=== PATIENT | female | born 1935 | race Asian ===

== ENCOUNTER 2016-08-11 14:11 | Inpatient (IN) | payer MEDICARE, OTHER ==
[~2016-08-11] VITALS: Ht 144.8 cm; Wt 41.0 kg
[~2016-08-11 14:11] MED LIST: ACET-514 PO
[2016-08-11] MEDS ORDERED: SODIUM CHLORIDE 0.9% 1L BAG IV* STA ×2 (15:12→18:48)
[2016-08-11] MEDS ORDERED: CEFEPIME 2GM/50 ML (PMX) 50 ML IVPB STA (15:12)
[2016-08-11] MEDS ORDERED: VANCOMYCIN 1 GM (PMX) 250 ML IVPB ONE (15:30)
[2016-08-11 15:45] LABS: AADO2 Arterial 26.2 mmHg (7.0-24.0); Allen Test ACCEPTAB; Arterial Base Excess 9.5 mmol/L (-3.0-3); Arterial COHb 0.3 % (0.0-3.0); Arterial Fraction of Oxyhgb 92.3 % (93.0-99.0); Arterial MetHb 0.2 % (0.0-1.5); Arterial Total Hemglobin 11.3 g/dl (12.0-18.0); MODE ROOM AIR
[2016-08-11 15:52] LABS: ADD SCAN DIFF NO
[2016-08-11 15:54] LABS: ABNORMAL IP MESSAGE 1
[2016-08-11 16:08] LABS: HEMATOCRIT 39.4 % (37.0-47.0); HEMOGLOBIN 12.5 g/dl (12.0-16.0); MEAN CORPUSCULAR HEMOGLOBIN 32.2 pg (29.0-33.0); MEAN CORPUSCULAR HGB CONC 31.7 g/dl (32.0-37.0); MEAN CORPUSCULAR VOLUME 101.5 fl (82.0-101.0); MEAN PLATELET VOLUME 13.4 fl (7.4-10.4); PLATELET COUNT 240 10^3/UL (140-415); RED BLOOD COUNT 3.88 10^6/ul (4.20-5.40); RED CELL DISTRIBUTION WIDTH 15.3 % (11.5-14.5); WHITE BLOOD COUNT 22.8 10^3/ul (4.8-10.8)
[2016-08-11 16:15] LABS: INR 1.15; PARTIAL THROMBOPLASTIN TIME 28.9 Sec (25.0-35.0); PROTIME 14.7 Sec (12.2-14.2); PT RATIO 1.1
[2016-08-11 16:28] LABS: ALBUMIN 2.6 g/dl (3.3-4.9)
[2016-08-11 16:29] LABS: POTASSIUM 3.5 mmol/L (3.5-5.1)
[2016-08-11 16:31] LABS: ALBUMIN/GLOBULIN RATIO 0.68; BILIRUBIN,INDIRECT 0.1 mg/dl (0-1.1); BILIRUBIN,TOTAL 0.1 mg/dl (0.2-1.3); CREATININE 3.28 mg/dl (0.44-1.00); TOTAL PROTEIN 6.4 g/dl (6.1-8.1)
--- NOTE | 2016-08-11 16:33 | RADRPT ---
PROCEDURE: XR Chest. CLINICAL INDICATION: 80-year-old female with possible sepsis. TECHNIQUE: PA and Lateral views of the chest were obtained. COMPARISON: Chest x-ray 12/02/2008. FINDINGS: The soft tissues are normal. The bony elements are rarefied. There is a levoscoliosis of the thora columbar junction which has worsened when compared to the prior exam. The heart, cardiomediastinal silhouette and hilar structures are normal. The pulmonary vasculature is normal. There are vascular calcifications and ectasia of the left-sided thoracic aorta. There is atelectasis in the right middl e lobe and right lower lobe with elevation of the right diaphragm which is worse when compared to th e prior exam. There are interstitial changes in the left perihilar area and left lower lobe. A sub pulmonic right pleural effusion is not excluded. The left costophrenic angle is clear. IMPRESSION: 1. Right middle lobe and right lower lobe consolidative infiltrates and atelectasis. A subpulmonic r ight pleural effusion is not excluded. 2. Atherosclerosis with ectasia of the thoracic aorta. 3. There are interstitial infiltrates in the left hilar area and left lower lobe which may be chron ic or acute. They are not identified on the prior study of 12/02/2008. 4. Rarefaction of bony elements with a levoscoliosis at the thoracolumbar junction. 5. Spondylosis of the thoracic spine. RPTAT:AAJJ Physician Lucila Date Time Electronically viewed and signed by Isrrael Hennessy Physician on 08/11/2016 16:32 ROXI/
[2016-08-11 16:41] LABS: TROPONIN-I 0.094 ng/ml (0.00-0.12)
[2016-08-11 16:52] LABS: EOSINOPHILS # 0.7 10^3/ul (0.0-0.5); MONOCYTE # 0.7 10^3/ul (0.3-0.9); MYELOCYTES # 0.2
[2016-08-11 16:55] LABS: TOXIC GRANULATION OCCASIONAL
[2016-08-11 16:56] LABS: POLYCHROMASIA FEW; SPHEROCYTES FEW
[2016-08-11 16:57] LABS: PLATELET ESTIMATE PLT APPEAR ADEQUATE; STOMATOCYTES FEW
[2016-08-11] MEDS ORDERED: ONDANSETRON 4 MG INJ IV PRN (19:00)
[2016-08-11 19:24] LABS: ADD UMIC YES; URINE BILIRUBIN (Dip) NEGATIVE (NEGATIVE); URINE BLOOD (Dip) 2+ (NEGATIVE); URINE COLOR LT. YELLOW (YELLOW); URINE GLUCOSE (Dip) NEGATIVE (NEGATIVE); URINE KETONES (Dip) NEGATIVE (NEGATIVE); URINE LEUKOCYTE ESTERASE (Dip) TRACE (NEGATIVE); URINE NITRITE (Dip) NEGATIVE (NEGATIVE); URINE TOTAL PROTEIN (Dip) 1+ (NEGATIVE); URINE UROBILINOGEN (Dip) 0.2 E.U./dL (0.1-1.0)
[2016-08-11] MEDS ORDERED: ONDANSETRON 4 MG INJ IV STA (19:35)
[2016-08-11 19:47] LABS: SQUAMOUS EPITHELIAL CELL,UR FEW
[2016-08-11 19:48] LABS: BACTERIA,URINE OCCASIONAL
[2016-08-11] MEDS ORDERED: VANCOMYCIN IV PER PHARMACY XX SCH (20:00)
--- NOTE | 2016-08-11 21:01 | ERA ---
ER Documentation Chief Complaint Date/Time DATE: 08/11/16 TIME: 20:40 Chief Complaint LEAKING CATH WITH DECUB ULCER X WK HPI This is an 80-year-old female, with advanced onset Alzheimer's, bedbound, who lives with her children who help her to attend to her activities of daily living. The patient has known sacral decubitus ulcers and was recently placed on Augmentin 4 days ago by her primary care physician, and she was evaluated in his office, Dr. Manning. Her son brought her to the emergency department today as he indicates that he has noticed more drainage from her ulcer site. She has not had any fever shaking or chills. The patient is unable to take anything by mouth and therefore has a PEG tube which was placed roughly 18 months ago, and not changed, and receives feedings through the PEG tube. Her son indicates he is also noticed a small amount of leakage around the PEG tube site over the past several days. She has had decreased urinary output. The son also indicates that the patient is a DO NOT RESUSCITATE, with no intubation, no shock, no CPR, but will allow for vasopressors and a chemical code if required. ROS All systems reviewed and are negative except as per history of present illness. Medications Home Meds Reported Medications Acetaminophen (Acetaminophen) 325 Mg Tablet, 325 MG PO DAILY 08/05/12 Allergies Allergies: Coded Allergies: No Known Allergy (Unverified , 08/11/16) PMhx/Soc History of Surgery: Yes (L THR 2007, 3 C SECTION) Anesthesia Reaction: No Hx Neurological Disorder: No Hx Respiratory Disorders: No Hx Cardiac Disorders: No Hx Psychiatric Problems: No Hx Miscellaneous Medical Probl: No (END STAGE OF ALHEIMERZ, VEGETATIVE STATE) Hx Alcohol Use: No Hx Substance Use: No Hx Tobacco Use: No Smoking Status: Former smoker Physical Exam Vitals Vital Signs Date Time Temp Pulse Resp B/P Pulse Ox O2 Delivery O2 Flow Rate FiO2 08/11/16 18:30 99.0 83 29 93/64 100 Mask 10.0 08/11/16 14:20 98.7 105 16 77/52 94 Physical Exam Constitutional: Cachectic debilitated bedbound female HEENT:Normocephalic. Atraumatic.Pupils were equal round reactive to light. Very dry mucous membranes.No tonsillar exudates. Neck: No nuchal rigidity. No lymphadenopathy. No posterior cervical spine tenderness or step-offs. Respiratory: Not using accessory muscles of respiration. Decreased breath sounds heard in the right lower lobe with no rhonchi. No rales. No wheezing. Cardiovascular: Tachycardic with regular rhythm.No murmurs. No rubs were appreciated.S1, S2 normal. Distal pulses are palpable 2+ bilaterally. GI: Abdomen was soft. Nontender. Non Distended. No pulsatile abdominal masses or bruits. No rebound. No guarding. Bowel sounds were present and normal. G- tube present with no purulent drainage and significant deterioration of the tubing with inability to deflate the balloon and surrounding sclerotic tissue over the ostomy site and no subcutaneous emphysema or tenderness appreciated. Muscle skeletal: Muscle atrophy in the lower and upper extremities. Flexion contraction of the upper and lower extremities Skin: No petechia, no purpura. No lesions on the palms or the soles of the feet. No maculopapular rash. Well-circumscribed 3 cm diameter stage IV sacral decubitus ulcer. 2 well-circumscribed 1 cm in diameter stage II ulcers with purulent drainage over the left buttocks and no surrounding subcutaneous emphysema. NEURO: Bedbound. Aphasic. Does not follow verbal commands. Opens eyes in response to pain Result Diagram: 08/11/16 1500 08/11/16 1500 Results 24 hrs Laboratory Tests Test 08/11/16 15:00 08/11/16 15:12 08/11/16 18:10 08/11/16 19:04 White Blood Count 22.810^3/ul Red Blood Count 3.8810^6/ul Hemoglobin 12.5g/dl Hematocrit 39.4% Mean Corpuscular Volume 101.5fl Mean Corpuscular Hemoglobin 32.2pg Mean Corpuscular Hemoglobin Concent 31.7g/dl Red Cell Distribution Width 15.3% Platelet Count 70587^3/UL Mean Platelet Volume 13.4fl Neutrophils % 80.0% Band Neutrophils % 1.0% Lymphocytes % 13.0% Monocytes % 3.0% Eosinophils % 3.0% Myelocytes % 0.0% Nucleated Red Blood Cells % 2.0/100WBC Neutrophils # 18.010^3/ul Lymphocytes # 3.010^3/ul Monocytes # 0.710^3/ul Eosinophils # 0.710^3/ul Myelocytes # 0.2 Differential Comment Toxic Granulation OCCASIONAL Platelet Estimate PLT APPEAR ADEQUATE Large Platelets FEW Giant Platelets FEW Polychromasia FEW Spherocytes FEW Stomatocytes FEW Rouleau FEW Prothrombin Time 14.7Sec Prothrombin Time Ratio 1.1 INR International Normalized Ratio 1.15 Activated Partial Thromboplast Time 28.9Sec Sodium Level 164mmol/L Potassium Level 3.5mmol/L Chloride Level 116mmol/L Carbon Dioxide Level 32mmol/L Anion Gap 20 Blood Urea Nitrogen 211mg/dl Creatinine 3.28mg/dl Glucose Level 204mg/dl Lactic Acid Level 4.3mmol/L 1.7mmol/L Calcium Level 7.0mg/dl Total Bilirubin 0.1mg/dl Direct Bilirubin 0.00mg/dl Indirect Bilirubin 0.1mg/dl Aspartate Amino Transf (AST/SGOT) 25IU/L Alanine Aminotransferase (ALT/SGPT) 25IU/L Alkaline Phosphatase 60IU/L Troponin I 0.094ng/ml Total Protein 6.4g/dl Albumin 2.6g/dl Globulin 3.80g/dl Albumin/Globulin Ratio 0.68 Amylase Level 80U/L Lipase 144U/L Blood Gas Specimen Source Blood arterial Arterial Blood Date Drawn 08/11/2016 3:39:53 PM Arterial Blood pH (Temp corrected) 7.490 Arterial Blood pCO2 (Temp correct) 45.6mmhg Arterial Blood pO2 (Temp corrected) 68.9mmHG Arterial Blood HCO3 34.0mmol/L Arterial Blood Base Excess 9.5mmol/L Arterial Blood Oxygen Saturation 92.8mmHG [place] Test ACCEPTAB Arterial Blood Gas Puncture Site Right Radial Arterial Blood Carboxyhemoglobin 0.3% Arterial Blood Methemoglobin 0.2% Blood Gas A-a O2 Differential 26.2mmHg Oxyhemoglobin Percent 92.3% Total Hemoglobin 11.3g/dl Blood Gas Temperature 37.0C Blood Gas Modality ROOM AIR FiO2 21.0% Blood Gas Notified Whom M.D. Blood Gas Notified Time 08/11/2016 3:45:22 PM Urine Color LT. YELLOW Urine Clarity CLEAR Urine pH 7.0 Urine Specific [place] 1.010 Urine Ketones NEGATIVE Urine Nitrite NEGATIVE Urine Bilirubin NEGATIVE Urine Urobilinogen 0.2 E.U./dL Urine Leukocyte Esterase TRACE Urine Microscopic RBC 2-5/HPF Urine Microscopic WBC 0-2/HPF Urine Squamous Epithelial Cells FEW Urine Bacteria OCCASIONAL Urine Hemoglobin 2+ Urine Glucose NEGATIVE% Urine Total Protein 1+ Current Medications Medications (Trade) Dose Ordered Sig/Jocelin Route PRN Reason Start Time Stop Time Status Last Admin Dose Admin Sodium Chloride 1160 ml 1,160 ml BOLUS OVER 2 HOURS STAT IV* 08/11/16 15:12 08/11/16 15:16 DC 08/11/16 15:36 Cefepime HCl 50 ml @ 100 mls/hr ONCE STAT IVPB 08/11/16 15:12 08/11/16 15:41 DC 08/11/16 15:36 Vancomycin HCl (Vancocin) 250 ml @ 125 mls/hr ONCE ONCE IVPB 08/11/16 15:30 08/11/16 17:29 DC 08/11/16 15:37 Sodium Chloride (NS) 1,160 ml BOLUS OVER 2 HOURS STAT IV* 08/11/16 18:48 08/11/16 19:06 DC 08/11/16 19:13 Ondansetron HCl (Zofran Inj) 4 mg ER BRIDGE PRN IV NAUSEA AND/OR VOMITING 08/11/16 19:00 08/12/16 18:59 Vancomycin HCl VANCOMYCIN PER PHARMACY PER PROTOCOL XX 08/11/16 20:00 Cefepime HCl 50 ml @ 100 mls/hr Q24H IVPB 08/12/16 15:00 Sodium Chloride (NS) 1,000 ml @ 100 mls/hr Q10H IV 08/11/16 20:00 Acetaminophen (Tylenol Tab) 325 mg Q4H PRN GTB PAIN AND FEVER 08/11/16 20:00 Morphine Sulfate (morphine) 1 mg Q4H PRN IV PAIN LEVEL 6-10 08/11/16 20:00 Ondansetron HCl (Zofran Inj) 4 mg ONCE STAT IV 08/11/16 19:35 08/11/16 19:45 DC Procedures/MDM This patient presented to the emergency department with concern for infected sacral decubitus ulcers. The patient had SIRS criteria and septic shock given that the patient's lactate was greater than 4 and the source appeared to be from the patient's decubitus ulcers. Patient's infectious symptoms have not stabilized and the patient is at risk of rapid decompensation. The patient will be admitted for careful hydration, antibiotic therapy, and infectious source control. Severe Sepsis Assessment: Infectious Source: Sacral decubitus ulcers End organ damage indicated by: Lactate > 2.0 mmol/L Hypotension( SBP < 90 or >40 mmHG drop or MAP < 65) Acute Resp Failure (sat < 92% w/o oxygen) Senior Graduate Advisor > 2.0 Severe Sepsis Managment: Blood Cultures X 2 before broad spectrum antibiotics initiated within 3 hours of recognition. 30 ml/kg NS bolus Completed Initial Lactate: 4.3 Repeat Lactate 1.4 Septic Shock Assessment (1 hour post 30 ml/kg fluid bolus): Hypotension (SBP < 90 or 40 mmHg drop, MAP < 65): YES Lactic acid > 4.0 YES Perfusion Reassessment for Septic Shock: Temp 99.0, Pulse 83, RR 29, BP 93/64 Heart Exam: Normal Lung Exam: No Crackles Capillary Refill: Delayed Peripheral Pulses: Radially present Skin: normal Hypotensive Treatment (not required for isolated lactic acid elevation): Comfort Care: No Central LIne: Not placed as the patient is a DO NOT RESUSCITATE and therefore her son was indicating no invasive procedures Vasopressor started: Not started given that the patient's blood pressure had improved after given IV fluid bolus I considered further perfusion assessment with CVP measurement, SCVO2, bedside ultrasound volume assessment, passive leg raise, trial of further fluid bolus. And preceded with IV fluids. The patient had significant electrolyte abnormalities. The patient was in severe renal failure with a BUN of 211 and a creatinine of 3.18. The patient's serum sodium was 164. This could be prerenal from severe clinical dehydration and the patient will be receiving IV fluids to improve her electrolyte abnormalities. I informed the son of the patient's grave prognosis and her new onset renal failure and he did indicate given that the patient is a DO NOT RESUSCITATE that he would not want the patient to undergo hemodialysis at this time if required. The patient has a PEG tube that has been present for over 18 months. I attempted to remove the PEG tube but came across significant resistance and therefore was unable to replace the G-tube at this time. Also obtained a chest radiograph which indicated the following reviewed by myself the radiologist: 1. Right middle lobe and right lower lobe consolidative infiltrates and atelectasis. A subpulmonic right pleural effusion is not excluded. 2. Atherosclerosis with ectasia of the thoracic aorta. 3. There are interstitial infiltrates in the left hilar area and left lower lobe which may be chronic or acute. They are not identified on the prior study of 12/02/2008. 4. Rarefaction of bony elements with a levoscoliosis at the thoracolumbar junction. 5. Spondylosis of the thoracic spine. The patient was hypoxic and placed on a nonrebreather as the patient is a DO NOT RESUSCITATE with chemical code only. She did receive a nebulizer treatment of albuterol and Atrovent as she had began to have increased work of breathing and afterwards her respiratory distress had improved I spoke with Dr. Gillette who is taking call for Dr. Manning and the patient will be admitted to the telemetry service with an anticipated stay of greater than 2 midnights in serious condition for septic shock with pneumonia and infected ulcers. 12 Lead EKG tracing ordered and reviewed by myself showed: Normal sinus rhythm of 91 bpm and no arrhythmia. NV interval normal. QRS duration normal. No ST segment elevation No ST segment depression. T-wave inversion in the lateral leads V4 V5 V6 Critical Care: Time: 60 minutes Treatments/Evaluations: Close monitoring and treatment of unstable vital signs, cardiorespiratory, and neurologic status, while maintaining tight balance of fluid, respiratory, and cardiac interventions. Time does not include performing any of the above billable procedures. Departure Diagnosis: Primary Impression: Pneumonia Qualified Code: J18.1 - Pneumonia of right lower lobe due to infectious organism Additional Impressions: Septic shock Infected decubitus ulcer Qualified Code: L89.93 - Infected decubitus ulcer, stage III Renal failure Acute hypernatremia Condition: Serious NGHIADONTAE August 11, 2016 20:51
[2016-08-11] MEDS ORDERED: ALBUTEROL 0.5% (NEB) 2.5 MG/0.5 ML AMP INH STA (21:18)
[2016-08-11] MEDS ORDERED: IPRATROPIUM (NEB) 0.5 MG/2.5 ML AMP INH STA (21:18)
[2016-08-11] MEDS: SOD CHLORIDE 0.9% 1,000 ML IV SCH (23:30)
[2016-08-12 05:30] VITALS: TEMP 99
[2016-08-12 05:52] LABS: ADD SCAN DIFF NO
[2016-08-12] MEDS: SOD CHLORIDE 0.9% 1,000 ML IV SCH (05:54)
[2016-08-12 06:05] LABS: ABNORMAL IP MESSAGE 1; HEMATOCRIT 35.9 % (37.0-47.0); HEMOGLOBIN 10.3 g/dl (12.0-16.0); MEAN CORPUSCULAR HEMOGLOBIN 31.2 pg (29.0-33.0); MEAN CORPUSCULAR HGB CONC 28.7 g/dl (32.0-37.0); MEAN CORPUSCULAR VOLUME 108.8 fl (82.0-101.0); MEAN PLATELET VOLUME 12.5 fl (7.4-10.4); PLATELET COUNT 156 10^3/UL (140-415); RED CELL DISTRIBUTION WIDTH 14.8 % (11.5-14.5); WHITE BLOOD COUNT 19.1 10^3/ul (4.8-10.8)
[2016-08-12 06:13] LABS: POTASSIUM 3.5 mmol/L (3.5-5.1)
[2016-08-12 06:15] LABS: CREATININE 2.26 mg/dl (0.44-1.00)
[2016-08-12 06:16] LABS: CALCIUM 6.7 mg/dl (8.4-10.2)
--- NOTE | 2016-08-12 06:34 | HP ---
DATE OF ADMISSION: 08/11/2016 ADMISSION DIAGNOSIS: Decubiti ulcers cellulitis, dehydration, diarrhea. HISTORY OF PRESENT ILLNESS: This is an 80-year-old Alzheimer's patient who has severe Alzheimer's, does not talk, does not move, stays in one place. The family for the past 5 years have been excelle nt with their care for her. At this time, the family reports that she has gotten 2 ulcers that keep getting worse and started to produce fluid and pus. They report no fevers or chills. She has been having more loose bowel movements in the past 1 week. They also report that the G-tube is function ing, but it has to be with pressure for the fluids to flow, otherwise it backs up. The patient is u sing 4 to 6 cans of some type of protein drink per day. PAST MEDICAL HISTORY: Alzheimer's, decubiti ulcers, left hip fracture status post surgery, dysphag ia, G-tube was placed. MEDICATIONS: Has been aspirin intermittently. SOCIAL HISTORY: Denies alcohol and tobacco. FAMILY HISTORY: Denies. PHYSICAL EXAMINATION: GENERAL: The patient has been brought in by paramedics. The patient does not speak, curled up in a ball, arms and legs are contracted. HEENT: Eyes have goop bilaterally, yellowish. CARDIOVASCULAR: Regular rate and rhythm. LUNGS: Clear to auscultation bilaterally. ABDOMEN: Nontender, nondistended. EXTREMITIES: Lower extremities, no pitting edema. SKIN: On the buttocks region, there are 2 ulcerations, left side is a dime-sized lesion through the skin. Right side over the sacrum about the size of a half dollar deeper down to the muscle. At t he smaller site, brownish liquid is being discharged. No surrounding erythema is noted. ASSESSMENT AND PLAN: 1. Decubiti ulcers. The patient is unable to treat herself and unable to communicate. We will sta rt p.o. antibiotics while waiting for a bed. Called a little earlier and no beds are currently avai lable. We will start her on Augmentin suspension b.i.d. Goal is, once in the hospital to get a cu lture, have ID see her. Have the special effects specialist address the wound and treat. 2. Gastrointestinal. The patient has been having loose stool, unclear etiology. We will evaluate when the patient is in the hospital. The patient does have a G-tube in place. We will have the gas troenterologist to come by to evaluate for the difficulty in fluid flow. The patient used to be on Jevity in the past, 4 to 6 cans of it. We will continue something like this while in the hospital. We will also wait for the blood test reports to determine how dehydrate she possibly could be. Filippo l not run IV fluids at this time unless the creatinine comes back elevated. 3. Alzheimer's. The patient is severely Alzheimer's, on no medications. No treatment at this time . The patient does not ambulate. 4. Pulmonary. Family reported that they thought she was congested, but on exam unable to determine any type of congestion noted. We will get a chest x-ray at some stage if that is even possible. T he patient will be on antibiotics anyways for the decubiti ulcers, so that should help out. Dictated By: QIANA OLMEDO/FIDELIA Conf#: [id number] DID#: [id number]
[2016-08-12 06:55] LABS: LYMPHOCYTES # 0.8 10^3/ul (0.8-2.9); MONOCYTE # 0.4 10^3/ul (0.3-0.9); MYELOCYTES # 0.2; NEUTROPHIL # 16.2 10^3/ul (1.6-7.5)
[2016-08-12] MEDS ORDERED: DEXTROSE 5% WATER 500 ML BAG IV ONE (08:30)
[2016-08-12] MEDS ORDERED: DEXTROSE 5%-0.45% NACL 1,000 ML IV SCH (09:41)
[2016-08-12] MEDS ORDERED: ONDANSETRON 4 MG INJ IV PRN (10:00)
[2016-08-12] MEDS ORDERED: NACL 0.9% 3 ML SYG IV SCH (10:00)
[2016-08-12] MEDS ORDERED: ACETAMINOPHEN 650 MG SUPP PR PRN (10:00)
--- NOTE | 2016-08-12 11:01 | CONS ---
Date/Time of Note Date/Time of Note DATE: 08/12/16 TIME: 10:52 Assessment/Plan Assessment/Plan Chief Complaint/Hosp Course 1) ARF u/a does not suggest infection, likely due to dehydration 2) pneumonia check procalcitonin get nasal swab for MRSA continue with vanco, change cefepime to zosyn likely aspiration 3) sacral wound ulcer, likely osteo check ESR, CRP and if very high then would treat as if osteomyelitis if not very high will order bone scan for ultimate healing if this is indeed osteo she will likely need plastic surgery involvement her low albumin suggest she would have poor tissue healing will get wound cx of deeper wound 4) severe dementia Problems: Consultation Date/Type/Reason Admit Date/Time Date of Consultation: August 12, 2016 Type of Consultation: ID Hx of Present Illness 80 yo female brought in to ER due to SOB. She has known decubitus ulcer and was await hospitalization for that but no beds were available. The son denies F, C, NS. She has some recent chest congestion and her g-tube started to have stomach contents come out from the site She has some soft stools recently. She is severely demented and unable to give a history. Past Medical History dementia, L hip fx, Past Surgical History g-tube placement, L hip fx repair Social History Smoking Status: Former smoker Exam/Review of Systems Vital Signs Vitals Vital Signs Date Time Temp Pulse Resp B/P Pulse Ox O2 Delivery O2 Flow Rate FiO2 08/12/16 10:02 67 20 123/65 97 Mask 5.0 08/12/16 05:30 99.0 Exam opens eyes but no response to speech and does not track with eyes Constitutional: non-verbal Head: normocephalic Eyes: nl sclera ENMT: other (dry mucus membranes) Respiratory: clear to auscultation, diminished breath sounds Cardiovascular: regular rate and rhythm Gastrointestinal: non-tender, other (g-tube site is ok), soft Extremities: other (sacral area shows 2cm size ulcer with only thin tissue covering bone, left lateral are 2 other uclers but not as deep) Neurological: other (pt is in contractures) Results Result Diagram: 08/12/16 0535 08/12/16 0535 Results 24 hrs Laboratory Tests Test 08/11/16 15:00 08/11/16 15:12 08/11/16 18:10 08/11/16 19:04 White Blood Count 22.8 H Red Blood Count 3.88 L Hemoglobin 12.5 Hematocrit 39.4 Mean Corpuscular Volume 101.5 H Mean Corpuscular Hemoglobin 32.2 Mean Corpuscular Hemoglobin Concent 31.7 L Red Cell Distribution Width 15.3 H Platelet Count 240 Mean Platelet Volume 13.4 H Neutrophils % 80.0 H Band Neutrophils % 1.0 Lymphocytes % 13.0 L Monocytes % 3.0 Eosinophils % 3.0 Myelocytes % 0.0 Nucleated Red Blood Cells % 2.0 H Neutrophils # 18.0 H Lymphocytes # 3.0 H Monocytes # 0.7 Eosinophils # 0.7 H Myelocytes # 0.2 Differential Comment Toxic Granulation OCCASIONAL Platelet Estimate PLT APPEAR ADEQUATE Large Platelets FEW Giant Platelets FEW Polychromasia FEW Spherocytes FEW Stomatocytes FEW Rouleau FEW Prothrombin Time 14.7 H Prothrombin Time Ratio 1.1 INR International Normalized Ratio 1.15 Activated Partial Thromboplast Time 28.9 Sodium Level 164 *H Potassium Level 3.5 Chloride Level 116 H Carbon Dioxide Level 32 H Anion Gap 20 H Blood Urea Nitrogen 211 H Creatinine 3.28 H Glucose Level 204 Lactic Acid Level 4.3 *H 1.7 Calcium Level 7.0 L Total Bilirubin 0.1 L Direct Bilirubin 0.00 Indirect Bilirubin 0.1 Aspartate Amino Transf (AST/SGOT) 25 Alanine Aminotransferase (ALT/SGPT) 25 Alkaline Phosphatase 60 Troponin I 0.094 Total Protein 6.4 Albumin 2.6 L Globulin 3.80 H Albumin/Globulin Ratio 0.68 Amylase Level 80 Lipase 144 Blood Gas Specimen Source Blood arterial Arterial Blood Date Drawn 08/11/2016 3:39:53 PM Arterial Blood pH (Temp corrected) 7.490 H Arterial Blood pCO2 (Temp correct) 45.6 H Arterial Blood pO2 (Temp corrected) 68.9 L Arterial Blood HCO3 34.0 H Arterial Blood Base Excess 9.5 H Arterial Blood Oxygen Saturation 92.8 L [place] Test ACCEPTAB Arterial Blood Gas Puncture Site Right Radial Arterial Blood Carboxyhemoglobin 0.3 Arterial Blood Methemoglobin 0.2 Blood Gas A-a O2 Differential 26.2 H Oxyhemoglobin Percent 92.3 L Total Hemoglobin 11.3 L Blood Gas Temperature 37.0 Blood Gas Modality ROOM AIR FiO2 21.0 Blood Gas Notified Whom [place] Blood Gas Notified Time 08/11/2016 3:45:22 PM Urine Color LT. YELLOW Urine Clarity CLEAR Urine pH 7.0 Urine Specific [place] 1.010 Urine Ketones NEGATIVE Urine Nitrite NEGATIVE Urine Bilirubin NEGATIVE Urine Urobilinogen 0.2 E.U./dL Urine Leukocyte Esterase TRACE H Urine Microscopic RBC 2-5 Urine Microscopic WBC 0-2 Urine Squamous Epithelial Cells FEW Urine Bacteria OCCASIONAL Urine Hemoglobin 2+ H Urine Glucose NEGATIVE Urine Total Protein 1+ H Test 08/11/16 19:45 08/12/16 05:35 Lactic Acid Level 1.9 3.7 H White Blood Count 19.1 H Red Blood Count 3.30 L Hemoglobin 10.3 L Hematocrit 35.9 L Mean Corpuscular Volume 108.8 H Mean Corpuscular Hemoglobin 31.2 Mean Corpuscular Hemoglobin Concent 28.7 L Red Cell Distribution Width 14.8 H Platelet Count 156 # Mean Platelet Volume 12.5 H Neutrophils % 85.0 H Band Neutrophils % 7.0 H Lymphocytes % 4.0 L Monocytes % 2.0 Eosinophils % Metamyelocytes % 1.0 H Myelocytes % 1.0 H Neutrophils # 16.2 H Lymphocytes # 0.8 Monocytes # 0.4 Eosinophils # Metamyelocytes # 0.2 Myelocytes # 0.2 Sodium Level 172 *H Potassium Level 3.5 Chloride Level 128 H Carbon Dioxide Level 31 Anion Gap 17 H Blood Urea Nitrogen 163 H Creatinine 2.26 #H Glucose Level 214 Calcium Level 6.7 L B-Type Natriuretic Peptide 1030 H Medications Medications Current Medications Acetaminophen (Tylenol Tab) 325 mg Q4H PRN GTB PAIN AND FEVER; Start 08/11/16 at 20:00 Morphine Sulfate 1 mg 1 mg Q4H PRN IV PAIN LEVEL 6-10; Start 08/11/16 at 20:00 Dextrose 1,000 ml @ 100 mls/hr Q10H IV ; Start 08/12/16 at 08:30 Piperacillin Sod/ Tazobactam Sod (Zosyn 2.25gm/ 50ml (Pmx)) 50 ml @ 100 mls/hr Q8 ONCE IVPB ; Start 08/12/16 at 14:00; Stop 08/12/16 at 14:29; Status UNV ERNIE MILLER MD August 12, 2016 11:01
[2016-08-12] MEDS: DEXTROSE 5% 1,000 ML IV SCH ×2 (11:30→16:43)
[2016-08-12 12:38] VITALS: PULSE 72
[2016-08-12] MEDS ORDERED: LEVALBUTEROL (NEB) 0.63 MG/3 ML AMP HHN SCH (13:00)
[2016-08-12 13:07] VITALS: Ht 144.8 cm; Wt 41.0 kg
[2016-08-12] MEDS ORDERED: CEFEPIME 1GM/50 ML (PMX) 50 ML IVPB SCH (15:00)
[2016-08-12 15:27] LABS: CALCIUM 6.2 mg/dl (8.4-10.2); CREATININE 1.71 mg/dl (0.44-1.00)
[2016-08-12 15:37] LABS: POTASSIUM 2.8 mmol/L (3.5-5.1)
[2016-08-12 16:19] VITALS: BP 85/47; RESP 18
[2016-08-12 16:21] VITALS: PULSE 73
[2016-08-12] MEDS ORDERED: POTASSIUM CHLORIDE 20 MEQ POWDER FOR ORAL SOLN GTB ONE (16:30)
[2016-08-12] MEDS: PIPER-TAZO 2.25 GM (PMX) 50 ML IVPB SCH ×2 (16:34→21:39)
[2016-08-12 20:22] VITALS: PULSE 68
[2016-08-12 20:34] VITALS: BP 82/49; RESP 19
[2016-08-12] MEDS: morphine 2 MG INJ IV PRN (21:38)
[2016-08-12] MEDS: NACL IV SCH (21:38)
[2016-08-12] MEDS: DEXTROSE IV SCH (21:38)
[2016-08-12] MEDS: POTASSIUM CHLORIDE IV SCH (21:38)
--- NOTE | 2016-08-12 21:48 | CONS ---
Date/Time of Note Date/Time of Note DATE: 08/12/16 TIME: 21:39 Assessment/Plan Assessment/Plan Chief Complaint/Hosp Course 1)severe dehydration poor po's, renal loss due to high glucose, PLAN: cont slow rehydration may need to change G tube for newer one, prob may be better to give more free water (d5w 20 %ns) Problems: Consultation Date/Type/Reason Admit Date/Time Date of Consultation: August 12, 2016 Type of Consultation: ge Reason for Consultation sepsis Hx of Present Illness 80 yo arabic female with dementia,g tube feeding and decubiti pt has increased wbc with left shift and severe dehydration na 172 and glucose>400 Subjective hx not possible: pt non-verbal Constitutional: chills, disoriented, poor po ENT: no complaints Gastrointestinal: diarrhea Neurologic: confusion Social History Smoking Status: Never smoker Exam/Review of Systems Vital Signs Vitals Vital Signs Date Time Temp Pulse Resp B/P Pulse Ox O2 Delivery O2 Flow Rate FiO2 08/12/16 20:34 97.6 79 19 82/49 96 08/12/16 12:30 Simple Mask 6.0 Results Result Diagram: 08/12/16 0535 08/12/16 1449 Results 24 hrs Laboratory Tests Test 08/12/16 05:35 08/12/16 14:49 08/12/16 20:01 White Blood Count 19.1 H Red Blood Count 3.30 L Hemoglobin 10.3 L Hematocrit 35.9 L Mean Corpuscular Volume 108.8 H Mean Corpuscular Hemoglobin 31.2 Mean Corpuscular Hemoglobin Concent 28.7 L Red Cell Distribution Width 14.8 H Platelet Count 156 # Mean Platelet Volume 12.5 H Neutrophils % 85.0 H Band Neutrophils % 7.0 H Lymphocytes % 4.0 L Monocytes % 2.0 Eosinophils % Metamyelocytes % 1.0 H Myelocytes % 1.0 H Neutrophils # 16.2 H Lymphocytes # 0.8 Monocytes # 0.4 Eosinophils # Metamyelocytes # 0.2 Myelocytes # 0.2 Sodium Level 172 *H 155 #H Potassium Level 3.5 2.8 *L Chloride Level 128 H 121 H Carbon Dioxide Level 31 29 Anion Gap 17 H 8 # Blood Urea Nitrogen 163 H 122 #H Creatinine 2.26 #H 1.71 H Glucose Level 214 473 #*H Hemoglobin A1c 6.5 H Lactic Acid Level 3.7 H Calcium Level 6.7 L 6.2 L B-Type Natriuretic Peptide 1030 H Bedside Glucose 174 Medications Medications Current Medications Acetaminophen (Tylenol Tab) 325 mg Q4H PRN GTB PAIN AND FEVER; Start 08/11/16 at 20:00 Morphine Sulfate 1 mg 1 mg Q4H PRN IV PAIN LEVEL 6-10; Start 08/11/16 at 20:00 Piperacillin Sod/ Tazobactam Sod (Zosyn 2.25gm/ 50ml (Pmx)) 50 ml @ 100 mls/hr Q8 IVPB Last administered on 08/12/16t 16:34; Admin Dose 100 MLS/HR; Start at 14:00 Ondansetron HCl (Zofran Inj) 4 mg Q6H PRN IV NAUSEA AND/OR VOMITING; Start 08/12 at 10:00 Acetaminophen 650 mg 650 mg Q6H PRN [place] PAIN LEVEL 1-3 OR FEVER; Start 08/12/16 at 10:00 Vancomycin HCl 750 mg/Sodium Chloride 150 ml @ 75 mls/hr Q72H IVPB ; Start 08/14 at 16:00 Potassium Chloride/Dextrose/ Sodium Chloride (KCl/D5-1/2ns) 1,000 ml @ 125 mls/ hr Q8H IV ; Start 08/12/16 at 20:30 SELINA ADAMS MD August 12, 2016 21:48
--- NOTE | 2016-08-12 22:09 | CONS ---
DATE OF ADMISSION: 08/11/2016 DATE OF CONSULTATION: TYPE OF CONSULTATION: Renal. REASON FOR CONSULTATION: Renal failure. Thank you, Dr. Gillette, for asking me to participate in medical management of this patient. HISTORY OF PRESENT ILLNESS: This 80-year-old female is being seen today because of renal failure. The patient was admitted through the emergency room after she was brought in by her son because of m ore drainage from a sacral decubitus ulcer. The patient is demented and unable to give any history. I was able to take most of the history from the chart and from discussion with Dr. Gillette. The camila venegas has been at home, taken care of by her children. She has advanced Alzheimer disease and is bed bound. The patient has a known large sacral decubitus ulcer and was at home and was started on Novin 4 days ago by her primary care physician. She was to be admitted to the hospital; however, t hey were unable to obtain any bed. The patient is unable to take anything by mouth and has a PEG tu be, which was placed about 18 months ago. She receives feedings through the PEG tube. The son dorian cated that there was a small amount and leakage around the PEG tube over the past several days. She has had decreased urine output. Her laboratory tests on admission showed a BUN of 211 and a serum creatinine of 3.28 with a serum sodium of 164. Her latest labs done this afternoon showed a sodium of 155 and BUN of 122, creatinine 1.71. PAST MEDICAL HISTORY: Remarkable for Alzheimer disease, decubitus ulcers, left hip fracture status post surgery, dysphagia, PEG tube placed for feeding. MEDICATIONS: Previous medications included aspirin intermittently. SOCIAL HISTORY: The patient lives with her family and is cared for by her family. PHYSICAL EXAMINATION: GENERAL: At this time, reveals a cachectic, debilitated female who has contractures of the arms and legs. The patient is unresponsive. HEENT: Head normocephalic. Mucous membranes are dry. LUNGS: Anterior auscultation: decreased breath sounds, but no rales, rhonchi, or wheezes. HEART: Regular rhythm. No murmurs, gallops, or rubs. ABDOMEN: Soft. Bowel sounds were present. There is a G-tube in place with no purulent drainage, b ut significant deterioration of the tubing. There is some surrounding sclerotic tissue over the ost radha. EXTREMITIES: Her muscles are atrophied and there are flexion contractures of the upper and lower ex tremities. SKIN: She has a sacral decubitus ulcer stage IV, and 2 stage II ulcers with some purulent drainage over the left buttocks. NEUROLOGIC: The patient is unresponsive. LABORATORY DATA: White blood count 19,100; hemoglobin 10.3, hematocrit 35.9. Chemistry panel: Sod ium 155, potassium 2.8, chloride 121, BUN 122, creatinine 1.71, glucose of 473, calcium of 6.2. [place] level 4.3 down to 1.7. IMPRESSION: Acute renal failure due to severe dehydration and septic shock. The patient does not h ave a prior history of kidney disease according to the chart. She has a very high BUN and creatinin e ratio consistent with dehydration. Her sodium was also quite high on admission, also consistent w ith dehydration. The patient has been getting IV fluid appropriately. She has responded with a dec rease in her serum sodium, BUN, and creatinine. Her potassium has dropped and she has received some supplemental potassium. PLAN: 1. I will adjust IV fluids and add potassium chloride. 2. Renal ultrasound in the a.m. 3. Try to monitor urine output, at this may be difficult. 4. Continue current antibiotics. 5. I will continue to follow the patient along with you. Dictated By: JESSICA DUDLEY MD, ND/FIDELIA Conf#: [id number] DID#: [id number] CC: FLORA GILLETTE MD;*End*
[2016-08-13] VITALS (12 sets, daily range): BP systolic 85–119; BP diastolic 50–79; PULSE 40–97; RESP 16–20
[2016-08-13] MEDS: NACL IV SCH ×2 (04:30→12:40)
[2016-08-13] MEDS: DEXTROSE IV SCH ×2 (04:30→12:40)
[2016-08-13] MEDS: POTASSIUM CHLORIDE IV SCH ×2 (04:30→12:40)
[2016-08-13] MEDS: PIPER-TAZO 2.25 GM (PMX) 50 ML IVPB SCH ×3 (06:00→22:41)
[2016-08-13 08:11] LABS: ADD SCAN DIFF NO
[2016-08-13 08:21] LABS: HEMOGLOBIN 9.4 g/dl (12.0-16.0); MEAN CORPUSCULAR HEMOGLOBIN 31.6 pg (29.0-33.0); MEAN CORPUSCULAR HGB CONC 29.4 g/dl (32.0-37.0); MEAN CORPUSCULAR VOLUME 107.7 fl (82.0-101.0); MEAN PLATELET VOLUME 12.5 fl (7.4-10.4); PLATELET COUNT 145 10^3/UL (140-415); RED BLOOD COUNT 2.97 10^6/ul (4.20-5.40); RED CELL DISTRIBUTION WIDTH 14.6 % (11.5-14.5); WHITE BLOOD COUNT 16.4 10^3/ul (4.8-10.8)
[2016-08-13 08:23] LABS: ALBUMIN 2.4 g/dl (3.3-4.9)
[2016-08-13 08:24] LABS: POTASSIUM 4.4 mmol/L (3.5-5.1)
[2016-08-13 08:26] LABS: ALBUMIN/GLOBULIN RATIO 0.61; BILIRUBIN,INDIRECT 0.3 mg/dl (0-1.1); BILIRUBIN,TOTAL 0.3 mg/dl (0.2-1.3); CREATININE 1.58 mg/dl (0.44-1.00); TOTAL PROTEIN 6.3 g/dl (6.1-8.1)
[2016-08-13 08:27] LABS: CALCIUM 6.5 mg/dl (8.4-10.2)
[2016-08-13] MEDS: LEVALBUTEROL (NEB) 0.63 MG/3 ML AMP HHN SCH ×3 (09:04→17:00)
[2016-08-13] MEDS ORDERED: PENDING SANTYL ORDER FOR WOUND CARE XX PRN (09:30)
[2016-08-13 09:44] LABS: MAGNESIUM 3.1 mg/dl (1.7-2.5); PHOSPHORUS 3.8 mg/dl (2.5-4.9)
--- NOTE | 2016-08-13 09:46 | CONS ---
Date/Time of Note Date/Time of Note DATE: 08/13/16 TIME: 09:42 Assessment/Plan Assessment/Plan Chief Complaint/Hosp Course 1) ARF u/a does not suggest infection, likely due to dehydration 08/13 - improving with hydration 2) pneumonia check procalcitonin get nasal swab for MRSA continue with vanco, change cefepime to zosyn likely aspiration 08/13 - wbc is improving, continue with vanco/zosyn 3) sacral wound ulcer, likely osteo check ESR, CRP and if very high then would treat as if osteomyelitis if not very high will order bone scan for ultimate healing if this is indeed osteo she will likely need plastic surgery involvement her low albumin suggest she would have poor tissue healing will get wound cx of deeper wound 08/13 - ESR is very high, c/w osteomyelitis wound cx has gnr's and GPC continue with vanco/zosyn at present 4) severe dementia Problems: Consultation Date/Type/Reason Admit Date/Time August 11, 2016 at 19:00 Initial Consult Date 08/12/16 Type of Consultation: ID [id number] HR Interval Summary Subjective hx not possible: pt non-verbal Exam/Review of Systems Vital Signs Vitals Vital Signs Date Time Temp Pulse Resp B/P Pulse Ox O2 Delivery O2 Flow Rate FiO2 08/13/16 09:06 90 21 95 Simple Mask 6.0 08/13/16 07:41 98.2 119/58 Intake and Output 08/12/16 08/12/16 08/13/16 15:00 23:00 07:00 Intake Total 200 ml Output Total 1500 ml 500 ml Balance -1300 ml -500 ml Exam Constitutional: non-verbal Eyes: nl sclera Respiratory: other (bilateral rhonchi) Cardiovascular: regular rate and rhythm Gastrointestinal: non-tender, soft Results Result Diagram: 08/13/16 0656 08/13/16 0656 Results 24 hrs Laboratory Tests Test 08/12/16 14:49 08/12/16 20:01 08/13/16 06:56 Sodium Level 155 #H 168 *H Potassium Level 2.8 *L 4.4 Chloride Level 121 H 130 H Carbon Dioxide Level 29 30 Anion Gap 8 # 12 Blood Urea Nitrogen 122 #H 96 H Creatinine 1.71 H 1.58 H Glucose Level 473 #*H 193 # Calcium Level 6.2 L 6.5 L Bedside Glucose 174 White Blood Count 16.4 H Red Blood Count 2.97 L Hemoglobin 9.4 L Hematocrit 32.0 L Mean Corpuscular Volume 107.7 H Mean Corpuscular Hemoglobin 31.6 Mean Corpuscular Hemoglobin Concent 29.4 L Red Cell Distribution Width 14.6 H Platelet Count 145 Mean Platelet Volume 12.5 H Neutrophils % Eosinophils % Neutrophils # Eosinophils # Total Bilirubin 0.3 Direct Bilirubin 0.00 Indirect Bilirubin 0.3 Aspartate Amino Transf (AST/SGOT) 59 H Alanine Aminotransferase (ALT/SGPT) 30 Alkaline Phosphatase 77 C-Reactive Protein 7.5 H B-Type Natriuretic Peptide 3110 H Total Protein 6.3 Albumin 2.4 L Globulin 3.90 H Albumin/Globulin Ratio 0.61 Medications Medications Current Medications Acetaminophen (Tylenol Tab) 325 mg Q4H PRN GTB PAIN AND FEVER; Start 08/11/16 at 20:00 Morphine Sulfate 1 mg 1 mg Q4H PRN IV PAIN LEVEL 6-10 Last administered on 21:38; Admin Dose 1 MG; Start 08/11/16 at 20:00 Piperacillin Sod/ Tazobactam Sod (Zosyn 2.25gm/ 50ml (Pmx)) 50 ml @ 100 mls/hr Q8 IVPB Last administered on 08/13/16 06:00; Admin Dose 100 MLS/HR; Start at 14:00 Ondansetron HCl (Zofran Inj) 4 mg Q6H PRN IV NAUSEA AND/OR VOMITING; Start 08/12 at 10:00 Acetaminophen 650 mg 650 mg Q6H PRN [place] PAIN LEVEL 1-3 OR FEVER; Start 08/12/16 at 10:00 Vancomycin HCl 750 mg/Sodium Chloride 150 ml @ 75 mls/hr Q72H IVPB ; Start 08/14 at 16:00 Potassium Chloride/Dextrose/ Sodium Chloride (KCl/D5-1/2ns) 1,000 ml @ 125 mls/ hr Q8H IV Last administered on 08/13/16 04:30; Admin Dose 125 MLS/HR; Start 08/12/16 at 20:30 Miscellaneous Information (Pending Santyl Order For Wound Care) This patient jeffrey... PRN PRN XX WOUND CARE; Start 08/13/16 at 09:30 ERNIE MILLER MD August 13, 2016 09:46
[2016-08-13 12:47] LABS: ANISOCYTOSIS 1+; HYPOCHROMASIA 1+; LYMPHOCYTES # 1.5 10^3/ul (0.8-2.9); MONOCYTE # 0.3 10^3/ul (0.3-0.9); NEUTROPHIL # 14.3 10^3/ul (1.6-7.5)
[2016-08-13] MEDS ORDERED: DEXTROSE 5%-0.225% NACL 1,000 ML IV SCH ×2 (14:30)
--- NOTE | 2016-08-13 15:03 | PN ---
DATE: 08/13/2016 SUBJECTIVE: The patient is overall better. Blood pressure has stabilized. It is over 100. LABORATORY DATA: WBC has consistently gone down, currently at 16. Creatinine has also been going d own at 1.58, and the sodium level has been going up, is now from 155 to 168. OBJECTIVE: VITAL SIGNS: Temperature is 98.0, pulse is 90, respirations 19, blood pressure 118/79, pulse oximet ry 94%, 6 liters face mask mouth breather. GENERAL: In no acute distress, looks much improved compared to last week. HEENT: No discharge coming out from the eyes. CARDIOVASCULAR: Regular rate and rhythm. LUNGS: No rhonchi, no wheezes noted. No crackles noted. LOWER EXTREMITIES: No pitting edema. LABORATORY DATA: Hemoglobin 9.4, WBC of 16. Sodium is 168, potassium 4.4, BUN 96, creatinine 1.5. BNP is 3110. Sugar 193. ASSESSMENT AND PLAN: 1. Pneumonia of the right middle lobe, right lower lobe, currently on vancomycin and Zosyn. WBC jeffrey s come down nicely. ID is currently following. The patient is on hand-held nebulization treatments 3 times a day. 2. Decubiti ulcer over the sacrum, stage IV. ID is following. Ruling out for osteomyelitis. [facility] nurse is currently evaluating and treating. 3. Hypernatremia. The patient initially came in at 170. After being given fluids D5W as well as o thers, it did come down to 155, now it is going back up, currently now at 164. The patient's IV is D5 one-half normal saline. Renal is following. Currently I will change it to D5 one-fourth normal saline and await further instructions by the eyeglass assembler. Currently the PEG tube is obstructed, un able to give free water via PEG tube. 4. Gastrointestinal. PEG tube is obstructed. GI is involved. Currently the plan is for when the patient is more stabilized, possibly by , that they will replace the tube. The patient is n ot currently getting her normal 4 to 6 cans of Jevity. Data Collector is supposed to be finding out w hat to give once the G-tube is back in place and is running. 5. Alzheimer's. No acute changes. The patient normally is noncommunicative. Dictated By: QIANA TSAI MD HONORIO/NTS Conf#: [id number] [facility]#: [id number]
[2016-08-13] MEDS ORDERED: KETOROLAC 15 MG INJ IV PRN (16:30)
--- NOTE | 2016-08-13 19:13 | CONS ---
Date/Time of Note Date/Time of Note DATE: 08/13/16 TIME: 19:08 Assessment/Plan Assessment/Plan Chief Complaint/Hosp Course 1. Acute renal failure due to dehydration and septic shock. Improving with IV fluids and antibiotics 2. Alzheimer's dementia 3. Right pneumonia probably aspiration 4. Hypernatremia, will change IV fluid to D5W 5. Stage IV sacral decubitus ulcer Problems: Consultation Date/Type/Reason Admit Date/Time August 11, 2016 at 19:00 Initial Consult Date 08/12/16 Type of Consultation: ID 24 HR Interval Summary Free Text/Dictation The patient is unresponsive. She has a history of Alzheimer's dementia. Subjective hx not possible: pt non-verbal Exam/Review of Systems Vital Signs Vitals Vital Signs Date Time Temp Pulse Resp B/P Pulse Ox O2 Delivery O2 Flow Rate FiO2 08/13/16 17:05 4.0 08/13/16 16:14 96 08/13/16 15:50 97.9 18 90/50 91 08/13/16 14:24 Simple Mask Intake and Output 08/12/16 08/12/16 08/13/16 15:00 23:00 07:00 Intake Total 200 ml Output Total 1500 ml 500 ml Balance -1300 ml -500 ml Exam She has Torsten-Davis respirations. She has arm and leg contractures. Constitutional: non-verbal Respiratory: clear to auscultation, diminished breath sounds Gastrointestinal: soft Results Result Diagram: 08/13/16 0656 08/13/16 0656 Results 24 hrs Laboratory Tests Test 08/12/16 20:01 08/13/16 06:56 Bedside Glucose 174 White Blood Count 16.4 H Red Blood Count 2.97 L Hemoglobin 9.4 L Hematocrit 32.0 L Mean Corpuscular Volume 107.7 H Mean Corpuscular Hemoglobin 31.6 Mean Corpuscular Hemoglobin Concent 29.4 L Red Cell Distribution Width 14.6 H Platelet Count 145 Mean Platelet Volume 12.5 H Neutrophils % 87.0 H Band Neutrophils % 2.0 Lymphocytes % 9.0 L Monocytes % 2.0 Eosinophils % Neutrophils # 14.3 H Lymphocytes # 1.5 Monocytes # 0.3 Eosinophils # Differential Comment MANUAL DIFF Hypochromasia 1+ Anisocytosis 1+ Macrocytosis 1+ Erythrocyte Sedimentation Rate 70 H Sodium Level 168 *H Potassium Level 4.4 Chloride Level 130 H Carbon Dioxide Level 30 Anion Gap 12 Blood Urea Nitrogen 96 H Creatinine 1.58 H Glucose Level 193 # Calcium Level 6.5 L Phosphorus Level 3.8 Magnesium Level 3.1 H Total Bilirubin 0.3 Direct Bilirubin 0.00 Indirect Bilirubin 0.3 Aspartate Amino Transf (AST/SGOT) 59 H Alanine Aminotransferase (ALT/SGPT) 30 Alkaline Phosphatase 77 C-Reactive Protein 7.5 H B-Type Natriuretic Peptide 3110 H Total Protein 6.3 Albumin 2.4 L Globulin 3.90 H Albumin/Globulin Ratio 0.61 Medications Medications Current Medications Acetaminophen (Tylenol Tab) 325 mg Q4H PRN GTB PAIN AND FEVER; Start 08/11/16 at 20:00 Morphine Sulfate 1 mg 1 mg Q4H PRN IV PAIN LEVEL 6-10 Last administered on 21:38; Admin Dose 1 MG; Start 08/11/16 at 20:00 Piperacillin Sod/ Tazobactam Sod (Zosyn 2.25gm/ 50ml (Pmx)) 50 ml @ 100 mls/hr Q8 IVPB Last administered on 08/13/16 12:53; Admin Dose 100 MLS/HR; Start at 14:00 Ondansetron HCl (Zofran Inj) 4 mg Q6H PRN IV NAUSEA AND/OR VOMITING; Start 08/12 at 10:00 Acetaminophen 650 mg 650 mg Q6H PRN [place] PAIN LEVEL 1-3 OR FEVER; Start 08/12/16 at 10:00 Vancomycin HCl/ Sodium Chloride (Vancocin/NS) 150 ml @ 75 mls/hr Q72H IVPB ; Start 08/14/16 at 16:00 Miscellaneous Information This patient jeffrey... PRN PRN XX WOUND CARE; Start at 09:30 Dextrose/Sodium Chloride (D5-1/4ns) 1,000 ml @ 100 mls/hr Q10H IV Last administered on 08/13/16 15:37; Admin Dose 100 MLS/HR; Start 08/13/16 at 14:30 Ketorolac Tromethamine (Toradol) 15 mg DAILY PRN IV PAIN; Start 08/13/16 at 16: 30; Stop 08/16/16 at 16:29 Sodium Hypochlorite (Dakin'S (Dilute 1/40%)) 1 applic DAILY IRR ; Start 08/14/16 at 09:00 JESSICA DUDLEY MD August 13, 2016 19:13
[2016-08-13] MEDS: DEXTROSE 5% 1,000 ML IV SCH (19:51)
[2016-08-14] VITALS (13 sets, daily range): BP systolic 82–104; BP diastolic 45–62; PULSE 70–80; RESP 17–20
[2016-08-14] MEDS: PIPER-TAZO 2.25 GM (PMX) 50 ML IVPB SCH ×4 (05:18→23:52)
[2016-08-14] MEDS: DEXTROSE 5% 1,000 ML IV SCH (05:18)
[2016-08-14 08:22] LABS: ADD SCAN DIFF NO
[2016-08-14 08:35] LABS: BASOPHILS % 0.1 % (0.0-2.0); EOSINOPHILS # 0.1 10^3/ul (0.0-0.5); EOSINOPHILS % 0.7 % (0.0-7.0); HEMATOCRIT 31.6 % (37.0-47.0); HEMOGLOBIN 9.2 g/dl (12.0-16.0); LYMPHOCYTES # 1.4 10^3/ul (0.8-2.9); LYMPHOCYTES % 8.4 % (15.0-51.0); MEAN CORPUSCULAR HEMOGLOBIN 31.2 pg (29.0-33.0); MEAN CORPUSCULAR HGB CONC 29.1 g/dl (32.0-37.0); MEAN CORPUSCULAR VOLUME 107.1 fl (82.0-101.0); MEAN PLATELET VOLUME 12.6 fl (7.4-10.4); MONOCYTE # 0.4 10^3/ul (0.3-0.9); MONOCYTES % 2.7 % (0.0-11.0); NEUTROPHILS % 87.2 % (39.0-77.0); NUCLEATED RED BLOOD CELLS% 0.2 /100WBC (0.0-0.0); PLATELET COUNT 130 10^3/UL (140-415); RED BLOOD COUNT 2.95 10^6/ul (4.20-5.40); RED CELL DISTRIBUTION WIDTH 14.4 % (11.5-14.5); WHITE BLOOD COUNT 16.1 10^3/ul (4.8-10.8)
[2016-08-14 08:48] LABS: ALBUMIN 2.1 g/dl (3.3-4.9)
[2016-08-14 08:49] LABS: POTASSIUM 3.7 mmol/L (3.5-5.1)
[2016-08-14] MEDS: LEVALBUTEROL (NEB) 0.63 MG/3 ML AMP HHN SCH ×3 (08:49→17:08)
[2016-08-14 08:51] LABS: ALBUMIN/GLOBULIN RATIO 0.61; BILIRUBIN,INDIRECT 0.9 mg/dl (0-1.1); BILIRUBIN,TOTAL 0.9 mg/dl (0.2-1.3); CREATININE 1.14 mg/dl (0.44-1.00); TOTAL PROTEIN 5.5 g/dl (6.1-8.1)
[2016-08-14 08:52] LABS: CALCIUM 6.7 mg/dl (8.4-10.2)
[2016-08-14] MEDS: SODIUM HYPOCHLORITE 1/40% 1L IRRIG IRR SCH (09:00)
--- NOTE | 2016-08-14 10:44 | CONS ---
Date/Time of Note Date/Time of Note DATE: 08/14/16 TIME: 10:39 Assessment/Plan Assessment/Plan Chief Complaint/Hosp Course 1) ARF u/a does not suggest infection, likely due to dehydration 08/13 - improving with hydration 08/14 - continues to improve, will increase dose of zosyn urine cx was negative 2) pneumonia check procalcitonin get nasal swab for MRSA continue with vanco, change cefepime to zosyn likely aspiration 08/13 - wbc is improving, continue with vanco/zosyn 08/14 - wbc continues to improve, no MRSA found d/c vanco and continue with zosyn and increase its dose 3) sacral wound ulcer, likely osteo check ESR, CRP and if very high then would treat as if osteomyelitis if not very high will order bone scan for ultimate healing if this is indeed osteo she will likely need plastic surgery involvement her low albumin suggest she would have poor tissue healing will get wound cx of deeper wound 08/13 - ESR is very high, c/w osteomyelitis wound cx has gnr's and GPC continue with vanco/zosyn at present 08/14 - no MRSA found, d/c vanco and continue with zosyn pt likely has osteo due to high ESR will follow ESR weekly for response unlikely that antibiotics alone will heal the sacral wounds 4) severe dementia Problems: Consultation Date/Type/Reason Admit Date/Time August 11, 2016 at 19:00 Initial Consult Date 08/12/16 Type of Consultation: ID 24 HR Interval Summary Subjective hx not possible: pt non-verbal Exam/Review of Systems Vital Signs Vitals Vital Signs Date Time Temp Pulse Resp B/P Pulse Ox O2 Delivery O2 Flow Rate FiO2 08/14/16 08:50 85 20 96 Simple Mask 6.0 08/14/16 08:10 97.9 83/46 Intake and Output 08/13/16 08/13/16 08/14/16 15:00 23:00 07:00 Intake Total 50 ml 1050 ml Output Total 500 ml 900 ml Balance -450 ml 150 ml Exam no response as usual Constitutional: non-verbal Respiratory: other ([place] coarse rhonchi) Cardiovascular: regular rate and rhythm Gastrointestinal: soft Results Result Diagram: 08/14/16 0748 08/14/16 0748 Results 24 hrs Laboratory Tests Test 08/14/16 07:48 White Blood Count 16.1 H Red Blood Count 2.95 L Hemoglobin 9.2 L Hematocrit 31.6 L Mean Corpuscular Volume 107.1 H Mean Corpuscular Hemoglobin 31.2 Mean Corpuscular Hemoglobin Concent 29.1 L Red Cell Distribution Width 14.4 Platelet Count 130 L Mean Platelet Volume 12.6 H Neutrophils % 87.2 H Lymphocytes % 8.4 L Monocytes % 2.7 Eosinophils % 0.7 Basophils % 0.1 Nucleated Red Blood Cells % 0.2 H Neutrophils # 14.0 H Lymphocytes # 1.4 Monocytes # 0.4 Eosinophils # 0.1 Basophils # 0.0 Nucleated Red Blood Cells # 0.0 Sodium Level 164 *H Potassium Level 3.7 Chloride Level 128 H Carbon Dioxide Level 24 Anion Gap 16 Blood Urea Nitrogen 59 #H Creatinine 1.14 H Glucose Level 129 # Calcium Level 6.7 L Total Bilirubin 0.9 Direct Bilirubin 0.00 Indirect Bilirubin 0.9 Aspartate Amino Transf (AST/SGOT) 78 H Alanine Aminotransferase (ALT/SGPT) 49 Alkaline Phosphatase 88 B-Type Natriuretic Peptide 5790 H Total Protein 5.5 L Albumin 2.1 L Globulin 3.40 H Albumin/Globulin Ratio 0.61 Medications Medications Current Medications Acetaminophen (Tylenol Tab) 325 mg Q4H PRN GTB PAIN AND FEVER; Start 08/11/16 at 20:00 Morphine Sulfate 1 mg 1 mg Q4H PRN IV PAIN LEVEL 6-10 Last administered on 21:38; Admin Dose 1 MG; Start 08/11/16 at 20:00 Piperacillin Sod/ Tazobactam Sod (Zosyn 2.25gm/ 50ml (Pmx)) 50 ml @ 100 mls/hr Q8 IVPB Last administered on 08/14/16 05:18; Admin Dose 100 MLS/HR; Start at 14:00 Ondansetron HCl (Zofran Inj) 4 mg Q6H PRN IV NAUSEA AND/OR VOMITING; Start 08/12 at 10:00 Acetaminophen (Tylenol Supp) 650 mg Q6H PRN [place] PAIN LEVEL 1-3 OR FEVER; Start 08/12/16 at 10:00 Miscellaneous Information (Pending Santyl Order For Wound Care) This patient jeffrey... PRN PRN XX WOUND CARE; Start 08/13/16 at 09:30 Ketorolac Tromethamine (Toradol) 15 mg DAILY PRN IV PAIN; Start 08/13/16 at 16: 30; Stop 08/16/16 at 16:29 Sodium Hypochlorite 1 applic 1 applic DAILY IRR ; Start 08/14/16 at 09:00 Dextrose 1,000 ml @ 100 mls/hr Q10H IV Last administered on 08/14/16t 05:18; Admin Dose 100 MLS/HR; Start 08/13/16 at 19:30 Vancomycin HCl/ Sodium Chloride (Vancocin/NS) 150 ml @ 75 mls/hr Q36H IVPB ; Start 08/14/16 at 11:00 ERNIE MILLER MD August 14, 2016 10:44
[2016-08-14] MEDS ORDERED: VANCOMYCIN 750 MG in SOD CHLORIDE 0.9% 150 ML IVPB SCH ×2 (11:00→16:00)
[2016-08-14] MEDS: morphine 2 MG INJ IV PRN (11:36)
--- NOTE | 2016-08-14 12:47 | PN ---
DATE: 08/14/2016 SUBJECTIVE: No acute changes. Respiratory has improved off the face mask on 4 liters nasal cannula . White count the same. Creatinine much improved at 1.1. BNP elevated. Blood pressures still low . PHYSICAL EXAMINATION: VITAL SIGNS: Blood pressure 83/52, temperature is 98.0, respirations 20 to 25. CARDIOVASCULAR: Regular rate and rhythm. LUNGS: No wheezes, no rhonchi, no crackles noted. ABDOMEN: Soft, nontender. LABORATORY DATA: Demonstrate a WBC of 16. Creatinine 1.1. Sodium level 164. BNP is now 5790. ASSESSMENT AND PLAN: 1. Right pneumonia. The patient has seen ID, on vancomycin and Zosyn, improving. The patient is o ff the face mask on nasal cannula, doing well. 2. Sepsis, hypotension. Blood pressure is still on the low side at 83/52. The patient has been ge tting D5W and now patient appears to have increased fluid retention. BNPs went up to 5000 at this t manish. 3. Hypernatremia. Sodium is coming down very slowly. Initially, the patient was given D5 half nor mal saline and one-fourth normal saline and currently now D5W started yesterday or last night. Sodi um went from 168 to 164. Renal currently following. 4. Code status. The patient is CHEMICAL CODE only. Dictated By: QIANA OLMEDO/FIDELIA Conf#: [id number] DID#: [id number]
--- NOTE | 2016-08-14 13:35 | RADRPT ---
PROCEDURE: XR Chest. CLINICAL INDICATION: Shortness of breath. TECHNIQUE: Single frontal view. COMPARISON: 08/11/2016. FINDINGS: There is left mid and lower lung zone atelectasis, worse than seen previously. The lungs are otherw ise clear. The heart is mildly enlarged. There is calcification in the aorta consistent with atherosclerosis. There is no right pleural effusion. There is a small left pleural effusion. There is no pneumothorax. IMPRESSION: 1. Worse appearance of the left lung and left pleural effusion. 2. Cardiomegaly and atherosclerosis. RPTAT: QQ .Marvin Pool MD, MD Date Time Electronically viewed and signed by .Marvin Pool MD, on 08/14/2016 13:35 .R/
[2016-08-14] MEDS ORDERED: POTASSIUM CHLORIDE 20 MEQ in DEXTROSE 5% 1,000 ML IV SCH (14:00)
--- NOTE | 2016-08-14 14:07 | CONS ---
Date/Time of Note Date/Time of Note DATE: 08/14/16 TIME: 14:04 Assessment/Plan Assessment/Plan Chief Complaint/Hosp Course 1. Acute renal failure due to dehydration and septic shock. Improving with IV fluids and antibiotics 2. Alzheimer's dementia 3. Right pneumonia probably aspiration 4. Hypernatremia, correcting ,will adjust IV fluids 5. Stage IV sacral decubitus ulcer Problems: Consultation Date/Type/Reason Admit Date/Time August 11, 2016 at 19:00 Initial Consult Date 08/12/16 Type of Consultation: ID 24 HR Interval Summary Free Text/Dictation She is unresponsive . Her son is in her room . Subjective hx not possible: pt non-verbal Exam/Review of Systems Vital Signs Vitals Vital Signs Date Time Temp Pulse Resp B/P Pulse Ox O2 Delivery O2 Flow Rate FiO2 08/14/16 12:45 82 20 96 Nasal Cannula 4.0 08/14/16 11:59 98.0 83/52 Intake and Output 08/13/16 08/13/16 08/14/16 14:59 22:59 06:59 Intake Total 50 ml 1050 ml Output Total 500 ml 900 ml Balance -450 ml 150 ml Exam she has flexion contractures of arms and legs . Constitutional: non-verbal Respiratory: clear to auscultation, diminished breath sounds Cardiovascular: regular rate and rhythm Gastrointestinal: soft Results Result Diagram: 08/14/16 0748 08/14/16 0748 Results 24 hrs Laboratory Tests Test 08/14/16 07:48 White Blood Count 16.1 H Red Blood Count 2.95 L Hemoglobin 9.2 L Hematocrit 31.6 L Mean Corpuscular Volume 107.1 H Mean Corpuscular Hemoglobin 31.2 Mean Corpuscular Hemoglobin Concent 29.1 L Red Cell Distribution Width 14.4 Platelet Count 130 L Mean Platelet Volume 12.6 H Neutrophils % 87.2 H Lymphocytes % 8.4 L Monocytes % 2.7 Eosinophils % 0.7 Basophils % 0.1 Nucleated Red Blood Cells % 0.2 H Neutrophils # 14.0 H Lymphocytes # 1.4 Monocytes # 0.4 Eosinophils # 0.1 Basophils # 0.0 Nucleated Red Blood Cells # 0.0 Sodium Level 164 *H Potassium Level 3.7 Chloride Level 128 H Carbon Dioxide Level 24 Anion Gap 16 Blood Urea Nitrogen 59 #H Creatinine 1.14 H Glucose Level 129 # Calcium Level 6.7 L Total Bilirubin 0.9 Direct Bilirubin 0.00 Indirect Bilirubin 0.9 Aspartate Amino Transf (AST/SGOT) 78 H Alanine Aminotransferase (ALT/SGPT) 49 Alkaline Phosphatase 88 B-Type Natriuretic Peptide 5790 H Total Protein 5.5 L Albumin 2.1 L Globulin 3.40 H Albumin/Globulin Ratio 0.61 Medications Medications Current Medications Acetaminophen (Tylenol Tab) 325 mg Q4H PRN GTB PAIN AND FEVER; Start 08/11/16 at 20:00 Morphine Sulfate (morphine) 1 mg Q4H PRN IV PAIN LEVEL 6-10 Last administered on 08/14/16 11:36; Admin Dose 1 MG; Start 08/11/16 at 20:00 Ondansetron HCl (Zofran Inj) 4 mg Q6H PRN IV NAUSEA AND/OR VOMITING; Start 08/12 at 10:00 Acetaminophen (Tylenol Supp) 650 mg Q6H PRN [place] PAIN LEVEL 1-3 OR FEVER; Start 08/12/16 at 10:00 Miscellaneous Information (Pending [facility] Order For Wound Care) This patient jeffrey... PRN PRN XX WOUND CARE; Start 08/13/16 at 09:30 Ketorolac Tromethamine (Toradol) 15 mg DAILY PRN IV PAIN; Start 08/13/16 at 16: 30; Stop 08/16/16 at 16:29 Sodium Hypochlorite 1 applic 1 applic DAILY IRR ; Start 08/14/16 at 09:00 Dextrose 1,000 ml @ 100 mls/hr Q10H IV Last administered on 08/14/16 05:18; Admin Dose 100 MLS/HR; Start 08/13/16 at 19:30 Piperacillin Sod/ Tazobactam Sod (Zosyn 2.25gm/ 50ml (Pmx)) 50 ml @ 100 mls/hr Q6 IVPB Last administered on 08/14/16 11:37; Admin Dose 100 MLS/HR; Start at 12:00 JESSICA DUDLEY MD August 14, 2016 14:06
[2016-08-14] MEDS ORDERED: VANCOMYCIN 1 GM in NS 250 ML IVPB SCH (16:00)
[2016-08-14] MEDS: D5W + KCL 20 MEQ 1,000 ML IV SCH (17:42)
[2016-08-15] VITALS (11 sets, daily range): BP systolic 91–113; BP diastolic 55–62; PULSE 70–89; RESP 17–19
[2016-08-15] MEDS: PIPER-TAZO 2.25 GM (PMX) 50 ML IVPB SCH ×3 (05:44→17:27)
[2016-08-15] MEDS: D5W + KCL 20 MEQ 1,000 ML IV SCH ×3 (05:44→16:11)
[2016-08-15 07:23] LABS: ADD SCAN DIFF NO
[2016-08-15 07:33] LABS: BASOPHILS % 0.1 % (0.0-2.0); EOSINOPHILS # 0.2 10^3/ul (0.0-0.5); EOSINOPHILS % 1.3 % (0.0-7.0); HEMOGLOBIN 9.6 g/dl (12.0-16.0); LYMPHOCYTES # 1.2 10^3/ul (0.8-2.9); MEAN CORPUSCULAR HEMOGLOBIN 31.6 pg (29.0-33.0); MEAN PLATELET VOLUME 12.7 fl (7.4-10.4); MONOCYTE # 0.3 10^3/ul (0.3-0.9); NEUTROPHIL # 11.9 10^3/ul (1.6-7.5); NEUTROPHILS % 86.8 % (39.0-77.0); PLATELET COUNT 135 10^3/UL (140-415); RED BLOOD COUNT 3.04 10^6/ul (4.20-5.40); WHITE BLOOD COUNT 13.7 10^3/ul (4.8-10.8)
[2016-08-15 08:07] LABS: ALBUMIN 2.3 g/dl (3.3-4.9); ALBUMIN/GLOBULIN RATIO 0.63; BILIRUBIN,INDIRECT 0.9 mg/dl (0-1.1); BILIRUBIN,TOTAL 0.9 mg/dl (0.2-1.3); CALCIUM 6.8 mg/dl (8.4-10.2); CREATININE 1.01 mg/dl (0.44-1.00); MAGNESIUM 2.3 mg/dl (1.7-2.5); PHOSPHORUS 3.2 mg/dl (2.5-4.9); POTASSIUM 3.9 mmol/L (3.5-5.1); TOTAL PROTEIN 5.9 g/dl (6.1-8.1)
[2016-08-15] MEDS: LEVALBUTEROL (NEB) 0.63 MG/3 ML AMP HHN SCH ×3 (09:00→16:39)
--- NOTE | 2016-08-15 09:05 | CONS ---
Date/Time of Note Date/Time of Note DATE: 08/15/16 TIME: 09:02 Assessment/Plan Assessment/Plan Chief Complaint/Hosp Course 1) ARF u/a does not suggest infection, likely due to dehydration 08/13 - improving with hydration 08/14 - continues to improve, will increase dose of zosyn urine cx was negative 08/15 - pretty much resolved 2) pneumonia check procalcitonin get nasal swab for MRSA continue with vanco, change cefepime to zosyn likely aspiration 08/13 - wbc is improving, continue with vanco/zosyn 08/14 - wbc continues to improve, no MRSA found d/c vanco and continue with zosyn and increase its dose 08/15 - only on zosyn now and wbc is improving pt getting echo and asked tech to quantify the L sided pleural effusion too 3) sacral wound ulcer, likely osteo check ESR, CRP and if very high then would treat as if osteomyelitis if not very high will order bone scan for ultimate healing if this is indeed osteo she will likely need plastic surgery involvement her low albumin suggest she would have poor tissue healing will get wound cx of deeper wound 08/13 - ESR is very high, c/w osteomyelitis wound cx has gnr's and GPC continue with vanco/zosyn at present 08/14 - no MRSA found, d/c vanco and continue with zosyn pt likely has osteo due to high ESR will follow ESR weekly for response unlikely that antibiotics alone will heal the sacral wounds 08/15 - continue with zosyn unlikely that antibiotics alone will heal these sacral wounds 4) severe dementia Problems: Consultation Date/Type/Reason Admit Date/Time August 11, 2016 at 19:00 Initial Consult Date 08/12/16 Type of Consultation: ID 24 HR Interval Summary Subjective hx not possible: pt non-verbal Exam/Review of Systems Vital Signs Vitals Vital Signs Date Time Temp Pulse Resp B/P Pulse Ox O2 Delivery O2 Flow Rate FiO2 08/15/16 08:39 84 08/15/16 07:40 97.9 19 106/62 95 08/14/16 20:23 Nasal Cannula 4.0 Intake and Output 08/14/16 08/14/16 08/15/16 15:00 23:00 07:00 Intake Total 50 ml Output Total 400 ml 400 ml Balance -400 ml -350 ml Exam Constitutional: non-verbal Head: normocephalic Eyes: nl sclera Respiratory: other (decreased BS at bases) Cardiovascular: regular rate and rhythm Gastrointestinal: non-tender, soft Results Result Diagram: 08/15/16 0635 08/15/16 0635 Results 24 hrs Laboratory Tests Test 08/15/16 06:35 White Blood Count 13.7 H Red Blood Count 3.04 L Hemoglobin 9.6 L Hematocrit 31.0 L Mean Corpuscular Volume 102.0 H Mean Corpuscular Hemoglobin 31.6 Mean Corpuscular Hemoglobin Concent 31.0 L Red Cell Distribution Width 14.0 Platelet Count 135 L Mean Platelet Volume 12.7 H Neutrophils % 86.8 H Lymphocytes % 9.0 L Monocytes % 2.0 Eosinophils % 1.3 Basophils % 0.1 Nucleated Red Blood Cells % 0.0 Neutrophils # 11.9 H Lymphocytes # 1.2 Monocytes # 0.3 Eosinophils # 0.2 Basophils # 0.0 Nucleated Red Blood Cells # 0.0 Sodium Level 151 H Potassium Level 3.9 Chloride Level 124 H Carbon Dioxide Level 25 Anion Gap 6 #L Blood Urea Nitrogen 40 #H Creatinine 1.01 H Glucose Level 99 Calcium Level 6.8 L Phosphorus Level 3.2 Magnesium Level 2.3 Total Bilirubin 0.9 Direct Bilirubin 0.00 Indirect Bilirubin 0.9 Aspartate Amino Transf (AST/SGOT) 119 H Alanine Aminotransferase (ALT/SGPT) 66 Alkaline Phosphatase 135 #H B-Type Natriuretic Peptide 6110 H Total Protein 5.9 L Albumin 2.3 L Globulin 3.60 H Albumin/Globulin Ratio 0.63 Medications Medications Current Medications Acetaminophen (Tylenol Tab) 325 mg Q4H PRN GTB PAIN AND FEVER; Start 08/11/16 at 20:00 Morphine Sulfate (morphine) 1 mg Q4H PRN IV PAIN LEVEL 6-10 Last administered on 08/14/16t 11:36; Admin Dose 1 MG; Start 08/11/16 at 20:00 Ondansetron HCl (Zofran Inj) 4 mg Q6H PRN IV NAUSEA AND/OR VOMITING; Start 08/12 at 10:00 Acetaminophen (Tylenol Supp) 650 mg Q6H PRN [place] PAIN LEVEL 1-3 OR FEVER; Start 08/12/16 at 10:00 Miscellaneous Information (Pending [facility] Order For Wound Care) This patient jeffrey... PRN PRN XX WOUND CARE; Start 08/13/16 at 09:30 Sodium Hypochlorite 1 applic 1 applic DAILY IRR ; Start 08/14/16 at 09:00 Piperacillin Sod/ Tazobactam Sod 50 ml @ 100 mls/hr Q6 IVPB Last administered on 08/15/16 05:44; Admin Dose 100 MLS/HR; Start 08/14/16 at 12:00 Potassium Chloride/Dextrose (D5W + KCl 20 Meq) 1,000 ml @ 80 mls/hr [id number] IV Last administered on 08/15/16 05:44; Admin Dose 80 MLS/HR; Start 08/14/16 at 15 :30 ERNIE MILLER MD August 15, 2016 09:05
--- NOTE | 2016-08-15 13:10 | RADRPT ---
Echocardiogram Report Patient Name: RADHA SAM Gender: Female Date: 1935 Study Date: 15-Aug-2016 Senior Project Engineer: [facility] Location: [id number] Ref. Physician: QIANA TSAI Quality: Adequate Procedures: Transthoracic echocardiogram with complete 2D, M-Mode, and doppler examination. Indications: elevated bnp. 2D/M Mode Doppler Measurement Value Normal Ranges Measurement Value Normal Ranges AoR Diam MM 1.2 cm TEVIN Vmax 0.9 cm2 LA/Ao MM 3.0 TEVIN VTI 0.9 cm2 LA Dimen MM 3.5 cm AV Mean Haim 1.5 m/sec LVIDd 2D 3.6 3.5 - 5.6 cm AV Mean PG 10.9 mmHg LVIDs 2D 2.3 2.1 - 4.1 cm AV Peak Haim 2.1 m/sec LVPWd 2D 1.0 0.6 - 1.1 cm AV Peak PG 18.4 mmHg IVSd 2D 1.0 0.6 - 1.1 cm AV VTI 44.9 cm AoR Diam 2D 2.3 2.0 - 3.7 cm LVOT Mean Haim 0.5 m/sec EDV 2D 55.4 cm3 LVOT Mean PG 1.4 mmHg ESV 2D 12.6 cm3 LVOT Peak Haim 0.8 m/sec LA Dimen 2D 3.5 2.3 - 4.0 cm LVOT Peak PG 2.6 mmHg LVOT Diam 1.8 cm LVOT VTI 18.2 cm MV E Peak Haim 0.9 m/sec MV A Peak Haim 1.1 m/sec MV E/A 0.9 MV Decel Time 177 msec MV Decel Juab 5 MV E/A 0.9 TR Peak Haim 3.0 m/sec TR Peak PG 36.2 mmHg Findings Left Ventricle: Normal left ventricular systolic function. Normal left ventricular cavity size. Normal left ventricular wall thickness. Ejection fraction is visually estimated at 60 %. Tissue Doppler/Mitral Doppler indices are consistent with impaired relaxation (Stage I diastolic dysfunction). Right Ventricle: Normal right ventricular size. Normal right ventricular systolic function. Left Atrium: The left atrium is normal in size. LA Dimension3.50 cm. Right Atrium: The right atrium is normal in size. RA Pressure=3. Mitral Valve: Mild mitral leaflet calcification. Mild mitral annular calcification. Trace mitral regurgitation. Aortic Valve: Aortic sclerosis without stenosis. Aortic cusps appear mildly calcified. No aortic regurgitation. Tricuspid Valve: Normal appearance of the tricuspid valve. Estimated peak PA systolic pressure 39 mmHg. There is mild tricuspid regurgitation. Pulmonic Valve: There is trace pulmonic regurgitation. Pericardium: Left pleural effusion seen. Aorta: Normal aortic root. IVC: Normal size and normal respiratory collapse consistent with normal right atrial pressure. Conclusions 1.Normal left ventricular systolic function. Normal left ventricular cavity size. Normal left ventricular wall thickness. Ejection fraction is visually estimated at 60 %. Tissue Doppler/Mitral Doppler indices are consistent with impaired relaxation (Stage I diastolic dysfunction). 2.Normal right ventricular size. Normal right ventricular systolic function. 3.The left atrium is normal in size. 4.The right atrium is normal in size. 5.Aortic sclerosis without stenosis. No aortic regurgitation. 6.Trace mitral regurgitation. 7.Estimated peak PA systolic pressure 39 mmHg. There is mild tricuspid regurgitation. 8.Left pleural effusion seen. Electronically Signed By: Rachid Mcmahon 15-Aug-2016 13:09:19 -0700 Patient Name: RADHA SAM Study Date: 15-Aug-2016 [id number]
[2016-08-15] MEDS ORDERED: KETOROLAC 15 MG INJ IV PRN (14:00)
[2016-08-15] MEDS: SODIUM HYPOCHLORITE 1/40% 1L IRRIG IRR SCH (14:20)
--- NOTE | 2016-08-15 14:55 | PN ---
DATE: 08/15/2016 SUBJECTIVE: The patient looks more comfortable and overall looks healthier. White count is down. Sodium is down. Creatinine is normal. Blood pressures normalized. Echo was performed which was no rmal. Chest x-ray mildly worse. PHYSICAL EXAMINATION: VITAL SIGNS: Blood pressure 113/61, respirations 19, temperature is 98.0, pulse oximetry is 98% on 4 liters nasal cannula. GENERAL: The patient is mouth breather, no acute distress. CARDIOVASCULAR: Regular rate and rhythm. LUNGS: Noisy due to patient's snoring. ABDOMEN: Soft, nontender. LABORATORY DATA: Demonstrates WBC of 13.7, hemoglobin 9.6. Sodium is 151, potassium 3.9, creatinin e is 1.0. BNP is 6110. ASSESSMENT AND PLAN: 1. Hypernatremia. The patient has appeared to stabilize. The patient is on D5W was initially at 1 25, went down to 100, now at 80, and the blood pressure remains stable and the sodium has come from 170 to 151. We will plan continuing with current treatment. Renal is following. Doing well. 2. Acute renal failure with an increase of fluid. The creatinine has normalized back to 1.0. 3. Pneumonia. The patient was initially on Zosyn and vancomycin, and sensitive to Zosyn. Vancomyc in has been discontinued. White count has been coming down nicely, currently now at 13.7. ID is fo llowing. 4. Decubiti stage IV over the sacrum with an elevated ESR. Wound care is currently following. ID is following. ID is ruling out for possibility of osteomyelitis. 4. BNP has been slowly increasing from 1000 to 3000 to 5000, now at 6000. The IV fluids have been decreasing once again from 80 mL to 70 mL. Echocardiogram was performed demonstrating a normal ejec tion fraction. It did note the left pleural effusion, but did not quantify. 5. Gastrointestinal. The GI doctor has seen the patient, has not come back recently. Reported joyce t the PEG is currently plugged and probably will need to be replaced. We will call him today to fin d out if this is to occur soon. The patient usually would get 4 to 6 cans of Jevity during the day and it is easier to access for free water as necessary. Dictated By: QIANA OLMEDO/FIDELIA Conf#: [id number] [facility]#: [id number]
--- NOTE | 2016-08-15 15:57 | CONS ---
Date/Time of Note Date/Time of Note DATE: 08/15/16 TIME: 15:42 Assessment/Plan Assessment/Plan Chief Complaint/Hosp Course 1. Acute renal failure due to dehydration and septic shock. Her renal function continues to improve on current treatment . She is developing a L pleural effusion and higher BNP . I will decrease her IV fluids . Labs to be checked in am . 2. Alzheimer's dementia 3. Right pneumonia probably aspiration 4. Hypernatremia, correcting with IV fluids 5. Stage IV sacral decubitus ulcer Problems: Consultation Date/Type/Reason Admit Date/Time August 11, 2016 at 19:00 Initial Consult Date 08/12/16 Type of Consultation: renal 24 HR Interval Summary Subjective hx not possible: pt non-verbal Exam/Review of Systems Vital Signs Vitals Vital Signs Date Time Temp Pulse Resp B/P Pulse Ox O2 Delivery O2 Flow Rate FiO2 08/15/16 12:53 84 08/15/16 12:51 24 98 Nasal Cannula 4.0 08/15/16 12:15 98.0 113/61 Intake and Output 08/14/16 08/14/16 08/15/16 15:00 23:00 07:00 Intake Total 50 ml Output Total 400 ml 400 ml Balance -400 ml -350 ml Exam Constitutional: non-verbal Respiratory: clear to auscultation, diminished breath sounds Cardiovascular: regular rate and rhythm Gastrointestinal: soft Results Result Diagram: 08/15/16 0635 08/15/16 0635 Results 24 hrs Laboratory Tests Test 08/15/16 06:35 White Blood Count 13.7 H Red Blood Count 3.04 L Hemoglobin 9.6 L Hematocrit 31.0 L Mean Corpuscular Volume 102.0 H Mean Corpuscular Hemoglobin 31.6 Mean Corpuscular Hemoglobin Concent 31.0 L Red Cell Distribution Width 14.0 Platelet Count 135 L Mean Platelet Volume 12.7 H Neutrophils % 86.8 H Lymphocytes % 9.0 L Monocytes % 2.0 Eosinophils % 1.3 Basophils % 0.1 Nucleated Red Blood Cells % 0.0 Neutrophils # 11.9 H Lymphocytes # 1.2 Monocytes # 0.3 Eosinophils # 0.2 Basophils # 0.0 Nucleated Red Blood Cells # 0.0 Sodium Level 151 H Potassium Level 3.9 Chloride Level 124 H Carbon Dioxide Level 25 Anion Gap 6 #L Blood Urea Nitrogen 40 #H Creatinine 1.01 H Glucose Level 99 Calcium Level 6.8 L Phosphorus Level 3.2 Magnesium Level 2.3 Total Bilirubin 0.9 Direct Bilirubin 0.00 Indirect Bilirubin 0.9 Aspartate Amino Transf (AST/SGOT) 119 H Alanine Aminotransferase (ALT/SGPT) 66 Alkaline Phosphatase 135 #H B-Type Natriuretic Peptide 6110 H Total Protein 5.9 L Albumin 2.3 L Globulin 3.60 H Albumin/Globulin Ratio 0.63 Medications Medications Current Medications Acetaminophen (Tylenol Tab) 325 mg Q4H PRN GTB PAIN AND FEVER; Start 08/11/16 at 20:00 Morphine Sulfate (morphine) 1 mg Q4H PRN IV PAIN LEVEL 6-10 Last administered on 08/14/16 11:36; Admin Dose 1 MG; Start 08/11/16 at 20:00 Ondansetron HCl (Zofran Inj) 4 mg Q6H PRN IV NAUSEA AND/OR VOMITING; Start 08/12 at 10:00 Acetaminophen (Tylenol Supp) 650 mg Q6H PRN [place] PAIN LEVEL 1-3 OR FEVER; Start 08/12/16 at 10:00 Miscellaneous Information [facility] This patient jeffrey... PRN PRN XX WOUND CARE; Start 08/13/16 at 09:30 Sodium Hypochlorite 1 applic 1 applic DAILY IRR Last administered on 08/15/16 14:20; Admin Dose 1 APPLIC; Start 08/14/16 at 09:00 Piperacillin Sod/ Tazobactam Sod 50 ml @ 100 mls/hr Q6 IVPB Last administered on 08/15/16 12:10; Admin Dose 100 MLS/HR; Start 08/14/16 at 12:00 Potassium Chloride/Dextrose (D5W + KCl 20 Meq) 1,000 ml @ 70 mls/hr [id number] IV Last administered on 08/15/16 14:00; Admin Dose 70 MLS/HR; Start 08/14/16 at 15 :30 Ketorolac Tromethamine (Toradol) 15 mg Q6H PRN IV PAIN; Start 08/15/16 at 14:00 ; Stop 08/18/16 at 13:59 JESSICA DUDLEY MD August 15, 2016 15:56
--- NOTE | 2016-08-15 18:29 | CONS ---
Date/Time of Note Date/Time of Note DATE: 08/15/16 TIME: 18:25 Assessment/Plan Assessment/Plan Chief Complaint/Hosp Course 1)severe dehydration poor po's, renal loss due to high glucose, PLAN: cont slow rehydration may need to change G tube for newer one, prob may be better to give more free water (d5w 20 %ns) Problems: Consultation Date/Type/Reason Admit Date/Time August 11, 2016 at 19:00 Initial Consult Date 08/12/16 Type of Consultation: renal 24 HR Interval Summary Free Text/Dictation pt 's g tube very old willing to change it will try gi lab to see if a properly sized one is available . if not will order and put in as soon as available tightened g tube buttress may feed if leak is manageable continue at 25 ml/ hour Subjective hx not possible: pt non-verbal Constitutional: no complaints Exam/Review of Systems Vital Signs Vitals Vital Signs Date Time Temp Pulse Resp B/P Pulse Ox O2 Delivery O2 Flow Rate FiO2 08/15/16 16:46 89 08/15/16 16:45 4.0 08/15/16 16:40 24 98 Nasal Cannula 08/15/16 15:51 97.9 92/55 Intake and Output 08/14/16 08/14/16 08/15/16 15:00 23:00 07:00 Intake Total 50 ml Output Total 400 ml 400 ml Balance -400 ml -350 ml Exam Gastrointestinal: No ascites Results Result Diagram: 08/15/16 0635 08/15/16 0635 Results 24 hrs Laboratory Tests Test 08/15/16 06:35 White Blood Count 13.7 H Red Blood Count 3.04 L Hemoglobin 9.6 L Hematocrit 31.0 L Mean Corpuscular Volume 102.0 H Mean Corpuscular Hemoglobin 31.6 Mean Corpuscular Hemoglobin Concent 31.0 L Red Cell Distribution Width 14.0 Platelet Count 135 L Mean Platelet Volume 12.7 H Neutrophils % 86.8 H Lymphocytes % 9.0 L Monocytes % 2.0 Eosinophils % 1.3 Basophils % 0.1 Nucleated Red Blood Cells % 0.0 Neutrophils # 11.9 H Lymphocytes # 1.2 Monocytes # 0.3 Eosinophils # 0.2 Basophils # 0.0 Nucleated Red Blood Cells # 0.0 Sodium Level 151 H Potassium Level 3.9 Chloride Level 124 H Carbon Dioxide Level 25 Anion Gap 6 #L Blood Urea Nitrogen 40 #H Creatinine 1.01 H Glucose Level 99 Calcium Level 6.8 L Phosphorus Level 3.2 Magnesium Level 2.3 Total Bilirubin 0.9 Direct Bilirubin 0.00 Indirect Bilirubin 0.9 Aspartate Amino Transf (AST/SGOT) 119 H Alanine Aminotransferase (ALT/SGPT) 66 Alkaline Phosphatase 135 #H B-Type Natriuretic Peptide 6110 H Total Protein 5.9 L Albumin 2.3 L Globulin 3.60 H Albumin/Globulin Ratio 0.63 Medications Medications Current Medications Acetaminophen (Tylenol Tab) 325 mg Q4H PRN GTB PAIN AND FEVER; Start 08/11/16 at 20:00 Morphine Sulfate (morphine) 1 mg Q4H PRN IV PAIN LEVEL 6-10 Last administered on 08/14/16 11:36; Admin Dose 1 MG; Start 08/11/16 at 20:00 Ondansetron HCl (Zofran Inj) 4 mg Q6H PRN IV NAUSEA AND/OR VOMITING; Start 08/12 at 10:00 Acetaminophen (Tylenol Supp) 650 mg Q6H PRN [place] PAIN LEVEL 1-3 OR FEVER; Start 08/12/16 at 10:00 Miscellaneous Information (Pending [facility] Order For Wound Care) This patient jeffrey... PRN PRN XX WOUND CARE; Start 08/13/16 at 09:30 Sodium Hypochlorite 1 applic 1 applic DAILY IRR Last administered on 08/15/16 14:20; Admin Dose 1 APPLIC; Start 08/14/16 at 09:00 Piperacillin Sod/ Tazobactam Sod 50 ml @ 100 mls/hr Q6 IVPB Last administered on 08/15/16 17:27; Admin Dose 100 MLS/HR; Start 08/14/16 at 12:00 Potassium Chloride/Dextrose (D5W + KCl 20 Meq) 1,000 ml @ 40 mls/hr Q24H IV Last administered on 08/15/16 16:11; Admin Dose 40 MLS/HR; Start 08/14/16 at 15: 30 Ketorolac Tromethamine (Toradol) 15 mg Q6H PRN IV PAIN; Start 08/15/16 at 14:00 ; Stop 08/18/16 at 13:59 SELINA ADAMS MD August 15, 2016 18:29
[2016-08-16] VITALS (14 sets, daily range): BP systolic 102–131; BP diastolic 53–88; PULSE 78–182; RESP 18–21
[2016-08-16] MEDS: D5W + KCL 20 MEQ 1,000 ML IV SCH (00:03)
[2016-08-16] MEDS: PIPER-TAZO 2.25 GM (PMX) 50 ML IVPB SCH ×4 (05:28→17:29)
[2016-08-16 07:31] LABS: ADD SCAN DIFF NO
[2016-08-16 07:41] LABS: BASOPHILS % 0.1 % (0.0-2.0); EOSINOPHILS # 0.2 10^3/ul (0.0-0.5); EOSINOPHILS % 1.5 % (0.0-7.0); HEMATOCRIT 30.7 % (37.0-47.0); HEMOGLOBIN 9.5 g/dl (12.0-16.0); LYMPHOCYTES # 0.9 10^3/ul (0.8-2.9); LYMPHOCYTES % 7.4 % (15.0-51.0); MEAN CORPUSCULAR HEMOGLOBIN 31.1 pg (29.0-33.0); MEAN CORPUSCULAR HGB CONC 30.9 g/dl (32.0-37.0); MEAN CORPUSCULAR VOLUME 100.7 fl (82.0-101.0); MEAN PLATELET VOLUME 12.4 fl (7.4-10.4); MONOCYTE # 0.3 10^3/ul (0.3-0.9); MONOCYTES % 2.5 % (0.0-11.0); NEUTROPHIL # 10.4 10^3/ul (1.6-7.5); NEUTROPHILS % 87.9 % (39.0-77.0); PLATELET COUNT 159 10^3/UL (140-415); RED BLOOD COUNT 3.05 10^6/ul (4.20-5.40); WHITE BLOOD COUNT 11.9 10^3/ul (4.8-10.8)
[2016-08-16 07:58] LABS: ALBUMIN 2.4 g/dl (3.3-4.9); ALBUMIN/GLOBULIN RATIO 0.63; BILIRUBIN,INDIRECT 0.8 mg/dl (0-1.1); BILIRUBIN,TOTAL 0.8 mg/dl (0.2-1.3); CALCIUM 7.4 mg/dl (8.4-10.2); CREATININE 0.94 mg/dl (0.44-1.00); POTASSIUM 3.9 mmol/L (3.5-5.1); TOTAL PROTEIN 6.2 g/dl (6.1-8.1)
[2016-08-16] MEDS: LEVALBUTEROL (NEB) 0.63 MG/3 ML AMP HHN SCH ×2 (08:12→13:43)
--- NOTE | 2016-08-16 09:54 | CONS ---
Date/Time of Note Date/Time of Note DATE: 08/16/16 TIME: 09:53 Assessment/Plan Assessment/Plan Additional Assessment/Plan 1. Renal fx has improved 2. Hypernatremic, IV modified 3. Dementia Consultation Date/Type/Reason Admit Date/Time August 11, 2016 at 19:00 Initial Consult Date 08/12/16 Type of Consultation: renal 24 HR Interval Summary Subjective hx not possible: other Exam/Review of Systems Vital Signs Vitals Vital Signs Date Time Temp Pulse Resp B/P Pulse Ox O2 Delivery O2 Flow Rate FiO2 08/16/16 08:19 80 22 98 Nasal Cannula 4.0 08/16/16 07:36 97.6 111/55 Intake and Output 08/15/16 08/15/16 08/16/16 14:59 22:59 06:59 Intake Total 50 ml 830 ml 1050 ml Output Total 450 ml 900 ml Balance 50 ml 380 ml 150 ml Exam Neck: No jvd Respiratory: clear to auscultation Cardiovascular: regular rate and rhythm Extremities: No edema Results Result Diagram: 08/16/16 0703 08/16/16 0703 Results 24 hrs Laboratory Tests Test 08/16/16 07:03 White Blood Count 11.9 H Red Blood Count 3.05 L Hemoglobin 9.5 L Hematocrit 30.7 L Mean Corpuscular Volume 100.7 Mean Corpuscular Hemoglobin 31.1 Mean Corpuscular Hemoglobin Concent 30.9 L Red Cell Distribution Width 14.0 Platelet Count 159 Mean Platelet Volume 12.4 H Neutrophils % 87.9 H Lymphocytes % 7.4 L Monocytes % 2.5 Eosinophils % 1.5 Basophils % 0.1 Nucleated Red Blood Cells % 0.0 Neutrophils # 10.4 H Lymphocytes # 0.9 Monocytes # 0.3 Eosinophils # 0.2 Basophils # 0.0 Nucleated Red Blood Cells # 0.0 Sodium Level 150 H Potassium Level 3.9 Chloride Level 122 H Carbon Dioxide Level 24 Anion Gap 8 Blood Urea Nitrogen 26 #H Creatinine 0.94 Glucose Level 116 Calcium Level 7.4 L Total Bilirubin 0.8 Direct Bilirubin 0.00 Indirect Bilirubin 0.8 Aspartate Amino Transf (AST/SGOT) 155 H Alanine Aminotransferase (ALT/SGPT) 106 H Alkaline Phosphatase 234 #H Total Protein 6.2 Albumin 2.4 L Globulin 3.80 H Albumin/Globulin Ratio 0.63 Medications Medications Current Medications Acetaminophen (Tylenol Tab) 325 mg Q4H PRN GTB PAIN AND FEVER; Start 08/11/16 at 20:00 Morphine Sulfate (morphine) 1 mg Q4H PRN IV PAIN LEVEL 6-10 Last administered on 08/14/16 11:36; Admin Dose 1 MG; Start 08/11/16 at 20:00 Ondansetron HCl (Zofran Inj) 4 mg Q6H PRN IV NAUSEA AND/OR VOMITING; Start 08/12 at 10:00 Acetaminophen (Tylenol Supp) 650 mg Q6H PRN [place] PAIN LEVEL 1-3 OR FEVER; Start 08/12/16 at 10:00 Miscellaneous Information (Pending [facility] Order For Wound Care) This patient jeffrey... PRN PRN XX WOUND CARE; Start 08/13/16 at 09:30 Sodium Hypochlorite 1 applic 1 applic DAILY IRR Last administered on 08/15/16 14:20; Admin Dose 1 APPLIC; Start 08/14/16 at 09:00 Piperacillin Sod/ Tazobactam Sod 50 ml @ 100 mls/hr Q6 IVPB Last administered on 08/16/16 05:28; Admin Dose 100 MLS/HR; Start 08/14/16 at 12:00 Potassium Chloride/Dextrose (D5W + KCl 20 Meq) 1,000 ml @ 40 mls/hr Q24H IV Last administered on 08/16/16 00:03; Admin Dose 40 MLS/HR; Start 08/14/16 at 15: 30 Ketorolac Tromethamine (Toradol) 15 mg Q6H PRN IV PAIN; Start 08/15/16 at 14:00 ; Stop 08/18/16 at 13:59 LEV HIGGISN MD August 16, 2016 09:54
[2016-08-16] MEDS: DEXTROSE 5% 1,000 ML IV SCH ×2 (10:00→17:26)
--- NOTE | 2016-08-16 13:10 | PN ---
DATE: 08/16/2016 SUBJECTIVE: The patient is unable to speak, noncommunicative. OBJECTIVE: VITAL SIGNS: Temperature 98.8, pulse 97, respirations 20, blood pressure 119/88, pulse oximetry 99% on 4 liters nasal cannula. GENERAL: Cachectic female with contractures, lying in bed, in no acute distress. Bilateral upper a nd lower extremity contractions. CHEST: Decreased breath sounds, bilateral bases. HEART: Tachycardic, regular. ABDOMEN: Soft, nontender, nondistended. Wound bandaged. NEUROLOGIC: Patient seems comfortable, no grimacing. Periodic twitching of the upper extremities. LABORATORY EXAMINATION: White blood cell count 11.9, hemoglobin 9.5, hematocrit 30.7, platelets 159 . Sodium 150, potassium 3.9, chloride 122, bicarbonate 24, BUN 26, creatinine 0.94, blood sugar of 116, AST 155, ALT 106, alkaline phosphatase 234, albumin 2.4. ASSESSMENT AND PLAN: 1. Acute renal failure secondary to dehydration. Improved with hydration. 2. Hypernatremia. Improved with placing free water. 3. Pneumonia. Remains stable. Continue antibiotics. 4. Decubitus ulcer. Continue with antibiotics and wound care. 5. Clogged G-tube. Await replacement of tube and will hold nutrition until this is done, unless it takes longer then on Thursday for it to be ordered. If the patient does not get the G-tube replaced by Thursday, will probably have to place a NG tube for temporary nutrition. Dictated By: FLORA CARDONA MD, SR/FIDELIA Conf#: [id number] DID#: [id number]
[2016-08-16] MEDS: SODIUM HYPOCHLORITE 1/40% 1L IRRIG IRR SCH (14:00)
[2016-08-16] MEDS ORDERED: MAGNESIUM SULFATE 1 GM/D5W 100 ML IVPB ONE (18:30)
[2016-08-17] VITALS (11 sets, daily range): BP systolic 100–132; BP diastolic 46–90; PULSE 71–108; RESP 18–21
[2016-08-17] MEDS: PIPER-TAZO 2.25 GM (PMX) 50 ML IVPB SCH ×5 (01:09→23:46)
[2016-08-17] MEDS: DEXTROSE 5% 1,000 ML IV SCH (02:14)
[2016-08-17 07:12] LABS: ADD SCAN DIFF NO
[2016-08-17 07:29] LABS: HEMATOCRIT 27.6 % (37.0-47.0); HEMOGLOBIN 9.1 g/dl (12.0-16.0); MEAN CORPUSCULAR HEMOGLOBIN 32.4 pg (29.0-33.0); MEAN CORPUSCULAR VOLUME 98.2 fl (82.0-101.0); MEAN PLATELET VOLUME 12.1 fl (7.4-10.4); PLATELET COUNT 159 10^3/UL (140-415); RED BLOOD COUNT 2.81 10^6/ul (4.20-5.40); RED CELL DISTRIBUTION WIDTH 13.3 % (11.5-14.5); WHITE BLOOD COUNT 11.7 10^3/ul (4.8-10.8)
[2016-08-17 07:32] LABS: POTASSIUM 3.2 mmol/L (3.5-5.1)
[2016-08-17 07:35] LABS: CREATININE 0.82 mg/dl (0.44-1.00); PHOSPHORUS 3.2 mg/dl (2.5-4.9)
[2016-08-17 07:36] LABS: CALCIUM 7.2 mg/dl (8.4-10.2); MAGNESIUM 2.1 mg/dl (1.7-2.5)
[2016-08-17] MEDS: LEVALBUTEROL (NEB) 0.63 MG/3 ML AMP HHN SCH ×3 (08:28→16:22)
[2016-08-17] MEDS: morphine 2 MG INJ IV PRN (09:01)
--- NOTE | 2016-08-17 09:26 | CONS ---
Date/Time of Note Date/Time of Note DATE: 08/17/16 TIME: 09:20 Assessment/Plan Assessment/Plan Chief Complaint/Hosp Course 1) ARF u/a does not suggest infection, likely due to dehydration 08/13 - improving with hydration 08/14 - continues to improve, will increase dose of zosyn urine cx was negative 08/15 - pretty much resolved 2) pneumonia check procalcitonin get nasal swab for MRSA continue with vanco, change cefepime to zosyn likely aspiration 08/13 - wbc is improving, continue with vanco/zosyn 08/14 - wbc continues to improve, no MRSA found d/c vanco and continue with zosyn and increase its dose 08/15 - only on zosyn now and wbc is improving pt getting echo and asked tech to quantify the L sided pleural effusion too 08/17 - echo only reported presence of L pleural effusion no good evidence to suggest an empyema continue with zosyn 3) sacral wound ulcer, likely osteo check ESR, CRP and if very high then would treat as if osteomyelitis if not very high will order bone scan for ultimate healing if this is indeed osteo she will likely need plastic surgery involvement her low albumin suggest she would have poor tissue healing will get wound cx of deeper wound 08/13 - ESR is very high, c/w osteomyelitis wound cx has gnr's and GPC continue with vanco/zosyn at present 08/14 - no MRSA found, d/c vanco and continue with zosyn pt likely has osteo due to high ESR will follow ESR weekly for response unlikely that antibiotics alone will heal the sacral wounds 08/15 - continue with zosyn unlikely that antibiotics alone will heal these sacral wounds 08/17 - pt likely has osteo but unlikely antibiotics will cure this usual treatment course for osteo is 6 weeks of antibiotics unlikely antibiotics alone will be curative repeat ESR and CRP in a.m. 4) severe dementia Problems: Consultation Date/Type/Reason Admit Date/Time August 11, 2016 at 19:00 Initial Consult Date 08/12/16 Type of Consultation: ID 24 HR Interval Summary Free Text/Dictation no change Exam/Review of Systems Vital Signs Vitals Vital Signs Date Time Temp Pulse Resp B/P Pulse Ox O2 Delivery O2 Flow Rate FiO2 08/17/16 08:35 98 18 100 Nasal Cannula 3.0 08/17/16 08:03 98.0 132/90 Intake and Output 08/16/16 08/16/16 08/17/16 15:00 23:00 07:00 Intake Total 50 ml 950 ml 1500 ml Output Total 400 ml 650 ml Balance 50 ml 550 ml 850 ml Exam Constitutional: non-verbal Head: normocephalic ENMT: mucosa pink and moist Respiratory: other (bilateral upper airway rhonchii) Cardiovascular: regular rate and rhythm Gastrointestinal: non-tender, other (no redness around the g-tube), soft Results Result Diagram: 08/17/16 0650 08/17/16 0650 Results 24 hrs Laboratory Tests Test 08/17/16 06:50 White Blood Count 11.7 H Red Blood Count 2.81 L Hemoglobin 9.1 L Hematocrit 27.6 L Mean Corpuscular Volume 98.2 Mean Corpuscular Hemoglobin 32.4 Mean Corpuscular Hemoglobin Concent 33.0 Red Cell Distribution Width 13.3 Platelet Count 159 Mean Platelet Volume 12.1 H Neutrophils % Lymphocytes % Monocytes % Neutrophils # Lymphocytes # Monocytes # Sodium Level 142 Potassium Level 3.2 L Chloride Level 111 H Carbon Dioxide Level 22 Anion Gap 12 Blood Urea Nitrogen 17 # Creatinine 0.82 Glucose Level 142 Calcium Level 7.2 L Phosphorus Level 3.2 Magnesium Level 2.1 B-Type Natriuretic Peptide 4390 H Medications Medications Current Medications Acetaminophen (Tylenol Tab) 325 mg Q4H PRN GTB PAIN AND FEVER; Start 08/11/16 at 20:00 Morphine Sulfate (morphine) 1 mg Q4H PRN IV PAIN LEVEL 6-10 Last administered on 08/17/16 09:01; Admin Dose 1 MG; Start 08/11/16 at 20:00 Ondansetron HCl (Zofran Inj) 4 mg Q6H PRN IV NAUSEA AND/OR VOMITING; Start 08/12 at 10:00 Acetaminophen (Tylenol Supp) 650 mg Q6H PRN [place] PAIN LEVEL 1-3 OR FEVER; Start 08/12/16 at 10:00 Miscellaneous Information (Pending Santyl Order For Wound Care) This patient jeffrey... PRN PRN XX WOUND CARE; Start 08/13/16 at 09:30 Sodium Hypochlorite 1 applic 1 applic DAILY IRR Last administered on 08/16/16 14:00; Admin Dose 1 APPLIC; Start 08/14/16 at 09:00 Piperacillin Sod/ Tazobactam Sod (Zosyn 2.25gm/ 50ml (Pmx)) 50 ml @ 100 mls/hr Q6 IVPB Last administered on 08/17/16 05:39; Admin Dose 100 MLS/HR; Start at 12:00 Ketorolac Tromethamine 15 mg 15 mg Q6H PRN IV PAIN; Start 08/15/16 at 14:00; Stop 08/18/16 at 13:59 Dextrose (D5W) 1,000 ml @ 125 mls/hr Q8H IV Last administered on 08/17/16 02: 14; Admin Dose 125 MLS/HR; Start 08/16/16 at 10:00 ERNIE MILLER MD August 17, 2016 09:26
[2016-08-17] MEDS: SODIUM HYPOCHLORITE 1/40% 1L IRRIG IRR SCH (10:00)
[2016-08-17 10:03] LABS: EOSINOPHILS # 0.4 10^3/ul (0.0-0.5); LYMPHOCYTES # 0.8 10^3/ul (0.8-2.9); NEUTROPHIL # 10.5 10^3/ul (1.6-7.5)
--- NOTE | 2016-08-17 10:26 | CONS ---
Date/Time of Note Date/Time of Note DATE: 08/17/16 TIME: 10:25 Assessment/Plan Assessment/Plan Additional Assessment/Plan 1. Renal fx is stable 2. Hypernatremia is resolved, IV reduced 3. K is low, addressed 4. Will see on request Consultation Date/Type/Reason Admit Date/Time August 11, 2016 at 19:00 Initial Consult Date 08/12/16 Type of Consultation: ID 24 HR Interval Summary Subjective hx not possible: other Exam/Review of Systems Vital Signs Vitals Vital Signs Date Time Temp Pulse Resp B/P Pulse Ox O2 Delivery O2 Flow Rate FiO2 08/17/16 08:35 98 18 100 Nasal Cannula 3.0 08/17/16 08:03 98.0 132/90 Intake and Output 08/16/16 08/16/16 08/17/16 15:00 23:00 07:00 Intake Total 50 ml 950 ml 1500 ml Output Total 400 ml 650 ml Balance 50 ml 550 ml 850 ml Exam Neck: No jvd Respiratory: diminished breath sounds Cardiovascular: regular rate and rhythm Extremities: No edema Results Result Diagram: 08/17/16 0650 08/17/16 0650 Results 24 hrs Laboratory Tests Test 08/17/16 06:50 White Blood Count 11.7 H Red Blood Count 2.81 L Hemoglobin 9.1 L Hematocrit 27.6 L Mean Corpuscular Volume 98.2 Mean Corpuscular Hemoglobin 32.4 Mean Corpuscular Hemoglobin Concent 33.0 Red Cell Distribution Width 13.3 Platelet Count 159 Mean Platelet Volume 12.1 H Neutrophils % 90.0 H Lymphocytes % 7.0 L Monocytes % Eosinophils % 3.0 Neutrophils # 10.5 H Lymphocytes # 0.8 Monocytes # Eosinophils # 0.4 Differential Comment MANUAL DIFF Large Platelets OCCASIONAL Sodium Level 142 Potassium Level 3.2 L Chloride Level 111 H Carbon Dioxide Level 22 Anion Gap 12 Blood Urea Nitrogen 17 # Creatinine 0.82 Glucose Level 142 Calcium Level 7.2 L Phosphorus Level 3.2 Magnesium Level 2.1 B-Type Natriuretic Peptide 4390 H Medications Medications Current Medications Acetaminophen (Tylenol Tab) 325 mg Q4H PRN GTB PAIN AND FEVER; Start 08/11/16 at 20:00 Morphine Sulfate (morphine) 1 mg Q4H PRN IV PAIN LEVEL 6-10 Last administered on 08/17/16t 09:01; Admin Dose 1 MG; Start 08/11/16 at 20:00 Ondansetron HCl (Zofran Inj) 4 mg Q6H PRN IV NAUSEA AND/OR VOMITING; Start 08/12 at 10:00 Acetaminophen (Tylenol Supp) 650 mg Q6H PRN [place] PAIN LEVEL 1-3 OR FEVER; Start 08/12/16 at 10:00 Miscellaneous Information (Pending Santyl Order For Wound Care) This patient jeffrey... PRN PRN XX WOUND CARE; Start 08/13/16 at 09:30 Sodium Hypochlorite 1 applic 1 applic DAILY IRR Last administered on 08/16/16 14:00; Admin Dose 1 APPLIC; Start 08/14/16 at 09:00 Piperacillin Sod/ Tazobactam Sod (Zosyn 2.25gm/ 50ml (Pmx)) 50 ml @ 100 mls/hr Q6 IVPB Last administered on 08/17/16 05:39; Admin Dose 100 MLS/HR; Start at 12:00 Ketorolac Tromethamine 15 mg 15 mg Q6H PRN IV PAIN; Start 08/15/16 at 14:00; Stop 08/18/16 at 13:59 Dextrose (D5W) 1,000 ml @ 125 mls/hr Q8H IV Last administered on 08/17/16 02: 14; Admin Dose 125 MLS/HR; Start 08/16/16 at 10:00 LEV HIGGINS MD August 17, 2016 10:26
[2016-08-17] MEDS: POTASSIUM CHLORIDE 50 ML IVPB SCH ×4 (13:14→18:58)
--- NOTE | 2016-08-17 13:36 | CONS ---
Date/Time of Note Date/Time of Note DATE: 08/17/16 TIME: 13:31 Assessment/Plan Assessment/Plan Chief Complaint/Hosp Course 1)severe dehydration poor po's, renal loss due to high glucose, PLAN: cont slow rehydration may need to change G tube for newer one, prob may be better to give more free water (d5w 20 %ns) Problems: Consultation Date/Type/Reason Admit Date/Time August 11, 2016 at 19:00 Initial Consult Date 08/12/16 Type of Consultation: ID 24 HR Interval Summary Free Text/Dictation 24 italian g tube replacement placed without problem Subjective hx not possible: pt non-verbal Constitutional: no complaints Exam/Review of Systems Vital Signs Vitals Vital Signs Date Time Temp Pulse Resp B/P Pulse Ox O2 Delivery O2 Flow Rate FiO2 08/17/16 12:37 108 08/17/16 12:02 22 100 Nasal Cannula 3.0 08/17/16 11:56 98.0 128/79 Intake and Output 08/16/16 08/16/16 08/17/16 15:00 23:00 07:00 Intake Total 50 ml 950 ml 1500 ml Output Total 400 ml 650 ml Balance 50 ml 550 ml 850 ml Exam Constitutional: non-verbal (will get kub if g tube in position will begin feeding isocal 30 ml/hr) Results Result Diagram: 08/17/16 0650 08/17/16 0650 Results 24 hrs Laboratory Tests Test 08/17/16 06:50 White Blood Count 11.7 H Red Blood Count 2.81 L Hemoglobin 9.1 L Hematocrit 27.6 L Mean Corpuscular Volume 98.2 Mean Corpuscular Hemoglobin 32.4 Mean Corpuscular Hemoglobin Concent 33.0 Red Cell Distribution Width 13.3 Platelet Count 159 Mean Platelet Volume 12.1 H Neutrophils % 90.0 H Lymphocytes % 7.0 L Monocytes % Eosinophils % 3.0 Neutrophils # 10.5 H Lymphocytes # 0.8 Monocytes # Eosinophils # 0.4 Differential Comment MANUAL DIFF Large Platelets OCCASIONAL Sodium Level 142 Potassium Level 3.2 L Chloride Level 111 H Carbon Dioxide Level 22 Anion Gap 12 Blood Urea Nitrogen 17 # Creatinine 0.82 Glucose Level 142 Calcium Level 7.2 L Phosphorus Level 3.2 Magnesium Level 2.1 B-Type Natriuretic Peptide 4390 H Medications Medications Current Medications Acetaminophen (Tylenol Tab) 325 mg Q4H PRN GTB PAIN AND FEVER; Start 08/11/16 at 20:00 Morphine Sulfate (morphine) 1 mg Q4H PRN IV PAIN LEVEL 6-10 Last administered on 08/17/16 09:01; Admin Dose 1 MG; Start 08/11/16 at 20:00 Ondansetron HCl (Zofran Inj) 4 mg Q6H PRN IV NAUSEA AND/OR VOMITING; Start 08/12 at 10:00 Acetaminophen (Tylenol Supp) 650 mg Q6H PRN [place] PAIN LEVEL 1-3 OR FEVER; Start 08/12/16 at 10:00 Miscellaneous Information (Pending Santyl Order For Wound Care) This patient jeffrey... PRN PRN XX WOUND CARE; Start 08/13/16 at 09:30 Sodium Hypochlorite 1 applic 1 applic DAILY IRR Last administered on 08/17/16 10:00; Admin Dose 1 APPLIC; Start 08/14/16 at 09:00 Piperacillin Sod/ Tazobactam Sod (Zosyn 2.25gm/ 50ml (Pmx)) 50 ml @ 100 mls/hr Q6 IVPB Last administered on 08/17/16 11:15; Admin Dose 100 MLS/HR; Start at 12:00 Ketorolac Tromethamine 15 mg 15 mg Q6H PRN IV PAIN; Start 08/15/16 at 14:00; Stop 08/18/16 at 13:59 Dextrose 1,000 ml @ 50 mls/hr Q20H IV Last administered on 08/17/16 02:14; Admin Dose 125 MLS/HR; Start 08/16/16 at 10:00 Potassium Chloride (KCl 10 MEQ/50 ML SW) 50 ml @ 25 mls/hr Q2H IVPB Last administered on 08/17/16 13:14; Admin Dose 25 MLS/HR; Start 08/17/16 at 12:00; Stop 08/17/16 at 19:59 SELINA ADAMS MD August 17, 2016 13:36
--- NOTE | 2016-08-17 14:47 | RADRPT ---
PROCEDURE: XR Chest. CLINICAL INDICATION: Shortness of breath. TECHNIQUE: Single frontal view. COMPARISON: 08/14/2016. FINDINGS: There is atelectasis or pneumonia in the left mid and lower lung zone, slightly worse than seen prev iously. The lungs are otherwise clear. The heart is mildly enlarged. There is calcification in the aorta consistent with atherosclerosis. There is no right pleural effusion. There is a moderate left pleural effusion. There is no pneumothorax. IMPRESSION: 1. Worse appearance of the left lung and larger left pleural effusion. 2. No other change from 08/14/2016. RPTAT: QQ .Marvin Pool MD, MD Date Time Electronically viewed and signed by .Marvin Pool MD, on 08/17/2016 14:47 .R/
--- NOTE | 2016-08-17 14:53 | RADRPT ---
PROCEDURE: XR Abdomen. CLINICAL INDICATION: 80-year-old female for G-tube placement. TECHNIQUE: AP abdomen x-ray. COMPARISON: No. FINDINGS: Contrast was introduced into the stomach and is followed from there to the duodenum and small bowel. The G tube is well positioned in the fundus of the stomach. 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 The bones are rarefied. No mechanical bowel obstruction is noted. Left ventricle is enlarg ed. The right diaphragm is elevated. IMPRESSION: 1. The gastrostomy tube is well positioned in the stomach with free flow of barium noted in the stom ach and into the proximal small bowel. RPTAT:AAJJ Physician Lucila Date Time Electronically viewed and signed by Physician Lucila on 08/17/2016 14:52 /
[2016-08-18] VITALS (12 sets, daily range): BP systolic 93–117; BP diastolic 42–70; PULSE 92–120; RESP 18–22
--- NOTE | 2016-08-18 03:28 | PN ---
DATE: 08/17/2016 SUBJECTIVE: The patient is noncommunicative, unable to give history. OBJECTIVE VITAL SIGNS: Temperature 97.9, pulse 97, respirations 21, blood pressure 102/55 , oxygen saturation 99% on 2 liter nasal cannula. GENERAL: Well-developed, thin female in no acute distress, lying in bed with marked upper extremity and lower extremity contractures. The patient appears comfortable. SKIN: Sacral decubitus wound is bandaged currently. CHEST: Decreased breath sounds at bases, otherwise clear with upper airway secretions audible. HEART: Tachycardic. ABDOMEN: G-tube site without drainage. Positive bowel sounds. NEUROLOGIC: Nonfocal. The patient is noncommunicative but responds to noxious stimuli. LABORATORY DATA: Sodium 142, potassium 3.2, chloride 111, bicarbonate 22, BUN 17, creatinine 0.82, blood sugar of 142. BNP of 4390. White blood cell count 11.7, hemoglobin of 9.1, hematocrit 27.6, platelets 159. ASSESSMENT AND PLAN: 1. Hypernatremia due to dehydration. This is resolved. We will continue to monitor. 2. Acute renal failure due to dehydration. This has resolved. Continue to monitor and keep with hydration. 3. Sepsis with pneumonia. The patient is improved. Continue current antibiotics. Keep head of the bed elevated. 4. Anemia, slightly worse with hydration. We will continue to monitor, but no need for transfusion. 5. Sacral decubitus ulcer, stage IV. Continue with antibiotics, current wound care, but will need to discuss with family agrgessiveness of care to fix this swollen 6. Hypokalemia, replaced per nephrology. Dictated By: FLORA CARDONA MD, SR/FIDELIA Conf#: [id number] DID#: [id number]
[2016-08-18] MEDS: PIPER-TAZO 2.25 GM (PMX) 50 ML IVPB SCH ×3 (05:16→17:21)
[2016-08-18] MEDS: DEXTROSE 5% 1,000 ML IV SCH (06:39)
[2016-08-18 07:18] LABS: ADD SCAN DIFF NO
--- NOTE | 2016-08-18 07:21 | CONS ---
Date/Time of Note Date/Time of Note DATE: 08/18/16 TIME: 07:16 Assessment/Plan Assessment/Plan Chief Complaint/Hosp Course 1) ARF u/a does not suggest infection, likely due to dehydration 08/13 - improving with hydration 08/14 - continues to improve, will increase dose of zosyn urine cx was negative 08/15 - pretty much resolved 2) pneumonia check procalcitonin get nasal swab for MRSA continue with vanco, change cefepime to zosyn likely aspiration 08/13 - wbc is improving, continue with vanco/zosyn 08/14 - wbc continues to improve, no MRSA found d/c vanco and continue with zosyn and increase its dose 08/15 - only on zosyn now and wbc is improving pt getting echo and asked tech to quantify the L sided pleural effusion too 08/17 - echo only reported presence of L pleural effusion no good evidence to suggest an empyema continue with zosyn 08/18 - stable, pt completes were treatment course for pneumonia today 3) sacral wound ulcer, likely osteo check ESR, CRP and if very high then would treat as if osteomyelitis if not very high will order bone scan for ultimate healing if this is indeed osteo she will likely need plastic surgery involvement her low albumin suggest she would have poor tissue healing will get wound cx of deeper wound 08/13 - ESR is very high, c/w osteomyelitis wound cx has gnr's and GPC continue with vanco/zosyn at present 08/14 - no MRSA found, d/c vanco and continue with zosyn pt likely has osteo due to high ESR will follow ESR weekly for response unlikely that antibiotics alone will heal the sacral wounds 08/15 - continue with zosyn unlikely that antibiotics alone will heal these sacral wounds 08/17 - pt likely has osteo but unlikely antibiotics will cure this usual treatment course for osteo is 6 weeks of antibiotics unlikely antibiotics alone will be curative repeat ESR and CRP in a.m. 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 repeat ESR and CRP are pending it is unlikely that antibiotics alone will be curative 4) severe dementia Problems: Consultation Date/Type/Reason Admit Date/Time August 11, 2016 at 19:00 Initial Consult Date 08/12/16 Type of Consultation: ID 24 HR Interval Summary Free Text/Dictation spoke to nurse g-tube is working well again but had a loose stool x1 when feeds were re-started no change in sacral wounds Subjective hx not possible: pt non-verbal Exam/Review of Systems Vital Signs Vitals Vital Signs Date Time Temp Pulse Resp B/P Pulse Ox O2 Delivery O2 Flow Rate FiO2 08/18/16 05:07 2.0 08/18/16 04:13 92 08/18/16 03:46 96.8 21 110/70 94 08/17/16 19:53 Nasal Cannula Intake and Output 08/17/16 08/17/16 08/18/16 15:00 23:00 07:00 Intake Total 50 ml 1150 ml 1960 ml Output Total 1000 ml 850 ml Balance 50 ml 150 ml 1110 ml Exam Constitutional: non-verbal Eyes: nl conjunctiva Respiratory: clear to auscultation Cardiovascular: regular rate and rhythm Gastrointestinal: soft Results Result Diagram: 08/17/16 0650 08/17/16 0650 Medications Medications Current Medications Acetaminophen (Tylenol Tab) 325 mg Q4H PRN GTB PAIN AND FEVER; Start 08/11/16 at 20:00 Morphine Sulfate (morphine) 1 mg Q4H PRN IV PAIN LEVEL 6-10 Last administered on 08/17/16 09:01; Admin Dose 1 MG; Start 08/11/16 at 20:00 Ondansetron HCl (Zofran Inj) 4 mg Q6H PRN IV NAUSEA AND/OR VOMITING; Start 08/12 at 10:00 Acetaminophen (Tylenol Supp) 650 mg Q6H PRN [place] PAIN LEVEL 1-3 OR FEVER; Start 08/12/16 at 10:00 Miscellaneous Information (Pending Santyl Order For Wound Care) This patient jeffrey... PRN PRN XX WOUND CARE; Start 08/13/16 at 09:30 Sodium Hypochlorite 1 applic 1 applic DAILY IRR Last administered on 08/17/16 10:00; Admin Dose 1 APPLIC; Start 08/14/16 at 09:00 Piperacillin Sod/ Tazobactam Sod (Zosyn 2.25gm/ 50ml (Pmx)) 50 ml @ 100 mls/hr Q6 IVPB Last administered on 08/18/16 05:16; Admin Dose 100 MLS/HR; Start at 12:00 Ketorolac Tromethamine 15 mg 15 mg Q6H PRN IV PAIN; Start 08/15/16 at 14:00; Stop 08/18/16 at 13:59 Dextrose (D5W) 1,000 ml @ 50 mls/hr Q20H IV Last administered on 08/18/16 06: 39; Admin Dose 50 MLS/HR; Start 08/16/16 at 10:00 ERNIE MILLER MD August 18, 2016 07:21
[2016-08-18 07:22] LABS: BASOPHILS % 0.1 % (0.0-2.0); EOSINOPHILS # 0.2 10^3/ul (0.0-0.5); EOSINOPHILS % 1.7 % (0.0-7.0); HEMATOCRIT 26.4 % (37.0-47.0); HEMOGLOBIN 8.6 g/dl (12.0-16.0); LYMPHOCYTES # 0.9 10^3/ul (0.8-2.9); LYMPHOCYTES % 8.3 % (15.0-51.0); MEAN CORPUSCULAR HEMOGLOBIN 32.3 pg (29.0-33.0); MEAN CORPUSCULAR HGB CONC 32.6 g/dl (32.0-37.0); MEAN CORPUSCULAR VOLUME 99.2 fl (82.0-101.0); MEAN PLATELET VOLUME 12.3 fl (7.4-10.4); MONOCYTE # 0.3 10^3/ul (0.3-0.9); MONOCYTES % 3.1 % (0.0-11.0); NEUTROPHIL # 8.8 10^3/ul (1.6-7.5); RED BLOOD COUNT 2.66 10^6/ul (4.20-5.40); RED CELL DISTRIBUTION WIDTH 13.6 % (11.5-14.5); WHITE BLOOD COUNT 10.2 10^3/ul (4.8-10.8)
[2016-08-18 07:26] LABS: PLATELET COUNT 207 10^3/UL (140-415)
[2016-08-18 07:45] LABS: CALCIUM 7.6 mg/dl (8.4-10.2); CREATININE 0.82 mg/dl (0.44-1.00); POTASSIUM 3.6 mmol/L (3.5-5.1)
[2016-08-18] MEDS: LEVALBUTEROL (NEB) 0.63 MG/3 ML AMP HHN SCH ×3 (08:21→17:37)
[2016-08-18] MEDS ORDERED: COLLAGENASE 30 GM TUBE TOP PRN (11:00)
[2016-08-18] MEDS: SODIUM HYPOCHLORITE 1/40% 1L IRRIG IRR SCH (12:11)
[2016-08-18] MEDS: COLLAGENASE 30 GM TUBE TOP SCH (12:12)
[2016-08-18] MEDS ORDERED: DEXTROSE 5%-0.45% NACL 1,000 ML IV SCH (14:00)
[2016-08-18] MEDS: ENOXAPARIN 40 MG/0.4 ML SYG SC SCH (17:27)
--- NOTE | 2016-08-18 22:13 | PN ---
DATE: 08/18/2016 SUBJECTIVE: The patient is resting comfortably, looks improved. Lower amount of oxygen, which is 2 liters. Overall appears better: OBJECTIVE: VITAL SIGNS: Temperature is 98.7, blood pressure 93/42, pulse ox is 98% on 2 liters oxygen, pulse i s 113. CHEST: Clear. CARDIOVASCULAR: Regular rhythm. LABORATORY DATA: Demonstrate a WBC 10.2, hemoglobin 8.6, platelets 207. Sodium 140, potassium 3.6, BUN is 13, creatinine 0.82. Chest x-ray demonstrated increased pleural effusions, no improvement o f the pneumonia. ASSESSMENT AND PLAN: 1. Pneumonia with left pleural effusion. Does not appear any better. The patient's WBC is still i mproved. The patient is on a lower amount of oxygen, but x-ray does not appear to be any better. I V fluid has been changed. May be due to the osmotic pressure. Changed the D5W to D5 1-1/2 normal s taylor to see if the fluid status will change. The patient is on Zosyn at this time. 2. Acute renal failure has stabilized. 3. Hypernatremia, stabilized. 4. New problem is elevated pulse. The patient has typically been in the 50s and 60s although this is now greater than 100. Due to being septic in septic shock, the patient was not initially on DVT prophylaxis, will start Lovenox now. Continue to watch. May get ultrasound of lower extremities. Although the patient's oxygenation is doing fairly fine, we will watch the trend. 5. Gastrointestinal. The patient's G-tube was changed over the weekend. AST and ALT was over the 100 christiano over this weekend. Will recheck for tomorrow. G-tube feedings have started. The patient was reported having had a loose stool with the feedings. Dictated By: QIANA OLMEDO/FIDELIA Conf#: [id number] DID#: [id number] CC: FLORA CARDONA MD;*End*
[2016-08-19] VITALS (14 sets, daily range): BP systolic 86–131; BP diastolic 41–62; PULSE 99–122; RESP 14–20
[2016-08-19] MEDS: PIPER-TAZO 2.25 GM (PMX) 50 ML IVPB SCH ×4 (00:18→17:40)
[2016-08-19 08:34] LABS: ADD SCAN DIFF NO
[2016-08-19 08:48] LABS: BASOPHILS % 0.1 % (0.0-2.0); EOSINOPHILS # 0.2 10^3/ul (0.0-0.5); EOSINOPHILS % 1.2 % (0.0-7.0); HEMATOCRIT 25.7 % (37.0-47.0); HEMOGLOBIN 8.1 g/dl (12.0-16.0); LYMPHOCYTES # 0.9 10^3/ul (0.8-2.9); MEAN CORPUSCULAR HEMOGLOBIN 31.4 pg (29.0-33.0); MEAN CORPUSCULAR HGB CONC 31.5 g/dl (32.0-37.0); MEAN CORPUSCULAR VOLUME 99.6 fl (82.0-101.0); MEAN PLATELET VOLUME 10.8 fl (7.4-10.4); MONOCYTE # 0.4 10^3/ul (0.3-0.9); MONOCYTES % 3.3 % (0.0-11.0); NEUTROPHIL # 11.5 10^3/ul (1.6-7.5); NEUTROPHILS % 87.6 % (39.0-77.0); PLATELET COUNT 313 10^3/UL (140-415); RED BLOOD COUNT 2.58 10^6/ul (4.20-5.40); RED CELL DISTRIBUTION WIDTH 14.4 % (11.5-14.5); WHITE BLOOD COUNT 13.1 10^3/ul (4.8-10.8)
[2016-08-19 09:06] LABS: D-DIMER 3544.43 ng/ml (<460)
[2016-08-19 09:14] LABS: ALBUMIN 2.3 g/dl (3.3-4.9); ALBUMIN/GLOBULIN RATIO 0.63; BILIRUBIN,INDIRECT 0.3 mg/dl (0-1.1); BILIRUBIN,TOTAL 0.3 mg/dl (0.2-1.3); CALCIUM 7.2 mg/dl (8.4-10.2); CREATININE 0.77 mg/dl (0.44-1.00); POTASSIUM 3.3 mmol/L (3.5-5.1); TOTAL PROTEIN 5.9 g/dl (6.1-8.1)
[2016-08-19] MEDS: LEVALBUTEROL (NEB) 0.63 MG/3 ML AMP HHN SCH ×3 (09:15→17:19)
[2016-08-19] MEDS: ENOXAPARIN 40 MG/0.4 ML SYG SC SCH (09:58)
--- NOTE | 2016-08-19 10:05 | RADRPT ---
PROCEDURE: XR Chest 1 View. CLINICAL INDICATION: Shortness of breath. TECHNIQUE: AP view of the chest was obtained. COMPARISON: August 17, 2016 FINDINGS: The heart size is within normal limits. Calcified atherosclerosis is noted in the aorta. Patchy inf iltrates throughout the left lung, combined with moderate pleural effusion are unchanged. Perihilar infiltrates throughout the right lung and small right pleural effusion are stable. Osseous structur es are unchanged. IMPRESSION: Calcified atherosclerosis in the aorta. Stable infiltrates throughout both lungs combined with small to moderate pleural effusions. RPTAT: AA .López Dent MD, Date Time Electronically viewed and signed by .López Dent MD, on 08/19/2016 10:04 .P/
[2016-08-19] MEDS: SODIUM HYPOCHLORITE 1/40% 1L IRRIG IRR SCH (10:36)
[2016-08-19] MEDS: COLLAGENASE 30 GM TUBE TOP SCH (10:36)
[2016-08-19] MEDS ORDERED: POTASSIUM CHLORIDE 20 MEQ POWDER FOR ORAL SOLN GTB ONE (13:00)
--- NOTE | 2016-08-19 13:23 | PN ---
DATE: 08/19/2016 SUBJECTIVE CHANGES: Pulse has increased in the last day and a half up to greater than 100, normall y it has been 50 to 60. PHYSICAL EXAMINATION: VITAL SIGNS: Temperature 99.3, pulse is 111, respiratory rate 14 to 24, pulse oximetry 96% at 3 lit ers nasal cannula. EXTREMITIES: Trace pitting edema in the right lower extremity. CARDIOVASCULAR: Increased rate. LUNGS: Loud breath sounds. ABDOMEN: Soft, nontender. LABORATORY DATA: Demonstrates potassium 3.3, sodium 142, creatinine 0.77. AST 78, ALT 104. D-dime r is 3544. Hemoglobin is at 8.1, white count is 13.1. ASSESSMENT AND PLAN: 1. Increased tachycardia in the last day and a half, looking into ruling out pulmonary embolism. U ltrasound of lower extremities has been ordered. Pulmonary to be consulted. The patient unable to be put into a CAT scan due to her Alzheimer's and unable to follow directions. Lovenox was started yesterday. D-dimer is elevated, but the D-dimer may be elevated due to pneumonia or other causes as well as the problem of pulmonary embolism. 2. Anemia at 8.1, will be checked. If hits the 7s, we will transfuse. 3. Hyponatremia, resolved. 4. Pneumonia has improved. 5. Elevated liver function tests, status post G-tube replacement. Liver function tests have contin ued to go down. We will recheck again in the morning AST and ALT. 6. The presumption osteomyelitis. ID is currently treating. 7. Alzheimer's, severe, for the past 10 years. Currently appears to be at her baseline. Dictated By: QIANA OLMEDO/FIDELIA Conf#: [id number] DID#: [id number]
--- NOTE | 2016-08-19 14:27 | CONS ---
Date/Time of Note Date/Time of Note DATE: 08/19/16 TIME: 14:23 Assessment/Plan Assessment/Plan Additional Assessment/Plan Chest x-ray was reviewed from today which is showing changes consistent with congestive heart failure with bilateral pleural effusions slightly more pronounced in the left lung. Assessment recommendations; 1. Patient admitted for fever due to sacral decubitus ulcers, currently on appropriate antibiotic regimen. 2. Advanced dementia. 3. Anemia. 4. Chest x-ray showing pulmonary edema and bilateral pleural effusions more pronounced in the left lung. At this time I would recommend adding Lasix 20 mg IV every 12 hours. Obtain follow-up chest x-ray in 48 hours. Consultation Date/Type/Reason Admit Date/Time August 11, 2016 at 19:00 Date of Consultation: August 19, 2016 Type of Consultation: Pulmonary Reason for Consultation Pulmonary consultations obtained for evaluation of pleural effusions. History presenting any; patient is an 80-year-old oriented lady who was admitted on the first of this month transferred from [facility] [facility] with complaints of low-grade fever. Patient has been diagnosed with decubitus ulcer infection. Has been started on antibiotic coverage. Chest x-ray was done which is showing changes consistent with congestive heart failure as well as pleural effusions more pronounced in the left side. Because of advanced dementia patient is unable to give any history by herself whatsoever history was obtained from medical records. Past medical history; 1. History of dementia 2. Decubitus ulcers. 3. Status post G-tube placement. 4. Anemia. Medications; were reviewed. Allergies; none. Next Social history, family history, occupational history is unable to be obtained. Review of systems; unable to be obtained. General exam; elderly woman, currently in no distress, not responsive. Constitutional: no complaints ENT: no complaints Gastrointestinal: diarrhea Neurologic: confusion Social History Smoking Status: Never smoker Exam/Review of Systems Vital Signs Vitals Vital Signs Date Time Temp Pulse Resp B/P Pulse Ox O2 Delivery O2 Flow Rate FiO2 08/19/16 12:24 121 28 97 Nasal Cannula 3.0 08/19/16 12:03 98.9 97/41 Intake and Output 08/18/16 08/18/16 08/19/16 15:00 23:00 07:00 Intake Total 375 ml 1470 ml 1520 ml Output Total 650 ml 1100 ml Balance 375 ml 820 ml 420 ml Exam HEENT exam is; supple neck, positive JVD. Patient has a multiple carious teeth. Pupils are small bilaterally. No neck masses. No thyromegaly. No neck bruits. No lymphadenopathy. Chest examined; diminished breath sound bilaterally. S1-S2 audible, no murmurs. Abdomen exam is; soft, G-tube in place. Bowel sounds audible. No organomegaly felt. Back examination; dressing applied over sacrum. Extremity exam; no peripheral edema. 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 SOCIAL SCIENCE MANAGER examination; patient is unresponsive. Results Result Diagram: 08/19/1613 08/19/1613 Results 24 hrs Laboratory Tests Test 08/19/16 08:13 White Blood Count 13.1 #H Red Blood Count 2.58 L Hemoglobin 8.1 L Hematocrit 25.7 L Mean Corpuscular Volume 99.6 Mean Corpuscular Hemoglobin 31.4 Mean Corpuscular Hemoglobin Concent 31.5 L Red Cell Distribution Width 14.4 Platelet Count 313 # Mean Platelet Volume 10.8 H Neutrophils % 87.6 H Lymphocytes % 7.0 L Monocytes % 3.3 Eosinophils % 1.2 Basophils % 0.1 Nucleated Red Blood Cells % 0.0 Neutrophils # 11.5 H Lymphocytes # 0.9 Monocytes # 0.4 Eosinophils # 0.2 Basophils # 0.0 Nucleated Red Blood Cells # 0.0 D-Dimer 3544.43 H D-Dimer Comment Sodium Level 142 Potassium Level 3.3 L Chloride Level 117 H Carbon Dioxide Level 21 Anion Gap 7 L Blood Urea Nitrogen 14 Creatinine 0.77 Glucose Level 115 Calcium Level 7.2 L Total Bilirubin 0.3 Direct Bilirubin 0.00 Indirect Bilirubin 0.3 Aspartate Amino Transf (AST/SGOT) 78 H Alanine Aminotransferase (ALT/SGPT) 104 H Alkaline Phosphatase 220 H Total Protein 5.9 L Albumin 2.3 L Globulin 3.60 H Albumin/Globulin Ratio 0.63 Lipase 195 Medications Medications Current Medications Acetaminophen (Tylenol Tab) 325 mg Q4H PRN GTB PAIN AND FEVER; Start 08/11/16 at 20:00 Morphine Sulfate (morphine) 1 mg Q4H PRN IV PAIN LEVEL 6-10 Last administered on 08/17/16t 09:01; Admin Dose 1 MG; Start 08/11/16 at 20:00 Ondansetron HCl (Zofran Inj) 4 mg Q6H PRN IV NAUSEA AND/OR VOMITING; Start 08/12 at 10:00 Acetaminophen (Tylenol Supp) 650 mg Q6H PRN [place] PAIN LEVEL 1-3 OR FEVER; Start 08/12/16 at 10:00 Sodium Hypochlorite 1 applic 1 applic DAILY IRR Last administered on 08/19/16 10:36; Admin Dose 1 APPLIC; Start 08/14/16 at 09:00 Piperacillin Sod/ Tazobactam Sod (Zosyn 2.25gm/ 50ml (Pmx)) 50 ml @ 100 mls/hr Q6 IVPB Last administered on 08/19/16 11:54; Admin Dose 100 MLS/HR; Start at 12:00 Collagenase (Santyl) 1 applic DAILY TOP Last administered on 08/19/16 10:36; Admin Dose 1 APPLIC; Start 08/18/16 at 12:00 Collagenase (Santyl) 1 applic PRN PRN TOP WOUND CARE; Start 08/18/16 at 11:00 Enoxaparin Sodium (Lovenox) 40 mg DAILY SC Last administered on 08/19/16 09:58 ; Admin Dose 40 MG; Start 08/18/16 at 17:30 PARADISE RODRIGUES August 19, 2016 14:27
--- NOTE | 2016-08-19 14:35 | RADRPT ---
PROCEDURE: US DVT. CLINICAL INDICATION: Evaluate lower extremities for deep venous thrombosis.. TECHNIQUE: Multiple longitudinal and transverse images of the bilateral lower extremity veins were obtained with benoit scale and color Doppler imaging. 2D grayscale measurements with compression, co neelima Doppler flow, and augmentation was performed. The calf veins were interrogated as well. COMPARISON: No prior studies are available for comparison. FINDINGS: The left common femoral, superficial femoral and popliteal veins are normally compressible throughou t. Color flow demonstrates normal filling of the vessel. Normal waveforms are visualized and there is normal response to augmentation. The right common femoral and superficial femoral veins are normally compressible throughout. Color flow demonstrates normal filling of the vessel. Normal waveforms are visualized and there is normal response to augmentation. The popliteal and calf veins are not seen due to leg contractures. IMPRESSION: 1. No evidence of deep venous thrombosis in either lower extremity. However, there is some technic al limitations on the right secondary to contractures with nonvisualization of the right popliteal a nd right calf veins. RPTAT: [facility] Physician Jamshid Date Time Electronically viewed and signed by Physician Jamshid on 08/19/2016 14:34 /
[2016-08-19] MEDS: FUROSEMIDE 20 MG INJ IV SCH (17:45)
[2016-08-20] VITALS (11 sets, daily range): BP systolic 104–115; BP diastolic 46–58; PULSE 92–127; RESP 18–24
[2016-08-20] MEDS: PIPER-TAZO 2.25 GM (PMX) 50 ML IVPB SCH ×5 (00:30→23:13)
[2016-08-20] MEDS: FUROSEMIDE 20 MG INJ IV SCH ×2 (05:16→18:06)
[2016-08-20 07:36] LABS: ADD SCAN DIFF NO
[2016-08-20 07:54] LABS: BASOPHILS % 0.1 % (0.0-2.0); EOSINOPHILS # 0.1 10^3/ul (0.0-0.5); EOSINOPHILS % 1.4 % (0.0-7.0); HEMATOCRIT 24.2 % (37.0-47.0); HEMOGLOBIN 7.6 g/dl (12.0-16.0); LYMPHOCYTES # 0.9 10^3/ul (0.8-2.9); LYMPHOCYTES % 9.5 % (15.0-51.0); MEAN CORPUSCULAR HEMOGLOBIN 31.1 pg (29.0-33.0); MEAN CORPUSCULAR HGB CONC 31.4 g/dl (32.0-37.0); MEAN CORPUSCULAR VOLUME 99.2 fl (82.0-101.0); MEAN PLATELET VOLUME 10.7 fl (7.4-10.4); MONOCYTE # 0.4 10^3/ul (0.3-0.9); MONOCYTES % 3.9 % (0.0-11.0); NEUTROPHIL # 7.6 10^3/ul (1.6-7.5); NEUTROPHILS % 84.5 % (39.0-77.0); PLATELET COUNT 320 10^3/UL (140-415); RED BLOOD COUNT 2.44 10^6/ul (4.20-5.40); RED CELL DISTRIBUTION WIDTH 15.3 % (11.5-14.5)
[2016-08-20 08:13] LABS: POTASSIUM 3.9 mmol/L (3.5-5.1)
[2016-08-20 08:15] LABS: ALBUMIN/GLOBULIN RATIO 0.57; BILIRUBIN,INDIRECT 0.3 mg/dl (0-1.1); BILIRUBIN,TOTAL 0.3 mg/dl (0.2-1.3); CREATININE 0.66 mg/dl (0.44-1.00); TOTAL PROTEIN 5.5 g/dl (6.1-8.1)
[2016-08-20 08:16] LABS: CALCIUM 7.3 mg/dl (8.4-10.2)
[2016-08-20] MEDS: LEVALBUTEROL (NEB) 0.63 MG/3 ML AMP HHN SCH ×3 (08:37→16:44)
[2016-08-20] MEDS: COLLAGENASE 30 GM TUBE TOP SCH (09:35)
[2016-08-20] MEDS: SODIUM HYPOCHLORITE 1/40% 1L IRRIG IRR SCH (09:35)
[2016-08-20] MEDS: ENOXAPARIN 40 MG/0.4 ML SYG SC SCH (09:38)
--- NOTE | 2016-08-20 10:15 | CONS ---
Date/Time of Note Date/Time of Note DATE: 08/20/16 TIME: 10:13 Assessment/Plan Assessment/Plan Additional Assessment/Plan Assessment recommendations; 1. Patient admitted for sepsis due to sacral decubitus ulcers. Currently on appropriate antibiotic regimen. 2. CHF. Started on Lasix 20 mg IV every 12 hours. 3. Advanced dementia. Continue current treatment. Will obtain follow-up chest x-ray tomorrow. Consultation Date/Type/Reason Admit Date/Time August 11, 2016 at 19:00 Initial Consult Date 08/19/16 Type of Consultation: Pulmonary 24 HR Interval Summary Free Text/Dictation Patient's condition remains stable. Has remained hemodynamically stable. General exam; elderly lady, awake but not much responsive. Currently in no distress. Exam/Review of Systems Vital Signs Vitals Vital Signs Date Time Temp Pulse Resp B/P Pulse Ox O2 Delivery O2 Flow Rate FiO2 08/20/16 08:40 106 25 96 Nasal Cannula 3.0 08/20/16 08:21 97.6 104/46 Intake and Output 08/19/16 08/19/16 08/20/16 15:00 23:00 07:00 Intake Total 1600 ml 1260 ml Output Total 900 ml 550 ml Balance 700 ml 710 ml Exam HEENT exam is; supple neck, JVD difficult to see because of short neck. No neck masses, no thyromegaly. Pupils are small bilaterally. Chest exam is; diminished breath sounds throughout. S1-S2 audible, no murmurs. Abdomen examination; soft, nondistended. No organomegaly. Back examination; there is a dressing applied over the sacrum. Extremity examination; no peripheral edema. Patient does have contractures involving all 4 extremities. CARTON MAKING MACHINIST examination; patient is awake but not responsive to any commands. Results Result Diagram: 08/20/16 0657 08/20/16 0657 Results 24 hrs Laboratory Tests Test 08/20/16 06:57 White Blood Count 9.0 # Red Blood Count 2.44 L Hemoglobin 7.6 L Hematocrit 24.2 L Mean Corpuscular Volume 99.2 Mean Corpuscular Hemoglobin 31.1 Mean Corpuscular Hemoglobin Concent 31.4 L Red Cell Distribution Width 15.3 H Platelet Count 320 Mean Platelet Volume 10.7 H Neutrophils % 84.5 H Lymphocytes % 9.5 L Monocytes % 3.9 Eosinophils % 1.4 Basophils % 0.1 Nucleated Red Blood Cells % 0.0 Neutrophils # 7.6 H Lymphocytes # 0.9 Monocytes # 0.4 Eosinophils # 0.1 Basophils # 0.0 Nucleated Red Blood Cells # 0.0 Sodium Level 147 H Potassium Level 3.9 Chloride Level 116 H Carbon Dioxide Level 21 Anion Gap 14 # Blood Urea Nitrogen 14 Creatinine 0.66 Glucose Level 102 Calcium Level 7.3 L Total Bilirubin 0.3 Direct Bilirubin 0.00 Indirect Bilirubin 0.3 Aspartate Amino Transf (AST/SGOT) 73 H Alanine Aminotransferase (ALT/SGPT) 92 H Alkaline Phosphatase 192 H B-Type Natriuretic Peptide 2940 H Total Protein 5.5 L Albumin 2.0 L Globulin 3.50 H Albumin/Globulin Ratio 0.57 Medications Medications Current Medications Acetaminophen (Tylenol Tab) 325 mg Q4H PRN GTB PAIN AND FEVER; Start 08/11/16 at 20:00 Morphine Sulfate (morphine) 1 mg Q4H PRN IV PAIN LEVEL 6-10 Last administered on 08/17/16 09:01; Admin Dose 1 MG; Start 08/11/16 at 20:00 Ondansetron HCl (Zofran Inj) 4 mg Q6H PRN IV NAUSEA AND/OR VOMITING; Start 08/12 at 10:00 Acetaminophen (Tylenol Supp) 650 mg Q6H PRN [place] PAIN LEVEL 1-3 OR FEVER; Start 08/12/16 at 10:00 Sodium Hypochlorite 1 applic 1 applic DAILY IRR Last administered on 08/20/16 09:35; Admin Dose 1 APPLIC; Start 08/14/16 at 09:00 Piperacillin Sod/ Tazobactam Sod (Zosyn 2.25gm/ 50ml (Pmx)) 50 ml @ 100 mls/hr Q6 IVPB Last administered on 08/20/16 05:14; Admin Dose 100 MLS/HR; Start 08/14 at 12:00 Collagenase (Santyl) 1 applic DAILY TOP Last administered on 08/20/16 09:35; Admin Dose 1 APPLIC; Start 08/18/16 at 12:00 Collagenase (Santyl) 1 applic PRN PRN TOP WOUND CARE; Start 08/18/16 at 11:00 Enoxaparin Sodium (Lovenox) 40 mg DAILY SC Last administered on 08/20/16 09:38 ; Admin Dose 40 MG; Start 08/18/16 at 17:30 PARADISE RODRIGUES August 20, 2016 10:15
--- NOTE | 2016-08-20 12:08 | CONS ---
Date/Time of Note Date/Time of Note DATE: 08/20/16 TIME: 12:04 Assessment/Plan Assessment/Plan Chief Complaint/Hosp Course 1) ARF u/a does not suggest infection, likely due to dehydration 08/13 - improving with hydration 08/14 - continues to improve, will increase dose of zosyn urine cx was negative 08/15 - pretty much resolved 2) pneumonia check procalcitonin get nasal swab for MRSA continue with vanco, change cefepime to zosyn likely aspiration 08/13 - wbc is improving, continue with vanco/zosyn 08/14 - wbc continues to improve, no MRSA found d/c vanco and continue with zosyn and increase its dose 08/15 - only on zosyn now and wbc is improving pt getting echo and asked tech to quantify the L sided pleural effusion too 08/17 - echo only reported presence of L pleural effusion no good evidence to suggest an empyema continue with zosyn 08/18 - stable, pt completes were treatment course for pneumonia today 08/20 - minimally elevated procalcitonin on 08/13 no further treatment needed for pneumonia but on zosyn for probable sacral osteo 3) sacral wound ulcer, likely osteo check ESR, CRP and if very high then would treat as if osteomyelitis if not very high will order bone scan for ultimate healing if this is indeed osteo she will likely need plastic surgery involvement her low albumin suggest she would have poor tissue healing will get wound cx of deeper wound 08/13 - ESR is very high, c/w osteomyelitis wound cx has gnr's and GPC continue with vanco/zosyn at present 08/14 - no MRSA found, d/c vanco and continue with zosyn pt likely has osteo due to high ESR will follow ESR weekly for response unlikely that antibiotics alone will heal the sacral wounds 08/15 - continue with zosyn unlikely that antibiotics alone will heal these sacral wounds 08/17 - pt likely has osteo but unlikely antibiotics will cure this usual treatment course for osteo is 6 weeks of antibiotics unlikely antibiotics alone will be curative repeat ESR and CRP in a.m. 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 repeat ESR and CRP are pending it is unlikely that antibiotics alone will be curative 08/20 - day of zosyn ESR elevated c/w osteomyelitis CRP did improve a bit but antibiotics unlikely to be curative recommend weekly esr, crp and if not improving then would d/c antibiotics 4) severe dementia Problems: Consultation Date/Type/Reason Admit Date/Time August 11, 2016 at 19:00 Initial Consult Date 08/12/16 Type of Consultation: ID [id number] HR Interval Summary Subjective hx not possible: pt non-verbal Exam/Review of Systems Vital Signs Vitals Vital Signs Date Time Temp Pulse Resp B/P Pulse Ox O2 Delivery O2 Flow Rate FiO2 08/20/16 11:38 97.8 122 18 115/55 100 08/20/16 08:40 Nasal Cannula 3.0 Intake and Output 08/19/16 08/19/16 08/20/16 15:00 23:00 07:00 Intake Total 1600 ml 1260 ml Output Total 900 ml 550 ml Balance 700 ml 710 ml Exam eyes open but do not track Constitutional: non-verbal Head: normocephalic Respiratory: other (coarse rhonchi) Cardiovascular: regular rate and rhythm Results Result Diagram: 08/20/16 0657 08/20/16 0657 Results 24 hrs Laboratory Tests Test 08/20/16 06:57 White Blood Count 9.0 # Red Blood Count 2.44 L Hemoglobin 7.6 L Hematocrit 24.2 L Mean Corpuscular Volume 99.2 Mean Corpuscular Hemoglobin 31.1 Mean Corpuscular Hemoglobin Concent 31.4 L Red Cell Distribution Width 15.3 H Platelet Count 320 Mean Platelet Volume 10.7 H Neutrophils % 84.5 H Lymphocytes % 9.5 L Monocytes % 3.9 Eosinophils % 1.4 Basophils % 0.1 Nucleated Red Blood Cells % 0.0 Neutrophils # 7.6 H Lymphocytes # 0.9 Monocytes # 0.4 Eosinophils # 0.1 Basophils # 0.0 Nucleated Red Blood Cells # 0.0 Sodium Level 147 H Potassium Level 3.9 Chloride Level 116 H Carbon Dioxide Level 21 Anion Gap 14 # Blood Urea Nitrogen 14 Creatinine 0.66 Glucose Level 102 Calcium Level 7.3 L Total Bilirubin 0.3 Direct Bilirubin 0.00 Indirect Bilirubin 0.3 Aspartate Amino Transf (AST/SGOT) 73 H Alanine Aminotransferase (ALT/SGPT) 92 H Alkaline Phosphatase 192 H B-Type Natriuretic Peptide 2940 H Total Protein 5.5 L Albumin 2.0 L Globulin 3.50 H Albumin/Globulin Ratio 0.57 Medications Medications Current Medications Acetaminophen (Tylenol Tab) 325 mg Q4H PRN GTB PAIN AND FEVER; Start 08/11/16 at 20:00 Morphine Sulfate (morphine) 1 mg Q4H PRN IV PAIN LEVEL 6-10 Last administered on 08/17/16 09:01; Admin Dose 1 MG; Start 08/11/16 at 20:00 Ondansetron HCl (Zofran Inj) 4 mg Q6H PRN IV NAUSEA AND/OR VOMITING; Start 08/12 at 10:00 Acetaminophen (Tylenol Supp) 650 mg Q6H PRN [place] PAIN LEVEL 1-3 OR FEVER; Start 08/12/16 at 10:00 Sodium Hypochlorite 1 applic 1 applic DAILY IRR Last administered on 08/20/16 09:35; Admin Dose 1 APPLIC; Start 08/14/16 at 09:00 Piperacillin Sod/ Tazobactam Sod (Zosyn 2.25gm/ 50ml (Pmx)) 50 ml @ 100 mls/hr Q6 IVPB Last administered on 08/20/16 05:14; Admin Dose 100 MLS/HR; Start 08/14 at 12:00 Collagenase (Santyl) 1 applic DAILY TOP Last administered on 08/20/16 09:35; Admin Dose 1 APPLIC; Start 08/18/16 at 12:00 Collagenase (Santyl) 1 applic PRN PRN TOP WOUND CARE; Start 08/18/16 at 11:00 Enoxaparin Sodium (Lovenox) 40 mg DAILY SC Last administered on 08/20/16 09:38 ; Admin Dose 40 MG; Start 08/18/16 at 17:30 ERNIE MILLER MD August 20, 2016 12:08
[2016-08-20] MEDS ORDERED: LIDOCAINE 1% (MPF) 5 ML VIAL SC ONE (16:30)
[2016-08-21] VITALS (12 sets, daily range): BP systolic 92–110; BP diastolic 40–65; PULSE 107–118; RESP 17–20
[2016-08-21] MEDS: FUROSEMIDE 20 MG INJ IV SCH ×2 (05:19→17:21)
[2016-08-21] MEDS: PIPER-TAZO 2.25 GM (PMX) 50 ML IVPB SCH ×4 (05:21→23:42)
[2016-08-21 08:38] LABS: ADD SCAN DIFF NO
[2016-08-21 08:48] LABS: BASOPHILS % 0.1 % (0.0-2.0); EOSINOPHILS # 0.2 10^3/ul (0.0-0.5); EOSINOPHILS % 1.7 % (0.0-7.0); HEMOGLOBIN 8.2 g/dl (12.0-16.0); LYMPHOCYTES # 0.9 10^3/ul (0.8-2.9); LYMPHOCYTES % 9.7 % (15.0-51.0); MEAN CORPUSCULAR HEMOGLOBIN 31.2 pg (29.0-33.0); MEAN CORPUSCULAR HGB CONC 31.5 g/dl (32.0-37.0); MEAN CORPUSCULAR VOLUME 98.9 fl (82.0-101.0); MEAN PLATELET VOLUME 10.2 fl (7.4-10.4); MONOCYTE # 0.4 10^3/ul (0.3-0.9); MONOCYTES % 4.2 % (0.0-11.0); NEUTROPHIL # 8.1 10^3/ul (1.6-7.5); NEUTROPHILS % 83.7 % (39.0-77.0); PLATELET COUNT 369 10^3/UL (140-415); RED BLOOD COUNT 2.63 10^6/ul (4.20-5.40); WHITE BLOOD COUNT 9.7 10^3/ul (4.8-10.8)
[2016-08-21] MEDS: SODIUM HYPOCHLORITE 1/40% 1L IRRIG IRR SCH (09:00)
[2016-08-21] MEDS: COLLAGENASE 30 GM TUBE TOP SCH (09:00)
[2016-08-21 09:13] LABS: ALBUMIN 2.4 g/dl (3.3-4.9)
[2016-08-21 09:14] LABS: POTASSIUM 3.5 mmol/L (3.5-5.1)
[2016-08-21 09:16] LABS: ALBUMIN/GLOBULIN RATIO 0.61; BILIRUBIN,INDIRECT 0.2 mg/dl (0-1.1); BILIRUBIN,TOTAL 0.2 mg/dl (0.2-1.3); CREATININE 0.67 mg/dl (0.44-1.00); TOTAL PROTEIN 6.3 g/dl (6.1-8.1)
[2016-08-21 09:17] LABS: CALCIUM 7.6 mg/dl (8.4-10.2)
[2016-08-21] MEDS: LEVALBUTEROL (NEB) 0.63 MG/3 ML AMP HHN SCH ×3 (09:21→16:50)
[2016-08-21] MEDS: ENOXAPARIN 40 MG/0.4 ML SYG SC SCH (09:43)
--- NOTE | 2016-08-21 09:50 | RADRPT ---
PROCEDURE: XR Chest 1 View. CLINICAL INDICATION: Shortness of breath TECHNIQUE: AP view of the chest was obtained. COMPARISON: August 19, 2016 FINDINGS: The heart size is within normal limits. Calcified atherosclerosis is noted in the aorta. Central pu lmonary vascular congestion and interstitial prominence continues to be seen in both lungs. Patchy infiltrates throughout the left lung combined with small to moderate pleural effusion are similar to prior exam, given differences in technique. Perihilar infiltrates in the right lung are similar to prior exam, given differences in technique. Small right pleural effusion is present. The osseous st ructures are unchanged. IMPRESSION: Calcified atherosclerosis in the aorta. Stable central pulmonary vascular congestion and interstitial prominence in both lungs. Stable infiltrates throughout the left lung, combined with small to moderate pleural effusion. Stable perihilar infiltrates in the right lung and small right pleural effusion. RPTAT: AA .López Dent MD, Date Time Electronically viewed and signed by .López Dent MD, on 08/21/2016 09:50 .P/
--- NOTE | 2016-08-21 23:24 | PN ---
DATE: 08/21/2016 SUBJECTIVE: No acute changes, no longer getting fluid bolused on a constant drip. PHYSICAL EXAMINATION: VITAL SIGNS: Pulse mildly decreased, averaging over 120s, now ranging between 105 to 120. Otherwis e, vitals: Temperature 98.0, pulse 107, blood pressure 96/40, pulse ox 95 on 3 liters. CARDIOVASCULAR: Increased rate. LUNGS: No acute changes, no wheezes, no rhonchi. ABDOMEN: Soft, nontender. LABORATORY DATA: WBC is at 9.7, hemoglobin 8.2. Sodium is 147, creatinine 0.67, ALT is 86. ASSESSMENT AND PLAN: 1. Increased tachycardia, mildly improved. Patient did not have deep venous thromboses. Being kristy ated as if it is from fluid overload, and Lasix is being given 2 times a day, which is increasing he r sodium. 2. Hypernatremia. Increasing due to the Lasix. Free water is trying to be given. Will discuss wi th a machine quilt stuffer if we need to increase the free water now due to the change of feedings. 3. Pneumonia. WBC has improved, looks fairly good. 4. Elevated liver function tests. Unclear why the liver test has increased. The ALT continues to decrease. 5. Presented with osteomyelitis. Continue on IV antibiotics. 6. Alzheimer's. Dictated By: QIANA OLMEDO/FIDELIA Conf#: [id number] DID#: [id number]
[2016-08-22] VITALS (14 sets, daily range): BP systolic 91–102; BP diastolic 46–55; PULSE 98–157; RESP 15–21
[2016-08-22] MEDS: FUROSEMIDE 20 MG INJ IV SCH ×2 (06:00→17:13)
[2016-08-22] MEDS: PIPER-TAZO 2.25 GM (PMX) 50 ML IVPB SCH ×4 (06:22→23:29)
[2016-08-22] MEDS: LEVALBUTEROL (NEB) 0.63 MG/3 ML AMP HHN SCH ×3 (07:59→17:04)
[2016-08-22] MEDS: COLLAGENASE 30 GM TUBE TOP SCH (08:16)
[2016-08-22] MEDS: SODIUM HYPOCHLORITE 1/40% 1L IRRIG IRR SCH (08:16)
[2016-08-22] MEDS: ENOXAPARIN 40 MG/0.4 ML SYG SC SCH (08:39)
[2016-08-22] MEDS ORDERED: EPOETIN 10000 UNITS/ML (NON ESRD/NON ONCOLOGY) SC ONE (13:30)
[2016-08-22] MEDS ORDERED: EPOETIN 10000 UNITS/ML (NON ESRD/NON ONCOLOGY) SC SCH (13:30)
--- NOTE | 2016-08-22 14:06 | PN ---
DATE: 08/22/2016 SUBJECTIVE: The patient is resting comfortably, snoring, in no acute distress. Has G-tube pump fee dings currently. Pulse has improved, less than 110 regularly. OBJECTIVE: VITAL SIGNS: Temperature is 98.9, pulse is 100 to 111, blood pressure 100/49, pulse oximetry is 89% on room air. GENERAL: In no acute distress. LUNGS: No wheezes, no crackles. ABDOMEN: Soft, nontender. ASSESSMENT AND PLAN: 1. Pneumonia. The patient has completed the antibiotic Zosyn. 2. Sacral decubiti likely osteomyelitis, on day #12 out of 42 of Zosyn. ID currently following. 3. Tachycardia with negative Doppler ultrasound of the lower extremities for deep venous thrombosis . Pulmonary evaluated and thought it is due to congestion, fluid overloaded. Recent chest x-ray de monstrated congestion, infiltrates, effusions, currently has been stable. The heart rate has slowly decreased from greater than 120 to normally less than 110. The patient was started on Lovenox at t he time of completion or improvement of the sepsis. Blood pressure has remained stable. 4. Hypernatremia did resolve, but due to the Lasix being given for the lung congestion, sodium has slowly increased from 145 to 147. As necessary, we will increase free water. We will get lab tests tomorrow. 5. Elevated liver function tests. Unclear why the liver tests were high, greater than 100 on the ALT. Has slowly been decreasing on a day to day basis. 6. Gastrointestinal. G-tube was replaced and feedings have commenced. Hourly Associate did come by an d said to increase her nutritional status by doubling up on the intake. The patient is now at 200 m L every 4 hours. Dictated By: QIANA OLMEDO/FIDELIA Conf#: [id number] DID#: [id number]
--- NOTE | 2016-08-22 15:49 | CONS ---
Date/Time of Note Date/Time of Note DATE: 08/22/16 TIME: 15:46 Consult Date/Type/Reason Admit Date/Time August 11, 2016 at 19:00 Initial Consult Date 08/19/16 Type of Consultation: Pulm Subjective Minimally responsive. Moderate secretions. Objective Vital Signs Date Time Temp Pulse Resp B/P Pulse Ox O2 Delivery O2 Flow Rate FiO2 08/22/16 15:00 Nasal Cannula 3.0 08/22/16 12:17 100 20 89 21 08/22/16 11:23 98.9 100/49 Intake and Output 08/21/16 08/21/16 08/22/16 15:00 23:00 07:00 Intake Total 690 ml 390 ml 650 ml Output Total 450 ml 120 ml Balance 690 ml -60 ml 530 ml Exam PHYSICAL EXAMINATION GENERAL: Unresponsive chronically ill-appearing lady mouth open VITAL SIGNS: see below. HEENT: Pupils equal, round, and reactive to light. CARDIAC: S1, S2, 1/6 systolic ejection murmur CHEST: Diminished air entry bilaterally. ABDOMEN: Mildly distended. Bowel sounds present no guarding or rebound EXTREMITIES: No cyanosis, clubbing edema +1 NEUROLOGIC: Generalized weakness significant contractures Results/Medications Result Diagram: 08/21/16 0750 08/21/16 0750 Medications Current Medications Acetaminophen (Tylenol Tab) 325 mg Q4H PRN GTB PAIN AND FEVER; Start 08/11/16 at 20:00 Morphine Sulfate (morphine) 1 mg Q4H PRN IV PAIN LEVEL 6-10 Last administered on 08/17/16 09:01; Admin Dose 1 MG; Start 08/11/16 at 20:00 Ondansetron HCl (Zofran Inj) 4 mg Q6H PRN IV NAUSEA AND/OR VOMITING; Start 08/12 at 10:00 Acetaminophen (Tylenol Supp) 650 mg Q6H PRN [place] PAIN LEVEL 1-3 OR FEVER; Start 08/12/16 at 10:00 Sodium Hypochlorite 1 applic 1 applic DAILY IRR Last administered on 08/20/16 09:35; Admin Dose 1 APPLIC; Start 08/14/16 at 09:00 Piperacillin Sod/ Tazobactam Sod (Zosyn 2.25gm/ 50ml (Pmx)) 50 ml @ 100 mls/hr Q6 IVPB Last administered on 08/22/16 12:25; Admin Dose 100 MLS/HR; Start 08/14 at 12:00 Collagenase (Santyl) 1 applic DAILY TOP Last administered on 08/20/16 09:35; Admin Dose 1 APPLIC; Start 08/18/16 at 12:00 Collagenase (Santyl) 1 applic PRN PRN TOP WOUND CARE; Start 08/18/16 at 11:00 Enoxaparin Sodium (Lovenox) 40 mg DAILY SC Last administered on 08/22/16 08:39 ; Admin Dose 40 MG; Start 08/18/16 at 17:30 Epoetin Melvin (Epogen (Non Esrd/Non Oncology)) 10,000 units ONCE SC Last administered on 08/22/16 13:30; Admin Dose 10,000 UNITS; Start 08/22/16 at 13: 30; Stop 08/22/16 at 23:56 Assessment/Plan Chief Complaint/Hosp Course Assessment 1. Healthcare associated pneumonia 2. Probable aspiration pneumonia 3. Dementia 4 dysphagia 5. Significant contractures Plan 1. Continue antibiotics 2. Pulmonary toilet 3. Consider hospice as overall prognosis very poor Problems: BLAYNE BROOKS MD, [facility] August 22, 2016 15:49
[2016-08-23] VITALS (11 sets, daily range): BP systolic 91–129; BP diastolic 50–74; PULSE 107–121; RESP 15–24
[2016-08-23] MEDS: FUROSEMIDE 20 MG INJ IV SCH ×2 (06:32→18:01)
[2016-08-23] MEDS: PIPER-TAZO 2.25 GM (PMX) 50 ML IVPB SCH ×4 (06:33→23:26)
[2016-08-23] MEDS: LEVALBUTEROL (NEB) 0.63 MG/3 ML AMP HHN SCH ×3 (09:09→16:40)
[2016-08-23] MEDS: SODIUM HYPOCHLORITE 1/40% 1L IRRIG IRR SCH (09:29)
[2016-08-23] MEDS: COLLAGENASE 30 GM TUBE TOP SCH (09:29)
[2016-08-23 09:31] LABS: ADD SCAN DIFF NO
[2016-08-23] MEDS: ENOXAPARIN 40 MG/0.4 ML SYG SC SCH (09:31)
[2016-08-23 09:32] LABS: BASOPHILS % 0.1 % (0.0-2.0); EOSINOPHILS # 0.1 10^3/ul (0.0-0.5); EOSINOPHILS % 1.2 % (0.0-7.0); HEMATOCRIT 26.3 % (37.0-47.0); HEMOGLOBIN 8.3 g/dl (12.0-16.0); LYMPHOCYTES # 0.9 10^3/ul (0.8-2.9); LYMPHOCYTES % 8.6 % (15.0-51.0); MEAN CORPUSCULAR HEMOGLOBIN 31.3 pg (29.0-33.0); MEAN CORPUSCULAR HGB CONC 31.6 g/dl (32.0-37.0); MEAN CORPUSCULAR VOLUME 99.2 fl (82.0-101.0); MEAN PLATELET VOLUME 9.6 fl (7.4-10.4); MONOCYTE # 0.4 10^3/ul (0.3-0.9); MONOCYTES % 3.7 % (0.0-11.0); NEUTROPHIL # 8.9 10^3/ul (1.6-7.5); NEUTROPHILS % 85.9 % (39.0-77.0); PLATELET COUNT 358 10^3/UL (140-415); RED BLOOD COUNT 2.65 10^6/ul (4.20-5.40); RED CELL DISTRIBUTION WIDTH 15.9 % (11.5-14.5); WHITE BLOOD COUNT 10.4 10^3/ul (4.8-10.8)
[2016-08-23 09:56] LABS: ALBUMIN 2.8 g/dl (3.3-4.9); ALBUMIN/GLOBULIN RATIO 0.68; BILIRUBIN,INDIRECT 0.3 mg/dl (0-1.1); BILIRUBIN,TOTAL 0.3 mg/dl (0.2-1.3); CALCIUM 7.9 mg/dl (8.4-10.2); CREATININE 0.68 mg/dl (0.44-1.00); POTASSIUM 3.4 mmol/L (3.5-5.1); TOTAL PROTEIN 6.9 g/dl (6.1-8.1)
[2016-08-23 11:50] LABS: IRON 32 ug/dl (35-150)
[2016-08-23 11:59] LABS: TOTAL IRON BINDING CAPACITY 211 ug/dl (241-421)
--- NOTE | 2016-08-23 15:22 | CONS ---
Date/Time of Note Date/Time of Note DATE: 08/23/16 TIME: 15:21 Consult Date/Type/Reason Admit Date/Time August 11, 2016 at 19:00 Initial Consult Date 08/19/16 Type of Consultation: Pulm Subjective No events. Objective Vital Signs Date Time Temp Pulse Resp B/P Pulse Ox O2 Delivery O2 Flow Rate FiO2 08/23/16 13:15 114 08/23/16 12:15 28 Nasal Cannula 3.0 08/23/16 11:47 98.1 101/50 99 08/22/16 12:17 21 Intake and Output 08/22/16 08/22/16 08/23/16 15:00 23:00 07:00 Intake Total 50 ml 350 ml 1010 ml Output Total 700 ml 700 ml Balance 50 ml -350 ml 310 ml Exam HEENT: Pupils equal, round, and reactive to light. CARDIAC: S1, S2, 1/6 systolic ejection murmur CHEST: Diminished air entry bilaterally ABDOMEN: Mildly distended. Bowel sounds present no guarding or rebound EXTREMITIES: No cyanosis, clubbing edema +1 Results/Medications Result Diagram: 08/23/16 0840 08/23/16 0840 Results 24 hrs Laboratory Tests Test 08/23/16 08:40 08/23/16 10:00 White Blood Count 10.4 Red Blood Count 2.65 L Hemoglobin 8.3 L Hematocrit 26.3 L Mean Corpuscular Volume 99.2 Mean Corpuscular Hemoglobin 31.3 Mean Corpuscular Hemoglobin Concent 31.6 L Red Cell Distribution Width 15.9 H Platelet Count 358 Mean Platelet Volume 9.6 Neutrophils % 85.9 H Lymphocytes % 8.6 L Monocytes % 3.7 Eosinophils % 1.2 Basophils % 0.1 Nucleated Red Blood Cells % 0.0 Neutrophils # 8.9 H Lymphocytes # 0.9 Monocytes # 0.4 Eosinophils # 0.1 Basophils # 0.0 Nucleated Red Blood Cells # 0.0 Sodium Level 139 Potassium Level 3.4 L Chloride Level 101 Carbon Dioxide Level 31 Anion Gap 10 Blood Urea Nitrogen 18 Creatinine 0.68 Glucose Level 145 Calcium Level 7.9 L Total Bilirubin 0.3 Direct Bilirubin 0.00 Indirect Bilirubin 0.3 Aspartate Amino Transf (AST/SGOT) 55 H Alanine Aminotransferase (ALT/SGPT) 79 H Alkaline Phosphatase 180 H Total Protein 6.9 Albumin 2.8 L Globulin 4.10 H Albumin/Globulin Ratio 0.68 Iron Level 32 L Total Iron Binding Capacity 211 L Percent Iron Saturation 15 L Medications Current Medications Acetaminophen (Tylenol Tab) 325 mg Q4H PRN GTB PAIN AND FEVER; Start 08/11/16 at 20:00 Morphine Sulfate (morphine) 1 mg Q4H PRN IV PAIN LEVEL 6-10 Last administered on 08/17/16 09:01; Admin Dose 1 MG; Start 08/11/16 at 20:00 Ondansetron HCl (Zofran Inj) 4 mg Q6H PRN IV NAUSEA AND/OR VOMITING; Start 08/12 at 10:00 Acetaminophen (Tylenol Supp) 650 mg Q6H PRN [place] PAIN LEVEL 1-3 OR FEVER; Start 08/12/16 at 10:00 Sodium Hypochlorite 1 applic 1 applic DAILY IRR Last administered on 08/23/16 09:29; Admin Dose 1 APPLIC; Start 08/14/16 at 09:00 Piperacillin Sod/ Tazobactam Sod (Zosyn 2.25gm/ 50ml (Pmx)) 50 ml @ 100 mls/hr Q6 IVPB Last administered on 08/23/16 11:36; Admin Dose 100 MLS/HR; Start 08/14 at 12:00 Collagenase (Santyl) 1 applic DAILY TOP Last administered on 08/23/16 09:29; Admin Dose 1 APPLIC; Start 08/18/16 at 12:00 Collagenase (Santyl) 1 applic PRN PRN TOP WOUND CARE; Start 08/18/16 at 11:00 Enoxaparin Sodium (Lovenox) 40 mg DAILY SC Last administered on 08/23/16 09:31 ; Admin Dose 40 MG; Start 08/18/16 at 17:30 Assessment/Plan Additional Assessment/Plan IMP: 1. Healthcare associated pneumonia 2. Probable aspiration pneumonia 3. Dementia RECS: 1. Continue antibiotics 2. Pulmonary toilet/aspiration precautions VINITA LUNA MD August 23, 2016 15:22
[2016-08-23] MEDS ORDERED: POTASSIUM CHLORIDE (SR) 20 MEQ TAB PO STA (21:32)
[2016-08-23] MEDS ORDERED: POTASSIUM CHLORIDE 20 MEQ POWDER FOR ORAL SOLN GTB SCH (23:45)
[2016-08-23] MEDS ORDERED: POTASSIUM CHLORIDE (SR) 20 MEQ TAB PO SCH (23:45)
[2016-08-24] VITALS (12 sets, daily range): BP systolic 91–134; BP diastolic 44–79; PULSE 112–127; RESP 18–20
[2016-08-24] MEDS: PIPER-TAZO 2.25 GM (PMX) 50 ML IVPB SCH ×3 (05:39→17:44)
[2016-08-24] MEDS: FUROSEMIDE 20 MG INJ IV SCH ×2 (05:40→17:44)
[2016-08-24 07:28] LABS: ADD SCAN DIFF NO
[2016-08-24 07:40] LABS: BASOPHILS % 0.2 % (0.0-2.0); EOSINOPHILS # 0.1 10^3/ul (0.0-0.5); LYMPHOCYTES # 0.9 10^3/ul (0.8-2.9); MEAN CORPUSCULAR HEMOGLOBIN 31.4 pg (29.0-33.0); MEAN CORPUSCULAR HGB CONC 32.1 g/dl (32.0-37.0); MEAN CORPUSCULAR VOLUME 97.6 fl (82.0-101.0); MEAN PLATELET VOLUME 9.6 fl (7.4-10.4); MONOCYTE # 0.4 10^3/ul (0.3-0.9); MONOCYTES % 4.4 % (0.0-11.0); NEUTROPHIL # 8.6 10^3/ul (1.6-7.5); NEUTROPHILS % 84.9 % (39.0-77.0); PLATELET COUNT 372 10^3/UL (140-415); RED BLOOD COUNT 2.87 10^6/ul (4.20-5.40); RED CELL DISTRIBUTION WIDTH 15.9 % (11.5-14.5); WHITE BLOOD COUNT 10.1 10^3/ul (4.8-10.8)
[2016-08-24 08:03] LABS: CALCIUM 8.2 mg/dl (8.4-10.2); CREATININE 0.89 mg/dl (0.44-1.00); POTASSIUM 4.3 mmol/L (3.5-5.1)
[2016-08-24] MEDS: FERROUS FUMARATE (SR) TAB PO SCH ×2 (08:31→21:00)
[2016-08-24] MEDS: SODIUM HYPOCHLORITE 1/40% 1L IRRIG IRR SCH (08:33)
[2016-08-24] MEDS: COLLAGENASE 30 GM TUBE TOP SCH (08:33)
[2016-08-24] MEDS: ENOXAPARIN 40 MG/0.4 ML SYG SC SCH (08:39)
[2016-08-24] MEDS: LEVALBUTEROL (NEB) 0.63 MG/3 ML AMP HHN SCH ×3 (08:55→16:40)
--- NOTE | 2016-08-24 14:05 | CONS ---
Date/Time of Note Date/Time of Note DATE: 08/24/16 TIME: 14:04 Consult Date/Type/Reason Admit Date/Time August 11, 2016 at 19:00 Initial Consult Date 08/19/16 Type of Consultation: Pulm Subjective No events. Objective Vital Signs Date Time Temp Pulse Resp B/P Pulse Ox O2 Delivery O2 Flow Rate FiO2 08/24/16 13:09 106 20 97 Nasal Cannula 3.0 08/24/16 12:16 99.3 112/58 08/22/16 12:17 21 Intake and Output 08/23/16 08/23/16 08/24/16 14:59 22:59 06:59 Intake Total 100 ml 1010 ml 1010 ml Output Total 800 ml 800 ml Balance 100 ml 210 ml 210 ml Exam HEENT: Pupils equal, round, and reactive to light. CARDIAC: S1, S2, 1/6 systolic ejection murmur CHEST: Diminished air entry bilaterally ABDOMEN: Mildly distended. Bowel sounds present no guarding or rebound EXTREMITIES: No cyanosis, clubbing edema +1 Results/Medications Result Diagram: 08/24/16 0700 08/24/16 0700 Results 24 hrs Laboratory Tests Test 08/24/16 07:00 White Blood Count 10.1 Red Blood Count 2.87 L Hemoglobin 9.0 L Hematocrit 28.0 L Mean Corpuscular Volume 97.6 Mean Corpuscular Hemoglobin 31.4 Mean Corpuscular Hemoglobin Concent 32.1 Red Cell Distribution Width 15.9 H Platelet Count 372 Mean Platelet Volume 9.6 Neutrophils % 84.9 H Lymphocytes % 9.0 L Monocytes % 4.4 Eosinophils % 1.0 Basophils % 0.2 Nucleated Red Blood Cells % 0.0 Neutrophils # 8.6 H Lymphocytes # 0.9 Monocytes # 0.4 Eosinophils # 0.1 Basophils # 0.0 Nucleated Red Blood Cells # 0.0 Sodium Level 138 Potassium Level 4.3 Chloride Level 99 Carbon Dioxide Level 32 H Anion Gap 11 Blood Urea Nitrogen 24 H Creatinine 0.89 Glucose Level 172 Calcium Level 8.2 L Medications Current Medications Acetaminophen (Tylenol Tab) 325 mg Q4H PRN GTB PAIN AND FEVER; Start 08/11/16 at 20:00 Morphine Sulfate (morphine) 1 mg Q4H PRN IV PAIN LEVEL 6-10 Last administered on 08/17/16t 09:01; Admin Dose 1 MG; Start 08/11/16 at 20:00 Ondansetron HCl (Zofran Inj) 4 mg Q6H PRN IV NAUSEA AND/OR VOMITING; Start 08/12 at 10:00 Acetaminophen (Tylenol Supp) 650 mg Q6H PRN [place] PAIN LEVEL 1-3 OR FEVER; Start 08/12/16 at 10:00 Sodium Hypochlorite 1 applic 1 applic DAILY IRR Last administered on 08/24/16 08:33; Admin Dose 1 APPLIC; Start 08/14/16 at 09:00 Piperacillin Sod/ Tazobactam Sod (Zosyn 2.25gm/ 50ml (Pmx)) 50 ml @ 100 mls/hr Q6 IVPB Last administered on 08/24/16 12:17; Admin Dose 100 MLS/HR; Start 08/14 at 12:00 Collagenase (Santyl) 1 applic DAILY TOP Last administered on 08/24/16 08:33; Admin Dose 1 APPLIC; Start 08/18/16 at 12:00 Collagenase (Santyl) 1 applic PRN PRN TOP WOUND CARE; Start 08/18/16 at 11:00 Enoxaparin Sodium (Lovenox) 40 mg DAILY SC Last administered on 08/24/16 08:39 ; Admin Dose 40 MG; Start 08/18/16 at 17:30 Docusate Sodium/ Ferrous Fumarate (Isabella-Sequels) 1 tab BID PO Last administered on 08/24/16 08:31; Admin Dose 1 TAB; Start 08/24/16 at 09:00 Potassium Chloride (Potassium Chloride Pwd/Soln) 40 meq ONCE GTB Last administered on 08/23/16 23:42; Admin Dose 40 MEQ; Start 08/23/16 at 23:45; Stop 08/24/16 at 23:44 Assessment/Plan Additional Assessment/Plan IMP: 1. Healthcare associated pneumonia 2. Probable aspiration pneumonia 3. Dementia RECS: 1. Continue antibiotics 2. Pulmonary toilet/aspiration precautions 3. BD/suctioning + CPT prn VINITA LUNA MD August 24, 2016 14:05
--- NOTE | 2016-08-24 16:27 | PN ---
Date/Time of Note Date/Time of Note DATE: 08/23/16 TIME: 19:22 Assessment/Plan VTE Prophylaxis VTE Prophylaxis Intervention: other (ASA) Lines/Catheters IV Catheter Type (from Nrs): Saline Lock Central line still needed: No Urinary Cath still in place: Yes Reason Cath still needed: pres ulcer contaminated by urine Assessment/Plan Assessment/Plan 1. PNEUMONIA--GETTING BETTER 2. SACRAL OSTEOMYELITIS 3. H/O HTN 4. PEG TUBE FEED ---PER ID ---CONT ALL IV ATBX ---OPTIMIZE PEG FEED ---REPLACE ALL SUPPS ---WOUND SKIN CARE NURSE CONSULT Subjective 24 Hr Interval Summary Free Text/Dictation NO COMPLAINTS RALPH PATTON MD August 24, 2016 16:27
--- NOTE | 2016-08-24 16:34 | PN ---
Date/Time of Note Date/Time of Note DATE: 08/24/16 TIME: 16:31 Assessment/Plan VTE Prophylaxis VTE Prophylaxis Intervention: other (ASA) Lines/Catheters IV Catheter Type (from Nrs): Saline Lock Central line still needed: No Urinary Cath still in place: Yes Reason Cath still needed: pres ulcer contaminated by urine Assessment/Plan Assessment/Plan 1. ASPIR PNEUMONIA 2. SACRAL OSTEOMYELITIS 3. MALNUTRITION/ ANEMIA/ LOW K/ LOW CALC ---PER PULM ---PER ID ---CONT IV ATBX ---REPLACE ALL SUPPS ---CONT ALL SUPPORTIVE CARES Subjective 24 Hr Interval Summary Free Text/Dictation NO COMPLAINTS Exam/Review of Systems Vital Signs Vitals Vital Signs Date Time Temp Pulse Resp B/P Pulse Ox O2 Delivery O2 Flow Rate FiO2 08/24/16 16:19 127 08/24/16 15:43 98.1 18 102/44 98 08/24/16 13:09 Nasal Cannula 3.0 08/22/16 12:17 21 Intake and Output 08/23/16 08/23/16 08/24/16 15:00 23:00 07:00 Intake Total 100 ml 1010 ml 1010 ml Output Total 800 ml 800 ml Balance 100 ml 210 ml 210 ml Exam THIN DEC BS RR SYST M+ NO EDEMA BUTTOCK WOUND OPEN, DEEP, SS FLUID OOZING+ Results Result Diagram: 08/24/16 0700 08/24/16 0700 Results 24 hrs Laboratory Tests Test 08/24/16 07:00 White Blood Count 10.1 Red Blood Count 2.87 L Hemoglobin 9.0 L Hematocrit 28.0 L Mean Corpuscular Volume 97.6 Mean Corpuscular Hemoglobin 31.4 Mean Corpuscular Hemoglobin Concent 32.1 Red Cell Distribution Width 15.9 H Platelet Count 372 Mean Platelet Volume 9.6 Neutrophils % 84.9 H Lymphocytes % 9.0 L Monocytes % 4.4 Eosinophils % 1.0 Basophils % 0.2 Nucleated Red Blood Cells % 0.0 Neutrophils # 8.6 H Lymphocytes # 0.9 Monocytes # 0.4 Eosinophils # 0.1 Basophils # 0.0 Nucleated Red Blood Cells # 0.0 Sodium Level 138 Potassium Level 4.3 Chloride Level 99 Carbon Dioxide Level 32 H Anion Gap 11 Blood Urea Nitrogen 24 H Creatinine 0.89 Glucose Level 172 Calcium Level 8.2 L Medications Medications Current Medications Acetaminophen (Tylenol Tab) 325 mg Q4H PRN GTB PAIN AND FEVER; Start 08/11/16 at 20:00 Morphine Sulfate (morphine) 1 mg Q4H PRN IV PAIN LEVEL 6-10 Last administered on 08/17/16 09:01; Admin Dose 1 MG; Start 08/11/16 at 20:00 Ondansetron HCl (Zofran Inj) 4 mg Q6H PRN IV NAUSEA AND/OR VOMITING; Start 08/12 at 10:00 Acetaminophen (Tylenol Supp) 650 mg Q6H PRN [place] PAIN LEVEL 1-3 OR FEVER; Start 08/12/16 at 10:00 Sodium Hypochlorite 1 applic 1 applic DAILY IRR Last administered on 08/24/16 08:33; Admin Dose 1 APPLIC; Start 08/14/16 at 09:00 Piperacillin Sod/ Tazobactam Sod (Zosyn 2.25gm/ 50ml (Pmx)) 50 ml @ 100 mls/hr Q6 IVPB Last administered on 08/24/16 12:17; Admin Dose 100 MLS/HR; Start 08/14 at 12:00 Collagenase (Santyl) 1 applic DAILY TOP Last administered on 08/24/16 08:33; Admin Dose 1 APPLIC; Start 08/18/16 at 12:00 Collagenase (Santyl) 1 applic PRN PRN TOP WOUND CARE; Start 08/18/16 at 11:00 Enoxaparin Sodium (Lovenox) 40 mg DAILY SC Last administered on 08/24/16 08:39 ; Admin Dose 40 MG; Start 08/18/16 at 17:30 Docusate Sodium/ Ferrous Fumarate (Isabella-Sequels) 1 tab BID PO Last administered on 08/24/16 08:31; Admin Dose 1 TAB; Start 08/24/16 at 09:00 Potassium Chloride (Potassium Chloride Pwd/Soln) 40 meq ONCE GTB Last administered on 08/23/16 23:42; Admin Dose 40 MEQ; Start 08/23/16 at 23:45; Stop 08/24/16 at 23:44 RALPH PATTON MD August 24, 2016 16:34
[2016-08-25] VITALS (13 sets, daily range): BP systolic 94–133; BP diastolic 42–64; PULSE 111–118; RESP 18–21
[2016-08-25] MEDS: PIPER-TAZO 2.25 GM (PMX) 50 ML IVPB SCH ×4 (00:04→18:36)
--- NOTE | 2016-08-25 02:37 | RADRPT ---
PROCEDURE: XR Chest. CLINICAL INDICATION: Pleural effusion. TECHNIQUE: Single frontal view of the chest. COMPARISON: 12/02/2008. FINDINGS: Cardiomegaly and atherosclerotic calcifications in the thoracic aorta. Left pleural effusion is mil d to moderate with air space disease versus atelectasis in the left lung. Right lung is clear. No s igns of pleural fluid or pneumothorax are seen. The osseous structures and soft tissues are unremark able. IMPRESSION: Mild to moderate left pleural effusion with atelectasis versus airspace disease in the left lung, ne w over interval. RPTAT: [facility] Physician Jennifer Date Time Electronically viewed and signed by Physician Jennifer on 08/25/2016 02:37 RS/
[2016-08-25] MEDS: FUROSEMIDE 20 MG INJ IV SCH ×2 (05:31→18:36)
[2016-08-25 06:42] LABS: ADD SCAN DIFF NO
[2016-08-25 06:46] LABS: BASOPHILS % 0.1 % (0.0-2.0); EOSINOPHILS # 0.2 10^3/ul (0.0-0.5); HEMATOCRIT 28.4 % (37.0-47.0); HEMOGLOBIN 8.7 g/dl (12.0-16.0); LYMPHOCYTES # 1.1 10^3/ul (0.8-2.9); LYMPHOCYTES % 10.5 % (15.0-51.0); MEAN CORPUSCULAR HEMOGLOBIN 30.6 pg (29.0-33.0); MEAN CORPUSCULAR HGB CONC 30.6 g/dl (32.0-37.0); MEAN PLATELET VOLUME 9.4 fl (7.4-10.4); MONOCYTE # 0.5 10^3/ul (0.3-0.9); MONOCYTES % 4.9 % (0.0-11.0); NEUTROPHIL # 8.5 10^3/ul (1.6-7.5); NEUTROPHILS % 81.9 % (39.0-77.0); PLATELET COUNT 395 10^3/UL (140-415); RED BLOOD COUNT 2.84 10^6/ul (4.20-5.40); RED CELL DISTRIBUTION WIDTH 15.9 % (11.5-14.5); WHITE BLOOD COUNT 10.4 10^3/ul (4.8-10.8)
[2016-08-25 07:00] LABS: ALBUMIN 2.8 g/dl (3.3-4.9)
[2016-08-25 07:01] LABS: POTASSIUM 3.6 mmol/L (3.5-5.1)
[2016-08-25 07:03] LABS: BILIRUBIN,INDIRECT 0.5 mg/dl (0-1.1); BILIRUBIN,TOTAL 0.5 mg/dl (0.2-1.3); CREATININE 0.83 mg/dl (0.44-1.00)
[2016-08-25 07:04] LABS: ALBUMIN/GLOBULIN RATIO 0.6; CALCIUM 8.4 mg/dl (8.4-10.2); TOTAL PROTEIN 7.4 g/dl (6.1-8.1)
[2016-08-25] MEDS: LEVALBUTEROL (NEB) 0.63 MG/3 ML AMP HHN SCH ×3 (08:16→16:57)
[2016-08-25] MEDS: SODIUM HYPOCHLORITE 1/40% 1L IRRIG IRR SCH (08:48)
[2016-08-25] MEDS: COLLAGENASE 30 GM TUBE TOP SCH (08:48)
[2016-08-25] MEDS: FERROUS FUMARATE (SR) TAB PO SCH ×2 (08:48→20:37)
[2016-08-25] MEDS: ENOXAPARIN 40 MG/0.4 ML SYG SC SCH (09:01)
--- NOTE | 2016-08-25 10:57 | CONS ---
Date/Time of Note Date/Time of Note DATE: 08/25/16 TIME: 10:56 Assessment/Plan Assessment/Plan Additional Assessment/Plan Assessment recommendations; 1. Patient admitted for sacral decubitus ulcers that is post wound debridement. 2. Possibly some element of basilar pneumonia. 3. Advanced dementia. Continue current treatment. Consultation Date/Type/Reason Admit Date/Time August 11, 2016 at 19:00 Initial Consult Date 08/19/16 Type of Consultation: Pulm 24 HR Interval Summary Free Text/Dictation Patient condition remains stable. Has remained hemodynamically stable. Remains unresponsive due to advanced dementia. General exam; elderly woman, currently in no distress. Exam/Review of Systems Vital Signs Vitals Vital Signs Date Time Temp Pulse Resp B/P Pulse Ox O2 Delivery O2 Flow Rate FiO2 08/25/16 09:10 Nasal Cannula 3.0 08/25/16 08:43 111 08/25/16 08:17 98 08/25/16 07:25 97.5 20 100/64 08/22/16 12:17 21 Intake and Output 08/24/16 08/24/16 08/25/16 15:00 23:00 07:00 Intake Total 50 ml 990 ml 170 ml Output Total 1300 ml 1000 ml Balance 50 ml -310 ml -830 ml Exam HEENT examination; supple neck, no JVD. No lymphadenopathy. Chest examination; diminished breath sounds throughout. S1-S2 audible, no murmurs. Abdomen examination; soft, no organomegaly. Bowel sounds audible. Extremity examination of Rachid no peripheral edema. Patient does have contractures involving all 4 extremities. 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 Results Result Diagram: 08/25/16 0525 08/25/16 0525 Results 24 hrs Laboratory Tests Test 08/25/16 05:25 08/25/16 06:16 White Blood Count 10.4 Red Blood Count 2.84 L Hemoglobin 8.7 L Hematocrit 28.4 L Mean Corpuscular Volume 100.0 Mean Corpuscular Hemoglobin 30.6 Mean Corpuscular Hemoglobin Concent 30.6 L Red Cell Distribution Width 15.9 H Platelet Count 395 Mean Platelet Volume 9.4 Neutrophils % 81.9 H Lymphocytes % 10.5 L Monocytes % 4.9 Eosinophils % 2.0 Basophils % 0.1 Nucleated Red Blood Cells % 0.0 Neutrophils # 8.5 H Lymphocytes # 1.1 Monocytes # 0.5 Eosinophils # 0.2 Basophils # 0.0 Nucleated Red Blood Cells # 0.0 Sodium Level 143 Potassium Level 3.6 Chloride Level 97 Carbon Dioxide Level 34 H Anion Gap 16 Blood Urea Nitrogen 28 H Creatinine 0.83 Glucose Level 124 # Calcium Level 8.4 Total Bilirubin 0.5 Direct Bilirubin 0.00 Indirect Bilirubin 0.5 Aspartate Amino Transf (AST/SGOT) 44 Alanine Aminotransferase (ALT/SGPT) 48 Alkaline Phosphatase 182 H Total Protein 7.4 Albumin 2.8 L Globulin 4.60 H Albumin/Globulin Ratio 0.60 Lab Scanned Report BLOOD TRANSFUSION Medications Medications Current Medications Acetaminophen (Tylenol Tab) 325 mg Q4H PRN GTB PAIN AND FEVER; Start 08/11/16 at 20:00 Morphine Sulfate (morphine) 1 mg Q4H PRN IV PAIN LEVEL 6-10 Last administered on 08/17/16 09:01; Admin Dose 1 MG; Start 08/11/16 at 20:00 Ondansetron HCl (Zofran Inj) 4 mg Q6H PRN IV NAUSEA AND/OR VOMITING; Start 08/12 at 10:00 Acetaminophen (Tylenol Supp) 650 mg Q6H PRN [place] PAIN LEVEL 1-3 OR FEVER; Start 08/12/16 at 10:00 Sodium Hypochlorite 1 applic 1 applic DAILY IRR Last administered on 08/25/16 08:48; Admin Dose 1 APPLIC; Start 08/14/16 at 09:00 Piperacillin Sod/ Tazobactam Sod (Zosyn 2.25gm/ 50ml (Pmx)) 50 ml @ 100 mls/hr Q6 IVPB Last administered on 08/25/16 05:28; Admin Dose 100 MLS/HR; Start 08/14 at 12:00 Collagenase (Santyl) 1 applic DAILY TOP Last administered on 08/25/16 08:48; Admin Dose 1 APPLIC; Start 08/18/16 at 12:00 Collagenase (Santyl) 1 applic PRN PRN TOP WOUND CARE; Start 08/18/16 at 11:00 Enoxaparin Sodium (Lovenox) 40 mg DAILY SC Last administered on 08/25/16 09:01 ; Admin Dose 40 MG; Start 08/18/16 at 17:30 Docusate Sodium/ Ferrous Fumarate (Isabella-Sequels) 1 tab BID PO Last administered on 08/25/16t 08:48; Admin Dose 1 TAB; Start 08/24/16 at 09:00 PARADISE RODRIGUES August 25, 2016 10:57
[2016-08-25] MEDS ORDERED: LIDOCAINE 1% (MPF) 5 ML VIAL SC ONE (11:30)
--- NOTE | 2016-08-25 17:31 | PN ---
DATE: 08/25/2016 SUBJECTIVE: The patient resting comfortably, snoring as usual. No acute changes. PHYSICAL EXAMINATION: VITAL SIGNS: Temperature 97.7, pulse is 110 to 120, respirations is at 20, blood pressure 133/62, p ulse ox is 100% on 3 liters nasal cannula. CARDIOVASCULAR: Regular rhythm. LUNGS: No wheezes, no rhonchi, no crackles. LOWER EXTREMITIES: No pitting edema. ASSESSMENT AND PLAN: 1. Pleural effusions, status post aspiration pneumonia. Completed the antibiotics. WBC is normaliz ed. The patient is still getting chest x-ray due to a pleural effusion, right-sided has resolved, l eft side still present. Patient still on Lasix 20 b.i.d. Pulmonary is following. 2. Tachycardia, it is thought this is due to pulmonary congestion, that is why the patient is on he r Lasix 20 b.i.d. It has been consistent over the weekend, no longer greater than 120, but has not s ignificantly gone below 110. The patient is on Lovenox for prophylaxis with PEs. Lower extremity di d not show any DVT or thrombosis. 3. Anemia. The patient has been given 1 unit of packed red blood cells, was given a dose of Epogen and was iron deficient, currently on iron. Appears to be stable. 4. G-tube was replaced, feedings is doing well, stable. 5. Hepatitis. Unknown etiology, resolved. 6. Hypernatremia, resolved. 7. Acute renal failure, resolved. 8. Sacral wound decubiti. ID has been following. Wound care nursing is treating. The patient had an elevated ESR, CRP. The patient is on Zosyn, started on August 11, is currently on day . ID is giles cornelius. ID reports that a weekly ESR, CRP should be performed. If this does not improve, then more likely the probable osteomyelitis will not be improved and may stop antibiotics. ESR and CRP are p ending for tomorrow. Dictated By: QIANA OLMEDO/FIDELIA Conf#: [id number] DID#: [id number]
[2016-08-25] MEDS ORDERED: SOD CHLORIDE 0.9% 100 ML ONE (19:11)
--- NOTE | 2016-08-25 19:28 | RADRPT ---
PROCEDURE: Ultrasound guidance for placement of needle in right upper extremity vein. CLINICAL INDICATION: Venous access. TECHNIQUE: Limited sonography of the right upper extremity was performed. Ultrasound images were recorded and stored in the patient's medical record. COMPARISON: None. FINDINGS: The ultrasound images demonstrate a patent right upper extremity vein. The PICC line was inserted b y the PICC line nurse. IMPRESSION: 1. Ultrasound guidance for a needle placement in a right upper extremity vein. 2. The visualized right upper extremity vein is patent. RPTAT: QQ .Marvin Pool MD, MD Date Time Electronically viewed and signed by .Marvin Pool MD, MD on 08/25/2016 19:27 .R/
--- NOTE | 2016-08-25 19:29 | RADRPT ---
PROCEDURE: XR Chest. CLINICAL INDICATION: Check PICC line position. TECHNIQUE: Single frontal view. COMPARISON: 08/24/2016. FINDINGS: This is a limited study as the left forearm and hand overlie the lower left chest. There is a right arm PICC line with the tip in the cavoatrial junction region. The right lung is clear. There is l eft basilar atelectasis. The heart size is normal. There is calcification in the aorta consistent with atherosclerosis. There is no right pleural effusion. There is a small left pleural effusion. There is no pneumothorax. IMPRESSION: 1. Satisfactory position of right arm PICC line. 2. Limited study. 3. No other change from 08/24/2016. RPTAT: QQ .Marvin Pool MD, Date Time Electronically viewed and signed by .Marvin Pool MD, MD on 08/25/2016 19:29 .R/
[2016-08-26] VITALS (12 sets, daily range): BP systolic 89–114; BP diastolic 52–59; PULSE 105–125; RESP 17–24
[2016-08-26] MEDS: PIPER-TAZO 2.25 GM (PMX) 50 ML IVPB SCH ×4 (00:55→17:33)
[2016-08-26] MEDS: FUROSEMIDE 20 MG INJ IV SCH ×2 (06:20→17:33)
[2016-08-26 07:14] LABS: CALCIUM 8.4 mg/dl (8.4-10.2); CREATININE 0.76 mg/dl (0.44-1.00); POTASSIUM 3.6 mmol/L (3.5-5.1)
[2016-08-26] MEDS: SODIUM HYPOCHLORITE 1/40% 1L IRRIG IRR SCH (08:56)
[2016-08-26] MEDS: FERROUS FUMARATE (SR) TAB PO SCH ×2 (08:56→21:19)
[2016-08-26] MEDS: COLLAGENASE 30 GM TUBE TOP SCH (08:57)
[2016-08-26] MEDS: ENOXAPARIN 40 MG/0.4 ML SYG SC SCH (09:03)
[2016-08-26] MEDS: LEVALBUTEROL (NEB) 0.63 MG/3 ML AMP HHN SCH ×3 (09:10→17:02)
--- NOTE | 2016-08-26 11:26 | CONS ---
Date/Time of Note Date/Time of Note DATE: 08/26/16 TIME: 11:23 Assessment/Plan Assessment/Plan Additional Assessment/Plan Assessment recommendations; 1. Patient admitted for sepsis from sacral decubitus ulcers, currently on appropriate antibiotic regimen. 2. Advanced dementia. Continue current treatment. Consultation Date/Type/Reason Admit Date/Time August 11, 2016 at 19:00 Initial Consult Date 08/19/16 Type of Consultation: Pulmonary 24 HR Interval Summary Free Text/Dictation Patient condition is stable. Remains essentially unresponsive. Has remained hemodynamically stable. General exam; elderly lady, currently unresponsive. No distress noted. Exam/Review of Systems Vital Signs Vitals Vital Signs Date Time Temp Pulse Resp B/P Pulse Ox O2 Delivery O2 Flow Rate FiO2 08/26/16 09:10 108 16 97 Nasal Cannula 3.0 08/26/16 07:51 97.6 114/53 08/22/16 12:17 21 Intake and Output 08/25/16 08/25/16 08/26/16 15:00 23:00 07:00 Intake Total 50 ml 900 ml 920 ml Output Total 600 ml 1100 ml Balance 50 ml 300 ml -180 ml Exam HEENT exam; supple neck, no JVD. No lymphadenopathy. Pupils are small bilaterally. Chest examination; diminished breath sound bilaterally. S1-S2 audible, no murmurs. Abdomen examination; soft, nondistended. G-tube in place. Back examination; dressing applied over sacrum. Extremity examination; no peripheral edema. Patient has severe muscle loss involving all 4 extremities. With mild flexion contractions. 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 Results Result Diagram: 08/25/16 0525 08/26/16 0540 Results 24 hrs Laboratory Tests Test 08/26/16 05:40 Erythrocyte Sedimentation Rate 135 H Sodium Level 143 Potassium Level 3.6 Chloride Level 101 Carbon Dioxide Level 36 H Anion Gap 10 # Blood Urea Nitrogen 28 H Creatinine 0.76 Glucose Level 124 Calcium Level 8.4 C-Reactive Protein 5.8 H Medications Medications Current Medications Acetaminophen (Tylenol Tab) 325 mg Q4H PRN GTB PAIN AND FEVER; Start 08/11/16 at 20:00 Morphine Sulfate (morphine) 1 mg Q4H PRN IV PAIN LEVEL 6-10 Last administered on 08/17/16t 09:01; Admin Dose 1 MG; Start 08/11/16 at 20:00 Ondansetron HCl (Zofran Inj) 4 mg Q6H PRN IV NAUSEA AND/OR VOMITING; Start 08/12 at 10:00 Acetaminophen (Tylenol Supp) 650 mg Q6H PRN [place] PAIN LEVEL 1-3 OR FEVER; Start 08/12/16 at 10:00 Sodium Hypochlorite 1 applic 1 applic DAILY IRR Last administered on 08/26/16 08:56; Admin Dose 1 APPLIC; Start 08/14/16 at 09:00 Piperacillin Sod/ Tazobactam Sod (Zosyn 2.25gm/ 50ml (Pmx)) 50 ml @ 100 mls/hr Q6 IVPB Last administered on 08/26/16 06:20; Admin Dose 100 MLS/HR; Start 08/14 at 12:00 Collagenase (Santyl) 1 applic DAILY TOP Last administered on 08/26/16 08:57; Admin Dose 1 APPLIC; Start 08/18/16 at 12:00 Collagenase (Santyl) 1 applic PRN PRN TOP WOUND CARE; Start 08/18/16 at 11:00 Enoxaparin Sodium (Lovenox) 40 mg DAILY SC Last administered on 08/26/16 09:03 ; Admin Dose 40 MG; Start 08/18/16 at 17:30 Docusate Sodium/ Ferrous Fumarate (Isabella-Sequels) 1 tab BID PO Last administered on 08/26/16 08:56; Admin Dose 1 TAB; Start 08/24/16 at 09:00 PARADISE RODRIGUES August 26, 2016 11:26
--- NOTE | 2016-08-26 14:45 | HP ---
DATE OF ADMISSION: 08/11/2016 PROGRESS NOTE SUBJECTIVE: No acute changes, looks good had a PICC line placed. OBJECTIVE: VITAL SIGNS: Temperature 98.8. Pulse is between 97 and 108, blood pressure 108/57, pulse oximetry is 96% on 3 liters nasal cannula. CARDIOVASCULAR: Regular rhythm. LUNGS: Heavy breathing. No crackles. ABDOMEN: Soft, nontender. EXTREMITIES: Lower extremities: No pitting edema. LABORATORY DATA: Sodium is 143, creatinine 0.76. CRP went from a 6.6 to a 5.8, ESR went from 114 t o 135. ASSESSMENT AND PLAN: 1. Sacral decubiti. ID is currently following her, treating her for probable osteomyelitis. He has reported that if the CRP and ESR if they do not improve, then he would discontinue the 42 days of a ntibiotics, but the ESR got worse, while the CRP did improve. Since the ESR is slower too improve he says to continue with antibiotic. Zosyn was started on August 11, so currently at day 16 and to jacques gay to get a weekly ESR, CRP. ID also is saying that the wound is most likely not going to be closin g up without help and will consult surgery for possibility of flap. 2. Pleural effusions, currently following her chest x-ray she is on Lasix 20 mg b.i.d. It is thoug ht that the tachycardia is due to the fluid overload of the lungs, respiratory is stable. 3. Tachycardia. The patient is on Lasix 20 b.i.d. Had an echo which showed a normal ejection fract ion. Had a lower extremity ultrasound Doppler study and did not show any type of DVT. The patient i s on Lovenox currently. 4. Anemia, status post 1 unit of packed red blood cells and 1 dose of Epogen. Currently on iron rep lacement due to low iron. Appears to be stable. 5. G-tube feedings, is currently doing well, hypernatremia has resolved. 6. Hypernatremia, seems to have resolved with the G tube feedings and the free water replacement. 7. Hepatitis, unclear why the elevated liver function tests went over 100 with both AST and ALT. Th at one has resolved. Dictated By: QIANA OLMEDO/FIDELIA Conf#: [id number] [facility]#: [id number]
--- NOTE | 2016-08-26 17:50 | CONS ---
DATE OF ADMISSION: 08/11/2016 DATE OF CONSULTATION: 08/26/2016 TYPE OF CONSULTATION: Surgical. REFERRING PHYSICIAN: Dr. Pipe Swann CHIEF COMPLAINT: 1. Multiple decubitus ulcerations. 2. Contracted state. HISTORY OF PRESENT ILLNESS: Yvrose Godinez is an 80-year-old female with multiple significant comor bidities who is in a contracted state with functional quadriplegia who has developed multiple ulcers with worsening discharge and was brought to the hospital for further evaluation and treatment. The patient is noncommunicative. There is no reported cough, seizure, blood per mouth or rectum. No v omiting. No pyuria. Surgical consult is obtained for further evaluation of the multiple decubiti. PAST MEDICAL HISTORY: 1. Multiple decubitus ulcers. 2. Pneumonia history. 3. Acute renal failure. 4. 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 5. End-stage Alzheimer's. 6. Dysphagia. 7. Incontinence. 8. Contractures with functional quadriplegia. 9. Nonverbal. 10. Anemia. 11. Hypoalbuminemia. PAST SURGICAL HISTORY: 1. PEG. 2. Left hip replacement. 3. . MEDICATIONS: As per MAR. ALLERGIES: NONE. SOCIAL HISTORY: No current alcohol, drugs or tobacco. FAMILY HISTORY: Noncontributory. REVIEW OF SYSTEMS: A 12-point review of systems negative unless addressed in HPI. PHYSICAL EXAMINATION: VITAL SIGNS: Temperature is 98.7, pulse 90s to 120s, blood pressure 91/51. GENERAL: Noncommunicative, contracted state. HEENT: Pupils are sluggish. No scleral icterus. Mucous membranes are moist. NECK: No crepitus with baseline rigidity. PULMONARY: Normal respiratory effort. No wheezing. HEART: S1, S2 and irregular. ABDOMEN: Soft. PEG in place. EXTREMITIES: Contracted without edema. VASCULAR: Capillary refill is over 3 seconds. NEUROLOGIC: Does not follow commands, however opens eyes. SKIN: No rashes. No jaundice. Multiple areas of bruising. Multiple decubitus wounds, especially sacrococcyx and left buttock with debris. Left shoulder deep tissue injury. LYMPHATICS: No inguinal or cervical lymphadenopathy. LABORATORY AND RADIOGRAPHIC: As per chart and HPI. ASSESSMENT AND PLAN: Yvrose Godinez is an 80-year-old female with multiple significant comorbiditie s. 1. 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 Continue offloading, local wound care, nutritional optimization, vitamin C 1000 mg a day and zinc sulfate 220 mg p.o. b.i.d. x2 week s. The patient will benefit from debridement. Will discuss with family possible flap reconstructio n through plastic surgical team. However, patient's nutrition has to be fully optimized prior to th at. 2. Deep tissue injury, left shoulder and other decubitus areas. Continue as above. 3. Anemia without evidence of acute blood loss. Continue monitoring. 4. Functional quadriplegia. Continue offloading with q.2 hour position change and air mattress and nutrition optimization. 5. End-stage dementia and Alzheimer's. Continue medical optimization. 6. Tachycardia of unknown etiology. Will defer to medical team for further workup and treatment. 7. Dysphagia, on tube feeds. 8. Hypoalbuminemia. Continue nutritional optimization. Thank you very much for consulting me in this patient's care. Dictated By: JAS REIS/FIDELIA Conf#: [id number] DID#: [id number]
[2016-08-27] VITALS (15 sets, daily range): BP systolic 83–120; BP diastolic 49–70; PULSE 101–178; RESP 17–24
[2016-08-27] MEDS: PIPER-TAZO 2.25 GM (PMX) 50 ML IVPB SCH ×4 (00:27→17:49)
[2016-08-27] MEDS: FUROSEMIDE 20 MG INJ IV SCH ×2 (06:00→17:45)
--- NOTE | 2016-08-27 07:25 | CONS ---
Date/Time of Note Date/Time of Note DATE: 08/27/16 TIME: 07:20 Assessment/Plan Assessment/Plan Chief Complaint/Hosp Course 1) ARF u/a does not suggest infection, likely due to dehydration 08/13 - improving with hydration 08/14 - continues to improve, will increase dose of zosyn urine cx was negative 08/15 - pretty much resolved 2) pneumonia check procalcitonin get nasal swab for MRSA continue with vanco, change cefepime to zosyn likely aspiration 08/13 - wbc is improving, continue with vanco/zosyn 08/14 - wbc continues to improve, no MRSA found d/c vanco and continue with zosyn and increase its dose 08/15 - only on zosyn now and wbc is improving pt getting echo and asked tech to quantify the L sided pleural effusion too 08/17 - echo only reported presence of L pleural effusion no good evidence to suggest an empyema continue with zosyn 08/18 - stable, pt completes were treatment course for pneumonia today 08/20 - minimally elevated procalcitonin on 08/13 no further treatment needed for pneumonia but on zosyn for probable sacral osteo 3) sacral wound ulcer, likely osteo check ESR, CRP and if very high then would treat as if osteomyelitis if not very high will order bone scan for ultimate healing if this is indeed osteo she will likely need plastic surgery involvement her low albumin suggest she would have poor tissue healing will get wound cx of deeper wound 08/13 - ESR is very high, c/w osteomyelitis wound cx has gnr's and GPC continue with vanco/zosyn at present 08/14 - no MRSA found, d/c vanco and continue with zosyn pt likely has osteo due to high ESR will follow ESR weekly for response unlikely that antibiotics alone will heal the sacral wounds 08/15 - continue with zosyn unlikely that antibiotics alone will heal these sacral wounds 08/17 - pt likely has osteo but unlikely antibiotics will cure this usual treatment course for osteo is 6 weeks of antibiotics unlikely antibiotics alone will be curative repeat ESR and CRP in a.m. 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 repeat ESR and CRP are pending it is unlikely that antibiotics alone will be curative 08/20 - day of zosyn ESR elevated c/w osteomyelitis CRP did improve a bit but antibiotics unlikely to be curative recommend weekly esr, crp and if not improving then would d/c antibiotics 08/27 - Day of zosyn CRP has come down slowly, ESR has actually increased but sometimes the ESR is delayed in improvement Nonetheless it has almost doubled If surgical debridement it to be done then pt will need deep surgical cultures sent to verify that no resistant organisms are being missed continue with zosyn at present pt will likely need a muscle flap if cure of osteomyelitis is the goal and it would be helpful to get bone biopsy and culture with deep tissue culture prior to that to help guide if any change in antibiotics is needed 4) severe dementia Problems: Consultation Date/Type/Reason Admit Date/Time August 11, 2016 at 19:00 Initial Consult Date 08/12/16 Type of Consultation: ID 24 HR Interval Summary Free Text/Dictation no new changes Subjective hx not possible: pt non-verbal Exam/Review of Systems Vital Signs Vitals Vital Signs Date Time Temp Pulse Resp B/P Pulse Ox O2 Delivery O2 Flow Rate FiO2 08/27/16 05:00 101 92/49 08/27/16 03:54 97.6 18 93 08/27/16 01:56 3.0 08/26/16 19:57 Nasal Cannula Intake and Output 08/26/16 08/26/16 08/27/16 15:00 23:00 07:00 Intake Total 50 ml 1070 ml 1220 ml Output Total 900 ml 1000 ml Balance 50 ml 170 ml 220 ml Exam Constitutional: non-verbal Head: normocephalic Eyes: nl sclera Respiratory: clear to auscultation Cardiovascular: regular rate and rhythm Gastrointestinal: soft Results Result Diagram: 08/25/16 0525 08/26/16 0540 Medications Medications Current Medications Acetaminophen (Tylenol Tab) 325 mg Q4H PRN GTB PAIN AND FEVER; Start 08/11/16 at 20:00 Morphine Sulfate (morphine) 1 mg Q4H PRN IV PAIN LEVEL 6-10 Last administered on 08/17/16t 09:01; Admin Dose 1 MG; Start 08/11/16 at 20:00 Ondansetron HCl (Zofran Inj) 4 mg Q6H PRN IV NAUSEA AND/OR VOMITING; Start 08/12 at 10:00 Acetaminophen (Tylenol Supp) 650 mg Q6H PRN [place] PAIN LEVEL 1-3 OR FEVER; Start 08/12/16 at 10:00 Sodium Hypochlorite 1 applic 1 applic DAILY IRR Last administered on 08/26/16 08:56; Admin Dose 1 APPLIC; Start 08/14/16 at 09:00 Piperacillin Sod/ Tazobactam Sod (Zosyn 2.25gm/ 50ml (Pmx)) 50 ml @ 100 mls/hr Q6 IVPB Last administered on 08/27/16 06:06; Admin Dose 100 MLS/HR; Start 08/14 at 12:00 Collagenase (Santyl) 1 applic DAILY TOP Last administered on 08/26/16 08:57; Admin Dose 1 APPLIC; Start 08/18/16 at 12:00 Collagenase (Santyl) 1 applic PRN PRN TOP WOUND CARE; Start 08/18/16 at 11:00 Enoxaparin Sodium (Lovenox) 40 mg DAILY SC Last administered on 08/26/16 09:03 ; Admin Dose 40 MG; Start 08/18/16 at 17:30 Docusate Sodium/ Ferrous Fumarate (Isabella-Sequels) 1 tab BID PO Last administered on 08/26/16 21:19; Admin Dose 1 TAB; Start 08/24/16 at 09:00 ERNIE MILLER MD August 27, 2016 07:25
[2016-08-27] MEDS: LEVALBUTEROL (NEB) 0.63 MG/3 ML AMP HHN SCH ×3 (08:23→16:48)
[2016-08-27] MEDS: FERROUS FUMARATE (SR) TAB PO SCH ×2 (09:07→21:23)
[2016-08-27] MEDS: ENOXAPARIN 40 MG/0.4 ML SYG SC SCH (09:08)
[2016-08-27] MEDS: SODIUM HYPOCHLORITE 1/40% 1L IRRIG IRR SCH (09:08)
[2016-08-27] MEDS: COLLAGENASE 30 GM TUBE TOP SCH (09:09)
--- NOTE | 2016-08-27 12:15 | CONS ---
Date/Time of Note Date/Time of Note DATE: 08/27/16 TIME: 12:13 Assessment/Plan Assessment/Plan Additional Assessment/Plan Assessment recommendations; 1. Patient admitted for multiple decubitus ulcers currently on appropriate antibiotic regimen. Clinically improving. 2. Advanced dementia. Continue current treatment. Prognosis remains poor. Consultation Date/Type/Reason Admit Date/Time August 11, 2016 at 19:00 Initial Consult Date 08/19/16 Type of Consultation: Pulmonary 24 HR Interval Summary Free Text/Dictation Patient condition remains unchanged. Remains essentially unresponsive. Has remained hemodynamically stable. General exam; elderly woman, currently in no distress, unresponsive. Exam/Review of Systems Vital Signs Vitals Vital Signs Date Time Temp Pulse Resp B/P Pulse Ox O2 Delivery O2 Flow Rate FiO2 08/27/16 12:00 120 24 99 Nasal Cannula 3.0 08/27/16 11:32 98.1 110/70 Intake and Output 08/26/16 08/26/16 08/27/16 15:00 23:00 07:00 Intake Total 50 ml 1070 ml 1220 ml Output Total 900 ml 1000 ml Balance 50 ml 170 ml 220 ml Exam HEENT exam is; supple neck, no JVD. No lymphadenopathy. Midline trachea. No thyromegaly. Chest examination; diminished breath sound throughout. S1-S2 audible, no murmurs. Abdomen examination; soft, not distended. Bowel sounds are audible. Extremity examination; no peripheral edema. FLAKE OR SHRED ROLL OPERATOR examination; patient remains unresponsive. Results Result Diagram: 08/25/16 0525 08/26/16 0540 Medications Medications Current Medications Acetaminophen (Tylenol Tab) 325 mg Q4H PRN GTB PAIN AND FEVER; Start 08/11/16 at 20:00 Morphine Sulfate (morphine) 1 mg Q4H PRN IV PAIN LEVEL 6-10 Last administered on 08/17/16 09:01; Admin Dose 1 MG; Start 08/11/16 at 20:00 Ondansetron HCl (Zofran Inj) 4 mg Q6H PRN IV NAUSEA AND/OR VOMITING; Start 08/12 at 10:00 Acetaminophen (Tylenol Supp) 650 mg Q6H PRN [place] PAIN LEVEL 1-3 OR FEVER; Start 08/12/16 at 10:00 Sodium Hypochlorite 1 applic 1 applic DAILY IRR Last administered on 5/17/17at 09:08; Admin Dose 1 APPLIC; Start 08/14/16 at 09:00 Piperacillin Sod/ Tazobactam Sod (Zosyn 2.25gm/ 50ml (Pmx)) 50 ml @ 100 mls/hr Q6 IVPB Last administered on 08/27/16 06:06; Admin Dose 100 MLS/HR; Start 08/14 at 12:00 Collagenase (Santyl) 1 applic DAILY TOP Last administered on 08/27/16 09:09; Admin Dose 1 APPLIC; Start 08/18/16 at 12:00 Collagenase (Santyl) 1 applic PRN PRN TOP WOUND CARE; Start 08/18/16 at 11:00 Enoxaparin Sodium (Lovenox) 40 mg DAILY SC Last administered on 08/27/16 09:08 ; Admin Dose 40 MG; Start 08/18/16 at 17:30 Docusate Sodium/ Ferrous Fumarate (Isabella-Sequels) 1 tab BID PO Last administered on 08/27/16 09:07; Admin Dose 1 TAB; Start 08/24/16 at 09:00 PARADISE RODRIGUES August 27, 2016 12:15
--- NOTE | 2016-08-27 16:53 | PN ---
Date/Time of Note Date/Time of Note DATE: 08/27/16 TIME: 16:49 Assessment/Plan Lines/Catheters IV Catheter Type (from [facility]): PICC Line [place] in Place (from [facility]): Yes Assessment/Plan Chief Complaint/Hosp Course 1. 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 -offloading, -local wound care, -nutritional optimization, -vitamin C 1000 mg a day -zinc sulfate 220 mg p.o. b.i.d. x2 weeks. -debridement if family agrees -?flap reconstruction through plastic after medically optimized, nutrition optimized, and family ok to proceed 2. Deep tissue injury, left shoulder and other decubitus areas. Continue as above. 3. Anemia without evidence of acute blood loss. Continue monitoring. 4. Functional quadriplegia. Continue offloading with q.2 hour position change and air mattress and nutrition optimization. 5. End-stage dementia and Alzheimer's. Continue medical optimization. 6. Tachyarrhythmia of unknown etiology. Will defer to medical team for further workup and treatment. 7. Dysphagia, on tube feeds. 8. Hypoalbuminemia. Continue nutritional optimization. Thank you Problems: Subjective 24 Hr Interval Summary Discussed options with son and daughter yesterday. Awaiting their decision. No f/c. No vomiting. No cough. No sz. No bloating. No bleeding. Significant tachyarrhythmias Exam/Review of Systems Vital Signs Vitals Vital Signs Date Time Temp Pulse Resp B/P Pulse Ox O2 Delivery O2 Flow Rate FiO2 08/27/16 15:38 97.3 111 24 104/51 100 08/27/16 12:00 Nasal Cannula 3.0 Intake and Output 08/26/16 08/26/16 08/27/16 15:00 23:00 07:00 Intake Total 50 ml 1070 ml 1220 ml Output Total 900 ml 1000 ml Balance 50 ml 170 ml 220 ml Exam Free Text/Dictation GENERAL: Noncommunicative, contracted state. HEENT: Pupils are sluggish. No scleral icterus. Mucous membranes are moist. NECK: No crepitus with baseline rigidity. PULMONARY: Normal respiratory effort. No wheezing. HEART: S1, S2 and irregular. ABDOMEN: Soft. PEG in place. EXTREMITIES: Contracted without edema. VASCULAR: Capillary refill is over 3 seconds. NEUROLOGIC: Does not follow commands, however opens eyes. SKIN: No rashes. No jaundice. Multiple areas of bruising. Multiple decubitus wounds, especially sacrococcyx and left buttock with debris. Left shoulder deep tissue injury. LYMPHATICS: No inguinal or cervical lymphadenopathy. Results Result Diagram: 08/25/16 0525 08/26/16 0540 JAS VILLAGRAN MD August 27, 2016 16:53
--- NOTE | 2016-08-27 17:45 | PN ---
DATE: 08/27/2016 SUBJECTIVE: No acute changes. PHYSICAL EXAMINATION: VITAL SIGNS: Temperature 97.3, pulse is 118, respirations 22, pulse ox 97 on 3 liters nasal cannula . CARDIOVASCULAR: Regular rhythm. LUNGS: Heavy breathing, snoring. ABDOMEN: Soft, nontender. EXTREMITIES: No pitting edema. ASSESSMENT AND PLAN: 1. Sacral decubiti being treated for probable osteomyelitis by infectious disease. Surgeon has tierra wernerated and reports the necessity for debridement and possibility of flap. Has reported that he has discussed this with the family and they were agreeable to any of these measures. 2. Pleural effusion. Patient on Lasix 20 mg b.i.d. It appears to be improving. 3. Tachycardia. The patient still with tachycardia, although less than 120 on a regular basis. 4. Anemia. seems to be stable. We will repeat CBC tomorrow. G-tube feedings, currently at 200 mL an hour. 5. Hypernatremia, resolved. 6. Hepatitis, resolved. Dictated By: QIANA OLMEDO/FIDELIA Conf#: [id number] DID#: [id number]
[2016-08-28] VITALS (11 sets, daily range): BP systolic 104–134; BP diastolic 57–73; PULSE 68–121; RESP 18–22
[2016-08-28] MEDS: PIPER-TAZO 2.25 GM (PMX) 50 ML IVPB SCH ×4 (01:36→17:34)
[2016-08-28] MEDS: FUROSEMIDE 20 MG INJ IV SCH ×2 (05:25→17:34)
[2016-08-28 07:35] LABS: ADD SCAN DIFF NO
[2016-08-28 07:39] LABS: BASOPHILS % 0.1 % (0.0-2.0); EOSINOPHILS # 0.4 10^3/ul (0.0-0.5); EOSINOPHILS % 5.8 % (0.0-7.0); HEMATOCRIT 26.1 % (37.0-47.0); HEMOGLOBIN 7.9 g/dl (12.0-16.0); LYMPHOCYTES % 13.2 % (15.0-51.0); MEAN CORPUSCULAR HEMOGLOBIN 31.5 pg (29.0-33.0); MEAN CORPUSCULAR HGB CONC 30.3 g/dl (32.0-37.0); MEAN PLATELET VOLUME 9.8 fl (7.4-10.4); MONOCYTE # 0.5 10^3/ul (0.3-0.9); MONOCYTES % 7.4 % (0.0-11.0); NEUTROPHIL # 5.3 10^3/ul (1.6-7.5); NEUTROPHILS % 72.7 % (39.0-77.0); PLATELET COUNT 430 10^3/UL (140-415); RED BLOOD COUNT 2.51 10^6/ul (4.20-5.40); RED CELL DISTRIBUTION WIDTH 16.3 % (11.5-14.5); WHITE BLOOD COUNT 7.3 10^3/ul (4.8-10.8)
[2016-08-28 08:50] LABS: ALBUMIN/GLOBULIN RATIO 0.62; BILIRUBIN,INDIRECT 0.1 mg/dl (0-1.1); BILIRUBIN,TOTAL 0.1 mg/dl (0.2-1.3); CALCIUM 8.6 mg/dl (8.4-10.2); CREATININE 0.82 mg/dl (0.44-1.00); POTASSIUM 3.6 mmol/L (3.5-5.1); TOTAL PROTEIN 7.8 g/dl (6.1-8.1)
[2016-08-28] MEDS: LEVALBUTEROL (NEB) 0.63 MG/3 ML AMP HHN SCH ×3 (08:55→17:00)
[2016-08-28] MEDS: FERROUS FUMARATE (SR) TAB PO SCH ×2 (08:57→21:14)
[2016-08-28] MEDS: SODIUM HYPOCHLORITE 1/40% 1L IRRIG IRR SCH (08:58)
[2016-08-28] MEDS: COLLAGENASE 30 GM TUBE TOP SCH (08:59)
[2016-08-28] MEDS: ENOXAPARIN 40 MG/0.4 ML SYG SC SCH (09:04)
--- NOTE | 2016-08-28 11:17 | CONS ---
Date/Time of Note Date/Time of Note DATE: 08/28/16 TIME: 11:15 Assessment/Plan Assessment/Plan Additional Assessment/Plan Assessment and recommendations; 1. Patient admitted for sepsis from sacral decubitus ulcers currently on broad- spectrum antibiotic coverage. Has remained hemodynamically stable. 2. Advanced dementia. Continue current treatment. Consider discharge. Consultation Date/Type/Reason Admit Date/Time August 11, 2016 at 19:00 Initial Consult Date 08/19/16 Type of Consultation: Pulmonary 24 HR Interval Summary Free Text/Dictation Patient condition remains unchanged. Remains essentially unresponsive due to advanced dementia. Has remained hemodynamically stable. Exam/Review of Systems Vital Signs Vitals Vital Signs Date Time Temp Pulse Resp B/P Pulse Ox O2 Delivery O2 Flow Rate FiO2 08/28/16 08:58 120 20 98 Nasal Cannula 3.0 08/28/16 07:38 98.2 127/65 Intake and Output 08/27/16 08/27/16 08/28/16 15:00 23:00 07:00 Intake Total 1120 ml 920 ml Output Total 780 ml 100 ml Balance 340 ml 820 ml Exam HEENT exam is; supple neck, no JVD. No lymphadenopathy. Midline trachea. Chest examination; diminished breath sound bilaterally. S1-S2 audible, no murmurs. Abdomen examination; soft, G-tube in place. Bowel sounds audible. No organomegaly. Extremity examination; no peripheral edema. Patient has contractures involving all 4 extremities. Back examination; dressing applied over sacrum. HISTORY PROFESSOR examination; patient remains unresponsive. Results Result Diagram: 08/28/16 0605 08/28/16 0630 Results 24 hrs Laboratory Tests Test 08/28/16 06:05 08/28/16 06:30 White Blood Count 7.3 # Red Blood Count 2.51 L Hemoglobin 7.9 L Hematocrit 26.1 L Mean Corpuscular Volume 104.0 H Mean Corpuscular Hemoglobin 31.5 Mean Corpuscular Hemoglobin Concent 30.3 L Red Cell Distribution Width 16.3 H Platelet Count 430 H Mean Platelet Volume 9.8 Neutrophils % 72.7 Lymphocytes % 13.2 L Monocytes % 7.4 Eosinophils % 5.8 Basophils % 0.1 Nucleated Red Blood Cells % 0.0 Neutrophils # 5.3 Lymphocytes # 1.0 Monocytes # 0.5 Eosinophils # 0.4 Basophils # 0.0 Nucleated Red Blood Cells # 0.0 Sodium Level 144 Potassium Level 3.6 Chloride Level 99 Carbon Dioxide Level 38 H Anion Gap 11 Blood Urea Nitrogen 33 H Creatinine 0.82 Glucose Level 170 Calcium Level 8.6 Total Bilirubin 0.1 L Direct Bilirubin 0.00 Indirect Bilirubin 0.1 Aspartate Amino Transf (AST/SGOT) 52 H Alanine Aminotransferase (ALT/SGPT) 52 Alkaline Phosphatase 175 H Total Protein 7.8 Albumin 3.0 L Globulin 4.80 H Albumin/Globulin Ratio 0.62 Medications Medications Current Medications Acetaminophen (Tylenol Tab) 325 mg Q4H PRN GTB PAIN AND FEVER; Start 08/11/16 at 20:00 Morphine Sulfate (morphine) 1 mg Q4H PRN IV PAIN LEVEL 6-10 Last administered on 08/17/16 09:01; Admin Dose 1 MG; Start 08/11/16 at 20:00 Ondansetron HCl (Zofran Inj) 4 mg Q6H PRN IV NAUSEA AND/OR VOMITING; Start 08/12 at 10:00 Acetaminophen (Tylenol Supp) 650 mg Q6H PRN [place] PAIN LEVEL 1-3 OR FEVER; Start 08/12/16 at 10:00 Sodium Hypochlorite 1 applic 1 applic DAILY IRR Last administered on 08/28/16 08:58; Admin Dose 1 APPLIC; Start 08/14/16 at 09:00 Piperacillin Sod/ Tazobactam Sod (Zosyn 2.25gm/ 50ml (Pmx)) 50 ml @ 100 mls/hr Q6 IVPB Last administered on 08/28/16 05:25; Admin Dose 100 MLS/HR; Start 08/14 at 12:00 Collagenase (Santyl) 1 applic DAILY TOP Last administered on 08/28/16 08:59; Admin Dose 1 APPLIC; Start 08/18/16 at 12:00 Collagenase (Santyl) 1 applic PRN PRN TOP WOUND CARE; Start 08/18/16 at 11:00 Enoxaparin Sodium (Lovenox) 40 mg DAILY SC Last administered on 08/28/16 09:04 ; Admin Dose 40 MG; Start 08/18/16 at 17:30 Docusate Sodium/ Ferrous Fumarate (Isabella-Sequels) 1 tab BID PO Last administered on 08/28/16 08:57; Admin Dose 1 TAB; Start 08/24/16 at 09:00 QARNI,PARADISE August 28, 2016 11:17
[2016-08-28] MEDS ORDERED: EPOETIN ALFA (NESRD) 3,000 UNITS/ML VIAL SC ONE (11:30)
[2016-08-28] MEDS: ASCORBIC ACID 500 MG TAB GTB SCH (11:49)
[2016-08-28] MEDS ORDERED: EPOETIN 10000 UNITS/1 ML INJ (ESRD) SC SCH (12:30)
--- NOTE | 2016-08-28 14:54 | RADRPT ---
PROCEDURE: XR Chest. CLINICAL INDICATION: Shortness of breath. TECHNIQUE: Single frontal view. COMPARISON: 08/25/2016. FINDINGS: There is a right arm PICC line in satisfactory and unchanged position with the tip in the cavoatrial junction region. The right lung is clear. There is left basilar atelectasis, unchanged. The heart size is normal. There is calcification in the aorta consistent with atherosclerosis. There is no right pleural effusion. There is a small left pleural effusion. There is no pneumothorax. IMPRESSION: 1. No change from 08/25/2016. RPTAT: QQ .Marvin Pool MD, MD Date Time Electronically viewed and signed by .Marvin Pool MD, on 08/28/2016 14:54 .R/
[2016-08-28] MEDS: ZINC SULFATE 220 MG CAP GTB SCH (21:15)
[2016-08-29] VITALS (13 sets, daily range): BP systolic 104–125; BP diastolic 53–82; PULSE 13–133; RESP 18–21
[2016-08-29] MEDS: PIPER-TAZO 2.25 GM (PMX) 50 ML IVPB SCH ×4 (00:18→17:07)
[2016-08-29] MEDS: FUROSEMIDE 20 MG INJ IV SCH (06:02)
[2016-08-29 07:20] LABS: ADD SCAN DIFF NO
[2016-08-29 07:36] LABS: BASOPHILS % 0.1 % (0.0-2.0); EOSINOPHILS # 0.5 10^3/ul (0.0-0.5); EOSINOPHILS % 6.3 % (0.0-7.0); HEMOGLOBIN 8.1 g/dl (12.0-16.0); LYMPHOCYTES # 1.1 10^3/ul (0.8-2.9); LYMPHOCYTES % 14.3 % (15.0-51.0); MEAN CORPUSCULAR VOLUME 103.4 fl (82.0-101.0); MEAN PLATELET VOLUME 9.6 fl (7.4-10.4); MONOCYTE # 0.6 10^3/ul (0.3-0.9); MONOCYTES % 8.2 % (0.0-11.0); NEUTROPHIL # 5.1 10^3/ul (1.6-7.5); NEUTROPHILS % 69.3 % (39.0-77.0); PLATELET COUNT 449 10^3/UL (140-415); RED BLOOD COUNT 2.61 10^6/ul (4.20-5.40); RED CELL DISTRIBUTION WIDTH 16.2 % (11.5-14.5); WHITE BLOOD COUNT 7.4 10^3/ul (4.8-10.8)
[2016-08-29] MEDS: LEVALBUTEROL (NEB) 0.63 MG/3 ML AMP HHN SCH ×2 (08:54→12:27)
[2016-08-29] MEDS: ENOXAPARIN 40 MG/0.4 ML SYG SC SCH (09:02)
[2016-08-29] MEDS: ZINC SULFATE 220 MG CAP GTB SCH ×2 (09:03→21:35)
[2016-08-29] MEDS: FERROUS FUMARATE (SR) TAB PO SCH (09:03)
[2016-08-29] MEDS: ASCORBIC ACID 500 MG TAB GTB SCH (09:04)
[2016-08-29] MEDS: SODIUM HYPOCHLORITE 1/40% 1L IRRIG IRR SCH (09:05)
[2016-08-29] MEDS: COLLAGENASE 30 GM TUBE TOP SCH (09:06)
[2016-08-29 09:11] LABS: FOLATE > 20.0 ng/ml (2.8-20.0)
--- NOTE | 2016-08-29 10:54 | CONS ---
Date/Time of Note Date/Time of Note DATE: 08/29/16 TIME: 10:52 Assessment/Plan Assessment/Plan Chief Complaint/Hosp Course 1) ARF u/a does not suggest infection, likely due to dehydration 08/13 - improving with hydration 08/14 - continues to improve, will increase dose of zosyn urine cx was negative 08/15 - pretty much resolved 2) pneumonia check procalcitonin get nasal swab for MRSA continue with vanco, change cefepime to zosyn likely aspiration 08/13 - wbc is improving, continue with vanco/zosyn 08/14 - wbc continues to improve, no MRSA found d/c vanco and continue with zosyn and increase its dose 08/15 - only on zosyn now and wbc is improving pt getting echo and asked tech to quantify the L sided pleural effusion too 08/17 - echo only reported presence of L pleural effusion no good evidence to suggest an empyema continue with zosyn 08/18 - stable, pt completes were treatment course for pneumonia today 08/20 - minimally elevated procalcitonin on 08/13 no further treatment needed for pneumonia but on zosyn for probable sacral osteo 3) sacral wound ulcer, likely osteo check ESR, CRP and if very high then would treat as if osteomyelitis if not very high will order bone scan for ultimate healing if this is indeed osteo she will likely need plastic surgery involvement her low albumin suggest she would have poor tissue healing will get wound cx of deeper wound 08/13 - ESR is very high, c/w osteomyelitis wound cx has gnr's and GPC continue with vanco/zosyn at present 08/14 - no MRSA found, d/c vanco and continue with zosyn pt likely has osteo due to high ESR will follow ESR weekly for response unlikely that antibiotics alone will heal the sacral wounds 08/15 - continue with zosyn unlikely that antibiotics alone will heal these sacral wounds 08/17 - pt likely has osteo but unlikely antibiotics will cure this usual treatment course for osteo is 6 weeks of antibiotics unlikely antibiotics alone will be curative repeat ESR and CRP in a.m. 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 repeat ESR and CRP are pending it is unlikely that antibiotics alone will be curative 08/20 - day of zosyn ESR elevated c/w osteomyelitis CRP did improve a bit but antibiotics unlikely to be curative recommend weekly esr, crp and if not improving then would d/c antibiotics 08/27 - Day of zosyn CRP has come down slowly, ESR has actually increased but sometimes the ESR is delayed in improvement Nonetheless it has almost doubled If surgical debridement it to be done then pt will need deep surgical cultures sent to verify that no resistant organisms are being missed continue with zosyn at present pt will likely need a muscle flap if cure of osteomyelitis is the goal and it would be helpful to get bone biopsy and culture with deep tissue culture prior to that to help guide if any change in antibiotics is needed 08/29 - no new recommendations if surgery is done, please get deep surgical wound cx and if possible bone cx/ biopsy continue with zosyn (day ) 4) severe dementia Problems: Consultation Date/Type/Reason Admit Date/Time August 11, 2016 at 19:00 Initial Consult Date 08/12/16 Type of Consultation: ID 24 HR Interval Summary Free Text/Dictation non verbal, no change according to the nurse Exam/Review of Systems Vital Signs Vitals Vital Signs Date Time Temp Pulse Resp B/P Pulse Ox O2 Delivery O2 Flow Rate FiO2 08/29/16 10:00 13 122/57 133 08/29/16 08:55 20 99 Nasal Cannula 3.0 08/29/16 07:31 98.4 Intake and Output 08/28/16 08/28/16 08/29/16 15:00 23:00 07:00 Intake Total 1060 ml 920 ml Output Total 700 ml 800 ml Balance 360 ml 120 ml Exam Constitutional: non-verbal Head: normocephalic ENMT: other (dried secretions in the mouth) Respiratory: clear to auscultation Cardiovascular: regular rate and rhythm Gastrointestinal: soft Results Result Diagram: 08/29/16 0705 08/28/16 0630 Results 24 hrs Laboratory Tests Test 08/29/16 07:05 White Blood Count 7.4 Red Blood Count 2.61 L Hemoglobin 8.1 L Hematocrit 27.0 L Mean Corpuscular Volume 103.4 H Mean Corpuscular Hemoglobin 31.0 Mean Corpuscular Hemoglobin Concent 30.0 L Red Cell Distribution Width 16.2 H Platelet Count 449 H Mean Platelet Volume 9.6 Neutrophils % 69.3 Lymphocytes % 14.3 L Monocytes % 8.2 Eosinophils % 6.3 Basophils % 0.1 Nucleated Red Blood Cells % 0.0 Neutrophils # 5.1 Lymphocytes # 1.1 Monocytes # 0.6 Eosinophils # 0.5 Basophils # 0.0 Nucleated Red Blood Cells # 0.0 Vitamin B12 Level 341 Folate > 20.0 H Medications Medications Current Medications Acetaminophen (Tylenol Tab) 325 mg Q4H PRN GTB PAIN AND FEVER; Start 08/11/16 at 20:00 Morphine Sulfate (morphine) 1 mg Q4H PRN IV PAIN LEVEL 6-10 Last administered on 08/17/16 09:01; Admin Dose 1 MG; Start 08/11/16 at 20:00 Ondansetron HCl (Zofran Inj) 4 mg Q6H PRN IV NAUSEA AND/OR VOMITING; Start 08/12 at 10:00 Acetaminophen (Tylenol Supp) 650 mg Q6H PRN NV PAIN LEVEL 1-3 OR FEVER; Start 08/12/16 at 10:00 Sodium Hypochlorite 1 applic 1 applic DAILY IRR Last administered on 08/29/16 09:05; Admin Dose 1 APPLIC; Start 08/14/16 at 09:00 Piperacillin Sod/ Tazobactam Sod (Zosyn 2.25gm/ 50ml (Pmx)) 50 ml @ 100 mls/hr Q6 IVPB Last administered on 08/29/16 06:02; Admin Dose 100 MLS/HR; Start 08/14 at 12:00 Collagenase (Santyl) 1 applic DAILY TOP Last administered on 08/29/16 09:06; Admin Dose 1 APPLIC; Start 08/18/16 at 12:00 Collagenase (Santyl) 1 applic PRN PRN TOP WOUND CARE; Start 08/18/16 at 11:00 Enoxaparin Sodium (Lovenox) 40 mg DAILY SC Last administered on 08/29/16 09:02 ; Admin Dose 40 MG; Start 08/18/16 at 17:30 Docusate Sodium/ Ferrous Fumarate (Isabella-Sequels) 1 tab BID PO Last administered on 08/29/16 09:03; Admin Dose 1 TAB; Start 08/24/16 at 09:00 Ascorbic Acid (Vitamin C) 1,000 mg DAILY GTB Last administered on 08/29/16 09: 04; Admin Dose 1,000 MG; Start 5/18/17 at 11:30 Zinc Sulfate (Zinc Sulfate) 220 mg BID GTB Last administered on 08/29/16t 09:03 ; Admin Dose 220 MG; Start 08/28/16 at 21:00 ERNIE MILLER MD August 29, 2016 10:54
[2016-08-29] MEDS ORDERED: EPOETIN 10000 UNITS/1 ML INJ (ESRD) SC ONE (15:30)
--- NOTE | 2016-08-29 20:03 | PN ---
Date/Time of Note Date/Time of Note DATE: 08/28/16 TIME: 20:00 Assessment/Plan Lines/Catheters IV Catheter Type (from [facility]): PICC Line Hillman in Place (from [facility]): Yes Assessment/Plan Chief Complaint/Hosp Course 1. 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 -offloading, -local wound care, -nutritional optimization, -vitamin C 1000 mg a day -zinc sulfate 220 mg p.o. b.i.d. x2 weeks. -debridement if family agrees -?flap reconstruction through plastic after medically optimized, nutrition optimized, and family ok to proceed 2. Deep tissue injury, left shoulder and other decubitus areas. Continue as above. 3. Anemia without evidence of acute blood loss. Continue monitoring. 4. Functional quadriplegia. Continue offloading with q.2 hour position change and air mattress and nutrition optimization. 5. End-stage dementia and Alzheimer's. Continue medical optimization. 6. Tachyarrhythmia of unknown etiology. Will defer to medical team for further workup and treatment. 7. Dysphagia, on tube feeds. 8. Hypoalbuminemia. Continue nutritional optimization. Thank you Late entry 08/28 Problems: Subjective 24 Hr Interval Summary Awaiting family decision. No f/c. No vomiting. No cough. No sz. No bloating. No bleeding. Tachyarrhythmias Exam/Review of Systems Vital Signs Vitals Vital Signs Date Time Temp Pulse Resp B/P Pulse Ox O2 Delivery O2 Flow Rate FiO2 08/29/16 18:03 3.0 08/29/16 16:48 109 08/29/16 15:35 98.3 21 125/82 94 08/29/16 12:28 Nasal Cannula Intake and Output 08/28/16 08/28/16 08/29/16 15:00 23:00 07:00 Intake Total 1060 ml 920 ml Output Total 700 ml 800 ml Balance 360 ml 120 ml Exam Free Text/Dictation GENERAL: Noncommunicative, contracted state. HEENT: Pupils are sluggish. No scleral icterus. Mucous membranes are moist. NECK: No crepitus with baseline rigidity. PULMONARY: Normal respiratory effort. No wheezing. HEART: S1, S2 and irregular. ABDOMEN: Soft. PEG in place. EXTREMITIES: Contracted without edema. VASCULAR: Capillary refill is over 3 seconds. NEUROLOGIC: Does not follow commands, however opens eyes. SKIN: No rashes. No jaundice. Multiple areas of bruising. Multiple decubitus wounds, especially sacrococcyx and left buttock with debris. Left shoulder deep tissue injury. LYMPHATICS: No inguinal or cervical lymphadenopathy. Results Result Diagram: 08/29/16 0705 08/28/16 0630 JAS VILLAGRAN MD August 29, 2016 20:03
--- NOTE | 2016-08-29 20:04 | PN ---
Date/Time of Note Date/Time of Note DATE: 08/29/16 TIME: 20:03 Assessment/Plan Lines/Catheters IV Catheter Type (from [facility]): PICC Line Hillman in Place (from [facility]): Yes Assessment/Plan Chief Complaint/Hosp Course 1. 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 Awaiting family decision -offloading, -local wound care, -nutritional optimization, -vitamin C 1000 mg a day -zinc sulfate 220 mg p.o. b.i.d. x2 weeks. -debridement if family agrees -?flap reconstruction through plastic after medically optimized, nutrition optimized, and family ok to proceed 2. Deep tissue injury, left shoulder and other decubitus areas. Continue as above. 3. Anemia without evidence of acute blood loss. Continue monitoring. 4. Functional quadriplegia. Continue offloading with q.2 hour position change and air mattress and nutrition optimization. 5. End-stage dementia and Alzheimer's. Continue medical optimization. 6. Tachyarrhythmia of unknown etiology. Will defer to medical team for further workup and treatment. 7. Dysphagia, on tube feeds. 8. Hypoalbuminemia. Continue nutritional optimization. Thank you Problems: Subjective 24 Hr Interval Summary Awaiting family decision. No f/c. No vomiting. No cough. No sz. No bloating. No bleeding. Tachyarrhythmias Exam/Review of Systems Vital Signs Vitals Vital Signs Date Time Temp Pulse Resp B/P Pulse Ox O2 Delivery O2 Flow Rate FiO2 08/29/16 18:03 3.0 08/29/16 16:48 109 08/29/16 15:35 98.3 21 125/82 94 08/29/16 12:28 Nasal Cannula Intake and Output 08/28/16 08/28/16 08/29/16 15:00 23:00 07:00 Intake Total 1060 ml 920 ml Output Total 700 ml 800 ml Balance 360 ml 120 ml Exam Free Text/Dictation GENERAL: Noncommunicative, contracted state. HEENT: Pupils are sluggish. No scleral icterus. Mucous membranes are moist. NECK: No crepitus with baseline rigidity. PULMONARY: Normal respiratory effort. No wheezing. HEART: S1, S2 and irregular. ABDOMEN: Soft. PEG in place. EXTREMITIES: Contracted without edema. VASCULAR: Capillary refill is over 3 seconds. NEUROLOGIC: Does not follow commands, however opens eyes. SKIN: No rashes. No jaundice. Multiple areas of bruising. Multiple decubitus wounds, especially sacrococcyx and left buttock with debris. Left shoulder deep tissue injury. LYMPHATICS: No inguinal or cervical lymphadenopathy. Results Result Diagram: 08/29/16 0705 08/28/16 0630 JAS VILLAGRAN MD August 29, 2016 20:04
[2016-08-29] MEDS: FERROUS SULFATE 60 MG/ML 5ML CUP GTB SCH (21:35)
[2016-08-30] VITALS (13 sets, daily range): BP systolic 90–125; BP diastolic 54–69; PULSE 117–128; RESP 20–22
[2016-08-30] MEDS: PIPER-TAZO 2.25 GM (PMX) 50 ML IVPB SCH ×5 (01:25→23:59)
[2016-08-30] MEDS ORDERED: LEVALBUTEROL (NEB) 0.63 MG/3 ML AMP ONE (07:43)
[2016-08-30] MEDS: LEVALBUTEROL (NEB) 0.63 MG/3 ML AMP HHN SCH (08:26)
[2016-08-30 08:50] LABS: ADD SCAN DIFF NO
[2016-08-30 09:09] LABS: BASOPHILS % 0.2 % (0.0-2.0); EOSINOPHILS # 0.3 10^3/ul (0.0-0.5); EOSINOPHILS % 3.4 % (0.0-7.0); HEMOGLOBIN 7.8 g/dl (12.0-16.0); LYMPHOCYTES % 12.2 % (15.0-51.0); MEAN CORPUSCULAR HEMOGLOBIN 31.3 pg (29.0-33.0); MEAN CORPUSCULAR VOLUME 104.4 fl (82.0-101.0); MEAN PLATELET VOLUME 9.9 fl (7.4-10.4); MONOCYTE # 0.8 10^3/ul (0.3-0.9); MONOCYTES % 9.3 % (0.0-11.0); NEUTROPHIL # 6.1 10^3/ul (1.6-7.5); NEUTROPHILS % 71.3 % (39.0-77.0); NUCLEATED RED BLOOD CELLS% 0.2 /100WBC (0.0-0.0); PLATELET COUNT 461 10^3/UL (140-415); RED BLOOD COUNT 2.49 10^6/ul (4.20-5.40); RED CELL DISTRIBUTION WIDTH 16.5 % (11.5-14.5); WHITE BLOOD COUNT 8.5 10^3/ul (4.8-10.8)
[2016-08-30] MEDS: FUROSEMIDE 20 MG INJ IV SCH (09:53)
[2016-08-30] MEDS: FERROUS SULFATE 60 MG/ML 5ML CUP GTB SCH ×2 (09:53→20:42)
[2016-08-30] MEDS: ASCORBIC ACID 500 MG TAB GTB SCH (09:54)
[2016-08-30] MEDS: SODIUM HYPOCHLORITE 1/40% 1L IRRIG IRR SCH (09:54)
[2016-08-30] MEDS: ZINC SULFATE 220 MG CAP GTB SCH ×2 (09:54→20:42)
[2016-08-30] MEDS: COLLAGENASE 30 GM TUBE TOP SCH (09:54)
[2016-08-30] MEDS: ENOXAPARIN 40 MG/0.4 ML SYG SC SCH (09:57)
[2016-08-30] MEDS: ACETAMINOPHEN 325 MG TAB GTB PRN ×2 (11:55→17:43)
--- NOTE | 2016-08-30 13:46 | PN ---
DATE: 08/29/2016 SUBJECTIVE: No acute changes. Was called by the nurse for a pulse ranging up to 130. The patient had no acute distress, snoring, sleep restfully. OBJECTIVE VITAL SIGNS: Blood pressure 125/82, temperature 98, pulse between 109 and 130, pulse ox 94 on 3 L. GENERAL: In no acute distress. HEENT: Head normocephalic. CARDIOVASCULAR: Regular rhythm, increased rate. LUNGS: No crackles, no rhonchi. EXTREMITIES: Lower extremities had no pitting edema. LABORATORY TESTS: Hemoglobin increased from 7.9 to 8.1, WBC 7.4. ASSESSMENT AND PLAN 1. Sacral decubitus, being treated for probable osteomyelitis by infectious disease, on Zosyn since August 11, needing of 42 days of antibiotics. The surgeon was called and reports that the possibilit y of debridement and flap, although nothing has currently been done. The patient now started on her vitamin C regimen in preparation for debridement. 2. Tachycardia. The patient has been better; typically, had been ranging less than 120 in the past 24 hours. The patient has been running at 120 and above, up to T-max 130; currently, now down to 1 09. No treatment has been done. Ultrasound of the lower extremity was negative for deep venous thr ombosis. Pulmonary was consulted; he thinks that is due to congestion of the lungs and patient has been on Lasix b.i.d. for the past week. The patient is also on Xopenex t.i.d. Due to these changes , maybe the patient is dehydrated now. We will decrease the Lasix to 1 time a day; we will decrease the Xopenex to 1 time a day with p.r.n. the rest of the day. Repeat chest x-ray on Thursday. 3. Anemia. The patient in the past has been transfused 1 unit of packed red blood cells. Hemoglob in august have been delusional effect, because of the new PICC line in place. Hemoglobin was at 7.9, t viktor 8.1. Patient was given a dose of Epogen a few days ago and repeat today. 4. Pleural effusion has improved while on the Lasix. The right disappeared; the left is minimal am ount by x-ray. 5. Hypernatremia, resolved. 6. Elevated liver function tests, resolved. 7. Pneumonia, resolved. Dictated By: QIANA OLMEDO/FIDELIA Conf#: [id number] DID#: [id number]
--- NOTE | 2016-08-30 18:27 | PN ---
DATE: 08/30/2016 SUBJECTIVE: The patient is sleeping, arousable but nonresponsive. OBJECTIVE: VITAL SIGNS: Temperature 99.3, blood pressure 111/57, pulse of 119, respiration rate 20, O2 saturat ion 94% to 100% on 3 liters nasal cannula. HEENT: Anicteric sclerae. Oropharynx clear. LUNGS: Clear to auscultation anteriorly. CARDIAC: Mild tachycardia. ABDOMEN: Active bowel sounds. EXTREMITIES: Marked contractures of the lower extremities, no edema. ASSESSMENT AND PLAN: 1. Osteomyelitis. Continue antibiotics IV. Awaiting family's decision on decubitus debridement an d flap. 2. Tachycardia, status post workup for causes, and may be due to lung congestion plus the Xopenex. May also be due to anemia or underlying anxiety. Since patient has already been transfused and is being treated with Lasix and Xopenex for all of the other possibilities, I will try patient on a low dose of Ativan to see if it calms down her stress reaction. Dictated By: TAMICA DENTON MD DP/FIDELIA Conf#: [id number] DID#: [id number]
[2016-08-30] MEDS: LORAZEPAM 0.5 MG TAB PO SCH (20:42)
[2016-08-31] VITALS (12 sets, daily range): BP systolic 97–127; BP diastolic 50–63; PULSE 114–128; RESP 17–22
[2016-08-31] MEDS: PIPER-TAZO 2.25 GM (PMX) 50 ML IVPB SCH ×3 (06:15→17:29)
[2016-08-31] MEDS: LORAZEPAM 0.5 MG TAB PO SCH ×2 (09:00→12:35)
[2016-08-31] MEDS: FUROSEMIDE 20 MG INJ IV SCH (09:00)
[2016-08-31] MEDS: LEVALBUTEROL (NEB) 0.63 MG/3 ML AMP HHN SCH (09:40)
[2016-08-31] MEDS: FERROUS SULFATE 60 MG/ML 5ML CUP GTB SCH ×2 (09:48→20:18)
[2016-08-31] MEDS: ZINC SULFATE 220 MG CAP GTB SCH ×2 (09:48→20:18)
[2016-08-31] MEDS: SODIUM HYPOCHLORITE 1/40% 1L IRRIG IRR SCH (09:48)
[2016-08-31] MEDS: ASCORBIC ACID 500 MG TAB GTB SCH (09:48)
[2016-08-31] MEDS: COLLAGENASE 30 GM TUBE TOP SCH (09:48)
[2016-08-31] MEDS: ENOXAPARIN 40 MG/0.4 ML SYG SC SCH (09:49)
[2016-08-31] MEDS: ACETAMINOPHEN 325 MG TAB GTB PRN (12:35)
--- NOTE | 2016-08-31 16:56 | RADRPT ---
PROCEDURE: XR Chest. CLINICAL INDICATION: Cough. TECHNIQUE: Two views. Frontal and lateral. COMPARISON: 08/28/2016. FINDINGS: There is a right arm PICC line with the tip in the lower superior vena cava. Mild atelectasis at th e left lung base is unchanged. There is elevation of the right hemidiaphragm. The lungs are otherw ise clear. The heart size is normal. There is calcification in the aorta consistent with atherosclerosis. There is no right pleural effusion. There is a small left pleural effusion. There is no pneumothorax. IMPRESSION: 1. No change from 08/28/2016. RPTAT: QQ .Marvin Pool MD, MD Date Time Electronically viewed and signed by .Marvin Pool MD, MD on 08/31/2016 16:56 .R/
--- NOTE | 2016-08-31 18:08 | PN ---
DATE: 08/31/2016 SUBJECTIVE: Patient is asleep, arousable but not responsive to inquiries. OBJECTIVE: VITAL SIGNS: Temperature 98.6, blood pressure 111/55, pulse of 120, respiration rate 17, O2 saturat ion 96%. HEENT: Anicteric sclerae. Oropharynx clear. CHEST: Lungs are clear to auscultation. CARDIAC: Tachycardia. ABDOMEN: Active bowel sounds. EXTREMITIES: Marked contractures of the lower extremities. Chest x-ray today shows no change from 08/28 with mild atelectasis at the left lung base, elevation of right hemidiaphragm, small left pleural effusion. ASSESSMENT AND PLAN: 1. Osteomyelitis. Continue current IV antibiotics per infectious disease management. 2. Tachycardia, unknown causes, possibly due to respiratory treatment, cardiac arrhythmia or ongoin g anemia and stress. 3. Dementia, stable. Dictated By: TAMICA DENTON MD DP/NTS Conf#: [id number] DID#: [id number]
[2016-09-01] VITALS (20 sets, daily range): BP systolic 65–125; BP diastolic 36–65; PULSE 108–126; RESP 18–38
[2016-09-01] MEDS: PIPER-TAZO 2.25 GM (PMX) 50 ML IVPB SCH ×5 (00:02→23:33)
--- NOTE | 2016-09-01 01:22 | PN ---
Date/Time of Note Date/Time of Note DATE: 08/30/16 TIME: 11:20 Assessment/Plan Lines/Catheters IV Catheter Type (from [facility]): PICC Line Hillman in Place (from [facility]): Yes Assessment/Plan Chief Complaint/Hosp Course 1. 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 Awaiting family decision -offloading, -local wound care, -nutritional optimization, -vitamin C 1000 mg a day -zinc sulfate 220 mg p.o. b.i.d. x2 weeks. -debridement if family agrees > awaiting final decision -?flap reconstruction through plastic after medically optimized, nutrition optimized, and family ok to proceed 2. Deep tissue injury, left shoulder and other decubitus areas. Continue as above. 3. Anemia without evidence of acute blood loss. Continue monitoring. 4. Functional quadriplegia. Continue offloading with q.2 hour position change and air mattress and nutrition optimization. 5. End-stage dementia and Alzheimer's. Continue medical optimization. 6. Tachyarrhythmia of unknown etiology. Will defer to medical team for further workup and treatment. 7. Dysphagia, on tube feeds. 8. Hypoalbuminemia. Continue nutritional optimization. Thank you Late entry 08/30 Problems: Subjective 24 Hr Interval Summary Awaiting family decision. No f/c. No vomiting. No cough. No sz. No bloating. No bleeding. Tachyarrhythmias Exam/Review of Systems Vital Signs Vitals Vital Signs Date Time Temp Pulse Resp B/P Pulse Ox O2 Delivery O2 Flow Rate FiO2 09/01/16 00:21 108 08/31/16 22:24 Simple Mask 08/31/16 20:23 98.6 22 103/50 97 08/31/16 09:41 1.0 Intake and Output 08/31/16 08/31/16 09/01/16 15:00 23:00 07:00 Intake Total 50 ml 65 ml Output Total 700 ml Balance 50 ml -635 ml Exam Free Text/Dictation GENERAL: Noncommunicative, contracted state. HEENT: Pupils are sluggish. No scleral icterus. Mucous membranes are moist. NECK: No crepitus with baseline rigidity. PULMONARY: Normal respiratory effort. No wheezing. HEART: S1, S2 and irregular. ABDOMEN: Soft. PEG in place. EXTREMITIES: Contracted without edema. VASCULAR: Capillary refill is over 3 seconds. NEUROLOGIC: Does not follow commands, however opens eyes. SKIN: No rashes. No jaundice. Multiple areas of bruising. Multiple decubitus wounds, especially sacrococcyx and left buttock with debris. Left shoulder deep tissue injury. LYMPHATICS: No inguinal or cervical lymphadenopathy. Results Result Diagram: 08/30/16 0715 08/28/16 0630 JAS VILLAGRAN MD September 01, 2016 01:22
--- NOTE | 2016-09-01 01:23 | PN ---
Date/Time of Note Date/Time of Note DATE: 08/31/16 TIME: 11:22 Assessment/Plan Lines/Catheters IV Catheter Type (from [facility]): PICC Line [facility] in Place (from [facility]): Yes Assessment/Plan Chief Complaint/Hosp Course 1. 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 Awaiting family decision -offloading, -local wound care, -nutritional optimization, -vitamin C 1000 mg a day -zinc sulfate 220 mg p.o. b.i.d. x2 weeks. -debridement if family agrees > awaiting final decision -?flap reconstruction through plastic after medically optimized, nutrition optimized, and family ok to proceed 2. Deep tissue injury, left shoulder and other decubitus areas. Continue as above. 3. Anemia without evidence of acute blood loss. Continue monitoring. 4. Functional quadriplegia. Continue offloading with q.2 hour position change and air mattress and nutrition optimization. 5. End-stage dementia and Alzheimer's. Continue medical optimization. 6. Tachyarrhythmia of unknown etiology. Will defer to medical team for further workup and treatment. 7. Dysphagia, on tube feeds. 8. Hypoalbuminemia. Continue nutritional optimization. Thank you Late entry 08/31 Problems: Subjective 24 Hr Interval Summary Still awaiting family decision. I left a message for them today. No f/c. No vomiting. No cough. No sz. No bloating. No bleeding. Tachyarrhythmias Exam/Review of Systems Vital Signs Vitals Vital Signs Date Time Temp Pulse Resp B/P Pulse Ox O2 Delivery O2 Flow Rate FiO2 09/01/16 00:21 108 08/31/16 22:24 Simple Mask 08/31/16 20:23 98.6 22 103/50 97 08/31/16 09:41 1.0 Intake and Output 08/31/16 08/31/16 09/01/16 15:00 23:00 07:00 Intake Total 50 ml 65 ml Output Total 700 ml Balance 50 ml -635 ml Exam Free Text/Dictation GENERAL: Noncommunicative, contracted state. HEENT: Pupils are sluggish. No scleral icterus. Mucous membranes are moist. NECK: No crepitus with baseline rigidity. PULMONARY: Normal respiratory effort. No wheezing. HEART: S1, S2 and irregular. ABDOMEN: Soft. PEG in place. EXTREMITIES: Contracted without edema. VASCULAR: Capillary refill is over 3 seconds. NEUROLOGIC: Does not follow commands, however opens eyes. SKIN: No rashes. No jaundice. Multiple areas of bruising. Multiple decubitus wounds, especially sacrococcyx and left buttock with debris. Left shoulder deep tissue injury. LYMPHATICS: No inguinal or cervical lymphadenopathy. Results Result Diagram: 08/30/16 0715 08/28/16 0630 JAS VILLAGRAN MD September 01, 2016 01:23
[2016-09-01 08:29] LABS: ADD SCAN DIFF NO
[2016-09-01 08:36] LABS: ABNORMAL IP MESSAGE 1; BASOPHILS % 0.3 % (0.0-2.0); EOSINOPHILS # 0.3 10^3/ul (0.0-0.5); EOSINOPHILS % 3.2 % (0.0-7.0); HEMATOCRIT 27.8 % (37.0-47.0); HEMOGLOBIN 8.3 g/dl (12.0-16.0); LYMPHOCYTES # 1.2 10^3/ul (0.8-2.9); LYMPHOCYTES % 12.5 % (15.0-51.0); MEAN CORPUSCULAR HEMOGLOBIN 31.7 pg (29.0-33.0); MEAN CORPUSCULAR HGB CONC 29.9 g/dl (32.0-37.0); MEAN CORPUSCULAR VOLUME 106.1 fl (82.0-101.0); MEAN PLATELET VOLUME 10.5 fl (7.4-10.4); MONOCYTE # 0.8 10^3/ul (0.3-0.9); MONOCYTES % 8.4 % (0.0-11.0); NEUTROPHIL # 6.5 10^3/ul (1.6-7.5); NEUTROPHILS % 69.7 % (39.0-77.0); NUCLEATED RED BLOOD CELLS # 0.1 10^3/ul (0.0-0.0); NUCLEATED RED BLOOD CELLS% 0.5 /100WBC (0.0-0.0); PLATELET COUNT 445 10^3/UL (140-415); RED BLOOD COUNT 2.62 10^6/ul (4.20-5.40); RED CELL DISTRIBUTION WIDTH 17.2 % (11.5-14.5); WHITE BLOOD COUNT 9.4 10^3/ul (4.8-10.8)
[2016-09-01] MEDS: LEVALBUTEROL (NEB) 0.63 MG/3 ML AMP HHN SCH ×4 (08:36→20:36)
[2016-09-01 08:55] LABS: ALBUMIN 2.9 g/dl (3.3-4.9); POTASSIUM 4.8 mmol/L (3.5-5.1)
[2016-09-01 08:57] LABS: CREATININE 0.6 mg/dl (0.44-1.00)
[2016-09-01 08:58] LABS: ALBUMIN/GLOBULIN RATIO 0.59; BILIRUBIN,INDIRECT 0.3 mg/dl (0-1.1); BILIRUBIN,TOTAL 0.3 mg/dl (0.2-1.3); CALCIUM 8.5 mg/dl (8.4-10.2); TOTAL PROTEIN 7.8 g/dl (6.1-8.1)
[2016-09-01] MEDS: ASCORBIC ACID 500 MG TAB GTB SCH (09:44)
[2016-09-01] MEDS: ZINC SULFATE 220 MG CAP GTB SCH ×2 (09:44→21:27)
[2016-09-01] MEDS: LORAZEPAM 0.5 MG TAB PO SCH ×2 (09:45→21:00)
[2016-09-01] MEDS: FUROSEMIDE 20 MG INJ IV SCH ×2 (09:45→19:00)
[2016-09-01] MEDS: ENOXAPARIN 40 MG/0.4 ML SYG SC SCH (09:48)
[2016-09-01] MEDS: SODIUM HYPOCHLORITE 1/40% 1L IRRIG IRR SCH (09:49)
[2016-09-01] MEDS: COLLAGENASE 30 GM TUBE TOP SCH (09:49)
[2016-09-01] MEDS: FERROUS SULFATE 60 MG/ML 5ML CUP GTB SCH ×2 (10:02→21:27)
--- NOTE | 2016-09-01 10:41 | CONS ---
Date/Time of Note Date/Time of Note DATE: 09/01/16 TIME: 10:38 Assessment/Plan Assessment/Plan Additional Assessment/Plan Assessment and recommendations; 1. Patient admitted for sepsis from sacral decubitus ulcers. 2. Advanced dementia. Continue current treatment. Consultation Date/Type/Reason Admit Date/Time August 11, 2016 at 19:00 Initial Consult Date 08/19/16 Type of Consultation: Pulmonary 24 HR Interval Summary Free Text/Dictation Patient condition remains unchanged. Remains unresponsive. Has remained hemodynamically stable. General exam; elderly woman, currently in no distress. Essentially unresponsive. Exam/Review of Systems Vital Signs Vitals Vital Signs Date Time Temp Pulse Resp B/P Pulse Ox O2 Delivery O2 Flow Rate FiO2 09/01/16 08:30 109 09/01/16 07:23 98.0 19 106/59 100 08/31/16 23:30 10.0 08/31/16 22:24 Simple Mask Intake and Output 08/31/16 08/31/16 09/01/16 15:00 23:00 07:00 Intake Total 50 ml 65 ml 1220 ml Output Total 700 ml 600 ml Balance 50 ml -635 ml 620 ml Exam HEENT examination; supple neck, no JVD. No lymphadenopathy. Midline trachea. Chest examination; diminished but clear vessel. S1-S2 audible, no murmurs. Regular rhythm. Abdomen examination; soft, G-tube in place. No organomegaly. Bowel sounds audible. Back examination; dressing applied over sacrum. Extremity exam; no peripheral edema. Patient has severe contractures involving all 4 extremities. AREA MECHANIC examination; patient remains unresponsive. Results Result Diagram: 09/01/16 0800 09/01/16 0800 Results 24 hrs Laboratory Tests Test 09/01/16 08:00 White Blood Count 9.4 Red Blood Count 2.62 L Hemoglobin 8.3 L Hematocrit 27.8 L Mean Corpuscular Volume 106.1 H Mean Corpuscular Hemoglobin 31.7 Mean Corpuscular Hemoglobin Concent 29.9 L Red Cell Distribution Width 17.2 H Platelet Count 445 H Mean Platelet Volume 10.5 H Neutrophils % 69.7 Lymphocytes % 12.5 L Monocytes % 8.4 Eosinophils % 3.2 Basophils % 0.3 Nucleated Red Blood Cells % 0.5 H Neutrophils # 6.5 Lymphocytes # 1.2 Monocytes # 0.8 Eosinophils # 0.3 Basophils # 0.0 Nucleated Red Blood Cells # 0.1 H Sodium Level 147 H Potassium Level 4.8 Chloride Level 105 Carbon Dioxide Level 33 H Anion Gap 14 Blood Urea Nitrogen 35 H Creatinine 0.60 Glucose Level 155 Calcium Level 8.5 Total Bilirubin 0.3 Direct Bilirubin 0.00 Indirect Bilirubin 0.3 Aspartate Amino Transf (AST/SGOT) 61 H Alanine Aminotransferase (ALT/SGPT) 50 Alkaline Phosphatase 159 H C-Reactive Protein 3.2 H Total Protein 7.8 Albumin 2.9 L Globulin 4.90 H Albumin/Globulin Ratio 0.59 Medications Medications Current Medications Acetaminophen (Tylenol Tab) 325 mg Q4H PRN GTB PAIN AND FEVER Last administered on 08/31/16 12:35; Admin Dose 325 MG; Start 08/11/16 at 20:00 Morphine Sulfate (morphine) 1 mg Q4H PRN IV PAIN LEVEL 6-10 Last administered on 08/17/16 09:01; Admin Dose 1 MG; Start 08/11/16 at 20:00 Ondansetron HCl (Zofran Inj) 4 mg Q6H PRN IV NAUSEA AND/OR VOMITING; Start 08/12 at 10:00 Acetaminophen (Tylenol Supp) 650 mg Q6H PRN [place] PAIN LEVEL 1-3 OR FEVER; Start 08/12/16 at 10:00 Sodium Hypochlorite 1 applic 1 applic DAILY IRR Last administered on 09/01/16 09:49; Admin Dose 1 APPLIC; Start 08/14/16 at 09:00 Piperacillin Sod/ Tazobactam Sod (Zosyn 2.25gm/ 50ml (Pmx)) 50 ml @ 100 mls/hr Q6 IVPB Last administered on 09/01/16 05:44; Admin Dose 100 MLS/HR; Start 08/14 at 12:00 Collagenase (Santyl) 1 applic DAILY TOP Last administered on 09/01/16 09:49; Admin Dose 1 APPLIC; Start 08/18/16 at 12:00 Collagenase (Santyl) 1 applic PRN PRN TOP WOUND CARE; Start 08/18/16 at 11:00 Enoxaparin Sodium (Lovenox) 40 mg DAILY SC Last administered on 09/01/16 09:48 ; Admin Dose 40 MG; Start 08/18/16 at 17:30 Ascorbic Acid (Vitamin C) 1,000 mg DAILY GTB Last administered on 09/01/16 09: 44; Admin Dose 1,000 MG; Start 08/28/16 at 11:30 Zinc Sulfate (Zinc Sulfate) 220 mg BID GTB Last administered on 09/01/16 09:44 ; Admin Dose 220 MG; Start 08/28/16 at 21:00 Furosemide (Lasix) 20 mg DAILY IV Last administered on 09/01/16 09:45; Admin Dose 20 MG; Start 08/30/16 at 09:00 Levalbuterol (Xopenex Neb) 0.63 mg AM HHN Last administered on 08/31/16 09:40 ; Admin Dose 0.63 MG; Start 08/30/16 at 09:00 Ferrous Sulfate (Feosol Liquid Cup) 300 mg BID GTB Last administered on 10:02; Admin Dose 300 MG; Start 08/29/16 at 21:00 Lorazepam (Ativan) 0.5 mg BID PO Last administered on 09/01/16 09:45; Admin Dose 0.5 MG; Start 08/30/16 at 21:00 PARADISE RODRIGUES September 01, 2016 10:41
--- NOTE | 2016-09-01 11:55 | CONS ---
Date/Time of Note Date/Time of Note DATE: 09/01/16 TIME: 11:52 Assessment/Plan Assessment/Plan Chief Complaint/Hosp Course 1) ARF u/a does not suggest infection, likely due to dehydration 08/13 - improving with hydration 08/14 - continues to improve, will increase dose of zosyn urine cx was negative 08/15 - pretty much resolved 2) pneumonia check procalcitonin get nasal swab for MRSA continue with vanco, change cefepime to zosyn likely aspiration 08/13 - wbc is improving, continue with vanco/zosyn 08/14 - wbc continues to improve, no MRSA found d/c vanco and continue with zosyn and increase its dose 08/15 - only on zosyn now and wbc is improving pt getting echo and asked tech to quantify the L sided pleural effusion too 08/17 - echo only reported presence of L pleural effusion no good evidence to suggest an empyema continue with zosyn 08/18 - stable, pt completes were treatment course for pneumonia today 08/20 - minimally elevated procalcitonin on 08/13 no further treatment needed for pneumonia but on zosyn for probable sacral osteo 3) sacral wound ulcer, likely osteo check ESR, CRP and if very high then would treat as if osteomyelitis if not very high will order bone scan for ultimate healing if this is indeed osteo she will likely need plastic surgery involvement her low albumin suggest she would have poor tissue healing will get wound cx of deeper wound 08/13 - ESR is very high, c/w osteomyelitis wound cx has gnr's and GPC continue with vanco/zosyn at present 08/14 - no MRSA found, d/c vanco and continue with zosyn pt likely has osteo due to high ESR will follow ESR weekly for response unlikely that antibiotics alone will heal the sacral wounds 08/15 - continue with zosyn unlikely that antibiotics alone will heal these sacral wounds 08/17 - pt likely has osteo but unlikely antibiotics will cure this usual treatment course for osteo is 6 weeks of antibiotics unlikely antibiotics alone will be curative repeat ESR and CRP in a.m. 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 repeat ESR and CRP are pending it is unlikely that antibiotics alone will be curative 08/20 - day of zosyn ESR elevated c/w osteomyelitis CRP did improve a bit but antibiotics unlikely to be curative recommend weekly esr, crp and if not improving then would d/c antibiotics 08/27 - Day of zosyn CRP has come down slowly, ESR has actually increased but sometimes the ESR is delayed in improvement Nonetheless it has almost doubled If surgical debridement it to be done then pt will need deep surgical cultures sent to verify that no resistant organisms are being missed continue with zosyn at present pt will likely need a muscle flap if cure of osteomyelitis is the goal and it would be helpful to get bone biopsy and culture with deep tissue culture prior to that to help guide if any change in antibiotics is needed 08/29 - no new recommendations if surgery is done, please get deep surgical wound cx and if possible bone cx/ biopsy continue with zosyn (day ) 09/01 - day of zosyn still awaiting family decision regarding debridement and flap if debridement is done please get deep surgical wound cx and ideally bone bx/cx crp continues to improve, ESR is pending 4) severe dementia Problems: Consultation Date/Type/Reason Admit Date/Time August 11, 2016 at 19:00 Initial Consult Date 08/12/16 Type of Consultation: ID 24 HR Interval Summary Free Text/Dictation no change Exam/Review of Systems Vital Signs Vitals Vital Signs Date Time Temp Pulse Resp B/P Pulse Ox O2 Delivery O2 Flow Rate FiO2 09/01/16 11:38 97.9 114 24 94/65 100 09/01/16 09:00 Simple Mask 6.0 Intake and Output 08/31/16 08/31/16 09/01/16 15:00 23:00 07:00 Intake Total 50 ml 65 ml 1220 ml Output Total 700 ml 600 ml Balance 50 ml -635 ml 620 ml Exam Constitutional: non-verbal Head: normocephalic Respiratory: clear to auscultation Cardiovascular: regular rate and rhythm Gastrointestinal: other (g-tube site is ok), soft Results Result Diagram: 09/01/16 0800 09/01/16 0800 Results 24 hrs Laboratory Tests Test 09/01/16 08:00 White Blood Count 9.4 Red Blood Count 2.62 L Hemoglobin 8.3 L Hematocrit 27.8 L Mean Corpuscular Volume 106.1 H Mean Corpuscular Hemoglobin 31.7 Mean Corpuscular Hemoglobin Concent 29.9 L Red Cell Distribution Width 17.2 H Platelet Count 445 H Mean Platelet Volume 10.5 H Neutrophils % 69.7 Lymphocytes % 12.5 L Monocytes % 8.4 Eosinophils % 3.2 Basophils % 0.3 Nucleated Red Blood Cells % 0.5 H Neutrophils # 6.5 Lymphocytes # 1.2 Monocytes # 0.8 Eosinophils # 0.3 Basophils # 0.0 Nucleated Red Blood Cells # 0.1 H Erythrocyte Sedimentation Rate 130 H Sodium Level 147 H Potassium Level 4.8 Chloride Level 105 Carbon Dioxide Level 33 H Anion Gap 14 Blood Urea Nitrogen 35 H Creatinine 0.60 Glucose Level 155 Calcium Level 8.5 Total Bilirubin 0.3 Direct Bilirubin 0.00 Indirect Bilirubin 0.3 Aspartate Amino Transf (AST/SGOT) 61 H Alanine Aminotransferase (ALT/SGPT) 50 Alkaline Phosphatase 159 H C-Reactive Protein 3.2 H Total Protein 7.8 Albumin 2.9 L Globulin 4.90 H Albumin/Globulin Ratio 0.59 Medications Medications Current Medications Acetaminophen (Tylenol Tab) 325 mg Q4H PRN GTB PAIN AND FEVER Last administered on 08/31/16 12:35; Admin Dose 325 MG; Start 08/11/16 at 20:00 Morphine Sulfate (morphine) 1 mg Q4H PRN IV PAIN LEVEL 6-10 Last administered on 08/17/16 09:01; Admin Dose 1 MG; Start 08/11/16 at 20:00 Ondansetron HCl (Zofran Inj) 4 mg Q6H PRN IV NAUSEA AND/OR VOMITING; Start 08/12 at 10:00 Acetaminophen (Tylenol Supp) 650 mg Q6H PRN [place] PAIN LEVEL 1-3 OR FEVER; Start 08/12/16 at 10:00 Sodium Hypochlorite 1 applic 1 applic DAILY IRR Last administered on 09/01/16 09:49; Admin Dose 1 APPLIC; Start 08/14/16 at 09:00 Piperacillin Sod/ Tazobactam Sod (Zosyn 2.25gm/ 50ml (Pmx)) 50 ml @ 100 mls/hr Q6 IVPB Last administered on 09/01/16 05:44; Admin Dose 100 MLS/HR; Start 08/14 at 12:00 Collagenase (Santyl) 1 applic DAILY TOP Last administered on 09/01/16 09:49; Admin Dose 1 APPLIC; Start 08/18/16 at 12:00 Collagenase (Santyl) 1 applic PRN PRN TOP WOUND CARE; Start 08/18/16 at 11:00 Enoxaparin Sodium (Lovenox) 40 mg DAILY SC Last administered on 09/01/16 09:48 ; Admin Dose 40 MG; Start 08/18/16 at 17:30 Ascorbic Acid (Vitamin C) 1,000 mg DAILY GTB Last administered on 09/01/16 09: 44; Admin Dose 1,000 MG; Start 08/28/16 at 11:30 Zinc Sulfate (Zinc Sulfate) 220 mg BID GTB Last administered on 09/01/16 09:44 ; Admin Dose 220 MG; Start 08/28/16 at 21:00 Furosemide (Lasix) 20 mg DAILY IV Last administered on 09/01/16 09:45; Admin Dose 20 MG; Start 08/30/16 at 09:00 Levalbuterol (Xopenex Neb) 0.63 mg AM HHN Last administered on 08/31/16 09:40 ; Admin Dose 0.63 MG; Start 08/30/16 at 09:00 Ferrous Sulfate (Feosol Liquid Cup) 300 mg BID GTB Last administered on 10:02; Admin Dose 300 MG; Start 08/29/16 at 21:00 Lorazepam (Ativan) 0.5 mg BID PO Last administered on 09/01/16 09:45; Admin Dose 0.5 MG; Start 08/30/16 at 21:00 ERNIE MILLER MD September 01, 2016 11:55
--- NOTE | 2016-09-01 12:06 | PN ---
Date/Time of Note Date/Time of Note DATE: 09/01/16 TIME: 12:05 Assessment/Plan Lines/Catheters IV Catheter Type (from [facility]): PICC Line [place] in Place (from [facility]): Yes Assessment/Plan Chief Complaint/Hosp Course 1. 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 Awaiting family decision -offloading, -local wound care, -nutritional optimization, -vitamin C 1000 mg a day -zinc sulfate 220 mg p.o. b.i.d. x2 weeks. -debridement if family agrees > awaiting final decision -?flap reconstruction through plastic after medically optimized, nutrition optimized, and family ok to proceed 2. Deep tissue injury, left shoulder and other decubitus areas. Continue as above. 3. Anemia without evidence of acute blood loss. Continue monitoring. 4. Functional quadriplegia. Continue offloading with q.2 hour position change and air mattress and nutrition optimization. 5. End-stage dementia and Alzheimer's. Continue medical optimization. 6. Tachyarrhythmia of unknown etiology. Will defer to medical team for further workup and treatment. 7. Dysphagia, on tube feeds. 8. Hypoalbuminemia. Continue nutritional optimization. Thank you Problems: Subjective 24 Hr Interval Summary Still awaiting family decision. I left a message for them yesterday. No f/c. No vomiting. No cough. No sz. No bloating. No bleeding. Tachyarrhythmias Exam/Review of Systems Vital Signs Vitals Vital Signs Date Time Temp Pulse Resp B/P Pulse Ox O2 Delivery O2 Flow Rate FiO2 09/01/16 12:01 119 109/59 09/01/16 11:38 97.9 24 100 09/01/16 09:00 Simple Mask 6.0 Intake and Output 08/31/16 08/31/16 09/01/16 15:00 23:00 07:00 Intake Total 50 ml 65 ml 1220 ml Output Total 700 ml 600 ml Balance 50 ml -635 ml 620 ml Exam Free Text/Dictation GENERAL: Noncommunicative, contracted state. HEENT: Pupils are sluggish. No scleral icterus. Mucous membranes are moist. NECK: No crepitus with baseline rigidity. PULMONARY: Normal respiratory effort. No wheezing. HEART: S1, S2 and irregular. ABDOMEN: Soft. PEG in place. EXTREMITIES: Contracted without edema. VASCULAR: Capillary refill is over 3 seconds. NEUROLOGIC: Does not follow commands, however opens eyes. SKIN: No rashes. No jaundice. Multiple areas of bruising. Multiple decubitus wounds, especially sacrococcyx and left buttock with debris. Left shoulder deep tissue injury. LYMPHATICS: No inguinal or cervical lymphadenopathy. Results Result Diagram: 09/01/16 0800 09/01/16 0800 JAS VILLAGRAN MD September 01, 2016 12:06
[2016-09-01 13:36] LABS: AADO2 Arterial 252.8 mmHg (7.0-24.0); Allen Test ACCEPTAB; Arterial COHb 0.2 % (0.0-3.0); Arterial Fraction of Oxyhgb 98.7 % (93.0-99.0); Arterial HCO3 33.3 mmol/L (22.0-26.0); Arterial MetHb 0.5 % (0.0-1.5); Arterial Total Hemglobin 7.8 g/dl (12.0-18.0); MODE MASK - SIMPLE
[2016-09-01] MEDS ORDERED: LEVALBUTEROL (NEB) 0.31 MG/3 ML AMP HHN SCH (14:00)
[2016-09-01] MEDS ORDERED: SOD CHLORIDE 0.9% 500 ML IV STA (14:54)
[2016-09-01] MEDS ORDERED: SOD CHLORIDE 0.9% 500 ML IV ONE (15:00)
[2016-09-01 15:41] LABS: ADD SCAN DIFF NO
[2016-09-01 15:43] LABS: ABNORMAL IP MESSAGE 1; EOSINOPHILS % 2.5 % (0.0-7.0); LYMPHOCYTES % 11.5 % (15.0-51.0); MEAN PLATELET VOLUME 9.2 fl (7.4-10.4); NUCLEATED RED BLOOD CELLS% 0.5 /100WBC (0.0-0.0)
--- NOTE | 2016-09-01 16:24 | RADRPT ---
PROCEDURE: XR Chest. CLINICAL INDICATION: Chest pain. LENS DOTTER TECHNIQUE: Portable AP view of the chest was obtained. COMPARISON: 12/02/2008 FINDINGS: The cardiomediastinal silhouette is within normal limits. Patchy density within the left lower lobe cannot exclude an infiltrate with a left parapneumonic effusion. The right lung is grossly clear a nd there is no obvious pulmonary vascular congestion. A right-sided PICC is present the distal tip projecting in the proximal right atrium. There is elevation of the right hemidiaphragm. Diffuse de mineralization is again noted. Calcification within the thoracic aorta is again visualized. RPTAT:HJJR IMPRESSION: 1. Distal tip of the right PICC projects in the proximal right atrium. 2. Left lower lobe infiltrate unable to exclude pneumonia with a small parapneumonic effusion. 3. Right hemidiaphragm elevation stable compared to the prior study. 4. Aortic atherosclerosis is present. Physician Aviva Date Time Electronically viewed and signed by Physician Aviva on 09/01/2016 16:23 /
[2016-09-01 16:43] LABS: BASOPHILS % 0.1 % (0.0-2.0); EOSINOPHILS # 0.3 10^3/ul (0.0-0.5); HEMATOCRIT 25.7 % (37.0-47.0); HEMOGLOBIN 7.6 g/dl (12.0-16.0); LYMPHOCYTES # 1.2 10^3/ul (0.8-2.9); MEAN CORPUSCULAR HEMOGLOBIN 31.7 pg (29.0-33.0); MEAN CORPUSCULAR HGB CONC 29.6 g/dl (32.0-37.0); MEAN CORPUSCULAR VOLUME 107.1 fl (82.0-101.0); MONOCYTE # 0.8 10^3/ul (0.3-0.9); MONOCYTES % 7.9 % (0.0-11.0); NEUTROPHIL # 7.6 10^3/ul (1.6-7.5); NEUTROPHILS % 71.5 % (39.0-77.0); NUCLEATED RED BLOOD CELLS # 0.1 10^3/ul (0.0-0.0); PLATELET COUNT 474 10^3/UL (140-415); RED CELL DISTRIBUTION WIDTH 17.5 % (11.5-14.5); WHITE BLOOD COUNT 10.6 10^3/ul (4.8-10.8)
[2016-09-01 17:03] LABS: POTASSIUM 4.4 mmol/L (3.5-5.1)
[2016-09-01 17:05] LABS: CREATININE 0.78 mg/dl (0.44-1.00)
[2016-09-01 17:06] LABS: CALCIUM 7.9 mg/dl (8.4-10.2)
[2016-09-01] MEDS ORDERED: SOD CHLORIDE 0.9% 250 ML IV* ONE ×2 (17:48→17:55)
[2016-09-01] MEDS ORDERED: LEVALBUTEROL (NEB) 0.63 MG/3 ML AMP HHN SCH (18:00)
[2016-09-01] MEDS: SOD CHLORIDE 0.9% 1,000 ML IV SCH (19:00)
--- NOTE | 2016-09-01 19:18 | PN ---
DATE: 09/01/2016 SUBJECTIVE: The patient with harsh breathing, using accessory muscles. No other acute changes. G- tube feeding is the same. Increased oxygenation on 6 liters facemask. OBJECTIVE: VITAL SIGNS: Temperature is 97.4, pulse 114 to 126, respirations 24 to 36, blood pressure 108/58. GENERAL: The patient is using accessory muscles to breathe. Rate is approximately the same. PULMONARY: Expiratory wheezes are noted. No crackles. CARDIOVASCULAR: Regular rhythm. LOWER EXTREMITIES: Trace to 1+ pitting edema of the feet bilaterally. LABORATORY TESTS: Hemoglobin 8.3, WBC is 9.4. Sodium 147, creatinine 0.6. ASSESSMENT AND PLAN: 1. Hypotension. The patient initially was her normal blood pressure, was given a dose of Lasix. B lood pressure did go down to approximately high 60s/40. No other acute changes had occurred. The p atient was given a bolus of IV fluids and is currently being watched. It was discussed with the maikel oliva regarding possibility of intensive care unit, although the patient is a chemical cold versus [facility] where she currently is at. At least we have a reason for why the blood pressure would go down, so it was decided the patient remain on the floor. The patient's pulse has remained the same throu ghout this weekend. It is still ranging in the 120s to the 110s. Over the weekend, the inhaler was decreased, the Lasix was decreased and thought possibility the patient's heart rate may be now dehy dration or due to the stimulant causing the increased pulse. That does not appear to be the case, w josh not getting the inhaler or the nebulizer treatment as well as being on less dose of Lasix, puls e remained the same. Chest x-ray today demonstrated improvement, a small amount of left pleural eff usions noted, right there is none. So at this time it was re-instigated due to the lower extremity swelling, the Lasix is to go back to 2 times a day, the inhaler treatment will be increased due to t he current tachypnea and wheezes. 2. Anemia. The patient has been given Epogen. Will continue with the Epogen. 3. Osteomyelitis. Continue on Zosyn. 4. Decubiti. The family is agreeable to the debridement, still question regarding the flap. At th is stage, the instability with the pulmonary will not plan on doing anything at this time, wait unti l the blood pressure stabilizes once again. Dictated By: QIANA OLMEDO/FIDELIA Conf#: [id number] DID#: [id number]
[2016-09-01] MEDS ORDERED: SOD CHLORIDE 0.9% 1,000 ML IV ONE (22:30)
[2016-09-01] MEDS ORDERED: DIPHENHYDRAMINE 2.5 MG/ML 5ML CUP GTB ONE (22:30)
[2016-09-01] MEDS ORDERED: ACETAMINOPHEN 650MG/20.3ML CUP GTB ONE (22:30)
[2016-09-01] MEDS ORDERED: MIDODRINE 5 MG TAB PO ONE (22:30)
[2016-09-02] VITALS (88 sets, daily range): BP systolic 56–130; BP diastolic 32–70; PULSE 84–110; RESP 17–39
[2016-09-02] MEDS ORDERED: SOD CHLORIDE 0.9% 500 ML IV ONE (01:00)
[2016-09-02] MEDS ORDERED: NORepinephrine 8MG/250 ML (PMX 250 ML ONE (01:46)
[2016-09-02] MEDS: LEVALBUTEROL (NEB) 0.63 MG/3 ML AMP HHN SCH ×4 (01:55→19:58)
[2016-09-02] MEDS ORDERED: NORepinephrine 8MG/250 ML (PMX 250 ML IV SCH (02:00)
[2016-09-02 02:21] LABS: HEMOGLOBIN 8.2 g/dl (12.0-16.0)
[2016-09-02 02:39] LABS: INR 1.01; PROTIME 13.3 Sec (12.2-14.2)
[2016-09-02] MEDS: SOD CHLORIDE 0.9% 1,000 ML IV SCH ×2 (02:50→14:08)
[2016-09-02 03:42] LABS: IRON 107 ug/dl (35-150)
[2016-09-02 04:01] LABS: TOTAL IRON BINDING CAPACITY 222 ug/dl (241-421)
[2016-09-02 05:57] LABS: ADD SCAN DIFF NO
[2016-09-02] MEDS: FUROSEMIDE 20 MG INJ IV SCH ×2 (06:00→18:00)
[2016-09-02 06:03] LABS: ABNORMAL IP MESSAGE 1; BASOPHILS % 0.4 % (0.0-2.0); EOSINOPHILS # 0.3 10^3/ul (0.0-0.5); HEMATOCRIT 27.7 % (37.0-47.0); HEMOGLOBIN 8.6 g/dl (12.0-16.0); LYMPHOCYTES % 10.5 % (15.0-51.0); MEAN PLATELET VOLUME 9.8 fl (7.4-10.4); MONOCYTES % 9.8 % (0.0-11.0); NEUTROPHIL # 6.8 10^3/ul (1.6-7.5); NEUTROPHILS % 69.5 % (39.0-77.0); NUCLEATED RED BLOOD CELLS% 0.2 /100WBC (0.0-0.0); PLATELET COUNT 476 10^3/UL (140-415); RED BLOOD COUNT 2.69 10^6/ul (4.20-5.40); RED CELL DISTRIBUTION WIDTH 20.3 % (11.5-14.5); WHITE BLOOD COUNT 9.7 10^3/ul (4.8-10.8)
[2016-09-02] MEDS: PANTOPRAZOLE 40 MG INJ IV SCH (06:09)
[2016-09-02] MEDS: PIPER-TAZO 2.25 GM (PMX) 50 ML IVPB SCH ×3 (06:10→18:59)
[2016-09-02 06:23] LABS: POTASSIUM 3.9 mmol/L (3.5-5.1)
[2016-09-02 06:26] LABS: CREATININE 0.64 mg/dl (0.44-1.00)
[2016-09-02 06:37] LABS: IRON 150 ug/dl (35-150)
[2016-09-02 06:48] LABS: TOTAL IRON BINDING CAPACITY 201 ug/dl (241-421)
[2016-09-02 07:10] LABS: CALCIUM 7.5 mg/dl (8.4-10.2)
[2016-09-02] MEDS: ASCORBIC ACID 500 MG TAB GTB SCH (08:36)
[2016-09-02] MEDS: ZINC SULFATE 220 MG CAP GTB SCH ×2 (08:36→20:18)
[2016-09-02] MEDS: FERROUS SULFATE 60 MG/ML 5ML CUP GTB SCH ×2 (08:36→20:18)
[2016-09-02] MEDS: MIDODRINE 5 MG TAB NGT SCH ×3 (08:36→18:30)
[2016-09-02] MEDS: LORAZEPAM 0.5 MG TAB PO SCH ×2 (08:41→20:18)
[2016-09-02] MEDS: ENOXAPARIN 40 MG/0.4 ML SYG SC SCH (08:41)
[2016-09-02] MEDS: COLLAGENASE 30 GM TUBE TOP SCH (08:42)
[2016-09-02] MEDS: SODIUM HYPOCHLORITE 1/40% 1L IRRIG IRR SCH (09:00)
--- NOTE | 2016-09-02 11:03 | CONS ---
Date/Time of Note Date/Time of Note DATE: 09/02/16 TIME: 11:02 Consult Date/Type/Reason Admit Date/Time August 11, 2016 at 19:00 Initial Consult Date 08/19/16 Type of Consultation: Pulmonary ICU Subjective Patient transferred to intensive care unit for low blood pressure Currently on facemask O2 remains minimally responsive Continues vasopressor support Objective Vital Signs Date Time Temp Pulse Resp B/P Pulse Ox O2 Delivery O2 Flow Rate FiO2 09/02/16 10:30 95 30 106/58 100 Mask 09/02/16 08:00 6.0 09/02/16 08:00 98.8 Intake and Output 09/01/16 09/01/16 09/02/16 15:00 23:00 07:00 Intake Total 1660 ml 934.36 ml Output Total 800 ml 590 ml Balance 860 ml 344.36 ml Exam PHYSICAL EXAMINATION GENERAL: Chronically ill-appearing lady unresponsive on facemask O2 VITAL SIGNS: see below. HEENT: Pupils equal, round, and reactive to light. CARDIAC: S1, S2, 1/6 systolic ejection murmur CHEST: Diminished air entry bilaterally. ABDOMEN: Mildly distended. Bowel sounds present no guarding or rebound EXTREMITIES: No cyanosis, clubbing edema +2 NEUROLOGIC: Generalized weakness Results/Medications Result Diagram: 09/02/16 0430 09/02/16 0430 Results 24 hrs Laboratory Tests Test 09/01/16 12:47 09/01/16 14:50 09/01/16 16:27 09/01/16 21:55 Blood Gas Specimen Source Blood arterial Arterial Blood Date Drawn 09/01/2016 1:02:27 PM Arterial Blood pH (Temp corrected) 7.484 H Arterial Blood pCO2 (Temp correct) 45.3 H Arterial Blood pO2 (Temp corrected) 190.4 H Arterial Blood HCO3 33.3 H Arterial Blood Base Excess 9.0 H Arterial Blood Oxygen Saturation 99.4 [place] Test ACCEPTAB Arterial Blood Gas Puncture Site Left Radial Arterial Blood Carboxyhemoglobin 0.2 Arterial Blood Methemoglobin 0.5 Blood Gas A-a O2 Differential 252.8 H Oxyhemoglobin Percent 98.7 Total Hemoglobin 7.8 L Blood Gas Temperature 37.0 Blood Gas Modality MASK - SIMPLE FiO2 69.0 Blood Gas Notified Whom YONATAND Blood Gas Notified Time 09/01/2016 1:13:16 PM Bedside Glucose 166 159 White Blood Count 10.6 Red Blood Count 2.40 L Hemoglobin 7.6 L Hematocrit 25.7 L Mean Corpuscular Volume 107.1 H Mean Corpuscular Hemoglobin 31.7 Mean Corpuscular Hemoglobin Concent 29.6 L Red Cell Distribution Width 17.5 H Platelet Count 474 H Mean Platelet Volume 9.2 Neutrophils % 71.5 Lymphocytes % 11.5 L Monocytes % 7.9 Eosinophils % 2.5 Basophils % 0.1 Nucleated Red Blood Cells % 0.5 H Neutrophils # 7.6 H Lymphocytes # 1.2 Monocytes # 0.8 Eosinophils # 0.3 Basophils # 0.0 Nucleated Red Blood Cells # 0.1 H Sodium Level 145 H Potassium Level 4.4 Chloride Level 105 Carbon Dioxide Level 32 H Anion Gap 12 Blood Urea Nitrogen 37 H Creatinine 0.78 Glucose Level 102 # Lactic Acid Level 1.2 Calcium Level 7.9 L Test 09/02/16 02:15 09/02/16 04:30 09/02/16 06:08 Hemoglobin 8.2 L 8.6 L Hematocrit 27.0 L 27.7 L Prothrombin Time 13.3 Prothrombin Time Ratio 1.0 INR International Normalized Ratio 1.01 Iron Level 107 150 Total Iron Binding Capacity 222 L 201 L Percent Iron Saturation 48 75 H Folate > 20.0 H White Blood Count 9.7 Red Blood Count 2.69 L Mean Corpuscular Volume 103.0 H Mean Corpuscular Hemoglobin 32.0 Mean Corpuscular Hemoglobin Concent 31.0 L Red Cell Distribution Width 20.3 H Platelet Count 476 H Mean Platelet Volume 9.8 Neutrophils % 69.5 Lymphocytes % 10.5 L Monocytes % 9.8 Eosinophils % 3.0 Basophils % 0.4 Nucleated Red Blood Cells % 0.2 H Neutrophils # 6.8 Lymphocytes # 1.0 Monocytes # 1.0 H Eosinophils # 0.3 Basophils # 0.0 Nucleated Red Blood Cells # 0.0 Sodium Level 148 H Potassium Level 3.9 Chloride Level 112 H Carbon Dioxide Level 28 Anion Gap 12 Blood Urea Nitrogen 31 H Creatinine 0.64 Glucose Level 112 Calcium Level 7.5 L B-Type Natriuretic Peptide 709 H Lab Scanned Report BLOOD TRANSFUSION Medications Current Medications Acetaminophen (Tylenol Tab) 325 mg Q4H PRN GTB PAIN AND FEVER Last administered on 08/31/16t 12:35; Admin Dose 325 MG; Start 08/11/16 at 20:00 Morphine Sulfate (morphine) 1 mg Q4H PRN IV PAIN LEVEL 6-10 Last administered on 08/17/16 09:01; Admin Dose 1 MG; Start 08/11/16 at 20:00 Ondansetron HCl (Zofran Inj) 4 mg Q6H PRN IV NAUSEA AND/OR VOMITING; Start 08/12 at 10:00 Acetaminophen (Tylenol Supp) 650 mg Q6H PRN [place] PAIN LEVEL 1-3 OR FEVER; Start 08/12/16 at 10:00 Sodium Hypochlorite 1 applic 1 applic DAILY IRR Last administered on 09/02/16 09:00; Admin Dose 1 APPLIC; Start 08/14/16 at 09:00 Piperacillin Sod/ Tazobactam Sod (Zosyn 2.25gm/ 50ml (Pmx)) 50 ml @ 100 mls/hr Q6 IVPB Last administered on 09/02/16 06:10; Admin Dose 100 MLS/HR; Start 08/14 at 12:00 Collagenase (Santyl) 1 applic DAILY TOP Last administered on 09/02/16 08:42; Admin Dose 1 APPLIC; Start 08/18/16 at 12:00 Collagenase (Santyl) 1 applic PRN PRN TOP WOUND CARE; Start 08/18/16 at 11:00 Enoxaparin Sodium (Lovenox) 40 mg DAILY SC Last administered on 09/02/16 08:41 ; Admin Dose 40 MG; Start 08/18/16 at 17:30 Ascorbic Acid (Vitamin C) 1,000 mg DAILY GTB Last administered on 09/02/16 08: 36; Admin Dose 1,000 MG; Start 08/28/16 at 11:30 Zinc Sulfate (Zinc Sulfate) 220 mg BID GTB Last administered on 09/02/16 08:36 ; Admin Dose 220 MG; Start 08/28/16 at 21:00 Ferrous Sulfate (Feosol Liquid Cup) 300 mg BID GTB Last administered on 08:36; Admin Dose 300 MG; Start 08/29/16 at 21:00 Lorazepam 0.5 mg 0.5 mg BID PO Last administered on 09/01/16 09:45; Admin Dose 0.5 MG; Start 08/30/16 at 21:00 Sodium Chloride (NS) 1,000 ml @ 100 mls/hr Q10H IV Last administered on 02:50; Admin Dose 100 MLS/HR; Start 09/01/16 at 17:00 Midodrine 10 mg 10 mg TID@,,17 NGT Last administered on 09/02/16 08:36; Admin Dose 10 MG; Start 09/02/16 at 09:00 Norepinephrine (Levophed) 250 ml @ 1.875 mls/ hr TITRATE IV ; Start 09/02/16 at 02:00 Pantoprazole 40 mg 40 mg DAILY@06 IV Last administered on 09/02/16 06:09; Admin Dose 40 MG; Start 09/02/16 at 06:00 Norepinephrine/ Dextrose (Levophed/D5W) 500 ml @ 1.87 mls/hr TITRATE IV Last administered on 09/02/16 01:50; Admin Dose 3.75 MLS/HR; Start 09/02/16 at 02:30 Assessment/Plan Chief Complaint/Hosp Course Assessment 1. Healthcare associated pneumonia with hypoxemic respiratory failure 2. Probable aspiration pneumonia 3. Dementia 4. Multiple decubitus ulcers with polymicrobial septic shock Plan 1. Continue antibiotics continue vasopressors 2. Pulmonary toilet We will discuss with primary Consider palliative care as overall prognosis very poor Problems: BLAYNE BROOKS MD, [facility] September 02, 2016 11:03
--- NOTE | 2016-09-02 14:38 | RADRPT ---
PROCEDURE: XR Chest. CLINICAL INDICATION: Hypoxia. TECHNIQUE: Chest x-ray, single view. COMPARISON: 09/01/2016. FINDINGS: The heart is enlarged and unchanged in size. Aortic arch atherosclerotic calcification is present. Elevation of the right hemidiaphragm is unchanged. Obscuration of the left hemidiaphragm is obscur ed suggesting the presence of pleural effusion, airspace disease and / or atelectasis. A right uppe r extremity PICC terminates at the SVC/right atrial junction. Osseous structures appear low in dens ity. The visualized upper abdomen is unremarkable. IMPRESSION: Cardiomegaly and atherosclerosis. Elevation of the right hemidiaphragm, unchanged. Left pleural effusion, airspace disease and / or atelectasis. RPTAT: HLST .Sepideh Navas MD, MD Date Time Electronically viewed and signed by .Sepideh Navas MD, on 09/02/2016 14:38 .T/
--- NOTE | 2016-09-02 23:29 | PN ---
Date/Time of Note Date/Time of Note DATE: 09/02/16 TIME: 23:24 Assessment/Plan Lines/Catheters IV Catheter Type (from Nrs): PICC Line [place] in Place (from Nrs): Yes Assessment/Plan Chief Complaint/Hosp Course 1. 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 -offloading, -local wound care, -nutritional optimization, -vitamin C 1000 mg a day -zinc sulfate 220 mg p.o. b.i.d. x2 weeks. -debridement if family agrees > awaiting final decision > left another vm today > PMD note indicates that family ok with debridement > will proceed when stabilized. -?flap reconstruction through plastic after medically optimized, nutrition optimized, and family ok to proceed 2. Deep tissue injury, left shoulder and other decubitus areas. Continue as above. 3. Anemia without evidence of acute blood loss. Continue monitoring. 4. Functional quadriplegia. Continue offloading with q.2 hour position change and air mattress and nutrition optimization. 5. End-stage dementia and Alzheimer's. Continue medical optimization. 6. Tachyarrhythmia of unknown etiology. Will defer to medical team for further workup and treatment. 7. Dysphagia, on tube feeds. 8. Hypoalbuminemia. Continue nutritional optimization. Thank you Problems: Subjective 24 Hr Interval Summary Transferred to ICU 2nd hypotension, and respiratory compromise. No f/c. No vomiting. No cough. No sz. No bloating. No bleeding. Tachyarrhythmias. Still awaiting family decision but PMD's note indicates that family is ok with debridement. Exam/Review of Systems Vital Signs Vitals Vital Signs Date Time Temp Pulse Resp B/P Pulse Ox O2 Delivery O2 Flow Rate FiO2 09/02/16 20:15 Simple Mask 6.0 09/02/16 20:00 100 09/02/16 19:58 30 100 09/02/16 18:45 98/57 09/02/16 16:00 97.6 Intake and Output 09/01/16 09/01/16 09/02/16 15:00 23:00 07:00 Intake Total 1660 ml 1045.36 ml Output Total 800 ml 590 ml Balance 860 ml 455.36 ml Exam Free Text/Dictation GENERAL: Noncommunicative, contracted state. HEENT: Pupils are sluggish. No scleral icterus. Mucous membranes are moist. NECK: No crepitus with baseline rigidity. PULMONARY: Normal respiratory effort. No wheezing. HEART: S1, S2 and irregular. ABDOMEN: Soft. PEG in place. EXTREMITIES: Contracted without edema. VASCULAR: Capillary refill is over 3 seconds. NEUROLOGIC: Does not follow commands, however opens eyes. SKIN: No rashes. No jaundice. Multiple areas of bruising. Multiple decubitus wounds, especially sacrococcyx and left buttock with debris. Left shoulder deep tissue injury. LYMPHATICS: No inguinal or cervical lymphadenopathy. Results Result Diagram: 09/02/16 0430 09/02/16 0430 JAS VILLAGRAN MD September 02, 2016 23:29
[2016-09-02] MEDS: morphine 2 MG INJ IV PRN (23:42)
[2016-09-03] VITALS (92 sets, daily range): BP systolic 83–132; BP diastolic 44–85; PULSE 99–124; RESP 20–47
[2016-09-03] MEDS ORDERED: EPOETIN ALFA (NESRD) 3,000 UNITS/ML VIAL SC ONE
[2016-09-03] MEDS ORDERED: NORepinephrine 8MG/250 ML (PMX 250 ML ONE (01:30)
[2016-09-03] MEDS: PIPER-TAZO 2.25 GM (PMX) 50 ML IVPB SCH ×5 (01:57→23:56)
[2016-09-03] MEDS: SOD CHLORIDE 0.9% 1,000 ML IV SCH ×2 (01:57→14:35)
[2016-09-03] MEDS ORDERED: NORepinephrine 8MG/250 ML (PMX 250 ML IV SCH (02:00)
[2016-09-03] MEDS: LEVALBUTEROL (NEB) 0.63 MG/3 ML AMP HHN SCH ×4 (02:19→19:33)
--- NOTE | 2016-09-03 04:10 | PN ---
DATE: 09/02/2016 SUBJECTIVE: The patient has been transferred to the ICU due to low blood pressure, started on Levop hed, was transfused 1 unit of packed red blood cell. Pulses lower. The patient is not using as man y accessory muscles for respiration. OBJECTIVE: VITAL SIGNS: Pulse 102, blood pressure 95/57, pulse ox 100% on 6 liters face mask. RESPIRATORY: Improved. No wheezes noted currently. No crackles respiration. CARDIOVASCULAR: Regular rhythm. ABDOMEN: Soft. EXTREMITIES: Positive pitting edema bilaterally, trace to 1+. LABORATORY DATA: Demonstrate the hemoglobin went up from 7.6 after 1 unit of packed red blood cells to 8.6. Sodium of 148, creatinine 0.64. BNP of 709. Iron level is 150. ASSESSMENT AND PLAN: 1. Hypotension, most likely due to probable aspiration pneumonia and nothing else has changed sudde n hypotension occurred, also sudden decrease in pulse which is confusing. Prior to even getting tra nsfused, the pulse did improve from typically 120s to 100 and below occasionally. For the blood pre ssure, the patient was transferred to the ICU, started on Levophed keeping the blood pressure somewh ere in the 90s. The patient has been receiving Epogen and will continue with Epogen. Iron level jeffrey s gone up from 107 to 150, so that is being replaced correctly. No source of loss. We will continu e to follow. 2. Hypernatremia due to continuation of being given normal saline fluid to increase her blood press ure, sodium is slowly increasing at this time 148, will also watch. The patient is receiving some f ree water in her tube feedings. 3. Probable aspiration pneumonia. The patient already has been on her Zosyn for once the pneumonia in the past and then for her current 42 day course of antibiotics for probable osteomyelitis. 4. Decubiti. Wound care is currently taking care of this. [facility] but the patient is more in the unstable condition at this time. We will wait till he stabilizes before further invasive treatment. Dictated By: QIANA OLMEDO/FIDELIA Conf#: [id number] DID#: [id number]
[2016-09-03 04:59] LABS: ADD SCAN DIFF NO
[2016-09-03 05:10] LABS: BASOPHILS % 0.2 % (0.0-2.0); EOSINOPHILS # 0.2 10^3/ul (0.0-0.5); HEMATOCRIT 27.8 % (37.0-47.0); HEMOGLOBIN 8.4 g/dl (12.0-16.0); LYMPHOCYTES % 10.3 % (15.0-51.0); MEAN CORPUSCULAR HEMOGLOBIN 30.8 pg (29.0-33.0); MEAN CORPUSCULAR HGB CONC 30.2 g/dl (32.0-37.0); MEAN CORPUSCULAR VOLUME 101.8 fl (82.0-101.0); MEAN PLATELET VOLUME 9.8 fl (7.4-10.4); MONOCYTE # 0.9 10^3/ul (0.3-0.9); MONOCYTES % 9.6 % (0.0-11.0); NEUTROPHIL # 6.9 10^3/ul (1.6-7.5); NEUTROPHILS % 74.4 % (39.0-77.0); PLATELET COUNT 472 10^3/UL (140-415); RED BLOOD COUNT 2.73 10^6/ul (4.20-5.40); RED CELL DISTRIBUTION WIDTH 20.3 % (11.5-14.5); WHITE BLOOD COUNT 9.2 10^3/ul (4.8-10.8)
[2016-09-03 05:21] LABS: POTASSIUM 3.4 mmol/L (3.5-5.1)
[2016-09-03 05:23] LABS: CREATININE 0.59 mg/dl (0.44-1.00)
[2016-09-03 05:24] LABS: CALCIUM 7.3 mg/dl (8.4-10.2); MAGNESIUM 2.1 mg/dl (1.7-2.5); PHOSPHORUS 2.2 mg/dl (2.5-4.9)
[2016-09-03] MEDS: PANTOPRAZOLE 40 MG INJ IV SCH (05:58)
[2016-09-03] MEDS: FUROSEMIDE 20 MG INJ IV SCH ×2 (05:58→17:00)
--- NOTE | 2016-09-03 06:54 | CONS ---
Date/Time of Note Date/Time of Note DATE: 09/03/16 TIME: 06:47 Assessment/Plan Assessment/Plan Chief Complaint/Hosp Course 1) ARF u/a does not suggest infection, likely due to dehydration 08/13 - improving with hydration 08/14 - continues to improve, will increase dose of zosyn urine cx was negative 08/15 - pretty much resolved 2) pneumonia check procalcitonin get nasal swab for MRSA continue with vanco, change cefepime to zosyn likely aspiration 08/13 - wbc is improving, continue with vanco/zosyn 08/14 - wbc continues to improve, no MRSA found d/c vanco and continue with zosyn and increase its dose 08/15 - only on zosyn now and wbc is improving pt getting echo and asked tech to quantify the L sided pleural effusion too 08/17 - echo only reported presence of L pleural effusion no good evidence to suggest an empyema continue with zosyn 08/18 - stable, pt completes were treatment course for pneumonia today 08/20 - minimally elevated procalcitonin on 08/13 no further treatment needed for pneumonia but on zosyn for probable sacral osteo 09/03 - more haziness over L base, but no increase in WBC continue with zosyn, check procalcitonin in a.m. repeat nasal swab for MRSA consider hospice for patient 3) sacral wound ulcer, likely osteo check ESR, CRP and if very high then would treat as if osteomyelitis if not very high will order bone scan for ultimate healing if this is indeed osteo she will likely need plastic surgery involvement her low albumin suggest she would have poor tissue healing will get wound cx of deeper wound 08/13 - ESR is very high, c/w osteomyelitis wound cx has gnr's and GPC continue with vanco/zosyn at present 08/14 - no MRSA found, d/c vanco and continue with zosyn pt likely has osteo due to high ESR will follow ESR weekly for response unlikely that antibiotics alone will heal the sacral wounds 08/15 - continue with zosyn unlikely that antibiotics alone will heal these sacral wounds 08/17 - pt likely has osteo but unlikely antibiotics will cure this usual treatment course for osteo is 6 weeks of antibiotics unlikely antibiotics alone will be curative repeat ESR and CRP in a.m. 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 repeat ESR and CRP are pending it is unlikely that antibiotics alone will be curative 08/20 - day of zosyn ESR elevated c/w osteomyelitis CRP did improve a bit but antibiotics unlikely to be curative recommend weekly esr, crp and if not improving then would d/c antibiotics 08/27 - Day of zosyn CRP has come down slowly, ESR has actually increased but sometimes the ESR is delayed in improvement Nonetheless it has almost doubled If surgical debridement it to be done then pt will need deep surgical cultures sent to verify that no resistant organisms are being missed continue with zosyn at present pt will likely need a muscle flap if cure of osteomyelitis is the goal and it would be helpful to get bone biopsy and culture with deep tissue culture prior to that to help guide if any change in antibiotics is needed 08/29 - no new recommendations if surgery is done, please get deep surgical wound cx and if possible bone cx/ biopsy continue with zosyn (day 19) 09/01 - day of zosyn still awaiting family decision regarding debridement and flap if debridement is done please get deep surgical wound cx and ideally bone bx/cx crp continues to improve, ESR is pending 09/03 - ESR was minimally improved family agrees to debridement but now in ICU due to hypotension 4) severe dementia Problems: Consultation Date/Type/Reason Admit Date/Time August 11, 2016 at 19:00 Initial Consult Date 08/12/16 Type of Consultation: ID [id number] HR Interval Summary Free Text/Dictation pt tx to ICU due to hypotension, no reports of vomiting no D reported Exam/Review of Systems Vital Signs Vitals Vital Signs Date Time Temp Pulse Resp B/P Pulse Ox O2 Delivery O2 Flow Rate FiO2 09/03/16 06:00 110 33 98/61 100 Mask 6.0 09/03/16 00:00 98.0 Intake and Output 09/02/16 09/02/16 09/03/16 15:00 23:00 07:00 Intake Total 1409 ml 1580.25 ml 1476.25 ml Output Total 370 ml 840 ml 1235 ml Balance 1039 ml 740.25 ml 241.25 ml Exam Constitutional: non-verbal Head: normocephalic ENMT: other (dry) Respiratory: clear to auscultation Cardiovascular: regular rate and rhythm Gastrointestinal: non-tender, soft Results Result Diagram: 09/03/16 0410 09/03/16 0410 Results 24 hrs Laboratory Tests Test 09/03/16 04:10 White Blood Count 9.2 Red Blood Count 2.73 L Hemoglobin 8.4 L Hematocrit 27.8 L Mean Corpuscular Volume 101.8 H Mean Corpuscular Hemoglobin 30.8 Mean Corpuscular Hemoglobin Concent 30.2 L Red Cell Distribution Width 20.3 H Platelet Count 472 H Mean Platelet Volume 9.8 Neutrophils % 74.4 Lymphocytes % 10.3 L Monocytes % 9.6 Eosinophils % 2.0 Basophils % 0.2 Nucleated Red Blood Cells % 0.0 Neutrophils # 6.9 Lymphocytes # 1.0 Monocytes # 0.9 Eosinophils # 0.2 Basophils # 0.0 Nucleated Red Blood Cells # 0.0 Sodium Level 149 H Potassium Level 3.4 L Chloride Level 112 H Carbon Dioxide Level 28 Anion Gap 12 Blood Urea Nitrogen 23 H Creatinine 0.59 Glucose Level 160 Calcium Level 7.3 L Phosphorus Level 2.2 L Magnesium Level 2.1 Medications Medications Current Medications Acetaminophen (Tylenol Tab) 325 mg Q4H PRN GTB PAIN AND FEVER Last administered on 08/31/16 12:35; Admin Dose 325 MG; Start 08/11/16 at 20:00 Morphine Sulfate (morphine) 1 mg Q4H PRN IV PAIN LEVEL 6-10 Last administered on 09/02/16 23:42; Admin Dose 1 MG; Start 08/11/16 at 20:00 Ondansetron HCl (Zofran Inj) 4 mg Q6H PRN IV NAUSEA AND/OR VOMITING; Start 08/12 at 10:00 Acetaminophen 650 mg 650 mg Q6H PRN OK PAIN LEVEL 1-3 OR FEVER; Start 08/12/16 at 10:00 Piperacillin Sod/ Tazobactam Sod (Zosyn 2.25gm/ 50ml (Pmx)) 50 ml @ 100 mls/hr Q6 IVPB Last administered on 09/03/16 05:58; Admin Dose 100 MLS/HR; Start 08/14 at 12:00 Collagenase (Santyl) 1 applic DAILY TOP Last administered on 09/02/16 08:42; Admin Dose 1 APPLIC; Start 08/18/16 at 12:00 Enoxaparin Sodium (Lovenox) 40 mg DAILY SC Last administered on 09/02/16 08:41 ; Admin Dose 40 MG; Start 08/18/16 at 17:30 Ascorbic Acid (Vitamin C) 1,000 mg DAILY GTB Last administered on 09/02/16 08: 36; Admin Dose 1,000 MG; Start 08/28/16 at 11:30 Zinc Sulfate (Zinc Sulfate) 220 mg BID GTB Last administered on 09/02/16 20:18 ; Admin Dose 220 MG; Start 08/28/16 at 21:00 Ferrous Sulfate (Feosol Liquid Cup) 300 mg BID GTB Last administered on 20:18; Admin Dose 300 MG; Start 08/29/16 at 21:00 Lorazepam 0.5 mg 0.5 mg BID PO Last administered on 09/02/16 20:18; Admin Dose 0.5 MG; Start 08/30/16 at 21:00 Sodium Chloride (NS) 1,000 ml @ 100 mls/hr Q10H IV Last administered on 01:57; Admin Dose 100 MLS/HR; Start 09/01/16 at 17:00 Midodrine (Proamatine) 10 mg TID@,,17 NGT Last administered on 09/02/16 18 :30; Admin Dose 10 MG; Start 09/02/16 at 09:00 Pantoprazole 40 mg 40 mg DAILY@06 IV Last administered on 09/03/16 05:58; Admin Dose 40 MG; Start 09/02/16 at 06:00 Norepinephrine 16 mg/Dextrose 500 ml @ 1.87 mls/hr TITRATE IV Last administered on 09/02/16 01:50; Admin Dose 3.75 MLS/HR; Start 09/02/16 at 02:30 Norepinephrine (Levophed) 250 ml @ 1.875 mls/ hr TITRATE IV Last administered on 09/03/16 02:09; Admin Dose 11.25 MLS/HR; Start 09/03/16 at 02:00; Stop 09/03 at 06:59 ERNIE MILLER MD September 03, 2016 06:54
--- NOTE | 2016-09-03 07:19 | RADRPT ---
PROCEDURE: XR Chest. CLINICAL INDICATION: Dyspnea. TECHNIQUE: Single frontal chest x-ray. COMPARISON: 09/02/2016 FINDINGS: The lungs volumes are diminished. Elevation right hemidiaphragm is unchanged. There are compressive changes with vascular crowding and basilar atelectasis. No acute infiltrate is seen. Small left pleural effusion is unchanged. There is atherosclerotic calcification of the aorta. The cardiomediastinal silhouette is otherwise normal. The base of the heart is elevated due to low lung volumes. The surrounding soft tissues and osseous structures are unremarkable. IMPRESSION: 1. Low lung volumes with compressive changes and basilar atelectasis. 2. No acute infiltrate is seen. 3. Atherosclerotic calcification of the aorta. 4. Small left pleural effusion, unchanged. RPTAT: QQ .Clemente Agustin MD, Date Time Electronically viewed and signed by .Clemente Agustin MD, on 09/03/2016 07:19 .M/
[2016-09-03 08:05] LABS: AADO2 Arterial 178.8 mmHg (7.0-24.0); Allen Test ACCEPTAB; Arterial Base Excess 0.9 mmol/L (-3.0-3); Arterial COHb 0.1 % (0.0-3.0); Arterial Fraction of Oxyhgb 96.9 % (93.0-99.0); Arterial HCO3 24.4 mmol/L (22.0-26.0); Arterial MetHb 0.6 % (0.0-1.5); Arterial Total Hemglobin 8.3 g/dl (12.0-18.0); MODE MASK - SIMPLE
[2016-09-03] MEDS: FERROUS SULFATE 60 MG/ML 5ML CUP GTB SCH ×2 (08:43→20:38)
[2016-09-03] MEDS: LORAZEPAM 0.5 MG TAB PO SCH ×2 (08:43→20:39)
[2016-09-03] MEDS: ASCORBIC ACID 500 MG TAB GTB SCH (08:43)
[2016-09-03] MEDS: ZINC SULFATE 220 MG CAP GTB SCH ×2 (08:43→20:39)
[2016-09-03] MEDS: COLLAGENASE 30 GM TUBE TOP SCH (08:44)
[2016-09-03] MEDS: MIDODRINE 5 MG TAB NGT SCH ×3 (08:44→16:54)
[2016-09-03] MEDS: ENOXAPARIN 40 MG/0.4 ML SYG SC SCH (08:45)
--- NOTE | 2016-09-03 11:10 | CONS ---
Date/Time of Note Date/Time of Note DATE: 09/03/16 TIME: 11:08 Consult Date/Type/Reason Admit Date/Time August 11, 2016 at 19:00 Initial Consult Date 08/19/16 Type of Consultation: Pulmonary Subjective Patient continues facemask oxygen remains unresponsive, apparently this is her baseline according to primary care team and family Objective Vital Signs Date Time Temp Pulse Resp B/P Pulse Ox O2 Delivery O2 Flow Rate FiO2 09/03/16 09:00 121 36 121/64 100 Mask 09/03/16 08:16 8.0 09/03/16 08:00 99.2 Intake and Output 09/02/16 09/02/16 09/03/16 14:59 22:59 06:59 Intake Total 1349 ml 1580.00 ml 1647.50 ml Output Total 340 ml 780 ml 1325 ml Balance 1009 ml 800.00 ml 322.50 ml Exam PHYSICAL EXAMINATION GENERAL: Chronically ill-appearing lady unresponsive on facemask O2 VITAL SIGNS: see below. HEENT: Pupils equal, round, and reactive to light. CARDIAC: S1, S2, 1/6 systolic ejection murmur CHEST: Diminished air entry bilaterally. ABDOMEN: Mildly distended. Bowel sounds present no guarding or rebound EXTREMITIES: No cyanosis, clubbing edema +2 NEUROLOGIC: Generalized weakness multiple decubitus ulcers Results/Medications Result Diagram: 09/03/16 0410 09/03/16 0410 Results 24 hrs Laboratory Tests Test 09/03/16 04:10 09/03/16 07:00 White Blood Count 9.2 Red Blood Count 2.73 L Hemoglobin 8.4 L Hematocrit 27.8 L Mean Corpuscular Volume 101.8 H Mean Corpuscular Hemoglobin 30.8 Mean Corpuscular Hemoglobin Concent 30.2 L Red Cell Distribution Width 20.3 H Platelet Count 472 H Mean Platelet Volume 9.8 Neutrophils % 74.4 Lymphocytes % 10.3 L Monocytes % 9.6 Eosinophils % 2.0 Basophils % 0.2 Nucleated Red Blood Cells % 0.0 Neutrophils # 6.9 Lymphocytes # 1.0 Monocytes # 0.9 Eosinophils # 0.2 Basophils # 0.0 Nucleated Red Blood Cells # 0.0 Sodium Level 149 H Potassium Level 3.4 L Chloride Level 112 H Carbon Dioxide Level 28 Anion Gap 12 Blood Urea Nitrogen 23 H Creatinine 0.59 Glucose Level 160 Calcium Level 7.3 L Phosphorus Level 2.2 L Magnesium Level 2.1 Blood Gas Specimen Source Blood arterial Arterial Blood Date Drawn 09/03/2016 7:10:23 AM Arterial Blood pH (Temp corrected) 7.474 H Arterial Blood pCO2 (Temp correct) 34.0 L Arterial Blood pO2 (Temp corrected) 103.4 H Arterial Blood HCO3 24.4 Arterial Blood Base Excess 0.9 Arterial Blood Oxygen Saturation 97.6 [place] Test ACCEPTAB Arterial Blood Gas Puncture Site Right Radial Arterial Blood Carboxyhemoglobin 0.1 Arterial Blood Methemoglobin 0.6 Blood Gas A-a O2 Differential 178.8 H Oxyhemoglobin Percent 96.9 Total Hemoglobin 8.3 L Blood Gas Temperature 37.0 Blood Gas Modality MASK - SIMPLE FiO2 45.0 Blood Gas Notified Whom JLD Blood Gas Notified Time 09/03/2016 8:05:52 AM Medications Current Medications Acetaminophen (Tylenol Tab) 325 mg Q4H PRN GTB PAIN AND FEVER Last administered on 08/31/16 12:35; Admin Dose 325 MG; Start 08/11/16 at 20:00 Morphine Sulfate (morphine) 1 mg Q4H PRN IV PAIN LEVEL 6-10 Last administered on 09/02/16 23:42; Admin Dose 1 MG; Start 08/11/16 at 20:00 Ondansetron HCl (Zofran Inj) 4 mg Q6H PRN IV NAUSEA AND/OR VOMITING; Start 08/12 at 10:00 Acetaminophen 650 mg 650 mg Q6H PRN RI PAIN LEVEL 1-3 OR FEVER; Start 08/12/16 at 10:00 Piperacillin Sod/ Tazobactam Sod (Zosyn 2.25gm/ 50ml (Pmx)) 50 ml @ 100 mls/hr Q6 IVPB Last administered on 09/03/16 05:58; Admin Dose 100 MLS/HR; Start 08/14 at 12:00 Collagenase (Santyl) 1 applic DAILY TOP Last administered on 09/03/16 08:44; Admin Dose 1 APPLIC; Start 08/18/16 at 12:00 Enoxaparin Sodium (Lovenox) 40 mg DAILY SC Last administered on 09/03/16 08:45 ; Admin Dose 40 MG; Start 08/18/16 at 17:30 Ascorbic Acid (Vitamin C) 1,000 mg DAILY GTB Last administered on 09/03/16 08: 43; Admin Dose 1,000 MG; Start 08/28/16 at 11:30 Zinc Sulfate (Zinc Sulfate) 220 mg BID GTB Last administered on 09/03/16 08:43 ; Admin Dose 220 MG; Start 08/28/16 at 21:00 Ferrous Sulfate (Feosol Liquid Cup) 300 mg BID GTB Last administered on 08:43; Admin Dose 300 MG; Start 08/29/16 at 21:00 Lorazepam 0.5 mg 0.5 mg BID PO Last administered on 09/03/16 08:43; Admin Dose 0.5 MG; Start 08/30/16 at 21:00 Sodium Chloride (NS) 1,000 ml @ 100 mls/hr Q10H IV Last administered on 01:57; Admin Dose 100 MLS/HR; Start 09/01/16 at 17:00 Midodrine (Proamatine) 10 mg TID@,13,17 NGT Last administered on 09/03/16 08 :44; Admin Dose 10 MG; Start 09/02/16 at 09:00 Pantoprazole 40 mg 40 mg DAILY@06 IV Last administered on 09/03/16 05:58; Admin Dose 40 MG; Start 09/02/16 at 06:00 Norepinephrine/ Dextrose (Levophed/D5W) 500 ml @ 1.87 mls/hr TITRATE IV Last administered on 09/02/16 01:50; Admin Dose 3.75 MLS/HR; Start 09/02/16 at 02:30 Assessment/Plan Chief Complaint/Hosp Course Assessment 1. Healthcare associated pneumonia with hypoxemic respiratory failure 2. Probable aspiration pneumonia 3. Dementia 4. Multiple decubitus ulcers with polymicrobial septic shock 5. Hypernatremia Plan 1. Continue antibiotics continue vasopressors 2. Pulmonary toilet 3. Tube feeding free water flushes Case was discussed with primary care team yesterday. If patient has escalating vasopressor requirements goal of care will be shifted to comfort measures. Otherwise to continue on current plan of care. Problems: BLAYNE BROOKS MD, [facility] September 03, 2016 11:10
[2016-09-03 11:52] LABS: ADD UMIC YES; URINE BILIRUBIN (Dip) NEGATIVE (NEGATIVE); URINE BLOOD (Dip) 2+ (NEGATIVE); URINE COLOR LT. YELLOW (YELLOW); URINE GLUCOSE (Dip) NEGATIVE (NEGATIVE); URINE KETONES (Dip) NEGATIVE (NEGATIVE); URINE LEUKOCYTE ESTERASE (Dip) 1+ (NEGATIVE); URINE NITRITE (Dip) NEGATIVE (NEGATIVE); URINE TOTAL PROTEIN (Dip) TRACE (NEGATIVE); URINE UROBILINOGEN (Dip) 0.2 E.U./dL (0.1-1.0)
[2016-09-03 12:20] LABS: BACTERIA,URINE FEW
[2016-09-03 14:55] LABS: ADD UMIC YES; URINE BILIRUBIN (Dip) NEGATIVE (NEGATIVE); URINE BLOOD (Dip) 3+ (NEGATIVE); URINE GLUCOSE (Dip) NEGATIVE (NEGATIVE); URINE KETONES (Dip) NEGATIVE (NEGATIVE); URINE LEUKOCYTE ESTERASE (Dip) 1+ (NEGATIVE); URINE NITRITE (Dip) NEGATIVE (NEGATIVE); URINE TOTAL PROTEIN (Dip) 2+ (NEGATIVE); URINE UROBILINOGEN (Dip) 0.2 E.U./dL (0.1-1.0)
[2016-09-03 14:57] LABS: URINE COLOR RED (YELLOW)
[2016-09-03 15:00] LABS: URINE RBCS >200 /HPF (0)
[2016-09-03] MEDS: SOD CHLORIDE 0.45% 1,000 ML IV SCH (17:11)
--- NOTE | 2016-09-03 18:07 | PN ---
DATE: 09/03/2016 SUBJECTIVE: The patient still in the ICU on Levophed, lower dose. VITAL SIGNS: Pulse is still better than typical between 100 to 115, respirations on the higher side , averaging closer to the 30 christiano. Blood pressure is 110/80 on the Levophed being decreased, pulse 100 to 115, respirations 20 to 35, pulse ox is at 98 on 6 liter face mask. Temperature is 100.0. LOWER EXTREMITIES: 1+ pitting edema bilateral. LUNGS: Clear to auscultation. No wheeze, no rhonchi, no crackles. CARDIOVASCULAR: Regular rhythm. LABORATORY DATA: WBC 9.2, hemoglobin 8.4, creatinine 0.59. Sodium 149. ASSESSMENT AND PLAN: 1. Hematuria, new. We will repeat a UA. Get culture and sensitivity. 2. Hypotension in the ICU for Levophed. Currently has been decreasing and blood pressure has been improving. 3. Hypoxia with possible explanation of aspiration pneumonia. Chest x-ray does not show any infilt rates. Patient is using 6 liter face mask and is tachypneic. The patient is CHEMICAL CODE ONLY. T he patient is not to be intubated. 4. Hypernatremia. This due to patient being on higher amounts of fluids now of normal saline. Sod ium is going up. The patient is getting free water. We will change her fluids levels to decrease t he amount and change it to 1/2 normal saline and see if the blood pressure continues to hold. 5. Decubiti on Zosyn. Dictated By: QIANA OLMEDO/FIDELIA Conf#: [id number] DID#: [id number]
--- NOTE | 2016-09-03 19:28 | PN ---
Date/Time of Note Date/Time of Note DATE: 09/03/16 TIME: 19:24 Assessment/Plan Lines/Catheters IV C[facility]ter Type (from [facility]): PICC Line [place] in Place (from Nrs): Yes Assessment/Plan Chief Complaint/Hosp Course 1. 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 -offloading, -local wound care, -nutritional optimization, -vitamin C 1000 mg a day -zinc sulfate 220 mg p.o. b.i.d. x2 weeks. -debridement cleared by family -?flap reconstruction through plastic after medically optimized, nutrition optimized, and family ok to proceed 2. Deep tissue injury, left shoulder and other decubitus areas. Continue as above. 3. Anemia without evidence of acute blood loss. Continue monitoring. 4. Functional quadriplegia. Continue offloading with q.2 hour position change and air mattress and nutrition optimization. 5. End-stage dementia and Alzheimer's. Continue medical optimization. 6. Tachyarrhythmia of unknown etiology. Will defer to medical team for further workup and treatment. 7. Dysphagia, on tube feeds. 8. Hypoalbuminemia. Continue nutritional optimization. 9. Hematuria, ? etiology -w/u in process Thank you Problems: Subjective 24 Hr Interval Summary Off pressor. Hematuria. No f/c. No vomiting. No cough. No sz. No bloating. Tachyarrhythmias. Family agrees to debridement. Exam/Review of Systems Vital Signs Vitals Vital Signs Date Time Temp Pulse Resp B/P Pulse Ox O2 Delivery O2 Flow Rate FiO2 09/03/16 18:00 112 31 103/57 98 Mask 09/03/16 16:00 100.0 09/03/16 14:19 7.0 Intake and Output 09/02/16 09/02/16 09/03/16 15:00 23:00 07:00 Intake Total 1409 ml 1580.25 ml 1476.25 ml Output Total 370 ml 840 ml 1235 ml Balance 1039 ml 740.25 ml 241.25 ml Exam Free Text/Dictation GENERAL: Noncommunicative, contracted state. HEENT: Pupils are sluggish. No scleral icterus. Mucous membranes are moist. NECK: No crepitus with baseline rigidity. PULMONARY: Normal respiratory effort. No wheezing. HEART: S1, S2 and irregular. ABDOMEN: Soft. PEG in place. EXTREMITIES: Contracted without edema. VASCULAR: Capillary refill is over 3 seconds. NEUROLOGIC: Does not follow commands, however opens eyes. SKIN: No rashes. No jaundice. Multiple areas of bruising. Multiple decubitus wounds, especially sacrococcyx and left buttock with debris. Left shoulder deep tissue injury. LYMPHATICS: No inguinal or cervical lymphadenopathy. Results Result Diagram: 09/03/16 0410 09/03/16 0410 JAS VILLAGRAN MD September 03, 2016 19:28
[2016-09-03] MEDS: ACETAMINOPHEN 325 MG TAB GTB PRN (20:39)
[2016-09-04] VITALS (73 sets, daily range): BP systolic 70–126; BP diastolic 40–73; PULSE 94–131; RESP 18–36
[2016-09-04] MEDS: LEVALBUTEROL (NEB) 0.63 MG/3 ML AMP HHN SCH ×4 (03:03→20:25)
[2016-09-04 05:14] LABS: ADD SCAN DIFF NO
[2016-09-04 05:24] LABS: BASOPHILS % 0.2 % (0.0-2.0); EOSINOPHILS # 0.2 10^3/ul (0.0-0.5); EOSINOPHILS % 1.7 % (0.0-7.0); HEMATOCRIT 28.5 % (37.0-47.0); HEMOGLOBIN 8.7 g/dl (12.0-16.0); LYMPHOCYTES # 0.9 10^3/ul (0.8-2.9); LYMPHOCYTES % 8.6 % (15.0-51.0); MEAN CORPUSCULAR HGB CONC 30.5 g/dl (32.0-37.0); MEAN CORPUSCULAR VOLUME 101.4 fl (82.0-101.0); MEAN PLATELET VOLUME 9.6 fl (7.4-10.4); MONOCYTE # 0.8 10^3/ul (0.3-0.9); MONOCYTES % 7.8 % (0.0-11.0); NEUTROPHIL # 7.9 10^3/ul (1.6-7.5); NEUTROPHILS % 79.1 % (39.0-77.0); PLATELET COUNT 457 10^3/UL (140-415); RED BLOOD COUNT 2.81 10^6/ul (4.20-5.40); RED CELL DISTRIBUTION WIDTH 19.2 % (11.5-14.5)
[2016-09-04] MEDS: PIPER-TAZO 2.25 GM (PMX) 50 ML IVPB SCH ×3 (05:34→17:27)
[2016-09-04] MEDS: PANTOPRAZOLE 40 MG INJ IV SCH (05:34)
[2016-09-04] MEDS: FUROSEMIDE 20 MG INJ IV SCH ×2 (05:52→17:27)
[2016-09-04 05:53] LABS: ALBUMIN 2.5 g/dl (3.3-4.9); ALBUMIN/GLOBULIN RATIO 0.59; CALCIUM 7.4 mg/dl (8.4-10.2); CREATININE 0.58 mg/dl (0.44-1.00); POTASSIUM 3.4 mmol/L (3.5-5.1); TOTAL PROTEIN 6.7 g/dl (6.1-8.1)
[2016-09-04] MEDS ORDERED: EPOETIN ALFA (NESRD) 3,000 UNITS/ML VIAL SC ONE (08:00)
[2016-09-04] MEDS ORDERED: POTASSIUM CHLORIDE 20 MEQ POWDER FOR ORAL SOLN GTB ONE (08:00)
[2016-09-04] MEDS: FERROUS SULFATE 60 MG/ML 5ML CUP GTB SCH ×2 (08:16→20:18)
[2016-09-04] MEDS: ZINC SULFATE 220 MG CAP GTB SCH ×2 (08:16→20:18)
[2016-09-04] MEDS: MIDODRINE 5 MG TAB NGT SCH ×3 (08:17→17:27)
[2016-09-04] MEDS: LORAZEPAM 0.5 MG TAB PO SCH ×2 (08:17→20:18)
[2016-09-04] MEDS: ASCORBIC ACID 500 MG TAB GTB SCH (08:17)
[2016-09-04] MEDS: COLLAGENASE 30 GM TUBE TOP SCH (08:17)
[2016-09-04] MEDS: ENOXAPARIN 40 MG/0.4 ML SYG SC SCH (08:18)
--- NOTE | 2016-09-04 09:52 | CONS ---
Date/Time of Note Date/Time of Note DATE: 09/04/16 TIME: 09:50 Consult Date/Type/Reason Admit Date/Time August 11, 2016 at 19:00 Initial Consult Date 08/19/16 Type of Consultation: Pulmonary Subjective Off vasopressors Opens eyes but not following commands Continues facemask oxygen Objective Vital Signs Date Time Temp Pulse Resp B/P Pulse Ox O2 Delivery O2 Flow Rate FiO2 09/04/16 08:45 120 26 85/51 92 09/04/16 08:00 Nasal Cannula 3.0 09/04/16 08:00 99.8 Intake and Output 09/03/16 09/03/16 09/04/16 15:00 23:00 07:00 Intake Total 1529.426 ml 983.75 ml 1215.61 ml Output Total 815 ml 1485 ml 385 ml Balance 714.426 ml -501.25 ml 830.61 ml Exam PHYSICAL EXAMINATION GENERAL: Chronically ill-appearing lady unresponsive on facemask O2 VITAL SIGNS: see below. HEENT: Pupils equal, round, and reactive to light. CARDIAC: S1, S2, 1/6 systolic ejection murmur CHEST: Diminished air entry bilaterally. ABDOMEN: Mildly distended. Bowel sounds present no guarding or rebound EXTREMITIES: No cyanosis, clubbing edema +2 NEUROLOGIC: Generalized weakness multiple decubitus ulcers Results/Medications Result Diagram: 09/04/16 0500 09/04/16 0430 Results 24 hrs Laboratory Tests Test 09/03/16 12:00 09/03/16 14:15 09/04/16 04:30 09/04/16 05:00 Urine Color LT. YELLOW RED Urine Clarity CLOUDY TURBID Urine pH 5.5 6.0 Urine Specific [place] 1.015 1.020 Urine Ketones NEGATIVE NEGATIVE Urine Nitrite NEGATIVE NEGATIVE Urine Bilirubin NEGATIVE NEGATIVE Urine Urobilinogen 0.2 E.U./dL 0.2 E.U./dL Urine Leukocyte Esterase 1+ H 1+ H Urine Microscopic RBC 2-5 >200 Urine Microscopic WBC 5-10 0-2 Urine Epithelial Cells RARE Urine Bacteria FEW Urine Yeast MANY Urine Hemoglobin 2+ H 3+ H Urine Glucose NEGATIVE NEGATIVE Urine Total Protein TRACE 2+ H Sodium Level 142 Potassium Level 3.4 L Chloride Level 109 Carbon Dioxide Level 30 Anion Gap 6 L Blood Urea Nitrogen 21 H Creatinine 0.58 Glucose Level 168 Calcium Level 7.4 L Total Bilirubin 0.0 L Direct Bilirubin 0.00 Indirect Bilirubin 0.0 Aspartate Amino Transf (AST/SGOT) 38 Alanine Aminotransferase (ALT/SGPT) 48 Alkaline Phosphatase 151 H Total Protein 6.7 Albumin 2.5 L Globulin 4.20 H Albumin/Globulin Ratio 0.59 White Blood Count 10.0 Red Blood Count 2.81 L Hemoglobin 8.7 L Hematocrit 28.5 L Mean Corpuscular Volume 101.4 H Mean Corpuscular Hemoglobin 31.0 Mean Corpuscular Hemoglobin Concent 30.5 L Red Cell Distribution Width 19.2 H Platelet Count 457 H Mean Platelet Volume 9.6 Neutrophils % 79.1 H Lymphocytes % 8.6 L Monocytes % 7.8 Eosinophils % 1.7 Basophils % 0.2 Nucleated Red Blood Cells % 0.0 Neutrophils # 7.9 H Lymphocytes # 0.9 Monocytes # 0.8 Eosinophils # 0.2 Basophils # 0.0 Nucleated Red Blood Cells # 0.0 Medications Current Medications Acetaminophen (Tylenol Tab) 325 mg Q4H PRN GTB PAIN AND FEVER Last administered on 09/03/16 20:39; Admin Dose 325 MG; Start 08/11/16 at 20:00 Morphine Sulfate (morphine) 1 mg Q4H PRN IV PAIN LEVEL 6-10 Last administered on 09/02/16 23:42; Admin Dose 1 MG; Start 08/11/16 at 20:00 Ondansetron HCl (Zofran Inj) 4 mg Q6H PRN IV NAUSEA AND/OR VOMITING; Start 08/12 at 10:00 Acetaminophen 650 mg 650 mg Q6H PRN [place] PAIN LEVEL 1-3 OR FEVER; Start 08/12/16 at 10:00 Piperacillin Sod/ Tazobactam Sod (Zosyn 2.25gm/ 50ml (Pmx)) 50 ml @ 100 mls/hr Q6 IVPB Last administered on 09/04/16 05:34; Admin Dose 100 MLS/HR; Start 08/14 at 12:00 Collagenase (Santyl) 1 applic DAILY TOP Last administered on 09/04/16 08:17; Admin Dose 1 APPLIC; Start 08/18/16 at 12:00 Enoxaparin Sodium (Lovenox) 40 mg DAILY SC Last administered on 09/04/16 08:18 ; Admin Dose 40 MG; Start 08/18/16 at 17:30 Ascorbic Acid (Vitamin C) 1,000 mg DAILY GTB Last administered on 09/04/16 08: 17; Admin Dose 1,000 MG; Start 08/28/16 at 11:30 Zinc Sulfate (Zinc Sulfate) 220 mg BID GTB Last administered on 09/04/16 08:16 ; Admin Dose 220 MG; Start 08/28/16 at 21:00 Ferrous Sulfate (Feosol Liquid Cup) 300 mg BID GTB Last administered on 08:16; Admin Dose 300 MG; Start 08/29/16 at 21:00 Lorazepam (Ativan) 0.5 mg BID PO Last administered on 09/03/16 20:39; Admin Dose 0.5 MG; Start 08/30/16 at 21:00 Midodrine (Proamatine) 10 mg TID@09,,17 NGT Last administered on 09/04/16 08 :17; Admin Dose 10 MG; Start 09/02/16 at 09:00 Pantoprazole 40 mg 40 mg DAILY@06 IV Last administered on 09/04/16 05:34; Admin Dose 40 MG; Start 09/02/16 at 06:00 Norepinephrine 16 mg/Dextrose 500 ml @ 1.87 mls/hr TITRATE IV Last administered on 09/03/16 21:50; Admin Dose 3.75 MLS/HR; Start 09/02/16 at 02:30 Sodium Chloride (1/2 NS) 1,000 ml @ 50 mls/hr Q20H IV Last administered on 17:11; Admin Dose 50 MLS/HR; Start 09/03/16 at 16:57 Assessment/Plan Chief Complaint/Hosp Course Assessment 1. Healthcare associated pneumonia with hypoxemic respiratory failure 2. Probable aspiration pneumonia 3. Dementia 4. Multiple decubitus ulcers with polymicrobial sepsis and resolving septic shock Plan 1. Continue antibiotics decrease vasopressors as tolerated 2. Pulmonary toilet 3. Tube feeding free water flushes 4. Family wish to continue current level of care. Disposition Transfer to telemetry once heart rate and blood pressure stabilized Problems: BLAYNE BROOKS MD, [facility] September 04, 2016 09:52
--- NOTE | 2016-09-04 10:21 | CONS ---
Date/Time of Note Date/Time of Note DATE: 09/04/16 TIME: : Assessment/Plan Assessment/Plan Chief Complaint/Hosp Course 1) ARF u/a does not suggest infection, likely due to dehydration 08/13 - improving with hydration 08/14 - continues to improve, will increase dose of zosyn urine cx was negative 08/15 - pretty much resolved 2) pneumonia check procalcitonin get nasal swab for MRSA continue with vanco, change cefepime to zosyn likely aspiration 08/13 - wbc is improving, continue with vanco/zosyn 08/14 - wbc continues to improve, no MRSA found d/c vanco and continue with zosyn and increase its dose 08/15 - only on zosyn now and wbc is improving pt getting echo and asked tech to quantify the L sided pleural effusion too 08/17 - echo only reported presence of L pleural effusion no good evidence to suggest an empyema continue with zosyn 08/18 - stable, pt completes were treatment course for pneumonia today 08/20 - minimally elevated procalcitonin on 08/13 no further treatment needed for pneumonia but on zosyn for probable sacral osteo 09/03 - more haziness over L base, but no increase in WBC continue with zosyn, check procalcitonin in a.m. repeat nasal swab for MRSA consider hospice for patient 09/04 - neg for MRSA 3) sacral wound ulcer, likely osteo check ESR, CRP and if very high then would treat as if osteomyelitis if not very high will order bone scan for ultimate healing if this is indeed osteo she will likely need plastic surgery involvement her low albumin suggest she would have poor tissue healing will get wound cx of deeper wound 08/13 - ESR is very high, c/w osteomyelitis wound cx has gnr's and GPC continue with vanco/zosyn at present 08/14 - no MRSA found, d/c vanco and continue with zosyn pt likely has osteo due to high ESR will follow ESR weekly for response unlikely that antibiotics alone will heal the sacral wounds 08/15 - continue with zosyn unlikely that antibiotics alone will heal these sacral wounds 08/17 - pt likely has osteo but unlikely antibiotics will cure this usual treatment course for osteo is 6 weeks of antibiotics unlikely antibiotics alone will be curative repeat ESR and CRP in a.m. 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 repeat ESR and CRP are pending it is unlikely that antibiotics alone will be curative 08/20 - day of zosyn ESR elevated c/w osteomyelitis CRP did improve a bit but antibiotics unlikely to be curative recommend weekly esr, crp and if not improving then would d/c antibiotics 08/27 - Day of zosyn CRP has come down slowly, ESR has actually increased but sometimes the ESR is delayed in improvement Nonetheless it has almost doubled If surgical debridement it to be done then pt will need deep surgical cultures sent to verify that no resistant organisms are being missed continue with zosyn at present pt will likely need a muscle flap if cure of osteomyelitis is the goal and it would be helpful to get bone biopsy and culture with deep tissue culture prior to that to help guide if any change in antibiotics is needed 08/29 - no new recommendations if surgery is done, please get deep surgical wound cx and if possible bone cx/ biopsy continue with zosyn (day ) 09/01 - day of zosyn still awaiting family decision regarding debridement and flap if debridement is done please get deep surgical wound cx and ideally bone bx/cx crp continues to improve, ESR is pending 09/03 - ESR was minimally improved family agrees to debridement but now in ICU due to hypotension 09/04 - stable, off levophed continue with zosyn 4) severe dementia Problems: Consultation Date/Type/Reason Admit Date/Time August 11, 2016 at 19:00 Initial Consult Date 08/12/16 Type of Consultation: ID 24 HR Interval Summary Free Text/Dictation spoke to nurse no V, D currently off levophed Subjective hx not possible: pt non-verbal Exam/Review of Systems Vital Signs Vitals Vital Signs Date Time Temp Pulse Resp B/P Pulse Ox O2 Delivery O2 Flow Rate FiO2 09/04/16 08:45 120 26 85/51 92 09/04/16 08:00 Nasal Cannula 3.0 09/04/16 08:00 99.8 Intake and Output 09/03/16 09/03/16 09/04/16 15:00 23:00 07:00 Intake Total 1529.426 ml 983.75 ml 1215.61 ml Output Total 815 ml 1485 ml 385 ml Balance 714.426 ml -501.25 ml 830.61 ml Exam Constitutional: non-verbal Respiratory: clear to auscultation Cardiovascular: regular rate and rhythm Gastrointestinal: soft Neurological: other (pt in contractures and L facial twitching) Results Result Diagram: 09/04/16 0500 09/04/16 0430 Results 24 hrs Laboratory Tests Test 09/03/16 12:00 09/03/16 14:15 09/04/16 04:30 09/04/16 05:00 Urine Color LT. YELLOW RED Urine Clarity CLOUDY TURBID Urine pH 5.5 6.0 Urine Specific [place] 1.015 1.020 Urine Ketones NEGATIVE NEGATIVE Urine Nitrite NEGATIVE NEGATIVE Urine Bilirubin NEGATIVE NEGATIVE Urine Urobilinogen 0.2 E.U./dL 0.2 E.U./dL Urine Leukocyte Esterase 1+ H 1+ H Urine Microscopic RBC 2-5 >200 Urine Microscopic WBC 5-10 0-2 Urine Epithelial Cells RARE Urine Bacteria FEW Urine Yeast MANY Urine Hemoglobin 2+ H 3+ H Urine Glucose NEGATIVE NEGATIVE Urine Total Protein TRACE 2+ H Sodium Level 142 Potassium Level 3.4 L Chloride Level 109 Carbon Dioxide Level 30 Anion Gap 6 L Blood Urea Nitrogen 21 H Creatinine 0.58 Glucose Level 168 Calcium Level 7.4 L Total Bilirubin 0.0 L Direct Bilirubin 0.00 Indirect Bilirubin 0.0 Aspartate Amino Transf (AST/SGOT) 38 Alanine Aminotransferase (ALT/SGPT) 48 Alkaline Phosphatase 151 H Total Protein 6.7 Albumin 2.5 L Globulin 4.20 H Albumin/Globulin Ratio 0.59 White Blood Count 10.0 Red Blood Count 2.81 L Hemoglobin 8.7 L Hematocrit 28.5 L Mean Corpuscular Volume 101.4 H Mean Corpuscular Hemoglobin 31.0 Mean Corpuscular Hemoglobin Concent 30.5 L Red Cell Distribution Width 19.2 H Platelet Count 457 H Mean Platelet Volume 9.6 Neutrophils % 79.1 H Lymphocytes % 8.6 L Monocytes % 7.8 Eosinophils % 1.7 Basophils % 0.2 Nucleated Red Blood Cells % 0.0 Neutrophils # 7.9 H Lymphocytes # 0.9 Monocytes # 0.8 Eosinophils # 0.2 Basophils # 0.0 Nucleated Red Blood Cells # 0.0 Medications Medications Current Medications Acetaminophen (Tylenol Tab) 325 mg Q4H PRN GTB PAIN AND FEVER Last administered on 09/03/16t 20:39; Admin Dose 325 MG; Start 08/11/16 at 20:00 Morphine Sulfate (morphine) 1 mg Q4H PRN IV PAIN LEVEL 6-10 Last administered on 09/02/16 23:42; Admin Dose 1 MG; Start 08/11/16 at 20:00 Ondansetron HCl (Zofran Inj) 4 mg Q6H PRN IV NAUSEA AND/OR VOMITING; Start 08/12 at 10:00 Acetaminophen 650 mg 650 mg Q6H PRN [place] PAIN LEVEL 1-3 OR FEVER; Start 08/12/16 at 10:00 Piperacillin Sod/ Tazobactam Sod (Zosyn 2.25gm/ 50ml (Pmx)) 50 ml @ 100 mls/hr Q6 IVPB Last administered on 09/04/16 05:34; Admin Dose 100 MLS/HR; Start 08/14 at 12:00 Collagenase (Santyl) 1 applic DAILY TOP Last administered on 09/04/16 08:17; Admin Dose 1 APPLIC; Start 08/18/16 at 12:00 Enoxaparin Sodium (Lovenox) 40 mg DAILY SC Last administered on 09/04/16 08:18 ; Admin Dose 40 MG; Start 08/18/16 at 17:30 Ascorbic Acid (Vitamin C) 1,000 mg DAILY GTB Last administered on 09/04/16 08: 17; Admin Dose 1,000 MG; Start 08/28/16 at 11:30 Zinc Sulfate (Zinc Sulfate) 220 mg BID GTB Last administered on 09/04/16 08:16 ; Admin Dose 220 MG; Start 08/28/16 at 21:00 Ferrous Sulfate (Feosol Liquid Cup) 300 mg BID GTB Last administered on 08:16; Admin Dose 300 MG; Start 08/29/16 at 21:00 Lorazepam (Ativan) 0.5 mg BID PO Last administered on 09/03/16 20:39; Admin Dose 0.5 MG; Start 08/30/16 at 21:00 Midodrine (Proamatine) 10 mg TID@,13,17 NGT Last administered on 09/04/16 08 :17; Admin Dose 10 MG; Start 09/02/16 at 09:00 Pantoprazole 40 mg 40 mg DAILY@06 IV Last administered on 09/04/16 05:34; Admin Dose 40 MG; Start 09/02/16 at 06:00 Norepinephrine 16 mg/Dextrose 500 ml @ 1.87 mls/hr TITRATE IV Last administered on 09/03/16 21:50; Admin Dose 3.75 MLS/HR; Start 09/02/16 at 02:30 Sodium Chloride (1/2 NS) 1,000 ml @ 50 mls/hr Q20H IV Last administered on 17:11; Admin Dose 50 MLS/HR; Start 09/03/16 at 16:57 Epoetin Melvin (Epogen (Esrd)) 10,000 units ONCE SC ; Start 09/04/16 at 11:30; Stop 09/04/16 at 23:00 ERNIE MILLER MD September 04, 2016 10:21
--- NOTE | 2016-09-04 10:44 | PN ---
DATE: 09/04/2016 SUBJECTIVE: The patient's respirations improved, brought to rate of 23 to 28. Blood pressure, is o ff of the Levophed and is running currently at her norm which is between 85 and 110. Pulse ox is ba ck to her baseline, which is 98% on 3 liters nasal cannula. Chest x-ray from yesterday showed no ac [place] infiltrate is okay. OBJECTIVE: VITAL SIGNS: Temperature 100.2, pulse 110 to 120, respiration 23 to 28, blood pressure 96/61, pulse ox is 98 on 3 liters nasal cannula. CARDIOVASCULAR: Regular rhythm. LUNGS: No wheeze, no rhonchi, no crackles. ABDOMEN: Soft. LOWER EXTREMITIES: 1+ pitting edema bilaterally. LABORATORY DATA: Demonstrate a potassium 3.4, sodium is 142, creatinine 0.58, hemoglobin 8.7, WBC i s 10. IMAGING: Chest x-ray on 09/03/2016 shows no acute infiltrates, small left pleural effusion, no jefferson ge. ASSESSMENT AND PLAN: 1. Hematuria, a UA did show red blood cells, no sign of infection. Culture pending. Most likely i rritation of the bladder. We will watch today to see if the patient continues to have hematuria. 2. Hypotension. The patient was initially transferred into the ICU because the blood pressure was running in the 70s systolically. It has been thought this was due to an acute aspiration, although chest x-ray does not show any new infiltrates. The patient is now currently on aspiration precautio ns, everything seems to be going back to her norm. The patient this morning is off of the Levophed. Blood pressures ranging in the 90s, which is her normal. 3. Hypoxia, possible explanation is aspiration pneumonia. The patient is back down to her 3 liters nasal cannula with a pulse ox of 98. The patient is still using accessory muscles for respiration, but is much improved. 4. Hypernatremia. The patient's IV fluids were changed to 1-1/2 normal saline due to blood pressur e is better controlled. If the blood pressure remains stable, the IV fluids should be discontinued. Patient is getting G-tube feedings around the clock. Hypokalemia, will replace today with 40 mEq of potassium. 5. Decubiti with probable osteomyelitis, currently on day #25 of Zosyn a total of 42. The patient is awaiting debridement and possibility of a flap, but due to this setback with hypotension, this is currently on hold. Once stabilized, we will call the surgeon once again to say to go ahead with th e debridement. 5. Chemical code only, no intubation. Dictated By: QIANA OLMEDO/FIDELIA Conf#: [id number] DID#: [id number]
[2016-09-04] MEDS ORDERED: EPOETIN 10000 UNITS/1 ML INJ (ESRD) SC SCH (11:30)
[2016-09-04] MEDS: SOD CHLORIDE 0.45% 1,000 ML IV SCH (11:56)
--- NOTE | 2016-09-04 23:32 | PN ---
Date/Time of Note Date/Time of Note DATE: 09/04/16 TIME: 23:27 Assessment/Plan Lines/Catheters IV Catheter Type (from Nrs): PICC Line [place] in Place (from Nrs): Yes Assessment/Plan Chief Complaint/Hosp Course 1. 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 -offloading, -local wound care, -nutritional optimization, -vitamin C 1000 mg a day -zinc sulfate 220 mg p.o. b.i.d. x2 weeks. -debridement cleared by family -?flap reconstruction through plastic after medically optimized, nutrition optimized, and family ok to proceed 2. Deep tissue injury, left shoulder and other decubitus areas. Continue as above. 3. Anemia without evidence of acute blood loss. Continue monitoring. 4. Functional quadriplegia. Continue offloading with q.2 hour position change and air mattress and nutrition optimization. 5. End-stage dementia and Alzheimer's. Continue medical optimization. 6. Tachyarrhythmia of unknown etiology. Will defer to medical team for further workup and treatment. 7. Dysphagia, on tube feeds. 8. Hypoalbuminemia. Continue nutritional optimization. 9. Hematuria Thank you Problems: Subjective 24 Hr Interval Summary No f/c. No vomiting. No cough. No sz. No bloating. Tachyarrhythmias. Hg stable. No rashes. Exam/Review of Systems Vital Signs Vitals Vital Signs Date Time Temp Pulse Resp B/P Pulse Ox O2 Delivery O2 Flow Rate FiO2 09/04/16 21:00 108 22 106/53 96 Nasal Cannula 2.0 09/04/16 20:35 27 09/04/16 20:00 99.5 Intake and Output 09/03/16 09/03/16 09/04/16 15:00 23:00 07:00 Intake Total 1529.426 ml 983.75 ml 1215.61 ml Output Total 815 ml 1485 ml 385 ml Balance 714.426 ml -501.25 ml 830.61 ml Exam Free Text/Dictation GENERAL: Noncommunicative, contracted state. HEENT: Pupils are sluggish. No scleral icterus. Mucous membranes are moist. NECK: No crepitus with baseline rigidity. PULMONARY: Normal respiratory effort. No wheezing. HEART: S1, S2 and irregular. ABDOMEN: Soft. PEG in place. EXTREMITIES: Contracted without edema. VASCULAR: Capillary refill is over 3 seconds. NEUROLOGIC: Does not follow commands, however opens eyes. SKIN: No rashes. No jaundice. Multiple areas of bruising. Multiple decubitus wounds, especially sacrococcyx and left buttock with debris. Left shoulder deep tissue injury. LYMPHATICS: No inguinal or cervical lymphadenopathy. Results Result Diagram: 09/04/16 0500 09/04/16 0430 JAS VILLAGRAN MD September 04, 2016 23:32
[2016-09-05] VITALS (25 sets, daily range): BP systolic 76–120; BP diastolic 41–95; PULSE 99–121; RESP 19–32
[2016-09-05] MEDS: LEVALBUTEROL (NEB) 0.63 MG/3 ML AMP HHN SCH ×4 (01:38→19:20)
[2016-09-05 04:29] LABS: ADD SCAN DIFF NO
[2016-09-05 04:32] LABS: BASOPHILS % 0.1 % (0.0-2.0); EOSINOPHILS # 0.2 10^3/ul (0.0-0.5); EOSINOPHILS % 1.3 % (0.0-7.0); HEMATOCRIT 27.9 % (37.0-47.0); HEMOGLOBIN 8.4 g/dl (12.0-16.0); LYMPHOCYTES # 0.8 10^3/ul (0.8-2.9); LYMPHOCYTES % 6.3 % (15.0-51.0); MEAN CORPUSCULAR HEMOGLOBIN 30.1 pg (29.0-33.0); MEAN CORPUSCULAR HGB CONC 30.1 g/dl (32.0-37.0); MEAN PLATELET VOLUME 9.5 fl (7.4-10.4); MONOCYTE # 0.7 10^3/ul (0.3-0.9); MONOCYTES % 5.1 % (0.0-11.0); NEUTROPHIL # 11.4 10^3/ul (1.6-7.5); NEUTROPHILS % 84.8 % (39.0-77.0); PLATELET COUNT 432 10^3/UL (140-415); RED BLOOD COUNT 2.79 10^6/ul (4.20-5.40); RED CELL DISTRIBUTION WIDTH 18.6 % (11.5-14.5); WHITE BLOOD COUNT 13.4 10^3/ul (4.8-10.8)
[2016-09-05 04:56] LABS: CREATININE 0.61 mg/dl (0.44-1.00)
[2016-09-05 04:57] LABS: CALCIUM 7.8 mg/dl (8.4-10.2)
[2016-09-05] MEDS: FUROSEMIDE 20 MG INJ IV SCH ×2 (06:17→17:16)
[2016-09-05] MEDS: PIPER-TAZO 2.25 GM (PMX) 50 ML IVPB SCH ×4 (06:18→17:06)
[2016-09-05] MEDS: PANTOPRAZOLE 40 MG INJ IV SCH (06:18)
[2016-09-05] MEDS: SOD CHLORIDE 0.45% 1,000 ML IV SCH (07:19)
[2016-09-05] MEDS: LORAZEPAM 0.5 MG TAB PO SCH (09:13)
[2016-09-05] MEDS: MIDODRINE 5 MG TAB NGT SCH ×3 (09:13→17:06)
[2016-09-05] MEDS: ZINC SULFATE 220 MG CAP GTB SCH ×2 (09:13→20:47)
[2016-09-05] MEDS: COLLAGENASE 30 GM TUBE TOP SCH (09:14)
[2016-09-05] MEDS: ASCORBIC ACID 500 MG TAB GTB SCH (09:14)
[2016-09-05] MEDS: FERROUS SULFATE 60 MG/ML 5ML CUP GTB SCH ×2 (09:14→20:47)
[2016-09-05] MEDS: ENOXAPARIN 40 MG/0.4 ML SYG SC SCH (09:15)
--- NOTE | 2016-09-05 10:39 | CONS ---
Date/Time of Note Date/Time of Note DATE: 09/05/16 TIME: 10:38 Consult Date/Type/Reason Admit Date/Time August 11, 2016 at 19:00 Initial Consult Date 08/19/16 Type of Consultation: Pulm Subjective Remains comfortable Off pressors. Objective Vital Signs Date Time Temp Pulse Resp B/P Pulse Ox O2 Delivery O2 Flow Rate FiO2 09/05/16 10:00 115 26 96/57 96 Nasal Cannula 2.0 09/05/16 08:00 98.5 09/05/16 01:58 27 Intake and Output 09/04/16 09/04/16 09/05/16 15:00 23:00 07:00 Intake Total 1131.87 ml 1390 ml 1180 ml Output Total 320 ml 370 ml 510 ml Balance 811.87 ml 1020 ml 670 ml Exam PHYSICAL EXAMINATION GENERAL: Chronically ill-appearing lady unresponsive on facemask O2 VITAL SIGNS: see below. HEENT: Pupils equal, round, and reactive to light. CARDIAC: S1, S2, 1/6 systolic ejection murmur CHEST: Diminished air entry bilaterally. ABDOMEN: Mildly distended. Bowel sounds present no guarding or rebound EXTREMITIES: No cyanosis, clubbing edema +2 NEUROLOGIC: Generalized weakness multiple decubitus ulcers Results/Medications Result Diagram: 09/05/16 0415 09/05/16 0415 Results 24 hrs Laboratory Tests Test 09/05/16 04:15 White Blood Count 13.4 #H Red Blood Count 2.79 L Hemoglobin 8.4 L Hematocrit 27.9 L Mean Corpuscular Volume 100.0 Mean Corpuscular Hemoglobin 30.1 Mean Corpuscular Hemoglobin Concent 30.1 L Red Cell Distribution Width 18.6 H Platelet Count 432 H Mean Platelet Volume 9.5 Neutrophils % 84.8 H Lymphocytes % 6.3 L Monocytes % 5.1 Eosinophils % 1.3 Basophils % 0.1 Nucleated Red Blood Cells % 0.0 Neutrophils # 11.4 H Lymphocytes # 0.8 Monocytes # 0.7 Eosinophils # 0.2 Basophils # 0.0 Nucleated Red Blood Cells # 0.0 Sodium Level 141 Potassium Level 4.0 Chloride Level 102 Carbon Dioxide Level 27 Anion Gap 16 # Blood Urea Nitrogen 19 Creatinine 0.61 Glucose Level 163 Calcium Level 7.8 L Medications Current Medications Acetaminophen (Tylenol Tab) 325 mg Q4H PRN GTB PAIN AND FEVER Last administered on 09/03/16 20:39; Admin Dose 325 MG; Start 08/11/16 at 20:00 Morphine Sulfate (morphine) 1 mg Q4H PRN IV PAIN LEVEL 6-10 Last administered on 09/02/16 23:42; Admin Dose 1 MG; Start 08/11/16 at 20:00 Ondansetron HCl (Zofran Inj) 4 mg Q6H PRN IV NAUSEA AND/OR VOMITING; Start 08/12 at 10:00 Acetaminophen 650 mg 650 mg Q6H PRN [place] PAIN LEVEL 1-3 OR FEVER; Start 08/12/16 at 10:00 Piperacillin Sod/ Tazobactam Sod (Zosyn 2.25gm/ 50ml (Pmx)) 50 ml @ 100 mls/hr Q6 IVPB Last administered on 09/05/16 06:18; Admin Dose 100 MLS/HR; Start 08/14 at 12:00 Collagenase (Santyl) 1 applic DAILY TOP Last administered on 09/05/16 09:14; Admin Dose 1 APPLIC; Start 08/18/16 at 12:00 Enoxaparin Sodium (Lovenox) 40 mg DAILY SC Last administered on 09/05/16 09:15 ; Admin Dose 40 MG; Start 08/18/16 at 17:30 Ascorbic Acid (Vitamin C) 1,000 mg DAILY GTB Last administered on 09/05/16 09: 14; Admin Dose 1,000 MG; Start 08/28/16 at 11:30 Zinc Sulfate (Zinc Sulfate) 220 mg BID GTB Last administered on 09/05/16 09:13 ; Admin Dose 220 MG; Start 08/28/16 at 21:00 Ferrous Sulfate (Feosol Liquid Cup) 300 mg BID GTB Last administered on 09:14; Admin Dose 300 MG; Start 08/29/16 at 21:00 Lorazepam (Ativan) 0.5 mg BID PO Last administered on 09/05/16 09:13; Admin Dose 0.5 MG; Start 08/30/16 at 21:00 Midodrine (Proamatine) 10 mg TID@,13,17 NGT Last administered on 09/05/16 09 :13; Admin Dose 10 MG; Start 09/02/16 at 09:00 Pantoprazole 40 mg 40 mg DAILY@06 IV Last administered on 09/05/16 06:18; Admin Dose 40 MG; Start 09/02/16 at 06:00 Norepinephrine 16 mg/Dextrose 500 ml @ 1.87 mls/hr TITRATE IV Last administered on 09/03/16 21:50; Admin Dose 3.75 MLS/HR; Start 09/02/16 at 02:30 Sodium Chloride (1/2 NS) 1,000 ml @ 50 mls/hr Q20H IV Last administered on 07:19; Admin Dose 50 MLS/HR; Start 09/03/16 at 16:57 Assessment/Plan Chief Complaint/Hosp Course Assessment 1. Healthcare associated pneumonia with hypoxemic respiratory failure 2. Probable aspiration pneumonia 3. Dementia 4. Multiple decubitus ulcers with polymicrobial sepsis and resolving septic shock Plan 1. Continue antibiotics per ID 2. Pulmonary toilet 3. Tube feeding free water flushes 4. Wound care Disposition Transfer to telemetry once heart rate and blood pressure stabilized Problems: BLAYNE BROOKS MD, [facility] September 05, 2016 10:39
--- NOTE | 2016-09-05 11:55 | CONS ---
Date/Time of Note Date/Time of Note DATE: 09/05/16 TIME: 11:52 Assessment/Plan Assessment/Plan Chief Complaint/Hosp Course 1) ARF u/a does not suggest infection, likely due to dehydration 08/13 - improving with hydration 08/14 - continues to improve, will increase dose of zosyn urine cx was negative 08/15 - pretty much resolved 2) pneumonia check procalcitonin get nasal swab for MRSA continue with vanco, change cefepime to zosyn likely aspiration 08/13 - wbc is improving, continue with vanco/zosyn 08/14 - wbc continues to improve, no MRSA found d/c vanco and continue with zosyn and increase its dose 08/15 - only on zosyn now and wbc is improving pt getting echo and asked tech to quantify the L sided pleural effusion too 08/17 - echo only reported presence of L pleural effusion no good evidence to suggest an empyema continue with zosyn 08/18 - stable, pt completes were treatment course for pneumonia today 08/20 - minimally elevated procalcitonin on 08/13 no further treatment needed for pneumonia but on zosyn for probable sacral osteo 09/03 - more haziness over L base, but no increase in WBC continue with zosyn, check procalcitonin in a.m. repeat nasal swab for MRSA consider hospice for patient 09/04 - neg for MRSA 09/05 - no change continue with zosyn, await repeat procalcitonin fevers are improving 3) sacral wound ulcer, likely osteo check ESR, CRP and if very high then would treat as if osteomyelitis if not very high will order bone scan for ultimate healing if this is indeed osteo she will likely need plastic surgery involvement her low albumin suggest she would have poor tissue healing will get wound cx of deeper wound 08/13 - ESR is very high, c/w osteomyelitis wound cx has gnr's and GPC continue with vanco/zosyn at present 08/14 - no MRSA found, d/c vanco and continue with zosyn pt likely has osteo due to high ESR will follow ESR weekly for response unlikely that antibiotics alone will heal the sacral wounds 08/15 - continue with zosyn unlikely that antibiotics alone will heal these sacral wounds 08/17 - pt likely has osteo but unlikely antibiotics will cure this usual treatment course for osteo is 6 weeks of antibiotics unlikely antibiotics alone will be curative repeat ESR and CRP in a.m. 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 repeat ESR and CRP are pending it is unlikely that antibiotics alone will be curative 08/20 - day of zosyn ESR elevated c/w osteomyelitis CRP did improve a bit but antibiotics unlikely to be curative recommend weekly esr, crp and if not improving then would d/c antibiotics 08/27 - Day of zosyn CRP has come down slowly, ESR has actually increased but sometimes the ESR is delayed in improvement Nonetheless it has almost doubled If surgical debridement it to be done then pt will need deep surgical cultures sent to verify that no resistant organisms are being missed continue with zosyn at present pt will likely need a muscle flap if cure of osteomyelitis is the goal and it would be helpful to get bone biopsy and culture with deep tissue culture prior to that to help guide if any change in antibiotics is needed 08/29 - no new recommendations if surgery is done, please get deep surgical wound cx and if possible bone cx/ biopsy continue with zosyn (day ) 09/01 - day of zosyn still awaiting family decision regarding debridement and flap if debridement is done please get deep surgical wound cx and ideally bone bx/cx crp continues to improve, ESR is pending 09/03 - ESR was minimally improved family agrees to debridement but now in ICU due to hypotension 09/04 - stable, off levophed continue with zosyn 4) severe dementia 5) candiduria 09/05 no pyuria but has hematuria, doubt this is significant, no need to treat Problems: Consultation Date/Type/Reason Admit Date/Time August 11, 2016 at 19:00 Initial Consult Date 08/12/16 Type of Consultation: ID [id number] HR Interval Summary Subjective hx not possible: pt non-verbal Exam/Review of Systems Vital Signs Vitals Vital Signs Date Time Temp Pulse Resp B/P Pulse Ox O2 Delivery O2 Flow Rate FiO2 09/05/16 10:00 115 26 96/57 96 Nasal Cannula 2.0 09/05/16 08:00 98.5 09/05/16 01:58 27 Intake and Output 09/04/16 09/04/16 09/05/16 15:00 23:00 07:00 Intake Total 1131.87 ml 1390 ml 1180 ml Output Total 320 ml 370 ml 510 ml Balance 811.87 ml 1020 ml 670 ml Exam no change Results Result Diagram: 09/05/16 0415 09/05/16 0415 Results 24 hrs Laboratory Tests Test 09/05/16 04:15 White Blood Count 13.4 #H Red Blood Count 2.79 L Hemoglobin 8.4 L Hematocrit 27.9 L Mean Corpuscular Volume 100.0 Mean Corpuscular Hemoglobin 30.1 Mean Corpuscular Hemoglobin Concent 30.1 L Red Cell Distribution Width 18.6 H Platelet Count 432 H Mean Platelet Volume 9.5 Neutrophils % 84.8 H Lymphocytes % 6.3 L Monocytes % 5.1 Eosinophils % 1.3 Basophils % 0.1 Nucleated Red Blood Cells % 0.0 Neutrophils # 11.4 H Lymphocytes # 0.8 Monocytes # 0.7 Eosinophils # 0.2 Basophils # 0.0 Nucleated Red Blood Cells # 0.0 Sodium Level 141 Potassium Level 4.0 Chloride Level 102 Carbon Dioxide Level 27 Anion Gap 16 # Blood Urea Nitrogen 19 Creatinine 0.61 Glucose Level 163 Calcium Level 7.8 L Medications Medications Current Medications Acetaminophen (Tylenol Tab) 325 mg Q4H PRN GTB PAIN AND FEVER Last administered on 09/03/16 20:39; Admin Dose 325 MG; Start 08/11/16 at 20:00 Morphine Sulfate (morphine) 1 mg Q4H PRN IV PAIN LEVEL 6-10 Last administered on 09/02/16 23:42; Admin Dose 1 MG; Start 08/11/16 at 20:00 Ondansetron HCl (Zofran Inj) 4 mg Q6H PRN IV NAUSEA AND/OR VOMITING; Start 08/12 at 10:00 Acetaminophen 650 mg 650 mg Q6H PRN [place] PAIN LEVEL 1-3 OR FEVER; Start 08/12/16 at 10:00 Piperacillin Sod/ Tazobactam Sod (Zosyn 2.25gm/ 50ml (Pmx)) 50 ml @ 100 mls/hr Q6 IVPB Last administered on 09/05/16 06:18; Admin Dose 100 MLS/HR; Start 08/14 at 12:00 Collagenase (Santyl) 1 applic DAILY TOP Last administered on 09/05/16 09:14; Admin Dose 1 APPLIC; Start 08/18/16 at 12:00 Enoxaparin Sodium (Lovenox) 40 mg DAILY SC Last administered on 09/05/16 09:15 ; Admin Dose 40 MG; Start 08/18/16 at 17:30 Ascorbic Acid (Vitamin C) 1,000 mg DAILY GTB Last administered on 09/05/16 09: 14; Admin Dose 1,000 MG; Start 08/28/16 at 11:30 Zinc Sulfate (Zinc Sulfate) 220 mg BID GTB Last administered on 09/05/16 09:13 ; Admin Dose 220 MG; Start 08/28/16 at 21:00 Ferrous Sulfate (Feosol Liquid Cup) 300 mg BID GTB Last administered on 09:14; Admin Dose 300 MG; Start 08/29/16 at 21:00 Lorazepam (Ativan) 0.5 mg BID PO Last administered on 09/05/16 09:13; Admin Dose 0.5 MG; Start 08/30/16 at 21:00 Midodrine (Proamatine) 10 mg TID@,,17 NGT Last administered on 09/05/16 09 :13; Admin Dose 10 MG; Start 09/02/16 at 09:00 Pantoprazole 40 mg 40 mg DAILY@06 IV Last administered on 09/05/16 06:18; Admin Dose 40 MG; Start 09/02/16 at 06:00 Norepinephrine 16 mg/Dextrose 500 ml @ 1.87 mls/hr TITRATE IV Last administered on 09/03/16 21:50; Admin Dose 3.75 MLS/HR; Start 09/02/16 at 02:30 Sodium Chloride (1/2 NS) 1,000 ml @ 50 mls/hr Q20H IV Last administered on 07:19; Admin Dose 50 MLS/HR; Start 09/03/16 at 16:57 ERNIE MILLER MD September 05, 2016 11:55
--- NOTE | 2016-09-05 14:19 | PN ---
Date/Time of Note Date/Time of Note DATE: 09/05/16 TIME: 14:17 Assessment/Plan Lines/Catheters IV Catheter Type (from [facility]): PICC Line Hillman in Place (from [facility]): Yes Assessment/Plan Chief Complaint/Hosp Course 1. 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 -offloading, -local wound care, -nutritional optimization, -vitamin C 1000 mg a day -zinc sulfate 220 mg p.o. b.i.d. x2 weeks. -debridement cleared by family > will hold off till medically stable 2. Deep tissue injury, left shoulder and other decubitus areas. Continue as above. 3. Anemia without evidence of acute blood loss. Continue monitoring. 4. Functional quadriplegia. Continue offloading with q.2 hour position change and air mattress and nutrition optimization. 5. End-stage dementia and Alzheimer's. Continue medical optimization. 6. Tachyarrhythmia of unknown etiology. Will defer to medical team for further workup and treatment. 7. Dysphagia, on tube feeds. 8. Hypoalbuminemia. Continue nutritional optimization. 9. Hematuria Thank you Problems: Subjective 24 Hr Interval Summary Hypotensive. Leukocytosis. No f/c. No vomiting. No cough. No sz. No bloating. Tachyarrhythmias. Hg stable. No rashes. Exam/Review of Systems Vital Signs Vitals Vital Signs Date Time Temp Pulse Resp B/P Pulse Ox O2 Delivery O2 Flow Rate FiO2 09/05/16 12:00 99 09/05/16 10:00 26 96/57 96 Nasal Cannula 2.0 09/05/16 08:00 98.5 09/05/16 01:58 27 Intake and Output 09/04/16 09/04/16 09/05/16 15:00 23:00 07:00 Intake Total 1131.87 ml 1390 ml 1180 ml Output Total 320 ml 370 ml 510 ml Balance 811.87 ml 1020 ml 670 ml Exam Free Text/Dictation GENERAL: Noncommunicative, contracted state. HEENT: Pupils are sluggish. No scleral icterus. Mucous membranes are moist. NECK: No crepitus with baseline rigidity. PULMONARY: Normal respiratory effort. No wheezing. HEART: S1, S2 and irregular. ABDOMEN: Soft. PEG in place. EXTREMITIES: Contracted without edema. VASCULAR: Capillary refill is over 3 seconds. NEUROLOGIC: Does not follow commands, however opens eyes. SKIN: No rashes. No jaundice. Multiple areas of bruising. Multiple decubitus wounds, especially sacrococcyx and left buttock with debris. Left shoulder deep tissue injury. LYMPHATICS: No inguinal or cervical lymphadenopathy. Results Result Diagram: 09/05/16 0415 09/05/16 0415 JAS VILLAGRAN MD September 05, 2016 14:19
[2016-09-05] MEDS ORDERED: VANCOMYCIN IV PER PHARMACY XX SCH (14:30)
--- NOTE | 2016-09-05 14:55 | CONS ---
Date/Time of Note Date/Time of Note DATE: 09/05/16 TIME: 14:42 Assessment/Plan Assessment/Plan Additional Assessment/Plan Sepsis Tachycardia with intermittent hypotension Preserved ejection fraction Decubiti Possible pneumonia Dementia - On review of telemetry, patient with sinus rhythm with episodes of sinus tachycardia and frequent PACs. Brief episodes of paroxysmal SVT seen on telemetry strips in the chart on September 03 but infrequent and self terminating. Patient with multiple etiologies likely contributing to patient's tachycardia including sepsis, osteomyelitis, possible pneumonia, pain as well as recent fevers. Would maintain potassium above 4.0 and magnesium above 2.0. Would continue treatment of patient's multiple medical conditions. Consultation Date/Type/Reason Admit Date/Time August 11, 2016 at 19:00 Type of Consultation: cv Reason for Consultation Tachycardia Hx of Present Illness This is an 80-year-old female with past medical history of dementia, decubiti who was initially admitted secondary to increased drainage from decubiti. Patient with sepsis requiring IV pressors and possible pneumonia and concern for osteomyelitis and region of decubiti. Patient with recurrent episodes of tachycardia and for this reason cardiology consultation was requested. Patient unable to give history and information obtained from medical chart and from the nursing staff. Patient has been off pressors. Yesterday, patient with intermittent elevated temperatures. Unable to be performed at the current time given patient's mental status Constitutional: no complaints ENT: no complaints Gastrointestinal: diarrhea Neurologic: confusion Past Medical History Dementia Decubiti Past Surgical History PEG placement Family History Significant Family History: no pertinent family hx Social History Alcohol Use: none Smoking Status: Never smoker Other Social History Living at home Exam/Review of Systems Vital Signs Vitals Vital Signs Date Time Temp Pulse Resp B/P Pulse Ox O2 Delivery O2 Flow Rate FiO2 09/05/16 12:00 99 09/05/16 10:00 26 96/57 96 Nasal Cannula 2.0 09/05/16 08:00 98.5 09/05/16 01:58 27 Intake and Output 09/04/16 09/04/16 09/05/16 15:00 23:00 07:00 Intake Total 1131.87 ml 1390 ml 1180 ml Output Total 320 ml 370 ml 510 ml Balance 811.87 ml 1020 ml 670 ml Exam Patient moaning at times, not following commands Constitutional: frail Head: normocephalic Respiratory: other (Coarse breath sounds bilaterally, no wheezing) Cardiovascular: other (S1-S2 heard), regular rate and rhythm Gastrointestinal: bowel sounds, other (Occasional grimacing with abdominal palpation, no guarding), soft Genitourinary - Female: other (Hillman catheter with hematuria) Extremities: edema Results Result Diagram: 09/05/16 0415 09/05/165 Results 24 hrs Laboratory Tests Test 09/05/16 04:15 White Blood Count 13.4 #H Red Blood Count 2.79 L Hemoglobin 8.4 L Hematocrit 27.9 L Mean Corpuscular Volume 100.0 Mean Corpuscular Hemoglobin 30.1 Mean Corpuscular Hemoglobin Concent 30.1 L Red Cell Distribution Width 18.6 H Platelet Count 432 H Mean Platelet Volume 9.5 Neutrophils % 84.8 H Lymphocytes % 6.3 L Monocytes % 5.1 Eosinophils % 1.3 Basophils % 0.1 Nucleated Red Blood Cells % 0.0 Neutrophils # 11.4 H Lymphocytes # 0.8 Monocytes # 0.7 Eosinophils # 0.2 Basophils # 0.0 Nucleated Red Blood Cells # 0.0 Sodium Level 141 Potassium Level 4.0 Chloride Level 102 Carbon Dioxide Level 27 Anion Gap 16 # Blood Urea Nitrogen 19 Creatinine 0.61 Glucose Level 163 Calcium Level 7.8 L Medications Medications Current Medications Acetaminophen (Tylenol Tab) 325 mg Q4H PRN GTB PAIN AND FEVER Last administered on 09/03/16 20:39; Admin Dose 325 MG; Start 08/11/16 at 20:00 Morphine Sulfate (morphine) 1 mg Q4H PRN IV PAIN LEVEL 6-10 Last administered on 09/02/16 23:42; Admin Dose 1 MG; Start 08/11/16 at 20:00 Ondansetron HCl (Zofran Inj) 4 mg Q6H PRN IV NAUSEA AND/OR VOMITING; Start 08/12 at 10:00 Acetaminophen 650 mg 650 mg Q6H PRN [place] PAIN LEVEL 1-3 OR FEVER; Start 08/12/16 at 10:00 Piperacillin Sod/ Tazobactam Sod (Zosyn 2.25gm/ 50ml (Pmx)) 50 ml @ 100 mls/hr Q6 IVPB Last administered on 09/05/16 13:10; Admin Dose 100 MLS/HR; Start 08/14 at 12:00 Collagenase (Santyl) 1 applic DAILY TOP Last administered on 09/05/16 09:14; Admin Dose 1 APPLIC; Start 08/18/16 at 12:00 Enoxaparin Sodium (Lovenox) 40 mg DAILY SC Last administered on 09/05/16 09:15 ; Admin Dose 40 MG; Start 08/18/16 at 17:30 Ascorbic Acid (Vitamin C) 1,000 mg DAILY GTB Last administered on 09/05/16 09: 14; Admin Dose 1,000 MG; Start 08/28/16 at 11:30 Zinc Sulfate (Zinc Sulfate) 220 mg BID GTB Last administered on 09/05/16 09:13 ; Admin Dose 220 MG; Start 08/28/16 at 21:00 Ferrous Sulfate (Feosol Liquid Cup) 300 mg BID GTB Last administered on 09:14; Admin Dose 300 MG; Start 08/29/16 at 21:00 Midodrine (Proamatine) 10 mg TID@,,17 NGT Last administered on 09/05/16 13 :10; Admin Dose 10 MG; Start 09/02/16 at 09:00 Pantoprazole 40 mg 40 mg DAILY@06 IV Last administered on 09/05/16 06:18; Admin Dose 40 MG; Start 09/02/16 at 06:00 Norepinephrine 16 mg/Dextrose 500 ml @ 1.87 mls/hr TITRATE IV Last administered on 09/03/16 21:50; Admin Dose 3.75 MLS/HR; Start 09/02/16 at 02:30 Sodium Chloride 1,000 ml @ 50 mls/hr Q20H IV Last administered on 09/05/16 07 :19; Admin Dose 50 MLS/HR; Start 09/03/16 at 16:57 Fluconazole/ Sodium Chloride 50 ml @ 50 mls/hr Q24H IVPB ; Start 09/05/16 at 16: 00 Vancomycin HCl (Vancocin) 250 ml @ 125 mls/hr NOW ONCE IVPB ; Start 09/05/16 at 15:00; Stop 09/05/16 at 16:59 Procedures Procedures ECG performed on August 11, 2016 with sinus rhythm at 91 bpm, QRS 64 ms, nonspecific T-wave abnormalities Rachid Mcmahon DO September 05, 2016 14:52
[2016-09-05] MEDS ORDERED: VANCOMYCIN 1 GM in NS 250 ML IVPB ONE (15:00)
--- NOTE | 2016-09-05 15:11 | PN ---
DATE: 09/05/2016 SUBJECTIVE: The patient is minimally responsive to touch , eyes closed, making small noises. OBJECTIVE: VITAL SIGNS: Temperature 98.5, blood pressure systolic ranges from 84 to 96, diastolic ranges from 52 to 57, heart rate ranges from 115 to 121, O2 saturation 95% to 96% on 2 liters nasal cannula. HEENT: Oropharynx dry. CHEST: Lungs are clear to auscultation. CARDIAC: Tachycardic, regular rhythm. ABDOMEN: Nondistended, nontender. EXTREMITIES: Severe contractures of lower extremities and marked contractures of the upper extremities. LABORATORY DATA: WBC 13.4, hemoglobin 8.4, hematocrit 27.9, platelet count 432, 000. Sodium 141, potassium 4.0, BUN 19, creatinine 0.61, glucose 163. Urinalysis from 09/03/2016 did show 1+ leukocyte esterase with greater than 200 RBC and the urine culture shows greater than 100,000 colonies of Lauren albicans. The patient's chest x-ray from 09/03/2016 also shows no acute infiltrate with a small left pleural effusion. ASSESSMENT AND PLAN: 1. Hypotension, new onset, with also new onset leukocytosis. We will assume new infection. The patient is currently on Zosyn. I will add back vancomycin that she was on when she first came into the hospital. I will also start fluconazole to cover for the Lauren cystitis with hematuria. Continue to monitor the patient in the ICU until hypotension improves. The patient is now off Levophed, on midodrine. 2. Tachycardia. This came on a few weeks ago after vancomycin was discontinued. She actually had a normal heart rate for the first week or two of her hospitalization. It is possible that the Zosyn is not covering for her underlying osteomyelitis. We will consult regional operations manager to see if there are other causes of her tachycardia and hypotension. 3. Osteomyelitis leading to sepsis. The patient undergoing 6-week course of IV antibiotic with Zosyn. 4. Dementia has been ongoing for more than 10 years. No change from baseline according to family. 5. Code status discussed with the patient's daughter and son and they confirmed that as of now she is DNR with CHEMICAL CODE ONLY, and they will reevaluate the need for chemical code with a family discussion and will let us know if anything changes. Dictated By: TAMICA DENTON MD DP/NTS Conf#: [id number] DID#: [id number]
[2016-09-05] MEDS: FLUCONAZOLE 100 MG/NS (PMX) 50 ML IVPB SCH (16:25)
[2016-09-06] VITALS (24 sets, daily range): BP systolic 77–117; BP diastolic 46–73; PULSE 89–117; RESP 8–33
[2016-09-06] MEDS: PIPER-TAZO 2.25 GM (PMX) 50 ML IVPB SCH ×4 (00:16→17:01)
[2016-09-06] MEDS: ACETAMINOPHEN 325 MG TAB GTB PRN (01:05)
[2016-09-06] MEDS: LEVALBUTEROL (NEB) 0.63 MG/3 ML AMP HHN SCH ×4 (01:50→19:49)
[2016-09-06 04:44] LABS: ADD SCAN DIFF NO
[2016-09-06 04:47] LABS: BASOPHILS % 0.2 % (0.0-2.0); EOSINOPHILS # 0.2 10^3/ul (0.0-0.5); EOSINOPHILS % 2.4 % (0.0-7.0); HEMATOCRIT 25.5 % (37.0-47.0); LYMPHOCYTES # 0.8 10^3/ul (0.8-2.9); LYMPHOCYTES % 8.1 % (15.0-51.0); MEAN CORPUSCULAR HEMOGLOBIN 31.4 pg (29.0-33.0); MEAN CORPUSCULAR HGB CONC 31.4 g/dl (32.0-37.0); MEAN PLATELET VOLUME 10.1 fl (7.4-10.4); MONOCYTE # 0.7 10^3/ul (0.3-0.9); MONOCYTES % 7.1 % (0.0-11.0); NEUTROPHIL # 7.5 10^3/ul (1.6-7.5); NEUTROPHILS % 80.4 % (39.0-77.0); NUCLEATED RED BLOOD CELLS% 0.2 /100WBC (0.0-0.0); PLATELET COUNT 474 10^3/UL (140-415); RED BLOOD COUNT 2.55 10^6/ul (4.20-5.40); RED CELL DISTRIBUTION WIDTH 18.4 % (11.5-14.5); WHITE BLOOD COUNT 9.4 10^3/ul (4.8-10.8)
[2016-09-06] MEDS: SOD CHLORIDE 0.45% 1,000 ML IV SCH (05:18)
[2016-09-06 05:21] LABS: POTASSIUM 3.4 mmol/L (3.5-5.1)
[2016-09-06 05:23] LABS: CREATININE 0.68 mg/dl (0.44-1.00)
[2016-09-06 05:24] LABS: CALCIUM 7.6 mg/dl (8.4-10.2)
[2016-09-06] MEDS: FUROSEMIDE 20 MG INJ IV SCH ×3 (05:43→17:01)
[2016-09-06] MEDS: PANTOPRAZOLE 40 MG INJ IV SCH (05:43)
[2016-09-06] MEDS: FERROUS SULFATE 60 MG/ML 5ML CUP GTB SCH ×2 (08:39→21:12)
[2016-09-06] MEDS: MIDODRINE 5 MG TAB NGT SCH ×3 (08:39→16:58)
[2016-09-06] MEDS: ZINC SULFATE 220 MG CAP GTB SCH ×2 (08:39→21:12)
[2016-09-06] MEDS: ASCORBIC ACID 500 MG TAB GTB SCH (08:39)
[2016-09-06] MEDS: COLLAGENASE 30 GM TUBE TOP SCH (08:40)
[2016-09-06] MEDS: ENOXAPARIN 40 MG/0.4 ML SYG SC SCH (08:42)
--- NOTE | 2016-09-06 11:20 | CONS ---
Date/Time of Note Date/Time of Note DATE: 09/06/16 TIME: 11:18 Consult Date/Type/Reason Admit Date/Time August 11, 2016 at 19:00 Initial Consult Date 08/19/16 Type of Consultation: Pulm Subjective BP still low/on/off pressors. Objective Vital Signs Date Time Temp Pulse Resp B/P Pulse Ox O2 Delivery O2 Flow Rate FiO2 09/06/16 08:00 Nasal Cannula 2.0 09/06/16 08:00 98.5 97 27 77/46 97 09/05/16 01:58 27 Intake and Output 09/05/16 09/05/16 09/06/16 15:00 23:00 07:00 Intake Total 1505 ml 1410 ml 1070 ml Output Total 800 ml 850 ml 690 ml Balance 705 ml 560 ml 380 ml Exam HEENT: Pupils equal, round, and reactive to light. CARDIAC: S1, S2, 1/6 systolic ejection murmur CHEST: Diminished air entry bilaterally. ABDOMEN: Mildly distended. Bowel sounds present no guarding or rebound EXTREMITIES: No cyanosis, clubbing edema +2 Results/Medications Result Diagram: 09/06/16 0330 09/06/16 0330 Results 24 hrs Laboratory Tests Test 09/06/16 03:30 White Blood Count 9.4 # Red Blood Count 2.55 L Hemoglobin 8.0 L Hematocrit 25.5 L Mean Corpuscular Volume 100.0 Mean Corpuscular Hemoglobin 31.4 Mean Corpuscular Hemoglobin Concent 31.4 L Red Cell Distribution Width 18.4 H Platelet Count 474 H Mean Platelet Volume 10.1 Neutrophils % 80.4 H Lymphocytes % 8.1 L Monocytes % 7.1 Eosinophils % 2.4 Basophils % 0.2 Nucleated Red Blood Cells % 0.2 H Neutrophils # 7.5 Lymphocytes # 0.8 Monocytes # 0.7 Eosinophils # 0.2 Basophils # 0.0 Nucleated Red Blood Cells # 0.0 Sodium Level 135 Potassium Level 3.4 L Chloride Level 97 Carbon Dioxide Level 27 Anion Gap 14 Blood Urea Nitrogen 20 Creatinine 0.68 Glucose Level 122 # Calcium Level 7.6 L Medications Current Medications Acetaminophen (Tylenol Tab) 325 mg Q4H PRN GTB PAIN AND FEVER Last administered on 09/06/16t 01:05; Admin Dose 325 MG; Start 08/11/16 at 20:00 Morphine Sulfate (morphine) 1 mg Q4H PRN IV PAIN LEVEL 6-10 Last administered on 09/02/16 23:42; Admin Dose 1 MG; Start 08/11/16 at 20:00 Ondansetron HCl (Zofran Inj) 4 mg Q6H PRN IV NAUSEA AND/OR VOMITING; Start 08/12 at 10:00 Acetaminophen 650 mg 650 mg Q6H PRN [place] PAIN LEVEL 1-3 OR FEVER; Start 08/12/16 at 10:00 Piperacillin Sod/ Tazobactam Sod (Zosyn 2.25gm/ 50ml (Pmx)) 50 ml @ 100 mls/hr Q6 IVPB Last administered on 09/06/16 05:43; Admin Dose 100 MLS/HR; Start 08/14 at 12:00 Collagenase (Santyl) 1 applic DAILY TOP Last administered on 09/06/16 08:40; Admin Dose 1 APPLIC; Start 08/18/16 at 12:00 Enoxaparin Sodium (Lovenox) 40 mg DAILY SC Last administered on 09/05/16 09:15 ; Admin Dose 40 MG; Start 08/18/16 at 17:30 Ascorbic Acid (Vitamin C) 1,000 mg DAILY GTB Last administered on 09/06/16 08: 39; Admin Dose 1,000 MG; Start 08/28/16 at 11:30 Zinc Sulfate (Zinc Sulfate) 220 mg BID GTB Last administered on 09/06/16 08:39 ; Admin Dose 220 MG; Start 08/28/16 at 21:00 Ferrous Sulfate (Feosol Liquid Cup) 300 mg BID GTB Last administered on 08:39; Admin Dose 300 MG; Start 08/29/16 at 21:00 Midodrine (Proamatine) 10 mg TID@,13,17 NGT Last administered on 09/06/16 08 :39; Admin Dose 10 MG; Start 09/02/16 at 09:00 Pantoprazole 40 mg 40 mg DAILY@06 IV Last administered on 09/06/16 05:43; Admin Dose 40 MG; Start 09/02/16 at 06:00 Norepinephrine 16 mg/Dextrose 500 ml @ 1.87 mls/hr TITRATE IV Last administered on 09/03/16 21:50; Admin Dose 3.75 MLS/HR; Start 09/02/16 at 02:30 Sodium Chloride 1,000 ml @ 50 mls/hr Q20H IV Last administered on 09/06/16 05 :18; Admin Dose 50 MLS/HR; Start 09/03/16 at 16:57 Fluconazole/ Sodium Chloride 50 ml @ 50 mls/hr Q24H IVPB Last administered on 16:25; Admin Dose 50 MLS/HR; Start 09/05/16 at 16:00 Vancomycin HCl (Vancocin) 100 ml @ 100 mls/hr Q24H IVPB ; Start 09/06/16 at 16: 00 Assessment/Plan Additional Assessment/Plan IMP: 1. Healthcare associated pneumonia with hypoxemic respiratory failure 2. Probable aspiration pneumonia 3. Dementia 4. Multiple decubitus ulcers with polymicrobial sepsis and resolving septic shock 5. Anemia RECS: 1. Continue antibiotics per ID 2. Pulmonary toilet/BD's 3. Tube feeding free water flushes 4. Aspiration precautions. VINITA LUNA MD September 06, 2016 11:20
--- NOTE | 2016-09-06 11:27 | PN ---
Date/Time of Note Date/Time of Note DATE: 09/06/16 TIME: 11:26 Assessment/Plan VTE Prophylaxis VTE Prophylaxis Intervention: other Lines/Catheters IV Catheter Type (from [facility]): PICC Line Central line still needed: Yes Urinary Cath still in place: Yes Reason Cath still needed: skin wounds contaminated by urine Assessment/Plan Chief Complaint/Hosp Course 1. Hypotension, new onset, with also new onset leukocytosis. We will assume new infection. The patient is currently on Zosyn. I will add back vancomycin that she was on when she first came into the hospital. I will also start fluconazole to cover for the Lauren cystitis with hematuria. Continue to monitor the patient in the ICU until hypotension improves. The patient is now off Levophed, on midodrine. 2. Tachycardia. This came on a few weeks ago after vancomycin was discontinued. She actually had a normal heart rate for the first week or two of her hospitalization. It is possible that the Zosyn is not covering for her underlying osteomyelitis. We will consult manager research to see if there are other causes of her tachycardia and hypotension. 3. Osteomyelitis leading to sepsis. The patient undergoing 6-week course of IV antibiotic with Zosyn. 4. Dementia has been ongoing for more than 10 years. No change from baseline according to family. 5. Code status discussed with the patient's daughter and son and they confirmed that as of now she is DNR with CHEMICAL CODE ONLY, and they will reevaluate the need for chemical code with a family discussion and will let us know if anything changes. Problems: Subjective 24 Hr Interval Summary Free Text/Dictation Patient is resting, not responsive to verbal stimuli Exam/Review of Systems Vital Signs Vitals Vital Signs Date Time Temp Pulse Resp B/P Pulse Ox O2 Delivery O2 Flow Rate FiO2 09/06/16 08:00 Nasal Cannula 2.0 09/06/16 08:00 98.5 97 27 77/46 97 09/05/16 01:58 27 Intake and Output 09/05/16 09/05/16 09/06/16 15:00 23:00 07:00 Intake Total 1505 ml 1410 ml 1070 ml Output Total 800 ml 850 ml 690 ml Balance 705 ml 560 ml 380 ml Exam Constitutional: well developed Head: atraumatic, normocephalic Neck: supple Respiratory: diminished breath sounds Cardiovascular: regular rate and rhythm Gastrointestinal: non-tender, soft Results Result Diagram: 09/06/16 0330 09/06/16 0330 Results 24 hrs Laboratory Tests Test 09/06/16 03:30 White Blood Count 9.4 # Red Blood Count 2.55 L Hemoglobin 8.0 L Hematocrit 25.5 L Mean Corpuscular Volume 100.0 Mean Corpuscular Hemoglobin 31.4 Mean Corpuscular Hemoglobin Concent 31.4 L Red Cell Distribution Width 18.4 H Platelet Count 474 H Mean Platelet Volume 10.1 Neutrophils % 80.4 H Lymphocytes % 8.1 L Monocytes % 7.1 Eosinophils % 2.4 Basophils % 0.2 Nucleated Red Blood Cells % 0.2 H Neutrophils # 7.5 Lymphocytes # 0.8 Monocytes # 0.7 Eosinophils # 0.2 Basophils # 0.0 Nucleated Red Blood Cells # 0.0 Sodium Level 135 Potassium Level 3.4 L Chloride Level 97 Carbon Dioxide Level 27 Anion Gap 14 Blood Urea Nitrogen 20 Creatinine 0.68 Glucose Level 122 # Calcium Level 7.6 L Medications Medications Current Medications Acetaminophen (Tylenol Tab) 325 mg Q4H PRN GTB PAIN AND FEVER Last administered on 09/06/16 01:05; Admin Dose 325 MG; Start 08/11/16 at 20:00 Morphine Sulfate (morphine) 1 mg Q4H PRN IV PAIN LEVEL 6-10 Last administered on 09/02/16 23:42; Admin Dose 1 MG; Start 08/11/16 at 20:00 Ondansetron HCl (Zofran Inj) 4 mg Q6H PRN IV NAUSEA AND/OR VOMITING; Start 08/12 at 10:00 Acetaminophen 650 mg 650 mg Q6H PRN [place] PAIN LEVEL 1-3 OR FEVER; Start 08/12/16 at 10:00 Piperacillin Sod/ Tazobactam Sod (Zosyn 2.25gm/ 50ml (Pmx)) 50 ml @ 100 mls/hr Q6 IVPB Last administered on 09/06/16 05:43; Admin Dose 100 MLS/HR; Start 08/14 at 12:00 Collagenase (Santyl) 1 applic DAILY TOP Last administered on 09/06/16 08:40; Admin Dose 1 APPLIC; Start 08/18/16 at 12:00 Enoxaparin Sodium (Lovenox) 40 mg DAILY SC Last administered on 09/05/16 09:15 ; Admin Dose 40 MG; Start 08/18/16 at 17:30 Ascorbic Acid (Vitamin C) 1,000 mg DAILY GTB Last administered on 09/06/16 08: 39; Admin Dose 1,000 MG; Start 08/28/16 at 11:30 Zinc Sulfate (Zinc Sulfate) 220 mg BID GTB Last administered on 09/06/16 08:39 ; Admin Dose 220 MG; Start 08/28/16 at 21:00 Ferrous Sulfate (Feosol Liquid Cup) 300 mg BID GTB Last administered on 08:39; Admin Dose 300 MG; Start 08/29/16 at 21:00 Midodrine (Proamatine) 10 mg TID@,,17 NGT Last administered on 09/06/16 08 :39; Admin Dose 10 MG; Start 09/02/16 at 09:00 Pantoprazole 40 mg 40 mg DAILY@06 IV Last administered on 09/06/16 05:43; Admin Dose 40 MG; Start 09/02/16 at 06:00 Norepinephrine 16 mg/Dextrose 500 ml @ 1.87 mls/hr TITRATE IV Last administered on 09/03/16 21:50; Admin Dose 3.75 MLS/HR; Start 09/02/16 at 02:30 Sodium Chloride 1,000 ml @ 50 mls/hr Q20H IV Last administered on 09/06/16 05 :18; Admin Dose 50 MLS/HR; Start 09/03/16 at 16:57 Fluconazole/ Sodium Chloride 50 ml @ 50 mls/hr Q24H IVPB Last administered on 16:25; Admin Dose 50 MLS/HR; Start 09/05/16 at 16:00 Vancomycin HCl (Vancocin) 100 ml @ 100 mls/hr Q24H IVPB ; Start 09/06/16 at 16: 00 ARIS RODRIGES September 06, 2016 11:27
--- NOTE | 2016-09-06 11:28 | PN ---
Date/Time of Note Date/Time of Note DATE: 09/06/16 TIME: 11:26 Assessment/Plan VTE Prophylaxis VTE Prophylaxis Intervention: SCD's Lines/Catheters IV Catheter Type (from Nrs): PICC Line Central line still needed: No Urinary Cath still in place: Yes Reason Cath still needed: urinary retention Assessment/Plan Assessment/Plan Sepsis Tachycardia with intermittent hypotension Preserved ejection fraction Decubiti Possible pneumonia Dementia - On review of telemetry, patient with sinus rhythm with episodes of sinus tachycardia and frequent PACs. Brief episodes of paroxysmal SVT seen on telemetry strips in the chart on September 03 but infrequent and self terminating. Patient with multiple etiologies likely contributing to patient's tachycardia including sepsis, osteomyelitis, possible pneumonia, pain as well as recent fevers. Would maintain potassium above 4.0 and magnesium above 2.0. Would continue treatment of patient's multiple medical conditions. Subjective 24 Hr Interval Summary Free Text/Dictation The patient with no change Exam/Review of Systems Vital Signs Vitals Vital Signs Date Time Temp Pulse Resp B/P Pulse Ox O2 Delivery O2 Flow Rate FiO2 09/06/16 08:00 Nasal Cannula 2.0 09/06/16 08:00 98.5 97 27 77/46 97 09/05/16 01:58 27 Intake and Output 09/05/16 09/05/16 09/06/16 15:00 23:00 07:00 Intake Total 1505 ml 1410 ml 1070 ml Output Total 800 ml 850 ml 690 ml Balance 705 ml 560 ml 380 ml Results Result Diagram: 09/06/16 0330 09/06/16 0330 Results 24 hrs Laboratory Tests Test 09/06/16 03:30 White Blood Count 9.4 # Red Blood Count 2.55 L Hemoglobin 8.0 L Hematocrit 25.5 L Mean Corpuscular Volume 100.0 Mean Corpuscular Hemoglobin 31.4 Mean Corpuscular Hemoglobin Concent 31.4 L Red Cell Distribution Width 18.4 H Platelet Count 474 H Mean Platelet Volume 10.1 Neutrophils % 80.4 H Lymphocytes % 8.1 L Monocytes % 7.1 Eosinophils % 2.4 Basophils % 0.2 Nucleated Red Blood Cells % 0.2 H Neutrophils # 7.5 Lymphocytes # 0.8 Monocytes # 0.7 Eosinophils # 0.2 Basophils # 0.0 Nucleated Red Blood Cells # 0.0 Sodium Level 135 Potassium Level 3.4 L Chloride Level 97 Carbon Dioxide Level 27 Anion Gap 14 Blood Urea Nitrogen 20 Creatinine 0.68 Glucose Level 122 # Calcium Level 7.6 L Medications Medications Current Medications Acetaminophen (Tylenol Tab) 325 mg Q4H PRN GTB PAIN AND FEVER Last administered on 09/06/16 01:05; Admin Dose 325 MG; Start 08/11/16 at 20:00 Morphine Sulfate (morphine) 1 mg Q4H PRN IV PAIN LEVEL 6-10 Last administered on 09/02/16 23:42; Admin Dose 1 MG; Start 08/11/16 at 20:00 Ondansetron HCl (Zofran Inj) 4 mg Q6H PRN IV NAUSEA AND/OR VOMITING; Start 08/12 at 10:00 Acetaminophen 650 mg 650 mg Q6H PRN [place] PAIN LEVEL 1-3 OR FEVER; Start 08/12/16 at 10:00 Piperacillin Sod/ Tazobactam Sod (Zosyn 2.25gm/ 50ml (Pmx)) 50 ml @ 100 mls/hr Q6 IVPB Last administered on 09/06/16 05:43; Admin Dose 100 MLS/HR; Start 08/14 at 12:00 Collagenase (Santyl) 1 applic DAILY TOP Last administered on 09/06/16 08:40; Admin Dose 1 APPLIC; Start 08/18/16 at 12:00 Enoxaparin Sodium (Lovenox) 40 mg DAILY SC Last administered on 09/05/16 09:15 ; Admin Dose 40 MG; Start 08/18/16 at 17:30 Ascorbic Acid (Vitamin C) 1,000 mg DAILY GTB Last administered on 09/06/16 08: 39; Admin Dose 1,000 MG; Start 08/28/16 at 11:30 Zinc Sulfate (Zinc Sulfate) 220 mg BID GTB Last administered on 09/06/16 08:39 ; Admin Dose 220 MG; Start 08/28/16 at 21:00 Ferrous Sulfate (Feosol Liquid Cup) 300 mg BID GTB Last administered on 08:39; Admin Dose 300 MG; Start 08/29/16 at 21:00 Midodrine (Proamatine) 10 mg TID@,,17 NGT Last administered on 09/06/16 08 :39; Admin Dose 10 MG; Start 09/02/16 at 09:00 Pantoprazole 40 mg 40 mg DAILY@06 IV Last administered on 09/06/16 05:43; Admin Dose 40 MG; Start 09/02/16 at 06:00 Norepinephrine 16 mg/Dextrose 500 ml @ 1.87 mls/hr TITRATE IV Last administered on 09/03/16 21:50; Admin Dose 3.75 MLS/HR; Start 09/02/16 at 02:30 Sodium Chloride 1,000 ml @ 50 mls/hr Q20H IV Last administered on 09/06/16 05 :18; Admin Dose 50 MLS/HR; Start 09/03/16 at 16:57 Fluconazole/ Sodium Chloride 50 ml @ 50 mls/hr Q24H IVPB Last administered on 16:25; Admin Dose 50 MLS/HR; Start 09/05/16 at 16:00 Vancomycin HCl (Vancocin) 100 ml @ 100 mls/hr Q24H IVPB ; Start 09/06/16 at 16: 00 CHRISTIE TUCKER MD September 06, 2016 11:28
[2016-09-06] MEDS: VANCOMYCIN 500MG/NS (PMX) 100 ML IVPB SCH (15:49)
[2016-09-06] MEDS: FLUCONAZOLE 100 MG/NS (PMX) 50 ML IVPB SCH (15:50)
[2016-09-06 18:59] LABS: ADD UMIC YES; URINE BILIRUBIN (Dip) NEGATIVE (NEGATIVE); URINE BLOOD (Dip) 3+ (NEGATIVE); URINE GLUCOSE (Dip) NEGATIVE (NEGATIVE); URINE KETONES (Dip) NEGATIVE (NEGATIVE); URINE LEUKOCYTE ESTERASE (Dip) 2+ (NEGATIVE); URINE NITRITE (Dip) NEGATIVE (NEGATIVE); URINE TOTAL PROTEIN (Dip) TRACE (NEGATIVE); URINE UROBILINOGEN (Dip) 0.2 E.U./dL (0.1-1.0)
[2016-09-06 19:08] LABS: URINE COLOR RED (YELLOW)
[2016-09-06 19:13] LABS: BACTERIA,URINE FEW; URINE RBCS >200 /HPF (0)
[2016-09-07] VITALS (22 sets, daily range): BP systolic 88–127; BP diastolic 51–73; PULSE 102–114; RESP 17–33
--- NOTE | 2016-09-07 00:01 | PN ---
Date/Time of Note Date/Time of Note DATE: 09/06/16 TIME: 23:59 Assessment/Plan Lines/Catheters IV Catheter Type (from [facility]): PICC Line [place] in Place (from [facility]): Yes Assessment/Plan Chief Complaint/Hosp Course 1. 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 -offloading, -local wound care, -nutritional optimization, -vitamin C 1000 mg a day -debridement cleared by family > will hold off till medically stable 2. Deep tissue injury, left shoulder and other decubitus areas. Continue as above. 3. Anemia without evidence of acute blood loss. Continue monitoring. 4. Functional quadriplegia. Continue offloading with q.2 hour position change and air mattress and nutrition optimization. 5. End-stage dementia and Alzheimer's. Continue medical optimization. 6. Tachyarrhythmia of unknown etiology. Will defer to medical team for further workup and treatment. 7. Dysphagia, on tube feeds. 8. Hypoalbuminemia. Continue nutritional optimization. 9. Hematuria -monitor Thank you Problems: Subjective 24 Hr Interval Summary Hypotensive on pressor. No f/c. No vomiting. No cough. No sz. No bloating. Tachyarrhythmias. Hg stable. No rashes. Exam/Review of Systems Vital Signs Vitals Vital Signs Date Time Temp Pulse Resp B/P Pulse Ox O2 Delivery O2 Flow Rate FiO2 09/06/16 22:00 106 32 117/64 97 Nasal Cannula 2.0 09/06/16 20:00 98.9 09/05/16 01:58 27 Intake and Output 09/05/16 09/05/16 09/06/16 15:00 23:00 07:00 Intake Total 1505 ml 1410 ml 1070 ml Output Total 800 ml 850 ml 690 ml Balance 705 ml 560 ml 380 ml Exam Free Text/Dictation GENERAL: Noncommunicative, contracted state. HEENT: Pupils are sluggish. No scleral icterus. Mucous membranes are moist. NECK: No crepitus with baseline rigidity. PULMONARY: Normal respiratory effort. No wheezing. HEART: S1, S2 and irregular. ABDOMEN: Soft. PEG in place. EXTREMITIES: Contracted without edema. VASCULAR: Capillary refill is over 3 seconds. NEUROLOGIC: Does not follow commands, however opens eyes. SKIN: No rashes. No jaundice. Multiple areas of bruising. Multiple decubitus wounds, especially sacrococcyx and left buttock with debris. Left shoulder deep tissue injury. LYMPHATICS: No inguinal or cervical lymphadenopathy. Results Result Diagram: 09/06/16 0330 09/06/16 0330 JAS VILLAGRAN MD September 07, 2016 00:01
[2016-09-07] MEDS: PIPER-TAZO 2.25 GM (PMX) 50 ML IVPB SCH ×5 (00:21→23:12)
[2016-09-07] MEDS: SOD CHLORIDE 0.45% 1,000 ML IV SCH ×2 (00:57→06:07)
[2016-09-07] MEDS: LEVALBUTEROL (NEB) 0.63 MG/3 ML AMP HHN SCH ×4 (01:30→19:30)
[2016-09-07 05:48] LABS: ADD SCAN DIFF NO
[2016-09-07 05:59] LABS: BASOPHILS % 0.2 % (0.0-2.0); EOSINOPHILS # 0.3 10^3/ul (0.0-0.5); EOSINOPHILS % 3.1 % (0.0-7.0); HEMATOCRIT 26.3 % (37.0-47.0); HEMOGLOBIN 8.3 g/dl (12.0-16.0); LYMPHOCYTES # 0.8 10^3/ul (0.8-2.9); MEAN CORPUSCULAR HEMOGLOBIN 31.6 pg (29.0-33.0); MEAN CORPUSCULAR HGB CONC 31.6 g/dl (32.0-37.0); MEAN PLATELET VOLUME 10.1 fl (7.4-10.4); MONOCYTE # 0.7 10^3/ul (0.3-0.9); MONOCYTES % 7.1 % (0.0-11.0); NEUTROPHIL # 8.3 10^3/ul (1.6-7.5); NEUTROPHILS % 79.5 % (39.0-77.0); PLATELET COUNT 526 10^3/UL (140-415); RED BLOOD COUNT 2.63 10^6/ul (4.20-5.40); RED CELL DISTRIBUTION WIDTH 18.7 % (11.5-14.5); WHITE BLOOD COUNT 10.4 10^3/ul (4.8-10.8)
[2016-09-07] MEDS: FUROSEMIDE 20 MG INJ IV SCH ×2 (06:00→18:08)
[2016-09-07] MEDS: PANTOPRAZOLE 40 MG INJ IV SCH (06:05)
[2016-09-07 06:12] LABS: POTASSIUM 3.5 mmol/L (3.5-5.1)
[2016-09-07 06:14] LABS: CREATININE 0.63 mg/dl (0.44-1.00)
[2016-09-07] MEDS: ENOXAPARIN 40 MG/0.4 ML SYG SC SCH (09:00)
[2016-09-07] MEDS: ZINC SULFATE 220 MG CAP GTB SCH ×2 (09:41→21:09)
[2016-09-07] MEDS: FERROUS SULFATE 60 MG/ML 5ML CUP GTB SCH ×2 (09:41→21:09)
[2016-09-07] MEDS: MIDODRINE 5 MG TAB NGT SCH ×3 (09:42→16:29)
[2016-09-07] MEDS: COLLAGENASE 30 GM TUBE TOP SCH (09:43)
[2016-09-07] MEDS: ASCORBIC ACID 500 MG TAB GTB SCH (09:45)
--- NOTE | 2016-09-07 10:18 | CONS ---
Date/Time of Note Date/Time of Note DATE: 09/07/16 TIME: 10:16 Consult Date/Type/Reason Admit Date/Time August 11, 2016 at 19:00 Initial Consult Date 08/19/16 Type of Consultation: Pulm Subjective No events overnight. Objective Vital Signs Date Time Temp Pulse Resp B/P Pulse Ox O2 Delivery O2 Flow Rate FiO2 09/07/16 08:00 106 09/07/16 07:00 27 96/52 95 Nasal Cannula 2.0 09/07/16 04:00 98.9 09/05/16 01:58 27 Intake and Output 09/06/16 09/06/16 09/07/16 15:00 23:00 07:00 Intake Total 1080 ml 1080 ml 1120 ml Output Total 1380 ml 1685 ml 600 ml Balance -300 ml -605 ml 520 ml Exam HEENT: Pupils equal, round, and reactive to light. CARDIAC: S1, S2, 1/6 systolic ejection murmur CHEST: Diminished air entry bilaterally. ABDOMEN: Mildly distended. Bowel sounds present no guarding or rebound EXTREMITIES: No cyanosis, clubbing edema +2 Results/Medications Result Diagram: 09/07/16 0320 09/07/16 0320 Results 24 hrs Laboratory Tests Test 09/06/16 17:25 09/06/16 17:30 09/07/16 03:20 Urine Color RED Urine Clarity BLOODY Urine pH 7.5 Urine Specific [place] 1.010 Urine Ketones NEGATIVE Urine Nitrite NEGATIVE Urine Bilirubin NEGATIVE Urine Urobilinogen 0.2 E.U./dL Urine Leukocyte Esterase 2+ H Urine Microscopic RBC >200 Urine Microscopic WBC 5-10 Urine Bacteria FEW Urine Yeast FEW Urine Hemoglobin 3+ H Urine Glucose NEGATIVE Urine Total Protein TRACE Stool Occult Blood NEGATIVE White Blood Count 10.4 Red Blood Count 2.63 L Hemoglobin 8.3 L Hematocrit 26.3 L Mean Corpuscular Volume 100.0 Mean Corpuscular Hemoglobin 31.6 Mean Corpuscular Hemoglobin Concent 31.6 L Red Cell Distribution Width 18.7 H Platelet Count 526 H Mean Platelet Volume 10.1 Neutrophils % 79.5 H Lymphocytes % 8.0 L Monocytes % 7.1 Eosinophils % 3.1 Basophils % 0.2 Nucleated Red Blood Cells % 0.0 Neutrophils # 8.3 H Lymphocytes # 0.8 Monocytes # 0.7 Eosinophils # 0.3 Basophils # 0.0 Nucleated Red Blood Cells # 0.0 Sodium Level 137 Potassium Level 3.5 Chloride Level 105 Carbon Dioxide Level 29 Anion Gap 7 L Blood Urea Nitrogen 19 Creatinine 0.63 Glucose Level 134 Calcium Level 8.0 L Medications Current Medications Acetaminophen (Tylenol Tab) 325 mg Q4H PRN GTB PAIN AND FEVER Last administered on 09/06/16 01:05; Admin Dose 325 MG; Start 08/11/16 at 20:00 Morphine Sulfate (morphine) 1 mg Q4H PRN IV PAIN LEVEL 6-10 Last administered on 09/02/16 23:42; Admin Dose 1 MG; Start 08/11/16 at 20:00 Ondansetron HCl (Zofran Inj) 4 mg Q6H PRN IV NAUSEA AND/OR VOMITING; Start 08/12 at 10:00 Acetaminophen 650 mg 650 mg Q6H PRN [place] PAIN LEVEL 1-3 OR FEVER; Start 08/12/16 at 10:00 Piperacillin Sod/ Tazobactam Sod (Zosyn 2.25gm/ 50ml (Pmx)) 50 ml @ 100 mls/hr Q6 IVPB Last administered on 09/07/16 06:06; Admin Dose 100 MLS/HR; Start 08/14 at 12:00 Collagenase (Santyl) 1 applic DAILY TOP Last administered on 09/07/16 09:43; Admin Dose 1 APPLIC; Start 08/18/16 at 12:00 Enoxaparin Sodium (Lovenox) 40 mg DAILY SC Last administered on 09/05/16 09:15 ; Admin Dose 40 MG; Start 08/18/16 at 17:30 Ascorbic Acid (Vitamin C) 1,000 mg DAILY GTB Last administered on 09/06/16 08: 39; Admin Dose 1,000 MG; Start 08/28/16 at 11:30 Zinc Sulfate (Zinc Sulfate) 220 mg BID GTB Last administered on 09/07/16 09:41 ; Admin Dose 220 MG; Start 08/28/16 at 21:00 Ferrous Sulfate (Feosol Liquid Cup) 300 mg BID GTB Last administered on 09:41; Admin Dose 300 MG; Start 08/29/16 at 21:00 Midodrine (Proamatine) 10 mg TID@,, NGT Last administered on 09/07/16 09 :42; Admin Dose 10 MG; Start 09/02/16 at 09:00 Pantoprazole 40 mg 40 mg DAILY@06 IV Last administered on 09/07/16 06:05; Admin Dose 40 MG; Start 09/02/16 at 06:00 Norepinephrine 16 mg/Dextrose 500 ml @ 1.87 mls/hr TITRATE IV Last administered on 09/03/16 21:50; Admin Dose 3.75 MLS/HR; Start 09/02/16 at 02:30 Sodium Chloride 1,000 ml @ 50 mls/hr Q20H IV Last administered on 09/07/16 06 :07; Admin Dose 50 MLS/HR; Start 09/03/16 at 16:57 Fluconazole/ Sodium Chloride 50 ml @ 50 mls/hr Q24H IVPB Last administered on 15:50; Admin Dose 50 MLS/HR; Start 09/05/16 at 16:00 Vancomycin HCl (Vancocin) 100 ml @ 100 mls/hr Q24H IVPB Last administered on 15:49; Admin Dose 100 MLS/HR; Start 09/06/16 at 16:00 Miscellaneous Information (*Rx Drug Level Order Reminder*) VANCOMYCIN TROUGH AT 1500 ONCE ONCE XX ; Start 09/08/16 at 15:00; Stop 09/08/16 at 15:01 Assessment/Plan Additional Assessment/Plan IMP: 1. Healthcare associated pneumonia with hypoxemic respiratory failure 2. Probable aspiration pneumonia 3. Dementia 4. Multiple decubitus ulcers with polymicrobial sepsis and resolving septic shock 5. Anemia RECS: 1. Continue antibiotics per ID 2. Pulmonary toilet/BD's 3. Tube feeding + free water flushes 4. Aspiration precautions. 5. PT/OT VINITA LUNA MD September 07, 2016 10:17
--- NOTE | 2016-09-07 10:37 | PN ---
Date/Time of Note Date/Time of Note DATE: 09/07/16 TIME: 10:37 Assessment/Plan VTE Prophylaxis VTE Prophylaxis Intervention: SCD's Lines/Catheters IV Catheter Type (from Nrs): PICC Line Central line still needed: No Urinary Cath still in place: Yes Reason Cath still needed: urinary retention Assessment/Plan Assessment/Plan Sepsis Tachycardia with intermittent hypotension Preserved ejection fraction Decubiti Possible pneumonia Dementia - On review of telemetry, patient with sinus rhythm with episodes of sinus tachycardia and frequent PACs. Brief episodes of paroxysmal SVT seen on telemetry strips in the chart on September 03 but infrequent and self terminating. Patient with multiple etiologies likely contributing to patient's tachycardia including sepsis, osteomyelitis, possible pneumonia, pain as well as recent fevers. Would maintain potassium above 4.0 and magnesium above 2.0. Would continue treatment of patient's multiple medical conditions. Subjective 24 Hr Interval Summary Free Text/Dictation The patient with no change Exam/Review of Systems Vital Signs Vitals Vital Signs Date Time Temp Pulse Resp B/P Pulse Ox O2 Delivery O2 Flow Rate FiO2 09/07/16 08:00 106 09/07/16 07:00 27 96/52 95 Nasal Cannula 2.0 09/07/16 04:00 98.9 09/05/16 01:58 27 Intake and Output 09/06/16 09/06/16 09/07/16 15:00 23:00 07:00 Intake Total 1080 ml 1080 ml 1120 ml Output Total 1380 ml 1685 ml 600 ml Balance -300 ml -605 ml 520 ml Results Result Diagram: 09/07/16 0320 09/07/16 0320 Results 24 hrs Laboratory Tests Test 09/06/16 17:25 09/06/16 17:30 09/07/16 03:20 Urine Color RED Urine Clarity BLOODY Urine pH 7.5 Urine Specific [place] 1.010 Urine Ketones NEGATIVE Urine Nitrite NEGATIVE Urine Bilirubin NEGATIVE Urine Urobilinogen 0.2 E.U./dL Urine Leukocyte Esterase 2+ H Urine Microscopic RBC >200 Urine Microscopic WBC 5-10 Urine Bacteria FEW Urine Yeast FEW Urine Hemoglobin 3+ H Urine Glucose NEGATIVE Urine Total Protein TRACE Stool Occult Blood NEGATIVE White Blood Count 10.4 Red Blood Count 2.63 L Hemoglobin 8.3 L Hematocrit 26.3 L Mean Corpuscular Volume 100.0 Mean Corpuscular Hemoglobin 31.6 Mean Corpuscular Hemoglobin Concent 31.6 L Red Cell Distribution Width 18.7 H Platelet Count 526 H Mean Platelet Volume 10.1 Neutrophils % 79.5 H Lymphocytes % 8.0 L Monocytes % 7.1 Eosinophils % 3.1 Basophils % 0.2 Nucleated Red Blood Cells % 0.0 Neutrophils # 8.3 H Lymphocytes # 0.8 Monocytes # 0.7 Eosinophils # 0.3 Basophils # 0.0 Nucleated Red Blood Cells # 0.0 Sodium Level 137 Potassium Level 3.5 Chloride Level 105 Carbon Dioxide Level 29 Anion Gap 7 L Blood Urea Nitrogen 19 Creatinine 0.63 Glucose Level 134 Calcium Level 8.0 L Medications Medications Current Medications Acetaminophen (Tylenol Tab) 325 mg Q4H PRN GTB PAIN AND FEVER Last administered on 09/06/16 01:05; Admin Dose 325 MG; Start 08/11/16 at 20:00 Morphine Sulfate (morphine) 1 mg Q4H PRN IV PAIN LEVEL 6-10 Last administered on 09/02/16 23:42; Admin Dose 1 MG; Start 08/11/16 at 20:00 Ondansetron HCl (Zofran Inj) 4 mg Q6H PRN IV NAUSEA AND/OR VOMITING; Start 08/12 at 10:00 Acetaminophen 650 mg 650 mg Q6H PRN [place] PAIN LEVEL 1-3 OR FEVER; Start 08/12/16 at 10:00 Piperacillin Sod/ Tazobactam Sod (Zosyn 2.25gm/ 50ml (Pmx)) 50 ml @ 100 mls/hr Q6 IVPB Last administered on 09/07/16 06:06; Admin Dose 100 MLS/HR; Start 08/14 at 12:00 Collagenase (Santyl) 1 applic DAILY TOP Last administered on 09/07/16 09:43; Admin Dose 1 APPLIC; Start 08/18/16 at 12:00 Enoxaparin Sodium (Lovenox) 40 mg DAILY SC Last administered on 09/05/16 09:15 ; Admin Dose 40 MG; Start 08/18/16 at 17:30 Ascorbic Acid (Vitamin C) 1,000 mg DAILY GTB Last administered on 09/07/16 09: 45; Admin Dose 1,000 MG; Start 08/28/16 at 11:30 Zinc Sulfate (Zinc Sulfate) 220 mg BID GTB Last administered on 09/07/16 09:41 ; Admin Dose 220 MG; Start 08/28/16 at 21:00 Ferrous Sulfate (Feosol Liquid Cup) 300 mg BID GTB Last administered on 09:41; Admin Dose 300 MG; Start 08/29/16 at 21:00 Midodrine (Proamatine) 10 mg TID@09,13,17 NGT Last administered on 09/07/16 09 :42; Admin Dose 10 MG; Start 09/02/16 at 09:00 Pantoprazole 40 mg 40 mg DAILY@06 IV Last administered on 09/07/16 06:05; Admin Dose 40 MG; Start 09/02/16 at 06:00 Norepinephrine 16 mg/Dextrose 500 ml @ 1.87 mls/hr TITRATE IV Last administered on 09/03/16 21:50; Admin Dose 3.75 MLS/HR; Start 09/02/16 at 02:30 Sodium Chloride 1,000 ml @ 50 mls/hr Q20H IV Last administered on 09/07/16 06 :07; Admin Dose 50 MLS/HR; Start 09/03/16 at 16:57 Fluconazole/ Sodium Chloride 50 ml @ 50 mls/hr Q24H IVPB Last administered on 15:50; Admin Dose 50 MLS/HR; Start 09/05/16 at 16:00 Vancomycin HCl (Vancocin) 100 ml @ 100 mls/hr Q24H IVPB Last administered on 15:49; Admin Dose 100 MLS/HR; Start 09/06/16 at 16:00 Miscellaneous Information (*Rx Drug Level Order Reminder*) VANCOMYCIN TROUGH AT 1500 ONCE ONCE XX ; Start 09/08/16 at 15:00; Stop 09/08/16 at 15:01 CHRISTIE TUCKER MD September 07, 2016 10:37
--- NOTE | 2016-09-07 11:59 | PN ---
Date/Time of Note Date/Time of Note DATE: 09/07/16 TIME: 11:58 Assessment/Plan VTE Prophylaxis VTE Prophylaxis Intervention: other Lines/Catheters IV Catheter Type (from [facility]): PICC Line Central line still needed: Yes Urinary Cath still in place: Yes Reason Cath still needed: skin wounds contaminated by urine Assessment/Plan Chief Complaint/Hosp Course 1. Hypotension, new onset, with also new onset leukocytosis. We will assume new infection. The patient is currently on Zosyn. I will add back vancomycin that she was on when she first came into the hospital. I will also start fluconazole to cover for the Lauren cystitis with hematuria. Continue to monitor the patient in the ICU until hypotension improves. The patient is now off Levophed, on midodrine. 2. Tachycardia. This came on a few weeks ago after vancomycin was discontinued. She actually had a normal heart rate for the first week or two of her hospitalization. It is possible that the Zosyn is not covering for her underlying osteomyelitis. We will consult continuous improvement specialist to see if there are other causes of her tachycardia and hypotension. 3. Osteomyelitis leading to sepsis. The patient undergoing 6-week course of IV antibiotic with Zosyn. 4. Dementia has been ongoing for more than 10 years. No change from baseline according to family. 5. Code status discussed with the patient's daughter and son and they confirmed that as of now she is DNR with CHEMICAL CODE ONLY, and they will reevaluate the need for chemical code with a family discussion and will let us know if anything changes. Problems: Subjective 24 Hr Interval Summary Free Text/Dictation Patient not responsive to voice but blood pressure appears to be better Exam/Review of Systems Vital Signs Vitals Vital Signs Date Time Temp Pulse Resp B/P Pulse Ox O2 Delivery O2 Flow Rate FiO2 09/07/16 08:00 106 09/07/16 07:00 27 96/52 95 Nasal Cannula 2.0 09/07/16 04:00 98.9 09/05/16 01:58 27 Intake and Output 09/06/16 09/06/16 09/07/16 15:00 23:00 07:00 Intake Total 1080 ml 1080 ml 1120 ml Output Total 1380 ml 1685 ml 600 ml Balance -300 ml -605 ml 520 ml Exam Constitutional: well developed Head: atraumatic, normocephalic Neck: supple Respiratory: diminished breath sounds Cardiovascular: regular rate and rhythm Gastrointestinal: non-tender, soft Extremities: normal pulses Results Result Diagram: 09/07/16 0320 09/07/16 0320 Results 24 hrs Laboratory Tests Test 09/06/16 17:25 09/06/16 17:30 09/07/16 03:20 Urine Color RED Urine Clarity BLOODY Urine pH 7.5 Urine Specific [place] 1.010 Urine Ketones NEGATIVE Urine Nitrite NEGATIVE Urine Bilirubin NEGATIVE Urine Urobilinogen 0.2 E.U./dL Urine Leukocyte Esterase 2+ H Urine Microscopic RBC >200 Urine Microscopic WBC 5-10 Urine Bacteria FEW Urine Yeast FEW Urine Hemoglobin 3+ H Urine Glucose NEGATIVE Urine Total Protein TRACE Stool Occult Blood NEGATIVE White Blood Count 10.4 Red Blood Count 2.63 L Hemoglobin 8.3 L Hematocrit 26.3 L Mean Corpuscular Volume 100.0 Mean Corpuscular Hemoglobin 31.6 Mean Corpuscular Hemoglobin Concent 31.6 L Red Cell Distribution Width 18.7 H Platelet Count 526 H Mean Platelet Volume 10.1 Neutrophils % 79.5 H Lymphocytes % 8.0 L Monocytes % 7.1 Eosinophils % 3.1 Basophils % 0.2 Nucleated Red Blood Cells % 0.0 Neutrophils # 8.3 H Lymphocytes # 0.8 Monocytes # 0.7 Eosinophils # 0.3 Basophils # 0.0 Nucleated Red Blood Cells # 0.0 Sodium Level 137 Potassium Level 3.5 Chloride Level 105 Carbon Dioxide Level 29 Anion Gap 7 L Blood Urea Nitrogen 19 Creatinine 0.63 Glucose Level 134 Calcium Level 8.0 L Medications Medications Current Medications Acetaminophen (Tylenol Tab) 325 mg Q4H PRN GTB PAIN AND FEVER Last administered on 09/06/16 01:05; Admin Dose 325 MG; Start 08/11/16 at 20:00 Morphine Sulfate (morphine) 1 mg Q4H PRN IV PAIN LEVEL 6-10 Last administered on 09/02/16 23:42; Admin Dose 1 MG; Start 08/11/16 at 20:00 Ondansetron HCl (Zofran Inj) 4 mg Q6H PRN IV NAUSEA AND/OR VOMITING; Start 08/12 at 10:00 Acetaminophen 650 mg 650 mg Q6H PRN [place] PAIN LEVEL 1-3 OR FEVER; Start 08/12/16 at 10:00 Piperacillin Sod/ Tazobactam Sod (Zosyn 2.25gm/ 50ml (Pmx)) 50 ml @ 100 mls/hr Q6 IVPB Last administered on 09/07/16 06:06; Admin Dose 100 MLS/HR; Start 08/14 at 12:00 Collagenase (Santyl) 1 applic DAILY TOP Last administered on 09/07/16 09:43; Admin Dose 1 APPLIC; Start 08/18/16 at 12:00 Enoxaparin Sodium (Lovenox) 40 mg DAILY SC Last administered on 09/05/16 09:15 ; Admin Dose 40 MG; Start 08/18/16 at 17:30 Ascorbic Acid (Vitamin C) 1,000 mg DAILY GTB Last administered on 09/07/16 09: 45; Admin Dose 1,000 MG; Start 08/28/16 at 11:30 Zinc Sulfate (Zinc Sulfate) 220 mg BID GTB Last administered on 09/07/16 09:41 ; Admin Dose 220 MG; Start 08/28/16 at 21:00 Ferrous Sulfate (Feosol Liquid Cup) 300 mg BID GTB Last administered on 09:41; Admin Dose 300 MG; Start 08/29/16 at 21:00 Midodrine (Proamatine) 10 mg TID@,,17 NGT Last administered on 09/07/16 09 :42; Admin Dose 10 MG; Start 09/02/16 at 09:00 Pantoprazole 40 mg 40 mg DAILY@06 IV Last administered on 09/07/16 06:05; Admin Dose 40 MG; Start 09/02/16 at 06:00 Norepinephrine 16 mg/Dextrose 500 ml @ 1.87 mls/hr TITRATE IV Last administered on 09/03/16 21:50; Admin Dose 3.75 MLS/HR; Start 09/02/16 at 02:30 Sodium Chloride 1,000 ml @ 50 mls/hr Q20H IV Last administered on 09/07/16 06 :07; Admin Dose 50 MLS/HR; Start 09/03/16 at 16:57 Fluconazole/ Sodium Chloride 50 ml @ 50 mls/hr Q24H IVPB Last administered on 15:50; Admin Dose 50 MLS/HR; Start 09/05/16 at 16:00 Vancomycin HCl (Vancocin) 100 ml @ 100 mls/hr Q24H IVPB Last administered on t 15:49; Admin Dose 100 MLS/HR; Start 09/06/16 at 16:00 Miscellaneous Information (*Rx Drug Level Order Reminder*) VANCOMYCIN TROUGH AT 1500 ONCE ONCE XX ; Start 09/08/16 at 15:00; Stop 09/08/16 at 15:01 ARIS RODRIGES September 07, 2016 11:58
[2016-09-07] MEDS: FLUCONAZOLE 100 MG/NS (PMX) 50 ML IVPB SCH (16:28)
[2016-09-07] MEDS: VANCOMYCIN 500MG/NS (PMX) 100 ML IVPB SCH (16:37)
--- NOTE | 2016-09-07 21:19 | PN ---
Date/Time of Note Date/Time of Note DATE: 09/07/16 TIME: 21:16 Assessment/Plan Lines/Catheters IV Catheter Type (from [facility]): PICC Line [place] in Place (from [facility]): Yes Assessment/Plan Chief Complaint/Hosp Course 1. 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 -offloading, -local wound care, -nutritional optimization, -vitamin C 1000 mg a day -debridement cleared by family > will hold off till medically stable 2. Deep tissue injury, left shoulder and other decubitus areas. Continue as above. 3. Anemia without evidence of acute blood loss. Continue monitoring. 4. Functional quadriplegia. Continue offloading with q.2 hour position change and air mattress and nutrition optimization. 5. End-stage dementia and Alzheimer's. Continue medical optimization. 6. Tachyarrhythmia of unknown etiology. Will defer to medical team for further workup and treatment. 7. Dysphagia, on tube feeds. 8. Hypoalbuminemia. Continue nutritional optimization. 9. Hematuria -monitor Thank you Problems: Subjective 24 Hr Interval Summary Off pressor. No f/c. No vomiting. No cough. No sz. No bloating. Tachyarrhythmias. Hg stable. No rashes. Exam/Review of Systems Vital Signs Vitals Vital Signs Date Time Temp Pulse Resp B/P Pulse Ox O2 Delivery O2 Flow Rate FiO2 09/07/16 20:12 114 09/07/16 19:41 97.6 20 115/64 94 09/07/16 19:30 2.0 09/07/16 19:30 Nasal Cannula 09/05/16 01:58 27 Intake and Output 09/06/16 09/06/16 09/07/16 15:00 23:00 07:00 Intake Total 1080 ml 1080 ml 1280 ml Output Total 1380 ml 1685 ml 700 ml Balance -300 ml -605 ml 580 ml Exam Free Text/Dictation GENERAL: Noncommunicative, contracted state. HEENT: Pupils are sluggish. No scleral icterus. Mucous membranes are moist. NECK: No crepitus with baseline rigidity. PULMONARY: Normal respiratory effort. No wheezing. HEART: S1, S2 and irregular. ABDOMEN: Soft. PEG in place. EXTREMITIES: Contracted without edema. VASCULAR: Capillary refill is over 3 seconds. NEUROLOGIC: Does not follow commands, however opens eyes. SKIN: No rashes. No jaundice. Multiple areas of bruising. Multiple decubitus wounds, especially sacrococcyx and left buttock with debris. Left shoulder deep tissue injury. LYMPHATICS: No inguinal or cervical lymphadenopathy. Results Result Diagram: 09/07/16 0320 09/07/16 0320 JAS VILLAGRAN MD September 07, 2016 21:19
[2016-09-08] VITALS (14 sets, daily range): BP systolic 97–154; BP diastolic 58–92; PULSE 83–125; RESP 17–20
[2016-09-08] MEDS: LEVALBUTEROL (NEB) 0.63 MG/3 ML AMP HHN SCH ×4 (01:40→19:52)
[2016-09-08] MEDS: SOD CHLORIDE 0.45% 1,000 ML IV SCH ×2 (03:56→16:57)
[2016-09-08] MEDS: PANTOPRAZOLE 40 MG INJ IV SCH (05:38)
[2016-09-08] MEDS: PIPER-TAZO 2.25 GM (PMX) 50 ML IVPB SCH ×3 (05:39→17:53)
[2016-09-08] MEDS: FUROSEMIDE 20 MG INJ IV SCH ×2 (05:39→17:54)
[2016-09-08 06:10] LABS: ADD SCAN DIFF NO
[2016-09-08 06:20] LABS: BASOPHILS % 0.2 % (0.0-2.0); EOSINOPHILS # 0.4 10^3/ul (0.0-0.5); EOSINOPHILS % 3.5 % (0.0-7.0); HEMATOCRIT 27.3 % (37.0-47.0); HEMOGLOBIN 8.4 g/dl (12.0-16.0); LYMPHOCYTES # 0.7 10^3/ul (0.8-2.9); LYMPHOCYTES % 6.8 % (15.0-51.0); MEAN CORPUSCULAR HGB CONC 30.8 g/dl (32.0-37.0); MEAN CORPUSCULAR VOLUME 100.7 fl (82.0-101.0); MEAN PLATELET VOLUME 9.6 fl (7.4-10.4); MONOCYTE # 0.8 10^3/ul (0.3-0.9); MONOCYTES % 7.1 % (0.0-11.0); NEUTROPHIL # 8.6 10^3/ul (1.6-7.5); NEUTROPHILS % 80.5 % (39.0-77.0); PLATELET COUNT 514 10^3/UL (140-415); RED BLOOD COUNT 2.71 10^6/ul (4.20-5.40); RED CELL DISTRIBUTION WIDTH 19.6 % (11.5-14.5); WHITE BLOOD COUNT 10.7 10^3/ul (4.8-10.8)
[2016-09-08 06:54] LABS: ALBUMIN 2.7 g/dl (3.3-4.9)
[2016-09-08 06:55] LABS: POTASSIUM 3.6 mmol/L (3.5-5.1)
[2016-09-08 06:57] LABS: BILIRUBIN,INDIRECT 0.1 mg/dl (0-1.1); BILIRUBIN,TOTAL 0.1 mg/dl (0.2-1.3); CREATININE 0.59 mg/dl (0.44-1.00)
[2016-09-08 06:58] LABS: ALBUMIN/GLOBULIN RATIO 0.61; CALCIUM 7.7 mg/dl (8.4-10.2); TOTAL PROTEIN 7.1 g/dl (6.1-8.1)
[2016-09-08] MEDS: ZINC SULFATE 220 MG CAP GTB SCH ×2 (08:35→20:27)
[2016-09-08] MEDS: FERROUS SULFATE 60 MG/ML 5ML CUP GTB SCH ×2 (08:35→20:27)
[2016-09-08] MEDS: ENOXAPARIN 40 MG/0.4 ML SYG SC SCH (08:36)
--- NOTE | 2016-09-08 08:58 | CONS ---
Date/Time of Note Date/Time of Note DATE: 09/08/16 TIME: 08:56 Assessment/Plan Assessment/Plan Chief Complaint/Hosp Course 1) ARF u/a does not suggest infection, likely due to dehydration 08/13 - improving with hydration 08/14 - continues to improve, will increase dose of zosyn urine cx was negative 08/15 - pretty much resolved 2) pneumonia check procalcitonin get nasal swab for MRSA continue with vanco, change cefepime to zosyn likely aspiration 08/13 - wbc is improving, continue with vanco/zosyn 08/14 - wbc continues to improve, no MRSA found d/c vanco and continue with zosyn and increase its dose 08/15 - only on zosyn now and wbc is improving pt getting echo and asked tech to quantify the L sided pleural effusion too 08/17 - echo only reported presence of L pleural effusion no good evidence to suggest an empyema continue with zosyn 08/18 - stable, pt completes were treatment course for pneumonia today 08/20 - minimally elevated procalcitonin on 08/13 no further treatment needed for pneumonia but on zosyn for probable sacral osteo 09/03 - more haziness over L base, but no increase in WBC continue with zosyn, check procalcitonin in a.m. repeat nasal swab for MRSA consider hospice for patient 09/04 - neg for MRSA 09/05 - no change continue with zosyn, await repeat procalcitonin fevers are improving 09/08 - pt likely re-aspirating on vanco/zosyn/diflucan and stable will continue vanco/diflucan for a total of 7 days 3) sacral wound ulcer, likely osteo check ESR, CRP and if very high then would treat as if osteomyelitis if not very high will order bone scan for ultimate healing if this is indeed osteo she will likely need plastic surgery involvement her low albumin suggest she would have poor tissue healing will get wound cx of deeper wound 08/13 - ESR is very high, c/w osteomyelitis wound cx has gnr's and GPC continue with vanco/zosyn at present 08/14 - no MRSA found, d/c vanco and continue with zosyn pt likely has osteo due to high ESR will follow ESR weekly for response unlikely that antibiotics alone will heal the sacral wounds 08/15 - continue with zosyn unlikely that antibiotics alone will heal these sacral wounds 08/17 - pt likely has osteo but unlikely antibiotics will cure this usual treatment course for osteo is 6 weeks of antibiotics unlikely antibiotics alone will be curative repeat ESR and CRP in a.m. 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 repeat ESR and CRP are pending it is unlikely that antibiotics alone will be curative 08/20 - of zosyn ESR elevated c/w osteomyelitis CRP did improve a bit but antibiotics unlikely to be curative recommend weekly esr, crp and if not improving then would d/c antibiotics 08/27 - Day of zosyn CRP has come down slowly, ESR has actually increased but sometimes the ESR is delayed in improvement Nonetheless it has almost doubled If surgical debridement it to be done then pt will need deep surgical cultures sent to verify that no resistant organisms are being missed continue with zosyn at present pt will likely need a muscle flap if cure of osteomyelitis is the goal and it would be helpful to get bone biopsy and culture with deep tissue culture prior to that to help guide if any change in antibiotics is needed 08/29 - no new recommendations if surgery is done, please get deep surgical wound cx and if possible bone cx/ biopsy continue with zosyn (day 19) 09/01 - day of zosyn still awaiting family decision regarding debridement and flap if debridement is done please get deep surgical wound cx and ideally bone bx/cx crp continues to improve, ESR is pending 09/03 - ESR was minimally improved family agrees to debridement but now in ICU due to hypotension 09/04 - stable, off levophed continue with zosyn 4) severe dementia 5) candiduria 09/05 no pyuria but has hematuria, doubt this is significant, no need to treat 09/08 - pt was placed on diflucan will continue for a 7 day course repeat urine cx is NGTD Problems: Consultation Date/Type/Reason Admit Date/Time August 11, 2016 at 19:00 Initial Consult Date 08/12/16 Type of Consultation: ID [id number] HR Interval Summary Free Text/Dictation pt out of ICU stable but overall poor Exam/Review of Systems Vital Signs Vitals Vital Signs Date Time Temp Pulse Resp B/P Pulse Ox O2 Delivery O2 Flow Rate FiO2 09/08/16 08:16 123 28 96 Nasal Cannula 2.0 09/08/16 07:36 98.5 106/59 09/05/16 01:58 27 Intake and Output 09/07/16 09/07/16 09/08/16 15:00 23:00 07:00 Intake Total 580 ml 380 ml 1425 ml Output Total 760 ml 260 ml 1800 ml Balance -180 ml 120 ml -375 ml Exam Constitutional: non-verbal Head: normocephalic Respiratory: clear to auscultation Cardiovascular: regular rate and rhythm Gastrointestinal: soft Results Result Diagram: 09/08/16 0555 09/08/16 0555 Results 24 hrs Laboratory Tests Test 09/08/16 05:55 White Blood Count 10.7 Red Blood Count 2.71 L Hemoglobin 8.4 L Hematocrit 27.3 L Mean Corpuscular Volume 100.7 Mean Corpuscular Hemoglobin 31.0 Mean Corpuscular Hemoglobin Concent 30.8 L Red Cell Distribution Width 19.6 H Platelet Count 514 H Mean Platelet Volume 9.6 Neutrophils % 80.5 H Lymphocytes % 6.8 L Monocytes % 7.1 Eosinophils % 3.5 Basophils % 0.2 Nucleated Red Blood Cells % 0.0 Neutrophils # 8.6 H Lymphocytes # 0.7 L Monocytes # 0.8 Eosinophils # 0.4 Basophils # 0.0 Nucleated Red Blood Cells # 0.0 Erythrocyte Sedimentation Rate 128 H Sodium Level 136 Potassium Level 3.6 Chloride Level 105 Carbon Dioxide Level 25 Anion Gap 10 Blood Urea Nitrogen 18 Creatinine 0.59 Glucose Level 138 Calcium Level 7.7 L Total Bilirubin 0.1 L Direct Bilirubin 0.00 Indirect Bilirubin 0.1 Aspartate Amino Transf (AST/SGOT) 175 H Alanine Aminotransferase (ALT/SGPT) 129 H Alkaline Phosphatase 230 H Total Protein 7.1 Albumin 2.7 L Globulin 4.40 H Albumin/Globulin Ratio 0.61 Medications Medications Current Medications Acetaminophen (Tylenol Tab) 325 mg Q4H PRN GTB PAIN AND FEVER Last administered on 09/06/16 01:05; Admin Dose 325 MG; Start 08/11/16 at 20:00 Morphine Sulfate (morphine) 1 mg Q4H PRN IV PAIN LEVEL 6-10 Last administered on 09/02/16 23:42; Admin Dose 1 MG; Start 08/11/16 at 20:00 Ondansetron HCl (Zofran Inj) 4 mg Q6H PRN IV NAUSEA AND/OR VOMITING; Start 08/12 at 10:00 Acetaminophen 650 mg 650 mg Q6H PRN [place] PAIN LEVEL 1-3 OR FEVER; Start 08/12/16 at 10:00 Piperacillin Sod/ Tazobactam Sod (Zosyn 2.25gm/ 50ml (Pmx)) 50 ml @ 100 mls/hr Q6 IVPB Last administered on 09/08/16 05:39; Admin Dose 100 MLS/HR; Start 08/14 at 12:00 Collagenase (Santyl) 1 applic DAILY TOP Last administered on 09/07/16 09:43; Admin Dose 1 APPLIC; Start 08/18/16 at 12:00 Enoxaparin Sodium (Lovenox) 40 mg DAILY SC Last administered on 09/08/16 08:36 ; Admin Dose 40 MG; Start 08/18/16 at 17:30 Ascorbic Acid (Vitamin C) 1,000 mg DAILY GTB Last administered on 09/07/16 09: 45; Admin Dose 1,000 MG; Start 08/28/16 at 11:30 Zinc Sulfate (Zinc Sulfate) 220 mg BID GTB Last administered on 09/08/16 08:35 ; Admin Dose 220 MG; Start 08/28/16 at 21:00 Ferrous Sulfate (Feosol Liquid Cup) 300 mg BID GTB Last administered on 08:35; Admin Dose 300 MG; Start 08/29/16 at 21:00 Midodrine (Proamatine) 10 mg TID@09,13,17 NGT Last administered on 09/07/16 16 :29; Admin Dose 10 MG; Start 09/02/16 at 09:00 Pantoprazole 40 mg 40 mg DAILY@06 IV Last administered on 09/08/16 05:38; Admin Dose 40 MG; Start 09/02/16 at 06:00 Sodium Chloride 1,000 ml @ 50 mls/hr Q20H IV Last administered on 09/08/16 03 :56; Admin Dose 50 MLS/HR; Start 09/03/16 at 16:57 Fluconazole/ Sodium Chloride 50 ml @ 50 mls/hr Q24H IVPB Last administered on 16:28; Admin Dose 50 MLS/HR; Start 09/05/16 at 16:00 Vancomycin HCl (Vancocin) 100 ml @ 100 mls/hr Q24H IVPB Last administered on t 16:37; Admin Dose 100 MLS/HR; Start 09/06/16 at 16:00 Miscellaneous Information (*Rx Drug Level Order Reminder*) VANCOMYCIN TROUGH AT 1500 ONCE ONCE XX ; Start 09/08/16 at 15:00; Stop 09/08/16 at 15:01 ERNIE MILLER MD September 08, 2016 08:58
[2016-09-08] MEDS: COLLAGENASE 30 GM TUBE TOP SCH (09:00)
[2016-09-08] MEDS: ASCORBIC ACID 500 MG TAB GTB SCH (10:54)
[2016-09-08] MEDS: MIDODRINE 5 MG TAB NGT SCH ×3 (10:54→17:20)
--- NOTE | 2016-09-08 12:01 | PN ---
Date/Time of Note Date/Time of Note DATE: 09/08/16 TIME: 12:01 Assessment/Plan VTE Prophylaxis VTE Prophylaxis Intervention: other Lines/Catheters IV C[facility]ter Type (from [facility]): [place] Urinary Cath still in place: Yes Reason Cath still needed: skin wounds contaminated by urine Assessment/Plan Chief Complaint/Hosp Course 1. Hypotension, new onset, with also new onset leukocytosis. We will assume new infection. The patient is currently on Zosyn. I will add back vancomycin that she was on when she first came into the hospital. I will also start fluconazole to cover for the Lauren cystitis with hematuria. Continue to monitor the patient in the ICU until hypotension improves. The patient is now off Levophed, on midodrine. 2. Tachycardia. This came on a few weeks ago after vancomycin was discontinued. She actually had a normal heart rate for the first week or two of her hospitalization. It is possible that the Zosyn is not covering for her underlying osteomyelitis. We will consult control panel builder to see if there are other causes of her tachycardia and hypotension. 3. Osteomyelitis leading to sepsis. The patient undergoing 6-week course of IV antibiotic with Zosyn. 4. Dementia has been ongoing for more than 10 years. No change from baseline according to family. 5. Code status discussed with the patient's daughter and son and they confirmed that as of now she is DNR with CHEMICAL CODE ONLY, and they will reevaluate the need for chemical code with a family discussion and will let us know if anything changes. Problems: Subjective 24 Hr Interval Summary Free Text/Dictation Patient has no complaints Exam/Review of Systems Vital Signs Vitals Vital Signs Date Time Temp Pulse Resp B/P Pulse Ox O2 Delivery O2 Flow Rate FiO2 09/08/16 11:34 98.2 122 20 115/64 98 09/08/16 08:30 Nasal Cannula 2.0 09/05/16 01:58 27 Intake and Output 09/07/16 09/07/16 09/08/16 15:00 23:00 07:00 Intake Total 580 ml 380 ml 1425 ml Output Total 760 ml 260 ml 1800 ml Balance -180 ml 120 ml -375 ml Exam Constitutional: well developed Head: atraumatic, normocephalic Neck: supple Respiratory: diminished breath sounds Cardiovascular: regular rate and rhythm Gastrointestinal: non-tender, soft Extremities: normal pulses Results Result Diagram: 09/08/16 0555 09/08/16 0555 Results 24 hrs Laboratory Tests Test 09/08/16 05:55 White Blood Count 10.7 Red Blood Count 2.71 L Hemoglobin 8.4 L Hematocrit 27.3 L Mean Corpuscular Volume 100.7 Mean Corpuscular Hemoglobin 31.0 Mean Corpuscular Hemoglobin Concent 30.8 L Red Cell Distribution Width 19.6 H Platelet Count 514 H Mean Platelet Volume 9.6 Neutrophils % 80.5 H Lymphocytes % 6.8 L Monocytes % 7.1 Eosinophils % 3.5 Basophils % 0.2 Nucleated Red Blood Cells % 0.0 Neutrophils # 8.6 H Lymphocytes # 0.7 L Monocytes # 0.8 Eosinophils # 0.4 Basophils # 0.0 Nucleated Red Blood Cells # 0.0 Erythrocyte Sedimentation Rate 128 H Sodium Level 136 Potassium Level 3.6 Chloride Level 105 Carbon Dioxide Level 25 Anion Gap 10 Blood Urea Nitrogen 18 Creatinine 0.59 Glucose Level 138 Calcium Level 7.7 L Total Bilirubin 0.1 L Direct Bilirubin 0.00 Indirect Bilirubin 0.1 Aspartate Amino Transf (AST/SGOT) 175 H Alanine Aminotransferase (ALT/SGPT) 129 H Alkaline Phosphatase 230 H Total Protein 7.1 Albumin 2.7 L Globulin 4.40 H Albumin/Globulin Ratio 0.61 Medications Medications Current Medications Acetaminophen (Tylenol Tab) 325 mg Q4H PRN GTB PAIN AND FEVER Last administered on 09/06/16 01:05; Admin Dose 325 MG; Start 08/11/16 at 20:00 Morphine Sulfate (morphine) 1 mg Q4H PRN IV PAIN LEVEL 6-10 Last administered on 09/02/16 23:42; Admin Dose 1 MG; Start 08/11/16 at 20:00 Ondansetron HCl (Zofran Inj) 4 mg Q6H PRN IV NAUSEA AND/OR VOMITING; Start 08/12 at 10:00 Acetaminophen 650 mg 650 mg Q6H PRN [place] PAIN LEVEL 1-3 OR FEVER; Start 08/12/16 at 10:00 Piperacillin Sod/ Tazobactam Sod (Zosyn 2.25gm/ 50ml (Pmx)) 50 ml @ 100 mls/hr Q6 IVPB Last administered on 09/08/16 05:39; Admin Dose 100 MLS/HR; Start 08/14 at 12:00 Collagenase (Santyl) 1 applic DAILY TOP Last administered on 09/08/16 09:00; Admin Dose 1 APPLIC; Start 08/18/16 at 12:00 Enoxaparin Sodium (Lovenox) 40 mg DAILY SC Last administered on 09/08/16 08:36 ; Admin Dose 40 MG; Start 08/18/16 at 17:30 Ascorbic Acid (Vitamin C) 1,000 mg DAILY GTB Last administered on 09/08/16 10: 54; Admin Dose 1,000 MG; Start 08/28/16 at 11:30 Zinc Sulfate (Zinc Sulfate) 220 mg BID GTB Last administered on 09/08/16 08:35 ; Admin Dose 220 MG; Start 08/28/16 at 21:00 Ferrous Sulfate (Feosol Liquid Cup) 300 mg BID GTB Last administered on 08:35; Admin Dose 300 MG; Start 08/29/16 at 21:00 Midodrine (Proamatine) 10 mg TID@,,17 NGT Last administered on 09/08/16 10 :54; Admin Dose 10 MG; Start 09/02/16 at 09:00 Pantoprazole 40 mg 40 mg DAILY@06 IV Last administered on 09/08/16 05:38; Admin Dose 40 MG; Start 09/02/16 at 06:00 Sodium Chloride 1,000 ml @ 50 mls/hr Q20H IV Last administered on 09/08/16 03 :56; Admin Dose 50 MLS/HR; Start 09/03/16 at 16:57 Fluconazole/ Sodium Chloride 50 ml @ 50 mls/hr Q24H IVPB Last administered on 16:28; Admin Dose 50 MLS/HR; Start 09/05/16 at 16:00 Vancomycin HCl (Vancocin) 100 ml @ 100 mls/hr Q24H IVPB Last administered on 16:37; Admin Dose 100 MLS/HR; Start 09/06/16 at 16:00 Miscellaneous Information (*Rx Drug Level Order Reminder*) VANCOMYCIN TROUGH AT 1500 ONCE ONCE XX ; Start 09/08/16 at 15:00; Stop 09/08/16 at 15:01 ARIS RODRIGES September 08, 2016 12:01
--- NOTE | 2016-09-08 12:04 | CONS ---
Date/Time of Note Date/Time of Note DATE: 09/08/16 TIME: 12:01 Consult Date/Type/Reason Admit Date/Time August 11, 2016 at 19:00 Initial Consult Date 08/19/16 Type of Consultation: Pulm Subjective No events Objective Vital Signs Date Time Temp Pulse Resp B/P Pulse Ox O2 Delivery O2 Flow Rate FiO2 09/08/16 11:34 98.2 122 20 115/64 98 09/08/16 08:30 Nasal Cannula 2.0 09/05/16 01:58 27 Intake and Output 09/07/16 09/07/16 09/08/16 15:00 23:00 07:00 Intake Total 580 ml 380 ml 1425 ml Output Total 760 ml 260 ml 1800 ml Balance -180 ml 120 ml -375 ml Exam HEENT: Pupils equal, round, and reactive to light. CARDIAC: S1, S2, 1/6 systolic ejection murmur CHEST: Diminished air entry bilaterally. ABDOMEN: Mildly distended. Bowel sounds present no guarding or rebound EXTREMITIES: No cyanosis, clubbing edema +2 Results/Medications Result Diagram: 09/08/16 0555 09/08/16 0555 Results 24 hrs Laboratory Tests Test 09/08/16 05:55 White Blood Count 10.7 Red Blood Count 2.71 L Hemoglobin 8.4 L Hematocrit 27.3 L Mean Corpuscular Volume 100.7 Mean Corpuscular Hemoglobin 31.0 Mean Corpuscular Hemoglobin Concent 30.8 L Red Cell Distribution Width 19.6 H Platelet Count 514 H Mean Platelet Volume 9.6 Neutrophils % 80.5 H Lymphocytes % 6.8 L Monocytes % 7.1 Eosinophils % 3.5 Basophils % 0.2 Nucleated Red Blood Cells % 0.0 Neutrophils # 8.6 H Lymphocytes # 0.7 L Monocytes # 0.8 Eosinophils # 0.4 Basophils # 0.0 Nucleated Red Blood Cells # 0.0 Erythrocyte Sedimentation Rate 128 H Sodium Level 136 Potassium Level 3.6 Chloride Level 105 Carbon Dioxide Level 25 Anion Gap 10 Blood Urea Nitrogen 18 Creatinine 0.59 Glucose Level 138 Calcium Level 7.7 L Total Bilirubin 0.1 L Direct Bilirubin 0.00 Indirect Bilirubin 0.1 Aspartate Amino Transf (AST/SGOT) 175 H Alanine Aminotransferase (ALT/SGPT) 129 H Alkaline Phosphatase 230 H Total Protein 7.1 Albumin 2.7 L Globulin 4.40 H Albumin/Globulin Ratio 0.61 Medications Current Medications Acetaminophen (Tylenol Tab) 325 mg Q4H PRN GTB PAIN AND FEVER Last administered on 09/06/16 01:05; Admin Dose 325 MG; Start 08/11/16 at 20:00 Morphine Sulfate (morphine) 1 mg Q4H PRN IV PAIN LEVEL 6-10 Last administered on 09/02/16 23:42; Admin Dose 1 MG; Start 08/11/16 at 20:00 Ondansetron HCl (Zofran Inj) 4 mg Q6H PRN IV NAUSEA AND/OR VOMITING; Start 08/12 at 10:00 Acetaminophen 650 mg [address] PAIN LEVEL 1-3 OR FEVER; Start 08/12/16 at 10:00 Piperacillin Sod/ Tazobactam Sod (Zosyn 2.25gm/ 50ml (Pmx)) 50 ml @ 100 mls/hr Q6 IVPB Last administered on 09/08/16 05:39; Admin Dose 100 MLS/HR; Start 08/14 at 12:00 Collagenase (Santyl) 1 applic DAILY TOP Last administered on 09/08/16 09:00; Admin Dose 1 APPLIC; Start 08/18/16 at 12:00 Enoxaparin Sodium (Lovenox) 40 mg DAILY SC Last administered on 09/08/16 08:36 ; Admin Dose 40 MG; Start 08/18/16 at 17:30 Ascorbic Acid (Vitamin C) 1,000 mg DAILY GTB Last administered on 09/08/16 10: 54; Admin Dose 1,000 MG; Start 08/28/16 at 11:30 Zinc Sulfate (Zinc Sulfate) 220 mg BID GTB Last administered on 09/08/16 08:35 ; Admin Dose 220 MG; Start 08/28/16 at 21:00 Ferrous Sulfate (Feosol Liquid Cup) 300 mg BID GTB Last administered on 08:35; Admin Dose 300 MG; Start 08/29/16 at 21:00 Midodrine (Proamatine) 10 mg TID@,,17 NGT Last administered on 09/08/16 10 :54; Admin Dose 10 MG; Start 09/02/16 at 09:00 Pantoprazole 40 mg 40 mg DAILY@06 IV Last administered on 09/08/16 05:38; Admin Dose 40 MG; Start 09/02/16 at 06:00 Sodium Chloride 1,000 ml @ 50 mls/hr Q20H IV Last administered on 09/08/16 03 :56; Admin Dose 50 MLS/HR; Start 09/03/16 at 16:57 Fluconazole/ Sodium Chloride 50 ml @ 50 mls/hr Q24H IVPB Last administered on 16:28; Admin Dose 50 MLS/HR; Start 09/05/16 at 16:00 Vancomycin HCl (Vancocin) 100 ml @ 100 mls/hr Q24H IVPB Last administered on 16:37; Admin Dose 100 MLS/HR; Start 09/06/16 at 16:00 Miscellaneous Information (*Rx Drug Level Order Reminder*) VANCOMYCIN TROUGH AT 1500 ONCE ONCE XX ; Start 09/08/16 at 15:00; Stop 09/08/16 at 15:01 Assessment/Plan Additional Assessment/Plan IMP: 1. Healthcare associated pneumonia with hypoxemic respiratory failure 2. Probable aspiration pneumonia 3. Dementia 4. Multiple decubitus ulcers with polymicrobial sepsis and resolving septic shock 5. Anemia RECS: 1. De-escalate abx 2. Pulmonary toilet/BD's 3. Tube feeding + free water flushes 4. Aspiration precautions. 5. Am CXR VINITA LUNA MD September 08, 2016 12:03
--- NOTE | 2016-09-08 15:27 | PN ---
DATE: 09/08/2016 SUBJECTIVE: The patient is contracted, nonverbal. She had been transferred from the ICU. She remains tachycardic, 125. OBJECTIVE: VITAL SIGNS: Temperature 98.2, blood pressure 115/64. GENERAL: As mentioned, contractured. LUNGS: Decreased breath sounds bilaterally. CURRENT MEDICATIONS: 1. Vancomycin. 2. Fluconazole. 3. Midodrine. 4. Protonix. 5. Xopenex. 6. Lasix 20 mg b.i.d. 7. Lovenox. ASSESSMENT: 1. Tachycardia. 2. Hypertension. 3. Preserved ejection fraction. 4. pneumonia. PLAN: Will continue current medications at this time. Dictated By: LINETTE BARNHART/FIDELIA Conf#: [id number] DID#: [id number]
[2016-09-08] MEDS: FLUCONAZOLE 100 MG/NS (PMX) 50 ML IVPB SCH (16:10)
[2016-09-08] MEDS: VANCOMYCIN 500MG/NS (PMX) 100 ML IVPB SCH (16:11)
--- NOTE | 2016-09-08 23:44 | PN ---
Date/Time of Note Date/Time of Note DATE: 09/08/16 TIME: 23:42 Assessment/Plan Lines/Catheters IV Catheter Type (from [facility]): Saline Lock [facility]man in Place (from [facility]): Yes Assessment/Plan Chief Complaint/Hosp Course 1. 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 -offloading, -local wound care, -nutritional optimization, -vitamin C 1000 mg a day -debridement cleared by family > will hold off till medically stable 2. Deep tissue injury, left shoulder and other decubitus areas. Continue as above. 3. Anemia without evidence of acute blood loss. Continue monitoring. 4. Functional quadriplegia. Continue offloading with q.2 hour position change and air mattress and nutrition optimization. 5. End-stage dementia and Alzheimer's. Continue medical optimization. 6. Tachyarrhythmia of unknown etiology. Will defer to medical team for further workup and treatment. 7. Dysphagia, on tube feeds. 8. Hypoalbuminemia. Continue nutritional optimization. 9. Hematuria -monitor Thank you Problems: Subjective 24 Hr Interval Summary No f/c. No vomiting. No cough. No sz. No bloating. Tachyarrhythmias. Hg stable. No rashes. Exam/Review of Systems Vital Signs Vitals Vital Signs Date Time Temp Pulse Resp B/P Pulse Ox O2 Delivery O2 Flow Rate FiO2 09/08/16 23:40 98.0 106 17 108/61 97 09/08/16 22:01 Nasal Cannula 2.0 09/05/16 01:58 27 Intake and Output 09/07/16 09/07/16 09/08/16 15:00 23:00 07:00 Intake Total 580 ml 380 ml 1425 ml Output Total 760 ml 260 ml 1800 ml Balance -180 ml 120 ml -375 ml Exam Free Text/Dictation GENERAL: Noncommunicative, contracted state. HEENT: Pupils are sluggish. No scleral icterus. Mucous membranes are moist. NECK: No crepitus with baseline rigidity. PULMONARY: Normal respiratory effort. No wheezing. HEART: S1, S2 and irregular. ABDOMEN: Soft. PEG in place. EXTREMITIES: Contracted without edema. VASCULAR: Capillary refill is over 3 seconds. NEUROLOGIC: Does not follow commands, however opens eyes. SKIN: No rashes. No jaundice. Multiple areas of bruising. Multiple decubitus wounds, especially sacrococcyx and left buttock with debris. Left shoulder deep tissue injury. LYMPHATICS: No inguinal or cervical lymphadenopathy. Results Result Diagram: 09/08/16 0555 09/08/16 0555 JAS VILLAGRAN MD September 08, 2016 23:44
[2016-09-09] VITALS (12 sets, daily range): BP systolic 94–151; BP diastolic 55–70; PULSE 99–110; RESP 18–20
[2016-09-09] MEDS: PIPER-TAZO 2.25 GM (PMX) 50 ML IVPB SCH ×4 (01:31→17:29)
[2016-09-09] MEDS: LEVALBUTEROL (NEB) 0.63 MG/3 ML AMP HHN SCH ×4 (02:14→19:10)
[2016-09-09] MEDS: VANCOMYCIN 500MG/NS (PMX) 100 ML IVPB SCH ×2 (03:25→16:04)
[2016-09-09] MEDS ORDERED: LANSOPRAZOLE 30 MG CAP PO SCH (06:00)
[2016-09-09] MEDS: LANSOPRAZOLE 30 MG CAP GTB SCH (06:06)
[2016-09-09] MEDS: FUROSEMIDE 20 MG INJ IV SCH ×2 (06:06→17:30)
--- NOTE | 2016-09-09 08:08 | RADRPT ---
PROCEDURE: XR Chest. CLINICAL INDICATION: pna TECHNIQUE: Single frontal view of the chest was obtained. COMPARISON: Chest x-ray from 09/03/2016 FINDINGS: There is limited visualization of the lower lung amador due to obscuration by the overlying arms. The aortic arch is calcified. A right-sided PICC line is again noted. There is stable mild prominence of interstitial markings, likely due to chronic / senescent changes. The heart and mediastinum are within normal limits. There is no significant pleural effusion or pneumothorax. There is decreased osseous mineralization. IMPRESSION: No significant interval change in the upper to mid lung zones. The lower lung amador are not visual ized, as above. RPTAT: EE Physician Jerry Date Time Electronically viewed and signed by Physician Jerry on 09/09/2016 08:08 /
[2016-09-09] MEDS: FERROUS SULFATE 60 MG/ML 5ML CUP GTB SCH ×2 (08:15→21:43)
[2016-09-09] MEDS: ZINC SULFATE 220 MG CAP GTB SCH ×2 (08:16→21:43)
[2016-09-09] MEDS: ASCORBIC ACID 500 MG TAB GTB SCH (08:16)
[2016-09-09] MEDS: COLLAGENASE 30 GM TUBE TOP SCH (08:22)
[2016-09-09] MEDS: ENOXAPARIN 40 MG/0.4 ML SYG SC SCH (08:22)
[2016-09-09] MEDS: MIDODRINE 5 MG TAB NGT SCH ×3 (09:55→17:30)
[2016-09-09] MEDS ORDERED: EPOETIN ALFA (NESRD) 3,000 UNITS/ML VIAL SC ONE (11:30)
[2016-09-09] MEDS ORDERED: EPOETIN 10000 UNITS/1 ML INJ (ESRD) SC SCH (13:00)
--- NOTE | 2016-09-09 13:27 | CONS ---
Date/Time of Note Date/Time of Note DATE: 09/09/16 TIME: 13:25 Assessment/Plan Assessment/Plan Additional Assessment/Plan Sepsis Sinus tachycardia Preserved ejection fraction Decubiti Possible pneumonia Dementia -Sinus tachycardia likely manifestation of multiple active medical problems and heart rate trend is improving. No need for AV locking agents at the current time. Continue treatment of the underlying pathology. Consultation Date/Type/Reason Admit Date/Time August 11, 2016 at 19:00 Initial Consult Date 08/19/16 Type of Consultation: cv 24 HR Interval Summary Free Text/Dictation Patient seen and examined. Family at bedside. Exam/Review of Systems Vital Signs Vitals Vital Signs Date Time Temp Pulse Resp B/P Pulse Ox O2 Delivery O2 Flow Rate FiO2 09/09/16 12:08 97.7 106 18 110/58 100 09/09/16 08:27 Nasal Cannula 2.0 Intake and Output 09/08/16 09/08/16 09/09/16 15:00 23:00 07:00 Intake Total 1220 ml 1120 ml Output Total 1400 ml 1350 ml Balance -180 ml -230 ml Exam No apparent distress Head: normocephalic Respiratory: other (Coarse breath sounds bilaterally, no wheezing) Cardiovascular: other (S1-S2 heard), regular rate and rhythm Gastrointestinal: bowel sounds, non-tender, soft Extremities: edema (Trace) Results Result Diagram: 09/08/16 0555 09/08/16 0555 Results 24 hrs Laboratory Tests Test 09/08/16 15:16 Vancomycin Level Trough 5.3 L Medications Medications Current Medications Acetaminophen (Tylenol Tab) 325 mg Q4H PRN GTB PAIN AND FEVER Last administered on 09/06/16 01:05; Admin Dose 325 MG; Start 08/11/16 at 20:00 Morphine Sulfate (morphine) 1 mg Q4H PRN IV PAIN LEVEL 6-10 Last administered on 09/02/16 23:42; Admin Dose 1 MG; Start 08/11/16 at 20:00 Ondansetron HCl (Zofran Inj) 4 mg Q6H PRN IV NAUSEA AND/OR VOMITING; Start 08/12 at 10:00 Acetaminophen 650 mg 650 mg Q6H PRN OR PAIN LEVEL 1-3 OR FEVER; Start 08/12/16 at 10:00 Piperacillin Sod/ Tazobactam Sod (Zosyn 2.25gm/ 50ml (Pmx)) 50 ml @ 100 mls/hr Q6 IVPB Last administered on 09/09/16 12:16; Admin Dose 100 MLS/HR; Start 08/14 at 12:00 Collagenase (Santyl) 1 applic DAILY TOP Last administered on 09/09/16 08:22; Admin Dose 1 APPLIC; Start 08/18/16 at 12:00 Enoxaparin Sodium (Lovenox) 40 mg DAILY SC Last administered on 09/09/16 08:22 ; Admin Dose 40 MG; Start 08/18/16 at 17:30 Ascorbic Acid (Vitamin C) 1,000 mg DAILY GTB Last administered on 09/09/16 08: 16; Admin Dose 1,000 MG; Start 08/28/16 at 11:30 Zinc Sulfate (Zinc Sulfate) 220 mg BID GTB Last administered on 09/09/16 08:16 ; Admin Dose 220 MG; Start 08/28/16 at 21:00 Ferrous Sulfate (Feosol Liquid Cup) 300 mg BID GTB Last administered on 08:15; Admin Dose 300 MG; Start 08/29/16 at 21:00 Midodrine 10 mg 10 mg TID@,,17 NGT Last administered on 09/09/16 13:02; Admin Dose 10 MG; Start 09/02/16 at 09:00 Fluconazole/ Sodium Chloride (Diflucan 100 Mg/ NS (Pmx)) 50 ml @ 50 mls/hr Q24H IVPB Last administered on 09/08/16 16:10; Admin Dose 50 MLS/HR; Start at 16:00; Stop 09/09/16 at 23:00 Lansoprazole 30 mg 30 mg DAILY@06 GTB Last administered on 09/09/16 06:06; Admin Dose 30 MG; Start 09/09/16 at 06:00 Vancomycin HCl (Vancocin) 100 ml @ 100 mls/hr Q12H IVPB Last administered on 03:25; Admin Dose 100 MLS/HR; Start 09/09/16 at 04:00 Miscellaneous Information (*Rx Drug Level Order Reminder*) 1 ONCE ONCE XX ; Start 09/10/16 at 03:00; Stop 5/31/17 at 03:01 Epoetin Melvin (Epogen (Esrd)) 10,000 units ONCE SC Last administered on t 13:03; Admin Dose 10,000 UNITS; Start 09/09/16 at 13:00; Stop 09/09/16 at 23:00 Rachid Mcmahon DO September 09, 2016 13:27
[2016-09-09] MEDS: FLUCONAZOLE 100 MG/NS (PMX) 50 ML IVPB SCH (16:03)
[2016-09-10] VITALS (12 sets, daily range): BP systolic 107–122; BP diastolic 55–64; PULSE 104–113; RESP 18–22
[2016-09-10] MEDS: PIPER-TAZO 2.25 GM (PMX) 50 ML IVPB SCH ×4 (00:17→17:03)
[2016-09-10] MEDS: LEVALBUTEROL (NEB) 0.63 MG/3 ML AMP HHN SCH ×4 (01:22→20:18)
[2016-09-10 04:38] LABS: ALBUMIN 3.7 g/dl (3.3-4.9); POTASSIUM 4.2 mmol/L (3.5-5.1)
[2016-09-10 04:40] LABS: CREATININE 0.68 mg/dl (0.44-1.00)
[2016-09-10 04:41] LABS: ALBUMIN/GLOBULIN RATIO 0.92; BILIRUBIN,INDIRECT 0.1 mg/dl (0-1.1); BILIRUBIN,TOTAL 0.1 mg/dl (0.2-1.3); CALCIUM 8.4 mg/dl (8.4-10.2); TOTAL PROTEIN 7.7 g/dl (6.1-8.1)
[2016-09-10] MEDS: VANCOMYCIN 500MG/NS (PMX) 100 ML IVPB SCH ×2 (04:59→15:49)
[2016-09-10] MEDS: LANSOPRAZOLE 30 MG CAP GTB SCH (06:24)
[2016-09-10] MEDS: FUROSEMIDE 20 MG INJ IV SCH (06:24)
--- NOTE | 2016-09-10 07:57 | PN ---
DATE: 09/09/2016 SUBJECTIVE: The patient is resting comfortably out of the ICU. Blood pressure is back to her origi nal above 90 systolically. New things is the patient had had increase of liver function tests. MEDICATIONS: New medications in the past 4 days: 1. Vancomycin. 2. Diflucan. PHYSICAL EXAMINATION: VITAL SIGNS: Temperature 97.9, pulse 104 to 110, blood pressure 94/55, pulse ox 100 on 2 liters esther al cannula. CHEST: Lungs clear to auscultation bilaterally. LOWER EXTREMITIES: Trace pitting edema bilaterally. CARDIOVASCULAR: Regular rhythm. LABORATORY TESTS: On September 08 is AST of 175, ALT of 129. Portable chest x-ray on September 09: There are no significant pleural effusions or pneumothorax. ASSESSMENT AND PLAN: 1. Pneumonia. The patient now has been taking vancomycin, Zosyn, and Diflucan. Diflucan may be ch anged via ID due to elevated liver function tests. 2. Sacral wound with likely osteo, on day #30 of Zosyn. The patient is to get 42 days of Zosyn. 3. Candiduria with hematuria, was on Diflucan, but it appears that the Diflucan may be causing the increased liver function tests. 4. Liver function tests elevation with AST of 175 and ALT of 129, both of them were normal on August 12 which was the last time we had a blood test till September 08. The vancomycin is not supposed to in crease the liver function tests. ID is addressing. 5. Hypernatremia, resolved. 6. Tachycardia, back to her baseline, mildly improved. It seems to be holding around 110 and less. 7. The decubital ulcer which is awaiting the possibility of debridement. The patient is basically stable with the exception now of the elevated liver function tests. Liver function tests needs to b e improved before debridement can ____. Dictated By: QIANA OLMEDO/FIDELIA Conf#: [id number] DID#: [id number]
--- NOTE | 2016-09-10 08:45 | CONS ---
Date/Time of Note Date/Time of Note DATE: 09/10/16 TIME: 08:41 Assessment/Plan Assessment/Plan Chief Complaint/Hosp Course 1) ARF u/a does not suggest infection, likely due to dehydration 08/13 - improving with hydration 08/14 - continues to improve, will increase dose of zosyn urine cx was negative 08/15 - pretty much resolved 2) pneumonia check procalcitonin get nasal swab for MRSA continue with vanco, change cefepime to zosyn likely aspiration 08/13 - wbc is improving, continue with vanco/zosyn 08/14 - wbc continues to improve, no MRSA found d/c vanco and continue with zosyn and increase its dose 08/15 - only on zosyn now and wbc is improving pt getting echo and asked tech to quantify the L sided pleural effusion too 08/17 - echo only reported presence of L pleural effusion no good evidence to suggest an empyema continue with zosyn 08/18 - stable, pt completes were treatment course for pneumonia today 08/20 - minimally elevated procalcitonin on 08/13 no further treatment needed for pneumonia but on zosyn for probable sacral osteo 09/03 - more haziness over L base, but no increase in WBC continue with zosyn, check procalcitonin in a.m. repeat nasal swab for MRSA consider hospice for patient 09/04 - neg for MRSA 09/05 - no change continue with zosyn, await repeat procalcitonin fevers are improving 09/08 - pt likely re-aspirating on vanco/zosyn/diflucan and stable will continue vanco/diflucan for a total of 7 days 09/10 - d/c diflucan yesterday due to increase in LFT's again continue vanco thru tomorrow 3) sacral wound ulcer, likely osteo check ESR, CRP and if very high then would treat as if osteomyelitis if not very high will order bone scan for ultimate healing if this is indeed osteo she will likely need plastic surgery involvement her low albumin suggest she would have poor tissue healing will get wound cx of deeper wound 08/13 - ESR is very high, c/w osteomyelitis wound cx has gnr's and GPC continue with vanco/zosyn at present 08/14 - no MRSA found, d/c vanco and continue with zosyn pt likely has osteo due to high ESR will follow ESR weekly for response unlikely that antibiotics alone will heal the sacral wounds 08/15 - continue with zosyn unlikely that antibiotics alone will heal these sacral wounds 08/17 - pt likely has osteo but unlikely antibiotics will cure this usual treatment course for osteo is 6 weeks of antibiotics unlikely antibiotics alone will be curative repeat ESR and CRP in a.m. 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 repeat ESR and CRP are pending it is unlikely that antibiotics alone will be curative 08/20 - of zosyn ESR elevated c/w osteomyelitis CRP did improve a bit but antibiotics unlikely to be curative recommend weekly esr, crp and if not improving then would d/c antibiotics 08/27 - of zosyn CRP has come down slowly, ESR has actually increased but sometimes the ESR is delayed in improvement Nonetheless it has almost doubled If surgical debridement it to be done then pt will need deep surgical cultures sent to verify that no resistant organisms are being missed continue with zosyn at present pt will likely need a muscle flap if cure of osteomyelitis is the goal and it would be helpful to get bone biopsy and culture with deep tissue culture prior to that to help guide if any change in antibiotics is needed 08/29 - no new recommendations if surgery is done, please get deep surgical wound cx and if possible bone cx/ biopsy continue with zosyn (day ) 09/01 - day of zosyn still awaiting family decision regarding debridement and flap if debridement is done please get deep surgical wound cx and ideally bone bx/cx crp continues to improve, ESR is pending 09/03 - ESR was minimally improved family agrees to debridement but now in ICU due to hypotension 09/04 - stable, off levophed continue with zosyn 09/10 - ESR barely decreasing no soon debridement is seen will repeat wound cx at this time 4) severe dementia 5) candiduria 09/05 no pyuria but has hematuria, doubt this is significant, no need to treat 09/08 - pt was placed on diflucan will continue for a 7 day course repeat urine cx is NGTD 09/10 - diflucan stopped yesterday due to increase in LFT's repeat u/a and urine cx Problems: Consultation Date/Type/Reason Admit Date/Time August 11, 2016 at 19:00 Initial Consult Date 08/12/16 Type of Consultation: ID 24 HR Interval Summary Subjective hx not possible: pt non-verbal Exam/Review of Systems Vital Signs Vitals Vital Signs Date Time Temp Pulse Resp B/P Pulse Ox O2 Delivery O2 Flow Rate FiO2 09/10/16 07:41 97.5 110 18 108/60 98 09/10/16 01:22 Nasal Cannula 2.0 Intake and Output 09/09/16 09/09/16 09/10/16 15:00 23:00 07:00 Intake Total 1170 ml 980 ml Output Total 1100 ml Balance 1170 ml -120 ml Exam Constitutional: non-verbal Head: normocephalic Respiratory: clear to auscultation Cardiovascular: regular rate and rhythm Gastrointestinal: soft Results Result Diagram: 09/08/16 0555 09/10/16 0317 Results 24 hrs Laboratory Tests Test 09/10/16 03:17 Sodium Level 136 Potassium Level 4.2 Chloride Level 98 Carbon Dioxide Level 32 H Anion Gap 10 Blood Urea Nitrogen 27 H Creatinine 0.68 Glucose Level 154 Calcium Level 8.4 Total Bilirubin 0.1 L Direct Bilirubin 0.00 Indirect Bilirubin 0.1 Aspartate Amino Transf (AST/SGOT) 159 H Alanine Aminotransferase (ALT/SGPT) 145 H Alkaline Phosphatase 264 H Total Protein 7.7 Albumin 3.7 # Globulin 4.00 H Albumin/Globulin Ratio 0.92 Vancomycin Level Trough 16.5 Medications Medications Current Medications Acetaminophen (Tylenol Tab) 325 mg Q4H PRN GTB PAIN AND FEVER Last administered on 09/06/16 01:05; Admin Dose 325 MG; Start 08/11/16 at 20:00 Morphine Sulfate (morphine) 1 mg Q4H PRN IV PAIN LEVEL 6-10 Last administered on 09/02/16 23:42; Admin Dose 1 MG; Start 08/11/16 at 20:00 Ondansetron HCl (Zofran Inj) 4 mg Q6H PRN IV NAUSEA AND/OR VOMITING; Start 08/12 at 10:00 Acetaminophen 650 mg 650 mg Q6H PRN [place] PAIN LEVEL 1-3 OR FEVER; Start 08/12/16 at 10:00 Piperacillin Sod/ Tazobactam Sod (Zosyn 2.25gm/ 50ml (Pmx)) 50 ml @ 100 mls/hr Q6 IVPB Last administered on 09/10/16 06:24; Admin Dose 100 MLS/HR; Start 08/14 at 12:00 Collagenase (Santyl) 1 applic DAILY TOP Last administered on 09/09/16 08:22; Admin Dose 1 APPLIC; Start 08/18/16 at 12:00 Enoxaparin Sodium (Lovenox) 40 mg DAILY SC Last administered on 09/09/16 08:22 ; Admin Dose 40 MG; Start 08/18/16 at 17:30 Ascorbic Acid (Vitamin C) 1,000 mg DAILY GTB Last administered on 09/09/16 08: 16; Admin Dose 1,000 MG; Start 08/28/16 at 11:30 Zinc Sulfate (Zinc Sulfate) 220 mg BID GTB Last administered on 09/09/16 21:43 ; Admin Dose 220 MG; Start 08/28/16 at 21:00 Ferrous Sulfate (Feosol Liquid Cup) 300 mg BID GTB Last administered on 21:43; Admin Dose 300 MG; Start 08/29/16 at 21:00 Midodrine (Proamatine) 10 mg TID@,13,17 NGT Last administered on 09/09/16 17 :30; Admin Dose 10 MG; Start 09/02/16 at 09:00 Lansoprazole 30 mg 30 mg DAILY@06 GTB Last administered on 09/10/16 06:24; Admin Dose 30 MG; Start 09/09/16 at 06:00 Vancomycin HCl (Vancocin) 100 ml @ 100 mls/hr Q12H IVPB Last administered on 04:59; Admin Dose 100 MLS/HR; Start 09/09/16 at 04:00 ERNIE MILLER MD September 10, 2016 08:45
[2016-09-10] MEDS: FERROUS SULFATE 60 MG/ML 5ML CUP GTB SCH ×2 (08:57→20:44)
[2016-09-10] MEDS: ZINC SULFATE 220 MG CAP GTB SCH ×2 (08:57→20:46)
[2016-09-10] MEDS: ASCORBIC ACID 500 MG TAB GTB SCH (08:57)
[2016-09-10] MEDS: ENOXAPARIN 40 MG/0.4 ML SYG SC SCH (08:58)
[2016-09-10] MEDS: MIDODRINE 5 MG TAB NGT SCH ×3 (09:23→17:03)
[2016-09-10 10:35] LABS: ADD UMIC YES; URINE BILIRUBIN (Dip) NEGATIVE (NEGATIVE); URINE BLOOD (Dip) 2+ (NEGATIVE); URINE COLOR LT. YELLOW (YELLOW); URINE GLUCOSE (Dip) NEGATIVE (NEGATIVE); URINE KETONES (Dip) NEGATIVE (NEGATIVE); URINE LEUKOCYTE ESTERASE (Dip) TRACE (NEGATIVE); URINE NITRITE (Dip) NEGATIVE (NEGATIVE); URINE TOTAL PROTEIN (Dip) NEGATIVE (NEGATIVE); URINE UROBILINOGEN (Dip) 0.2 E.U./dL (0.1-1.0)
--- NOTE | 2016-09-10 13:27 | PN ---
Date/Time of Note Date/Time of Note DATE: 09/10/16 TIME: 13:27 Assessment/Plan VTE Prophylaxis VTE Prophylaxis Intervention: SCD's Lines/Catheters IV Catheter Type (from Nrs): PICC Line Central line still needed: No Urinary Cath still in place: Yes Reason Cath still needed: urinary retention Assessment/Plan Assessment/Plan Sepsis Sinus tachycardia Preserved ejection fraction Decubiti Possible pneumonia Dementia -Sinus tachycardia likely manifestation of multiple active medical problems and heart rate trend is improving. No need for AV locking agents at the current time. Continue treatment of the underlying pathology. Subjective 24 Hr Interval Summary Free Text/Dictation the patient iwth no cahnge Exam/Review of Systems Vital Signs Vitals Vital Signs Date Time Temp Pulse Resp B/P Pulse Ox O2 Delivery O2 Flow Rate FiO2 09/10/16 12:23 105 09/10/16 11:43 98.0 20 113/55 100 09/10/16 08:43 2.0 28 09/10/16 08:43 Nasal Cannula Intake and Output 09/09/16 09/09/16 09/10/16 15:00 23:00 07:00 Intake Total 1170 ml 980 ml Output Total 1100 ml Balance 1170 ml -120 ml Results Result Diagram: 09/08/16 0555 09/10/16 0317 Results 24 hrs Laboratory Tests Test 09/10/16 03:17 09/10/16 09:00 Sodium Level 136 Potassium Level 4.2 Chloride Level 98 Carbon Dioxide Level 32 H Anion Gap 10 Blood Urea Nitrogen 27 H Creatinine 0.68 Glucose Level 154 Calcium Level 8.4 Total Bilirubin 0.1 L Direct Bilirubin 0.00 Indirect Bilirubin 0.1 Aspartate Amino Transf (AST/SGOT) 159 H Alanine Aminotransferase (ALT/SGPT) 145 H Alkaline Phosphatase 264 H Total Protein 7.7 Albumin 3.7 # Globulin 4.00 H Albumin/Globulin Ratio 0.92 Vancomycin Level Trough 16.5 Urine Color LT. YELLOW Urine Clarity CLEAR Urine pH 6.0 Urine Specific [place] 1.010 Urine Ketones NEGATIVE Urine Nitrite NEGATIVE Urine Bilirubin NEGATIVE Urine Urobilinogen 0.2 E.U./dL Urine Leukocyte Esterase TRACE H Urine Microscopic RBC 2-5 Urine Microscopic WBC 0-2 Urine Hemoglobin 2+ H Urine Glucose NEGATIVE Urine Total Protein NEGATIVE Medications Medications Current Medications Acetaminophen (Tylenol Tab) 325 mg Q4H PRN GTB PAIN AND FEVER Last administered on 09/06/16 01:05; Admin Dose 325 MG; Start 08/11/16 at 20:00 Morphine Sulfate (morphine) 1 mg Q4H PRN IV PAIN LEVEL 6-10 Last administered on 09/02/16 23:42; Admin Dose 1 MG; Start 08/11/16 at 20:00 Ondansetron HCl (Zofran Inj) 4 mg Q6H PRN IV NAUSEA AND/OR VOMITING; Start 08/12 at 10:00 Acetaminophen 650 mg [address] PAIN LEVEL 1-3 OR FEVER; Start 08/12/16 at 10:00 Piperacillin Sod/ Tazobactam Sod (Zosyn 2.25gm/ 50ml (Pmx)) 50 ml @ 100 mls/hr Q6 IVPB Last administered on 09/10/16 12:33; Admin Dose 100 MLS/HR; Start 08/14 at 12:00 Collagenase (Santyl) 1 applic DAILY TOP Last administered on 09/09/16 08:22; Admin Dose 1 APPLIC; Start 08/18/16 at 12:00 Enoxaparin Sodium (Lovenox) 40 mg DAILY SC Last administered on 09/10/16 08:58 ; Admin Dose 40 MG; Start 08/18/16 at 17:30 Ascorbic Acid (Vitamin C) 1,000 mg DAILY GTB Last administered on 09/10/16 08: 57; Admin Dose 1,000 MG; Start 08/28/16 at 11:30 Zinc Sulfate (Zinc Sulfate) 220 mg BID GTB Last administered on 09/10/16 08:57 ; Admin Dose 220 MG; Start 08/28/16 at 21:00 Ferrous Sulfate (Feosol Liquid Cup) 300 mg BID GTB Last administered on 08:57; Admin Dose 300 MG; Start 08/29/16 at 21:00 Midodrine (Proamatine) 10 mg TID@,,17 NGT Last administered on 09/10/16 12 :33; Admin Dose 10 MG; Start 09/02/16 at 09:00 Lansoprazole 30 mg 30 mg DAILY@06 GTB Last administered on 09/10/16 06:24; Admin Dose 30 MG; Start 09/09/16 at 06:00 Vancomycin HCl (Vancocin) 100 ml @ 100 mls/hr Q12H IVPB Last administered on t 04:59; Admin Dose 100 MLS/HR; Start 09/09/16 at 04:00 Furosemide (Lasix) 20 mg AM IV ; Start 09/11/16 at 09:00 CHRISTIE TUCKER MD September 10, 2016 13:27
[2016-09-10] MEDS: COLLAGENASE 30 GM TUBE TOP SCH (15:19)
[2016-09-11] VITALS (12 sets, daily range): BP systolic 94–122; BP diastolic 51–64; PULSE 102–123; RESP 16–24
[2016-09-11] MEDS: PIPER-TAZO 2.25 GM (PMX) 50 ML IVPB SCH ×4 (01:04→17:20)
[2016-09-11] MEDS: LEVALBUTEROL (NEB) 0.63 MG/3 ML AMP HHN SCH ×4 (01:24→21:26)
--- NOTE | 2016-09-11 02:47 | PN ---
Date/Time of Note Date/Time of Note DATE: 09/10/16 TIME: 22:43 Assessment/Plan Lines/Catheters IV Catheter Type (from [facility]): PICC Line [place] in Place (from [facility]): Yes Assessment/Plan Chief Complaint/Hosp Course 1. 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 -offloading, -local wound care, -nutritional optimization, -vitamin C 1000 mg a day -debridement 2. Deep tissue injury, left shoulder and other decubitus areas. Continue as above. 3. Anemia without evidence of acute blood loss. Continue monitoring. 4. Functional quadriplegia. Continue offloading with q.2 hour position change and air mattress and nutrition optimization. 5. End-stage dementia and Alzheimer's. Continue medical optimization. 6. Tachyarrhythmia of unknown etiology. Will defer to medical team for further workup and treatment. 7. Dysphagia, on tube feeds. 8. Hypoalbuminemia. Continue nutritional optimization. 9. Hematuria -monitor Thank you Late entry 09/10 Problems: Subjective 24 Hr Interval Summary Worsening transaminitis. No f/c. No vomiting. No cough. No sz. No bloating. Tachyarrhythmias. Hg stable. No rashes. Exam/Review of Systems Vital Signs Vitals Vital Signs Date Time Temp Pulse Resp B/P Pulse Ox O2 Delivery O2 Flow Rate FiO2 09/11/16 01:25 114 20 96 Nasal Cannula 2.0 09/10/16 23:52 99.4 119/64 09/10/16 20:19 28 Intake and Output 09/10/16 09/10/16 09/11/16 15:00 23:00 07:00 Intake Total 50 ml 360 ml Output Total 1200 ml Balance 50 ml -840 ml Exam Free Text/Dictation GENERAL: Noncommunicative, contracted state. HEENT: Pupils are sluggish. No scleral icterus. Mucous membranes are moist. NECK: No crepitus with baseline rigidity. PULMONARY: Normal respiratory effort. No wheezing. HEART: S1, S2 and irregular. ABDOMEN: Soft. PEG in place. EXTREMITIES: Contracted without edema. VASCULAR: Capillary refill is over 3 seconds. NEUROLOGIC: Does not follow commands, however opens eyes. SKIN: No rashes. No jaundice. Multiple areas of bruising. Multiple decubitus wounds, especially sacrococcyx and left buttock with debris. Left shoulder deep tissue injury. LYMPHATICS: No inguinal or cervical lymphadenopathy. Results Result Diagram: 09/08/16 0555 09/10/16 0317 JAS VILLAGRAN MD Sep 11, 2016 02:47
[2016-09-11] MEDS: VANCOMYCIN 500MG/NS (PMX) 100 ML IVPB SCH (04:22)
[2016-09-11] MEDS: LANSOPRAZOLE 30 MG CAP GTB SCH (05:33)
[2016-09-11 07:46] LABS: ADD SCAN DIFF NO
[2016-09-11 07:48] LABS: BASOPHILS % 0.2 % (0.0-2.0); EOSINOPHILS % 8.9 % (0.0-7.0); HEMATOCRIT 31.3 % (37.0-47.0); HEMOGLOBIN 9.7 g/dl (12.0-16.0); LYMPHOCYTES # 0.9 10^3/ul (0.8-2.9); LYMPHOCYTES % 7.8 % (15.0-51.0); MEAN CORPUSCULAR HEMOGLOBIN 31.3 pg (29.0-33.0); MEAN PLATELET VOLUME 9.6 fl (7.4-10.4); MONOCYTE # 0.9 10^3/ul (0.3-0.9); MONOCYTES % 8.3 % (0.0-11.0); NEUTROPHIL # 8.1 10^3/ul (1.6-7.5); NEUTROPHILS % 72.6 % (39.0-77.0); PLATELET COUNT 574 10^3/UL (140-415); RED CELL DISTRIBUTION WIDTH 19.1 % (11.5-14.5); WHITE BLOOD COUNT 11.1 10^3/ul (4.8-10.8)
[2016-09-11 08:16] LABS: ALBUMIN 3.8 g/dl (3.3-4.9); ALBUMIN/GLOBULIN RATIO 0.88; CALCIUM 8.7 mg/dl (8.4-10.2); CREATININE 0.62 mg/dl (0.44-1.00); POTASSIUM 4.1 mmol/L (3.5-5.1); TOTAL PROTEIN 8.1 g/dl (6.1-8.1)
[2016-09-11] MEDS: FUROSEMIDE 20 MG INJ IV SCH (09:09)
[2016-09-11] MEDS: FERROUS SULFATE 60 MG/ML 5ML CUP GTB SCH ×2 (09:09→20:49)
[2016-09-11] MEDS: ASCORBIC ACID 500 MG TAB GTB SCH (09:09)
[2016-09-11] MEDS: ZINC SULFATE 220 MG CAP GTB SCH ×2 (09:09→20:49)
[2016-09-11] MEDS: ENOXAPARIN 40 MG/0.4 ML SYG SC SCH (09:11)
[2016-09-11] MEDS: MIDODRINE 5 MG TAB NGT SCH ×3 (11:49→17:20)
[2016-09-11] MEDS: COLLAGENASE 30 GM TUBE TOP SCH (11:50)
--- NOTE | 2016-09-11 13:01 | PN ---
Date/Time of Note Date/Time of Note DATE: 09/11/16 TIME: 13:01 Assessment/Plan VTE Prophylaxis VTE Prophylaxis Intervention: SCD's Lines/Catheters IV Catheter Type (from Nrsg): PICC Line Central line still needed: No Urinary Cath still in place: Yes Reason Cath still needed: urinary retention Assessment/Plan Assessment/Plan Sepsis Sinus tachycardia Preserved ejection fraction Decubiti Possible pneumonia Dementia -Sinus tachycardia likely manifestation of multiple active medical problems and heart rate trend is improving. No need for AV locking agents at the current time. Continue treatment of the underlying pathology. Subjective 24 Hr Interval Summary Free Text/Dictation the apient with no chage Exam/Review of Systems Vital Signs Vitals Vital Signs Date Time Temp Pulse Resp B/P Pulse Ox O2 Delivery O2 Flow Rate FiO2 09/11/16 12:54 123 09/11/16 11:09 98.5 20 100/52 99 09/11/16 08:17 2.0 09/11/16 08:17 Nasal Cannula 09/10/16 20:19 28 Intake and Output 09/10/16 09/10/16 09/11/16 15:00 23:00 07:00 Intake Total 50 ml 360 ml 1180 ml Output Total 1200 ml 600 ml Balance 50 ml -840 ml 580 ml Results Result Diagram: 09/11/16 0635 09/11/16 0635 Results 24 hrs Laboratory Tests Test 09/11/16 06:35 White Blood Count 11.1 H Red Blood Count 3.10 L Hemoglobin 9.7 L Hematocrit 31.3 L Mean Corpuscular Volume 101.0 Mean Corpuscular Hemoglobin 31.3 Mean Corpuscular Hemoglobin Concent 31.0 L Red Cell Distribution Width 19.1 H Platelet Count 574 H Mean Platelet Volume 9.6 Neutrophils % 72.6 Lymphocytes % 7.8 L Monocytes % 8.3 Eosinophils % 8.9 H Basophils % 0.2 Nucleated Red Blood Cells % 0.0 Neutrophils # 8.1 H Lymphocytes # 0.9 Monocytes # 0.9 Eosinophils # 1.0 H Basophils # 0.0 Nucleated Red Blood Cells # 0.0 Sodium Level 131 L Potassium Level 4.1 Chloride Level 93 L Carbon Dioxide Level 33 H Anion Gap 9 Blood Urea Nitrogen 33 H Creatinine 0.62 Glucose Level 112 # Calcium Level 8.7 Total Bilirubin 0.0 L Direct Bilirubin 0.00 Indirect Bilirubin 0.0 Aspartate Amino Transf (AST/SGOT) 139 H Alanine Aminotransferase (ALT/SGPT) 161 H Alkaline Phosphatase 270 H Total Protein 8.1 Albumin 3.8 Globulin 4.30 H Albumin/Globulin Ratio 0.88 Medications Medications Current Medications Acetaminophen (Tylenol Tab) 325 mg Q4H PRN GTB PAIN AND FEVER Last administered on 09/06/16 01:05; Admin Dose 325 MG; Start 08/11/16 at 20:00 Morphine Sulfate (morphine) 1 mg Q4H PRN IV PAIN LEVEL 6-10 Last administered on 09/02/16 23:42; Admin Dose 1 MG; Start 08/11/16 at 20:00 Ondansetron HCl (Zofran Inj) 4 mg Q6H PRN IV NAUSEA AND/OR VOMITING; Start 08/12 at 10:00 Acetaminophen 650 mg 650 mg Q6H PRN [place] PAIN LEVEL 1-3 OR FEVER; Start 08/12/16 at 10:00 Piperacillin Sod/ Tazobactam Sod (Zosyn 2.25gm/ 50ml (Pmx)) 50 ml @ 100 mls/hr Q6 IVPB Last administered on 09/11/16 11:49; Admin Dose 100 MLS/HR; Start at 12:00 Collagenase (Santyl) 1 applic DAILY TOP Last administered on 09/11/16 11:50; Admin Dose 1 APPLIC; Start 08/18/16 at 12:00 Enoxaparin Sodium (Lovenox) 40 mg DAILY SC Last administered on 09/11/16 09:11 ; Admin Dose 40 MG; Start 08/18/16 at 17:30 Ascorbic Acid (Vitamin C) 1,000 mg DAILY GTB Last administered on 09/11/16 09: 09; Admin Dose 1,000 MG; Start 08/28/16 at 11:30 Zinc Sulfate (Zinc Sulfate) 220 mg BID GTB Last administered on 09/11/16 09:09 ; Admin Dose 220 MG; Start 08/28/16 at 21:00 Ferrous Sulfate (Feosol Liquid Cup) 300 mg BID GTB Last administered on 09:09; Admin Dose 300 MG; Start 08/29/16 at 21:00 Midodrine (Proamatine) 10 mg TID@,, NGT Last administered on 09/11/16 11: 49; Admin Dose 10 MG; Start 09/02/16 at 09:00 Lansoprazole 30 mg 30 mg DAILY@06 GTB Last administered on 09/11/16 05:33; Admin Dose 30 MG; Start 09/09/16 at 06:00 Vancomycin HCl (Vancocin) 100 ml @ 100 mls/hr Q12H IVPB Last administered on 04:22; Admin Dose 100 MLS/HR; Start 09/09/16 at 04:00 Furosemide (Lasix) 20 mg AM IV Last administered on 09/11/16 09:09; Admin Dose 20 MG; Start 09/11/16 at 09:00 CHRISTIE TUCKER MD Sep 11, 2016 13:01
--- NOTE | 2016-09-11 14:27 | PN ---
DATE: 09/11/2016 No acute changes, resting comfortably. Respirations mildly improved compared to yesterday. Rate is not as fast, although on vitals it reports it is between 16 and 20, appears to be actually faster t magallanes that. PHYSICAL EXAMINATION: VITAL SIGNS: Temperature 98.5, pulse 119, respiration rate 20, blood pressure 100/52, pulse ox at 9 9 on 2 liters nasal cannula. PULMONARY: Expiratory wheezes, mild. CARDIOVASCULAR: Lower extremity improved pitting edema, trace. ABDOMEN: Soft, nontender. EXTREMITIES: Lower extremities warm. LABORATORY TESTS: WBC 11.1, hemoglobin 9.7. ESR of 128. Sodium of 131. Creatinine is at 0.62. A ST is lower at 139, ALT is higher at 161. ASSESSMENT AND PLAN: 1. Pneumonia. On vancomycin and Zosyn. Diflucan was stopped due to elevated liver function tests. The patient is having wheezes. Will continue hand-held nebulizer. May be increased if necessary. Respiration rate seems to be improved compared to yesterday. Not using accessory muscles. 2. Sacral wound and osteomyelitis. Day #32 of Zosyn. Awaiting stability and improvement of the li walter function tests before debridement can occur. 3. Hematuria with candiduria. Was on Diflucan, but appeared the Diflucan was causing liver functi on tests to be elevated. This was discontinued. This is day 2 of being off the Diflucan. 4. Liver function tests. ALT continues to worsen, went from 129 to 145, and now it is at 161. The AST has improved, going from 175 down to 139. Liver function tests, will continue to watch. Tylen ol p.r.n. was stopped due to the possibility that the patient may be getting too much of this. 5. Hypernatremia. Currently she is now hyponatremic. The blood test for today appeared to be off, some jump in the hemoglobin and a decrease of the sodium, so will repeat lab tests tomorrow and rec heck. 6. Tachycardia. The patient still is ranging now between 100 to 120. Dictated By: QIANA OLMEDO/FIDELIA Conf#: [id number] DID#: [id number]
[2016-09-11 14:45] LABS: ALBUMIN/GLOBULIN RATIO 0.97; BILIRUBIN,INDIRECT 0.1 mg/dl (0-1.1); BILIRUBIN,TOTAL 0.1 mg/dl (0.2-1.3); CALCIUM 8.5 mg/dl (8.4-10.2); CREATININE 0.65 mg/dl (0.44-1.00); POTASSIUM 4.1 mmol/L (3.5-5.1); TOTAL PROTEIN 8.1 g/dl (6.1-8.1)
[2016-09-12] VITALS (10 sets, daily range): BP systolic 102–117; BP diastolic 56–94; PULSE 118–123; RESP 18–30
[2016-09-12] MEDS: PIPER-TAZO 2.25 GM (PMX) 50 ML IVPB SCH ×2 (00:02→05:58)
[2016-09-12] MEDS: LEVALBUTEROL (NEB) 0.63 MG/3 ML AMP HHN SCH ×4 (01:46→19:44)
[2016-09-12] MEDS ORDERED: VANCOMYCIN 750 MG in SOD CHLORIDE 0.9% 150 ML IVPB SCH (04:00)
[2016-09-12] MEDS: LANSOPRAZOLE 30 MG CAP GTB SCH (05:57)
[2016-09-12 07:33] LABS: ADD SCAN DIFF NO
[2016-09-12 07:38] LABS: BASOPHILS % 0.3 % (0.0-2.0); EOSINOPHILS # 1.2 10^3/ul (0.0-0.5); EOSINOPHILS % 9.5 % (0.0-7.0); HEMATOCRIT 33.3 % (37.0-47.0); HEMOGLOBIN 10.4 g/dl (12.0-16.0); LYMPHOCYTES # 0.9 10^3/ul (0.8-2.9); LYMPHOCYTES % 6.6 % (15.0-51.0); MEAN CORPUSCULAR HEMOGLOBIN 31.6 pg (29.0-33.0); MEAN CORPUSCULAR HGB CONC 31.2 g/dl (32.0-37.0); MEAN CORPUSCULAR VOLUME 101.2 fl (82.0-101.0); MEAN PLATELET VOLUME 9.2 fl (7.4-10.4); MONOCYTE # 0.9 10^3/ul (0.3-0.9); MONOCYTES % 6.7 % (0.0-11.0); NEUTROPHIL # 9.7 10^3/ul (1.6-7.5); NEUTROPHILS % 74.7 % (39.0-77.0); PLATELET COUNT 619 10^3/UL (140-415); RED BLOOD COUNT 3.29 10^6/ul (4.20-5.40); WHITE BLOOD COUNT 12.9 10^3/ul (4.8-10.8)
[2016-09-12] MEDS: MIDODRINE 5 MG TAB NGT SCH ×3 (09:00→17:03)
--- NOTE | 2016-09-12 09:42 | CONS ---
Date/Time of Note Date/Time of Note DATE: 09/12/16 TIME: 09:34 Assessment/Plan Assessment/Plan Chief Complaint/Hosp Course 1) ARF u/a does not suggest infection, likely due to dehydration 08/13 - improving with hydration 08/14 - continues to improve, will increase dose of zosyn urine cx was negative 08/15 - pretty much resolved 2) pneumonia check procalcitonin get nasal swab for MRSA continue with vanco, change cefepime to zosyn likely aspiration 08/13 - wbc is improving, continue with vanco/zosyn 08/14 - wbc continues to improve, no MRSA found d/c vanco and continue with zosyn and increase its dose 08/15 - only on zosyn now and wbc is improving pt getting echo and asked tech to quantify the L sided pleural effusion too 08/17 - echo only reported presence of L pleural effusion no good evidence to suggest an empyema continue with zosyn 08/18 - stable, pt completes were treatment course for pneumonia today 08/20 - minimally elevated procalcitonin on 08/13 no further treatment needed for pneumonia but on zosyn for probable sacral osteo 09/03 - more haziness over L base, but no increase in WBC continue with zosyn, check procalcitonin in a.m. repeat nasal swab for MRSA consider hospice for patient 09/04 - neg for MRSA 09/05 - no change continue with zosyn, await repeat procalcitonin fevers are improving 09/08 - pt likely re-aspirating on vanco/zosyn/diflucan and stable will continue vanco/diflucan for a total of 7 days 09/10 - d/c diflucan yesterday due to increase in LFT's again continue vanco thru tomorrow 09/12 - d/c vanco, wound cx has no MRSA 3) sacral wound ulcer, likely osteo check ESR, CRP and if very high then would treat as if osteomyelitis if not very high will order bone scan for ultimate healing if this is indeed osteo she will likely need plastic surgery involvement her low albumin suggest she would have poor tissue healing will get wound cx of deeper wound 08/13 - ESR is very high, c/w osteomyelitis wound cx has gnr's and GPC continue with vanco/zosyn at present 08/14 - no MRSA found, d/c vanco and continue with zosyn pt likely has osteo due to high ESR will follow ESR weekly for response unlikely that antibiotics alone will heal the sacral wounds 08/15 - continue with zosyn unlikely that antibiotics alone will heal these sacral wounds 08/17 - pt likely has osteo but unlikely antibiotics will cure this usual treatment course for osteo is 6 weeks of antibiotics unlikely antibiotics alone will be curative repeat ESR and CRP in a.m. 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 repeat ESR and CRP are pending it is unlikely that antibiotics alone will be curative 08/20 - day of zosyn ESR elevated c/w osteomyelitis CRP did improve a bit but antibiotics unlikely to be curative recommend weekly esr, crp and if not improving then would d/c antibiotics 08/27 - Day of zosyn CRP has come down slowly, ESR has actually increased but sometimes the ESR is delayed in improvement Nonetheless it has almost doubled If surgical debridement it to be done then pt will need deep surgical cultures sent to verify that no resistant organisms are being missed continue with zosyn at present pt will likely need a muscle flap if cure of osteomyelitis is the goal and it would be helpful to get bone biopsy and culture with deep tissue culture prior to that to help guide if any change in antibiotics is needed 08/29 - no new recommendations if surgery is done, please get deep surgical wound cx and if possible bone cx/ biopsy continue with zosyn (day 19) 09/01 - day 22 of zosyn still awaiting family decision regarding debridement and flap if debridement is done please get deep surgical wound cx and ideally bone bx/cx crp continues to improve, ESR is pending 09/03 - ESR was minimally improved family agrees to debridement but now in ICU due to hypotension 09/04 - stable, off levophed continue with zosyn 09/10 - ESR barely decreasing no soon debridement is seen will repeat wound cx at this time 09/12 - wound cx has resistant enterobacter d/c vanco (no MRSA still), change zosyn to merrem 4) severe dementia 5) candiduria 09/05 no pyuria but has hematuria, doubt this is significant, no need to treat 09/08 - pt was placed on diflucan will continue for a 7 day course repeat urine cx is NGTD 09/10 - diflucan stopped yesterday due to increase in LFT's repeat u/a and urine cx 6) increase in alk phos and LFT's 09/12 - no change with d/c of diflucan, will d/c zosyn as it too could be the culprit will order RUQ u/s too Problems: Consultation Date/Type/Reason Admit Date/Time August 11, 2016 at 19:00 Initial Consult Date 08/12/16 Type of Consultation: ID 24 HR Interval Summary Free Text/Dictation no change Exam/Review of Systems Vital Signs Vitals Vital Signs Date Time Temp Pulse Resp B/P Pulse Ox O2 Delivery O2 Flow Rate FiO2 09/12/16 08:42 106 22 96 Nasal Cannula 2.0 09/12/16 07:43 98.6 111/58 09/10/16 20:19 28 Intake and Output 09/11/16 09/11/16 09/12/16 15:00 23:00 07:00 Intake Total 50 ml 950 ml 500 ml Output Total 1250 ml 650 ml Balance 50 ml -300 ml -150 ml Exam Constitutional: non-verbal Head: normocephalic ENMT: mucosa pink and moist Respiratory: clear to auscultation Cardiovascular: regular rate and rhythm Gastrointestinal: non-tender, soft Results Result Diagram: 09/12/16 0710 09/11/16 1418 Results 24 hrs Laboratory Tests Test 09/11/16 14:18 09/12/16 07:10 Sodium Level 136 Potassium Level 4.1 Chloride Level 94 L Carbon Dioxide Level 34 H Anion Gap 12 Blood Urea Nitrogen 32 H Creatinine 0.65 Glucose Level 138 Calcium Level 8.5 Total Bilirubin 0.1 L Direct Bilirubin 0.00 Indirect Bilirubin 0.1 Aspartate Amino Transf (AST/SGOT) 151 H Alanine Aminotransferase (ALT/SGPT) 154 H Alkaline Phosphatase 280 H Total Protein 8.1 Albumin 4.0 Globulin 4.10 H Albumin/Globulin Ratio 0.97 White Blood Count 12.9 H Red Blood Count 3.29 L Hemoglobin 10.4 L Hematocrit 33.3 L Mean Corpuscular Volume 101.2 H Mean Corpuscular Hemoglobin 31.6 Mean Corpuscular Hemoglobin Concent 31.2 L Red Cell Distribution Width 19.0 H Platelet Count 619 H Mean Platelet Volume 9.2 Neutrophils % 74.7 Lymphocytes % 6.6 L Monocytes % 6.7 Eosinophils % 9.5 H Basophils % 0.3 Nucleated Red Blood Cells % 0.0 Neutrophils # 9.7 H Lymphocytes # 0.9 Monocytes # 0.9 Eosinophils # 1.2 H Basophils # 0.0 Nucleated Red Blood Cells # 0.0 Medications Medications Current Medications Morphine Sulfate (morphine) 1 mg Q4H PRN IV PAIN LEVEL 6-10 Last administered on 09/02/16 23:42; Admin Dose 1 MG; Start 08/11/16 at 20:00 Ondansetron HCl (Zofran Inj) 4 mg Q6H PRN IV NAUSEA AND/OR VOMITING; Start 08/12 at 10:00 Acetaminophen 650 mg 650 mg Q6H PRN [place] PAIN LEVEL 1-3 OR FEVER; Start 08/12/16 at 10:00; Status Future Hold Piperacillin Sod/ Tazobactam Sod (Zosyn 2.25gm/ 50ml (Pmx)) 50 ml @ 100 mls/hr Q6 IVPB Last administered on 09/12/16 05:58; Admin Dose 100 MLS/HR; Start at 12:00 Collagenase (Santyl) 1 applic DAILY TOP Last administered on 09/11/16 11:50; Admin Dose 1 APPLIC; Start 08/18/16 at 12:00 Enoxaparin Sodium (Lovenox) 40 mg DAILY SC Last administered on 09/11/16 09:11 ; Admin Dose 40 MG; Start 08/18/16 at 17:30 Ascorbic Acid (Vitamin C) 1,000 mg DAILY GTB Last administered on 09/11/16 09: 09; Admin Dose 1,000 MG; Start 08/28/16 at 11:30 Zinc Sulfate (Zinc Sulfate) 220 mg BID GTB Last administered on 09/11/16 20:49 ; Admin Dose 220 MG; Start 08/28/16 at 21:00 Ferrous Sulfate (Feosol Liquid Cup) 300 mg BID GTB Last administered on 20:49; Admin Dose 300 MG; Start 08/29/16 at 21:00 Midodrine (Proamatine) 10 mg TID@09,13,17 NGT Last administered on 09/11/16 17: 20; Admin Dose 10 MG; Start 09/02/16 at 09:00 Lansoprazole (Prevacid) 30 mg DAILY@06 GTB Last administered on 09/12/16 05:57 ; Admin Dose 30 MG; Start 09/09/16 at 06:00 Furosemide 20 mg 20 mg AM IV Last administered on 09/11/16 09:09; Admin Dose 20 MG; Start 09/11/16 at 09:00 Vancomycin HCl/ Sodium Chloride (Vancocin/NS) 150 ml @ 75 mls/hr Q24H IVPB Last administered on 09/12/16 03:36; Admin Dose 75 MLS/HR; Start 09/12/16 at 04: 00 ERNIE MILLER MD Sep 12, 2016 09:42
[2016-09-12] MEDS: ZINC SULFATE 220 MG CAP GTB SCH (09:52)
[2016-09-12] MEDS: FERROUS SULFATE 60 MG/ML 5ML CUP GTB SCH (09:52)
[2016-09-12] MEDS: ASCORBIC ACID 500 MG TAB GTB SCH (09:52)
[2016-09-12] MEDS: ENOXAPARIN 40 MG/0.4 ML SYG SC SCH (09:53)
[2016-09-12] MEDS: FUROSEMIDE 20 MG INJ IV SCH (09:53)
[2016-09-12] MEDS: MEROPENEM 1 GM/100 ML (PMX) 100 ML IVPB SCH (11:13)
[2016-09-12] MEDS: COLLAGENASE 30 GM TUBE TOP SCH (12:00)
--- NOTE | 2016-09-12 16:29 | PN ---
Date/Time of Note Date/Time of Note DATE: 09/11/16 TIME: 16:28 Assessment/Plan Lines/Catheters IV Catheter Type (from [email or web address] PICC Line [place] in Place (from [facility] [[email or web address] Yes Assessment/Plan Chief Complaint/Hosp Course 1. 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 -offloading, -local wound care, -nutritional optimization, -vitamin C 1000 mg a day -debridement 2. Deep tissue injury, left shoulder and other decubitus areas. Continue as above. 3. Anemia without evidence of acute blood loss. Continue monitoring. 4. Functional quadriplegia. Continue offloading with q.2 hour position change and air mattress and nutrition optimization. 5. End-stage dementia and Alzheimer's. Continue medical optimization. 6. Tachyarrhythmia of unknown etiology. Will defer to medical team for further workup and treatment. 7. Dysphagia, on tube feeds. 8. Hypoalbuminemia. Continue nutritional optimization. 9. Hematuria -monitor Thank you Late entry 09/11 Problems: Subjective 24 Hr Interval Summary Worsening transaminitis. No f/c. No vomiting. No cough. No sz. No bloating. Tachyarrhythmias. Hg stable. No rashes. Exam/Review of Systems Vital Signs Vitals Vital Signs Date Time Temp Pulse Resp B/P Pulse Ox O2 Delivery O2 Flow Rate FiO2 09/12/16 15:48 Nasal Cannula 2.0 09/12/16 15:42 98.1 121 20 102/62 97 09/10/16 20:19 28 Intake and Output 09/11/16 09/11/16 09/12/16 15:00 23:00 07:00 Intake Total 50 ml 950 ml 500 ml Output Total 1250 ml 650 ml Balance 50 ml -300 ml -150 ml Exam Free Text/Dictation GENERAL: Noncommunicative, contracted state. HEENT: Pupils are sluggish. No scleral icterus. Mucous membranes are moist. NECK: No crepitus with baseline rigidity. PULMONARY: Normal respiratory effort. No wheezing. HEART: S1, S2 and irregular. ABDOMEN: Soft. PEG in place. EXTREMITIES: Contracted without edema. VASCULAR: Capillary refill is over 3 seconds. NEUROLOGIC: Does not follow commands, however opens eyes. SKIN: No rashes. No jaundice. Multiple areas of bruising. Multiple decubitus wounds, especially sacrococcyx and left buttock with debris. Left shoulder deep tissue injury. LYMPHATICS: No inguinal or cervical lymphadenopathy. Results Result Diagram: 09/12/16 0710 09/11/16 1418 JAS VILLAGRAN MD Sep 12, 2016 16:29
--- NOTE | 2016-09-12 16:30 | PN ---
Date/Time of Note Date/Time of Note DATE: 09/12/16 TIME: 16:29 Assessment/Plan Lines/Catheters IV Catheter Type (from [facility]): PICC Line [place] in Place (from [facility]): Yes Assessment/Plan Chief Complaint/Hosp Course 1. 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 -offloading, -local wound care, -nutritional optimization, -vitamin C 1000 mg a day -debridement 2. Deep tissue injury, left shoulder and other decubitus areas. Continue as above. 3. Anemia without evidence of acute blood loss. Continue monitoring. 4. Functional quadriplegia. Continue offloading with q.2 hour position change and air mattress and nutrition optimization. 5. End-stage dementia and Alzheimer's. Continue medical optimization. 6. Tachyarrhythmia of unknown etiology. Will defer to medical team for further workup and treatment. 7. Dysphagia, on tube feeds. 8. Hypoalbuminemia. Continue nutritional optimization. 9. Hematuria -monitor 10. Transaminitis -imaging pending Thank you Problems: Subjective 24 Hr Interval Summary Persisting transaminitis. No f/c. No vomiting. No cough. No sz. No bloating. Tachyarrhythmias. Hg stable. No rashes. Exam/Review of Systems Vital Signs Vitals Vital Signs Date Time Temp Pulse Resp B/P Pulse Ox O2 Delivery O2 Flow Rate FiO2 09/12/16 15:48 Nasal Cannula 2.0 09/12/16 15:42 98.1 121 20 102/62 97 09/10/16 20:19 28 Intake and Output 09/11/16 09/11/16 09/12/16 15:00 23:00 07:00 Intake Total 50 ml 950 ml 500 ml Output Total 1250 ml 650 ml Balance 50 ml -300 ml -150 ml Exam Free Text/Dictation GENERAL: Noncommunicative, contracted state. HEENT: Pupils are sluggish. No scleral icterus. Mucous membranes are moist. NECK: No crepitus with baseline rigidity. PULMONARY: Normal respiratory effort. No wheezing. HEART: S1, S2 and irregular. ABDOMEN: Soft. PEG in place. EXTREMITIES: Contracted without edema. VASCULAR: Capillary refill is over 3 seconds. NEUROLOGIC: Does not follow commands, however opens eyes. SKIN: No rashes. No jaundice. Multiple areas of bruising. Multiple decubitus wounds, especially sacrococcyx and left buttock with debris. Left shoulder deep tissue injury. LYMPHATICS: No inguinal or cervical lymphadenopathy. Results Result Diagram: 09/12/16 0710 09/11/16 1418 JAS VILLAGRAN MD Sep 12, 2016 16:30
--- NOTE | 2016-09-12 17:07 | RADRPT ---
PROCEDURE: Right upper quadrant abdominal ultrasound. CLINICAL INDICATION: Abdominal pain, abnormal liver function tests TECHNIQUE: Agudelo scale and color doppler ultrasound images of the right upper quadrant. COMPARISON: None FINDINGS: Pancreas: Not adequately visualized due to overlying bowel gas. Liver: Morphology: Normal in size and contour. Echogenicity: Increased echogenicity of the liver parenchyma suggestive of hepatic steatosis. Focal lesions: None. Main portal vein: Patent with hepatopetal flow. Biliary System: Normal appearing gallbladder wall. No gallstones seen. No intrahepatic biliary dilatation. Common bile duct measures 3.6 mm in maximal dimension. Kidneys: Not visualized due to patient contracture. No free fluid identified. IMPRESSION: Normal gallbladder without gallstones. Increased echogenicity of the liver parenchyma suggestive of hepatic steatosis. Normal caliber intrahepatic and extrahepatic biliary system. RPTAT: AADD .Sohail Cook MD, Date Time Electronically viewed and signed by .Sohail Cook MD, on 09/12/2016 17:05 .B/
[2016-09-13] MEDS: ZINC SULFATE 220 MG CAP GTB SCH ×3 (00:16→21:27)
[2016-09-13] MEDS: FERROUS SULFATE 60 MG/ML 5ML CUP GTB SCH ×3 (00:16→21:27)
[2016-09-13] MEDS: MEROPENEM 1 GM/100 ML (PMX) 100 ML IVPB SCH ×3 (00:16→21:29)
[2016-09-13] MEDS: LEVALBUTEROL (NEB) 0.63 MG/3 ML AMP HHN SCH ×4 (02:22→19:25)
[2016-09-13] MEDS: LANSOPRAZOLE 30 MG CAP GTB SCH (05:28)
[2016-09-13 08:00] VITALS: BP 115/51; RESP 19
[2016-09-13] MEDS: FUROSEMIDE 20 MG INJ IV SCH (09:03)
[2016-09-13] MEDS: ASCORBIC ACID 500 MG TAB GTB SCH (09:03)
[2016-09-13] MEDS: MIDODRINE 5 MG TAB NGT SCH ×3 (09:03→17:18)
[2016-09-13] MEDS: ENOXAPARIN 40 MG/0.4 ML SYG SC SCH (09:04)
[2016-09-13 10:03] LABS: ADD SCAN DIFF NO
[2016-09-13 10:10] LABS: BASOPHILS % 0.2 % (0.0-2.0); EOSINOPHILS # 1.9 10^3/ul (0.0-0.5); EOSINOPHILS % 14.7 % (0.0-7.0); HEMOGLOBIN 10.7 g/dl (12.0-16.0); LYMPHOCYTES # 0.9 10^3/ul (0.8-2.9); LYMPHOCYTES % 6.7 % (15.0-51.0); MEAN CORPUSCULAR HEMOGLOBIN 31.9 pg (29.0-33.0); MEAN CORPUSCULAR HGB CONC 31.5 g/dl (32.0-37.0); MEAN CORPUSCULAR VOLUME 101.5 fl (82.0-101.0); MONOCYTES % 7.9 % (0.0-11.0); NEUTROPHIL # 8.8 10^3/ul (1.6-7.5); NEUTROPHILS % 68.7 % (39.0-77.0); PLATELET COUNT 619 10^3/UL (140-415); RED BLOOD COUNT 3.35 10^6/ul (4.20-5.40); RED CELL DISTRIBUTION WIDTH 19.2 % (11.5-14.5); WHITE BLOOD COUNT 12.8 10^3/ul (4.8-10.8)
[2016-09-13 10:26] LABS: ALBUMIN/GLOBULIN RATIO 0.9; BILIRUBIN,INDIRECT 0.1 mg/dl (0-1.1); BILIRUBIN,TOTAL 0.1 mg/dl (0.2-1.3); CALCIUM 8.8 mg/dl (8.4-10.2); CREATININE 0.62 mg/dl (0.44-1.00); POTASSIUM 3.8 mmol/L (3.5-5.1); TOTAL PROTEIN 8.4 g/dl (6.1-8.1)
[2016-09-13] MEDS: COLLAGENASE 30 GM TUBE TOP SCH (11:27)
[2016-09-13 20:14] VITALS: BP 98/56; RESP 19
--- NOTE | 2016-09-13 22:38 | PN ---
DATE: 09/13/2016 OBJECTIVE: GENERAL: The patient is minimally responsive, does not respond to verbal stimuli. Lays with flexio n deformity of both knees. CARDIOVASCULAR: Sinus tachycardia. LUNGS: Clear to A and P. ABDOMEN: Liver, kidneys, spleen are not palpable. Bowel sounds are normal. No intraabdominal mass es or bruits, 1+ dorsal pedal edema. VITAL SIGNS: Temperature 99.4, blood pressure 150/51, pulse 115 to 120, respiratory rate 20 to 24 p er minute. INTAKE AND OUTPUT: Intake 1520, output 1500. LABORATORY DATA: White blood cell count 12,800, hemoglobin 10.7, hematocrit 34%, platelet count is high at 619,000. Sodium 141, potassium 3.8, chloride 97, carbon dioxide 33, BUN 32, creatinine 0.62 , glucose 159, calcium 8.8, AST elevated at 102, ALT elevated at 140, alkaline phosphatase is elevat ed at 251, albumin 4, globulin 4.4. A/G ratio 0.9. IMAGING: Abdominal ultrasound revealed normal gallbladder without gallstones. Increased echogenici ty of the liver parenchyma suggestive of hepatic steatosis. Normal caliber intrahepatic and extrahe patic biliary system. Dictated By: TAWANA NOLAND/FIDELIA Conf#: [id number] DID#: [id number]
--- NOTE | 2016-09-13 23:25 | PN ---
Date/Time of Note Date/Time of Note DATE: 09/13/16 TIME: 23:24 Assessment/Plan Lines/Catheters IV Catheter Type (from [facility]): PICC Line [place] in Place (from [facility]): Yes Assessment/Plan Chief Complaint/Hosp Course 1. 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 -offloading, -local wound care, -nutritional optimization, -vitamin C 1000 mg a day -debridement 2. Deep tissue injury, left shoulder and other decubitus areas. Continue as above. 3. Anemia without evidence of acute blood loss. Continue monitoring. 4. Functional quadriplegia. Continue offloading with q.2 hour position change and air mattress and nutrition optimization. 5. End-stage dementia and Alzheimer's. Continue medical optimization. 6. Tachyarrhythmia of unknown etiology. Will defer to medical team for further workup and treatment. 7. Dysphagia, on tube feeds. 8. Hypoalbuminemia. Continue nutritional optimization. 9. Hematuria -monitor 10. Transaminitis. US with steatosis. Thank you Problems: Subjective 24 Hr Interval Summary US noted. Persisting transaminitis. No f/c. No vomiting. No cough. No sz. No bloating. Tachyarrhythmias. Hg stable. No rashes. Exam/Review of Systems Vital Signs Vitals Vital Signs Date Time Temp Pulse Resp B/P Pulse Ox O2 Delivery O2 Flow Rate FiO2 09/13/16 20:14 98.0 107 19 98/56 96 09/13/16 19:34 2.0 09/13/16 19:34 Nasal Cannula 09/10/16 20:19 28 Intake and Output 09/12/16 09/12/16 09/13/16 15:00 23:00 07:00 Intake Total 1520 ml Output Total 900 ml 600 ml Balance -900 ml 920 ml Exam Free Text/Dictation GENERAL: Noncommunicative, contracted state. HEENT: Pupils are sluggish. No scleral icterus. Mucous membranes are moist. NECK: No crepitus with baseline rigidity. PULMONARY: Normal respiratory effort. No wheezing. HEART: S1, S2 and irregular. ABDOMEN: Soft. PEG in place. EXTREMITIES: Contracted without edema. VASCULAR: Capillary refill is over 3 seconds. NEUROLOGIC: Does not follow commands, however opens eyes. SKIN: No rashes. No jaundice. Multiple areas of bruising. Multiple decubitus wounds, especially sacrococcyx and left buttock with debris. Left shoulder deep tissue injury. LYMPHATICS: No inguinal or cervical lymphadenopathy. Results Result Diagram: 09/13/16 0955 09/13/16 0955 JAS VILLAGRAN MD Sep 13, 2016 23:25
[2016-09-14] MEDS: LEVALBUTEROL (NEB) 0.63 MG/3 ML AMP HHN SCH ×4 (01:47→19:02)
[2016-09-14] MEDS: LANSOPRAZOLE 30 MG CAP GTB SCH (05:20)
[2016-09-14 06:04] LABS: ADD SCAN DIFF NO
[2016-09-14 06:15] LABS: ABNORMAL IP MESSAGE 1; BASOPHILS % 0.2 % (0.0-2.0); EOSINOPHILS # 2.3 10^3/ul (0.0-0.5); EOSINOPHILS % 17.5 % (0.0-7.0); HEMATOCRIT 34.3 % (37.0-47.0); HEMOGLOBIN 10.6 g/dl (12.0-16.0); LYMPHOCYTES # 1.2 10^3/ul (0.8-2.9); MEAN CORPUSCULAR HEMOGLOBIN 31.7 pg (29.0-33.0); MEAN CORPUSCULAR HGB CONC 30.9 g/dl (32.0-37.0); MEAN CORPUSCULAR VOLUME 102.7 fl (82.0-101.0); MEAN PLATELET VOLUME 9.3 fl (7.4-10.4); MONOCYTE # 1.1 10^3/ul (0.3-0.9); MONOCYTES % 8.2 % (0.0-11.0); NEUTROPHIL # 8.2 10^3/ul (1.6-7.5); NEUTROPHILS % 63.6 % (39.0-77.0); PLATELET COUNT 632 10^3/UL (140-415); RED BLOOD COUNT 3.34 10^6/ul (4.20-5.40); RED CELL DISTRIBUTION WIDTH 19.1 % (11.5-14.5)
[2016-09-14 06:38] LABS: ALBUMIN 3.8 g/dl (3.3-4.9); ALBUMIN/GLOBULIN RATIO 0.92; BILIRUBIN,INDIRECT 0.2 mg/dl (0-1.1); BILIRUBIN,TOTAL 0.2 mg/dl (0.2-1.3); CALCIUM 8.6 mg/dl (8.4-10.2); CREATININE 0.58 mg/dl (0.44-1.00); POTASSIUM 4.2 mmol/L (3.5-5.1); TOTAL PROTEIN 7.9 g/dl (6.1-8.1)
[2016-09-14 06:45] LABS: CALCIUM 8.7 mg/dl (8.4-10.2); CREATININE 0.57 mg/dl (0.44-1.00); POTASSIUM 4.6 mmol/L (3.5-5.1)
[2016-09-14 07:40] VITALS: BP 120/61; RESP 19
[2016-09-14] MEDS: COLLAGENASE 30 GM TUBE TOP SCH (09:00)
[2016-09-14] MEDS: MEROPENEM 1 GM/100 ML (PMX) 100 ML IVPB SCH ×2 (09:06→20:27)
[2016-09-14] MEDS: FERROUS SULFATE 60 MG/ML 5ML CUP GTB SCH ×2 (09:06→20:26)
[2016-09-14] MEDS: ZINC SULFATE 220 MG CAP GTB SCH ×2 (09:07→20:26)
[2016-09-14] MEDS: ASCORBIC ACID 500 MG TAB GTB SCH (09:07)
[2016-09-14] MEDS: FUROSEMIDE 20 MG INJ IV SCH (09:07)
[2016-09-14] MEDS: MIDODRINE 5 MG TAB NGT SCH ×3 (09:10→17:23)
[2016-09-14] MEDS: ENOXAPARIN 40 MG/0.4 ML SYG SC SCH (09:14)
[2016-09-14 13:03] VITALS: BP 104/55; PULSE 104
--- NOTE | 2016-09-14 13:36 | PN ---
Date/Time of Note Date/Time of Note DATE: 09/14/16 TIME: 13:34 Assessment/Plan Lines/Catheters IV Catheter Type (from [facility]): PICC Line [facility] in Place (from [facility]): Yes Assessment/Plan Chief Complaint/Hosp Course 1. 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 -offloading, -local wound care, -nutritional optimization, -vitamin C 1000 mg a day -debridement prn 2. Deep tissue injury, left shoulder and other decubitus areas. Continue as above. 3. Anemia without evidence of acute blood loss. Continue monitoring. 4. Functional quadriplegia. Continue offloading with q.2 hour position change and air mattress and nutrition optimization. 5. End-stage dementia and Alzheimer's. Continue medical optimization. 6. Tachyarrhythmia of unknown etiology. Will defer to medical team for further workup and treatment. 7. Dysphagia, on tube feeds. 8. Hypoalbuminemia. Continue nutritional optimization. 9. Hematuria -monitor 10. Transaminitis. US with steatosis. Thank you Problems: Subjective 24 Hr Interval Summary US noted. Persisting transaminitis. No f/c. No vomiting. No cough. No sz. No bloating. Tachyarrhythmias. Hg stable. No rashes. Exam/Review of Systems Vital Signs Vitals Vital Signs Date Time Temp Pulse Resp B/P Pulse Ox O2 Delivery O2 Flow Rate FiO2 09/14/16 13:08 105 24 100 Nasal Cannula 2.0 09/14/16 13:03 104/55 09/14/16 07:40 98.0 09/10/16 20:19 28 Intake and Output 09/13/16 09/13/16 09/14/16 15:00 23:00 07:00 Intake Total 100 ml 1180 ml 720 ml Output Total 600 ml 400 ml Balance 100 ml 580 ml 320 ml Exam Free Text/Dictation GENERAL: Noncommunicative, contracted state. HEENT: Pupils are sluggish. No scleral icterus. Mucous membranes are moist. NECK: No crepitus with baseline rigidity. PULMONARY: Normal respiratory effort. No wheezing. HEART: S1, S2 and irregular. ABDOMEN: Soft. PEG in place. EXTREMITIES: Contracted without edema. VASCULAR: Capillary refill is over 3 seconds. NEUROLOGIC: Does not follow commands, however opens eyes. SKIN: No rashes. No jaundice. Multiple areas of bruising. Multiple decubitus wounds, especially sacrococcyx and left buttock with debris. Left shoulder deep tissue injury. LYMPHATICS: No inguinal or cervical lymphadenopathy. Results Result Diagram: 09/14/16 0521 09/14/16 0521 JAS VILLAGRAN MD Sep 14, 2016 13:36
--- NOTE | 2016-09-14 14:57 | CONS ---
Date/Time of Note Date/Time of Note DATE: 09/14/16 TIME: 14:48 Assessment/Plan Assessment/Plan Chief Complaint/Hosp Course 1) ARF u/a does not suggest infection, likely due to dehydration 08/13 - improving with hydration 08/14 - continues to improve, will increase dose of zosyn urine cx was negative 08/15 - pretty much resolved 2) pneumonia check procalcitonin get nasal swab for MRSA continue with vanco, change cefepime to zosyn likely aspiration 08/13 - wbc is improving, continue with vanco/zosyn 08/14 - wbc continues to improve, no MRSA found d/c vanco and continue with zosyn and increase its dose 08/15 - only on zosyn now and wbc is improving pt getting echo and asked tech to quantify the L sided pleural effusion too 08/17 - echo only reported presence of L pleural effusion no good evidence to suggest an empyema continue with zosyn 08/18 - stable, pt completes were treatment course for pneumonia today 08/20 - minimally elevated procalcitonin on 08/13 no further treatment needed for pneumonia but on zosyn for probable sacral osteo 09/03 - more haziness over L base, but no increase in WBC continue with zosyn, check procalcitonin in a.m. repeat nasal swab for MRSA consider hospice for patient 09/04 - neg for MRSA 09/05 - no change continue with zosyn, await repeat procalcitonin fevers are improving 09/08 - pt likely re-aspirating on vanco/zosyn/diflucan and stable will continue vanco/diflucan for a total of 7 days 09/10 - d/c diflucan yesterday due to increase in LFT's again continue vanco thru tomorrow 09/12 - d/c vanco, wound cx has no MRSA 3) sacral wound ulcer, likely osteo check ESR, CRP and if very high then would treat as if osteomyelitis if not very high will order bone scan for ultimate healing if this is indeed osteo she will likely need plastic surgery involvement her low albumin suggest she would have poor tissue healing will get wound cx of deeper wound 08/13 - ESR is very high, c/w osteomyelitis wound cx has gnr's and GPC continue with vanco/zosyn at present 08/14 - no MRSA found, d/c vanco and continue with zosyn pt likely has osteo due to high ESR will follow ESR weekly for response unlikely that antibiotics alone will heal the sacral wounds 08/15 - continue with zosyn unlikely that antibiotics alone will heal these sacral wounds 08/17 - pt likely has osteo but unlikely antibiotics will cure this usual treatment course for osteo is 6 weeks of antibiotics unlikely antibiotics alone will be curative repeat ESR and CRP in a.m. 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 repeat ESR and CRP are pending it is unlikely that antibiotics alone will be curative 08/20 - of zosyn ESR elevated c/w osteomyelitis CRP did improve a bit but antibiotics unlikely to be curative recommend weekly esr, crp and if not improving then would d/c antibiotics 08/27 - Day of zosyn CRP has come down slowly, ESR has actually increased but sometimes the ESR is delayed in improvement Nonetheless it has almost doubled If surgical debridement it to be done then pt will need deep surgical cultures sent to verify that no resistant organisms are being missed continue with zosyn at present pt will likely need a muscle flap if cure of osteomyelitis is the goal and it would be helpful to get bone biopsy and culture with deep tissue culture prior to that to help guide if any change in antibiotics is needed 08/29 - no new recommendations if surgery is done, please get deep surgical wound cx and if possible bone cx/ biopsy continue with zosyn (day 19) 09/01 - day 22 of zosyn still awaiting family decision regarding debridement and flap if debridement is done please get deep surgical wound cx and ideally bone bx/cx crp continues to improve, ESR is pending 09/03 - ESR was minimally improved family agrees to debridement but now in ICU due to hypotension 09/04 - stable, off levophed continue with zosyn 09/10 - ESR barely decreasing no soon debridement is seen will repeat wound cx at this time 09/12 - wound cx has resistant enterobacter d/c vanco (no MRSA still), change zosyn to merrem 09/14 - pt tolerating merrem zosyn could cause increase in LFT's and alk phos 4) severe dementia 5) candiduria 09/05 no pyuria but has hematuria, doubt this is significant, no need to treat 09/08 - pt was placed on diflucan will continue for a 7 day course repeat urine cx is NGTD 09/10 - diflucan stopped yesterday due to increase in LFT's repeat u/a and urine cx 6) increase in alk phos and LFT's 09/12 - no change with d/c of diflucan, will d/c zosyn as it too could be the culprit will order RUQ u/s too 09/14 - LFT's improving, this was probably due to zosyn rather than the diflucan zosyn can cause a cholestatic picture in some patients continue with merrem RUQ u/s only suggested hepatic steatosis 7) skin rash 09/14 - this was present 2 days ago but now more c/w drug eruption this could have been due to vanco or zosyn she is off both now and only on merrem Problems: Consultation Date/Type/Reason Admit Date/Time August 11, 2016 at 19:00 Initial Consult Date 08/12/16 Type of Consultation: ID 24 HR Interval Summary Free Text/Dictation no change Exam/Review of Systems Vital Signs Vitals Vital Signs Date Time Temp Pulse Resp B/P Pulse Ox O2 Delivery O2 Flow Rate FiO2 09/14/16 13:08 105 24 100 Nasal Cannula 2.0 09/14/16 13:03 104/55 09/14/16 07:40 98.0 09/10/16 20:19 28 Intake and Output 09/13/16 09/13/16 09/14/16 15:00 23:00 07:00 Intake Total 100 ml 1180 ml 720 ml Output Total 600 ml 400 ml Balance 100 ml 580 ml 320 ml Exam Constitutional: non-verbal Head: normocephalic Respiratory: clear to auscultation Cardiovascular: regular rate and rhythm Gastrointestinal: non-tender, soft Skin: other (macular, raised red rash with borders to arms, also diffuse rash to abd) Results Result Diagram: 09/14/1652009/14/1621 Results 24 hrs Laboratory Tests Test 09/14/16 05:21 White Blood Count 13.0 H Red Blood Count 3.34 L Hemoglobin 10.6 L Hematocrit 34.3 L Mean Corpuscular Volume 102.7 H Mean Corpuscular Hemoglobin 31.7 Mean Corpuscular Hemoglobin Concent 30.9 L Red Cell Distribution Width 19.1 H Platelet Count 632 H Mean Platelet Volume 9.3 Neutrophils % 63.6 Lymphocytes % 9.0 L Monocytes % 8.2 Eosinophils % 17.5 H Basophils % 0.2 Nucleated Red Blood Cells % 0.0 Neutrophils # 8.2 H Lymphocytes # 1.2 Monocytes # 1.1 H Eosinophils # 2.3 H Basophils # 0.0 Nucleated Red Blood Cells # 0.0 Sodium Level 144 Potassium Level 4.6 Chloride Level 101 Carbon Dioxide Level 35 H Anion Gap 13 Blood Urea Nitrogen 37 H Creatinine 0.57 Glucose Level 119 Calcium Level 8.7 Total Bilirubin 0.2 Direct Bilirubin 0.00 Indirect Bilirubin 0.2 Aspartate Amino Transf (AST/SGOT) 87 H Alanine Aminotransferase (ALT/SGPT) 116 H Alkaline Phosphatase 227 H Total Protein 7.9 Albumin 3.8 Globulin 4.10 H Albumin/Globulin Ratio 0.92 Medications Medications Current Medications Morphine Sulfate (morphine) 1 mg Q4H PRN IV PAIN LEVEL 6-10 Last administered on 09/02/16 23:42; Admin Dose 1 MG; Start 08/11/16 at 20:00 Ondansetron HCl (Zofran Inj) 4 mg Q6H PRN IV NAUSEA AND/OR VOMITING; Start 08/12 at 10:00 Acetaminophen (Tylenol Supp) 650 mg Q6H PRN [place] PAIN LEVEL 1-3 OR FEVER; Start 08/12/16 at 10:00; Status Future Hold Collagenase (Santyl) 1 applic DAILY TOP Last administered on 09/13/16 11:27; Admin Dose 1 APPLIC; Start 08/18/16 at 12:00 Enoxaparin Sodium (Lovenox) 40 mg DAILY SC Last administered on 09/14/16 09:14 ; Admin Dose 40 MG; Start 08/18/16 at 17:30 Ascorbic Acid (Vitamin C) 1,000 mg DAILY GTB Last administered on 09/14/16 09: 07; Admin Dose 1,000 MG; Start 08/28/16 at 11:30 Zinc Sulfate (Zinc Sulfate) 220 mg BID GTB Last administered on 09/14/16 09:07 ; Admin Dose 220 MG; Start 08/28/16 at 21:00 Ferrous Sulfate (Feosol Liquid Cup) 300 mg BID GTB Last administered on 09:06; Admin Dose 300 MG; Start 08/29/16 at 21:00 Midodrine (Proamatine) 10 mg TID@,, NGT Last administered on 09/14/16 13: 03; Admin Dose 10 MG; Start 09/02/16 at 09:00 Lansoprazole (Prevacid) 30 mg DAILY@06 GTB Last administered on 09/14/16 05:20 ; Admin Dose 30 MG; Start 09/09/16 at 06:00 Furosemide 20 mg 20 mg AM IV Last administered on 09/14/16 09:07; Admin Dose 20 MG; Start 09/11/16 at 09:00 Meropenem (Merrem 1 Gm/100 ml (Pmx)) 100 ml @ 200 mls/hr Q12 IVPB Last administered on 09/14/16 09:06; Admin Dose 200 MLS/HR; Start 09/12/16 at 10:30 ERNIE MILLER MD Sep 14, 2016 14:57
[2016-09-14 20:08] VITALS: BP 127/60; RESP 18
[2016-09-14] MEDS: TRIAMCINOLONE ACET 0.1% 60 ML LOT TOP SCH (20:27)
[2016-09-15] MEDS: LEVALBUTEROL (NEB) 0.63 MG/3 ML AMP HHN SCH ×4 (01:57→20:46)
[2016-09-15] MEDS: LANSOPRAZOLE 30 MG CAP GTB SCH (05:36)
[2016-09-15 05:58] LABS: ADD SCAN DIFF NO
[2016-09-15 06:10] LABS: ABNORMAL IP MESSAGE 1; BASOPHILS % 0.3 % (0.0-2.0); EOSINOPHILS % 21.5 % (0.0-7.0); HEMATOCRIT 33.8 % (37.0-47.0); HEMOGLOBIN 10.2 g/dl (12.0-16.0); LYMPHOCYTES # 1.4 10^3/ul (0.8-2.9); MEAN CORPUSCULAR HEMOGLOBIN 31.3 pg (29.0-33.0); MEAN CORPUSCULAR HGB CONC 30.2 g/dl (32.0-37.0); MEAN CORPUSCULAR VOLUME 103.7 fl (82.0-101.0); MEAN PLATELET VOLUME 9.4 fl (7.4-10.4); MONOCYTES % 7.1 % (0.0-11.0); NEUTROPHIL # 8.2 10^3/ul (1.6-7.5); NEUTROPHILS % 59.7 % (39.0-77.0); PLATELET COUNT 574 10^3/UL (140-415); RED BLOOD COUNT 3.26 10^6/ul (4.20-5.40); RED CELL DISTRIBUTION WIDTH 18.7 % (11.5-14.5); WHITE BLOOD COUNT 13.7 10^3/ul (4.8-10.8)
[2016-09-15 06:35] LABS: CALCIUM 8.6 mg/dl (8.4-10.2); CREATININE 0.58 mg/dl (0.44-1.00); POTASSIUM 4.2 mmol/L (3.5-5.1)
--- NOTE | 2016-09-15 08:00 | PN ---
DATE: 09/14/2016 SUBJECTIVE: The patient does not respond. She remains in unchanged position. Flexion deformity of the knees bilaterally. She has a diffuse red rash, possible "red man syndrome" due to vancomycin. Vancomycin has been discontinued, as has ____ because both can cause it, but it is most likely vanc omycin. Dr. Strauss saw her in infectious diseases consultation. He feels she is probably reaspiratin g and he has kept her on Merrem since the vancomycin and ____ have been discontinued because of her allergic reaction. Her sacrococcygeal decubitus persists with ulceration with devitalized tissue. Dr. Hayward, her surgical corsetier, feels that she has a deep tissue injury of the left shoulder a nd other decubitus areas. Also anemia without evidence of blood loss. She has functional quadriple ysabel and end-stage dementia. He feels that she may also have an underlying osteomyelitis and that it is unlikely that medical treatment ____ will correct this. OBJECTIVE: HEART: Revealed tachycardia. LUNGS: Clear to A and P. GENERAL: The patient remains minimally responsive, does not respond to verbal stimuli. EXTREMITIES : ____ flexion deformity of both knees. 1+ dorsal pedal edema. ABDOMEN: Liver, kidneys, spleen are not palpable. Bowel sounds are normal. No intraabdominal mass es or bruits. VITAL SIGNS: She is afebrile, temperature is 98. Blood pressure varies between 104/55 to 120/61, p ulse varies from 105 to 117. Respiratory rate varies from 18 to 24. LABORATORY DATA: White blood cell count is 13,000; hemoglobin is 10.6, hematocrit is 34.3%, platele t count is elevated at 632,000. Sodium is 144, potassium is 4.6, chloride is 101, carbon dioxide is 35, BUN is 37, creatinine is 0.57, glucose is 119, calcium is 8.7. IMAGING: Abdominal ultrasound is normal gallbladder without gallstones, increased echogenicity of t he liver parenchyma suggestive of hepatic steatosis. Normal caliber, intrahepatic and extrahepatic biliary system. Condition remains stable, but satisfactory. Dictated By: TAWANA ASHLEY MD WR/NTS Conf#: [id number] DID#: [id number] CC: FLORA CARDONA MD;*EndCC*
[2016-09-15 08:18] VITALS: BP 104/47; RESP 20
[2016-09-15] MEDS: FERROUS SULFATE 60 MG/ML 5ML CUP GTB SCH (09:08)
[2016-09-15] MEDS: MIDODRINE 5 MG TAB NGT SCH ×3 (09:09→17:48)
[2016-09-15] MEDS: TRIAMCINOLONE ACET 0.1% 60 ML LOT TOP SCH ×3 (09:09→20:32)
[2016-09-15] MEDS: ASCORBIC ACID 500 MG TAB GTB SCH (09:09)
[2016-09-15] MEDS: ZINC SULFATE 220 MG CAP GTB SCH ×2 (09:09→20:33)
[2016-09-15] MEDS: FUROSEMIDE 20 MG INJ IV SCH (09:10)
--- NOTE | 2016-09-15 09:10 | PN ---
DATE: 09/12/2016 SUBJECTIVE: No acute changes. Hospital patient to be downgraded to medical/surgical. Antibiotics being changed due to liver function tests. Zosyn was discontinued. Diflucan was already discontinu ed. OBJECTIVE: VITAL SIGNS: Temperature 98.1, pulse 104 to 121, respirations 20, blood pressure 102/62, pulse oxim etry is 97% on 2 liters. LUNGS: Occasional wheeze. ABDOMEN: Soft, nontender. EXTREMITIES: Trace pitting bilateral of the feet. LABORATORY DATA: Shows an increased WBC to 12.9, hemoglobin improved to 10.4, platelets at 619. Ch emistry: Creatinine is 0.65. AST at 151, ALT lower at 154. ASSESSMENT AND PLAN: 1. Elevated liver function tests, unknown etiology. It was thought possibly the Diflucan was the s ource, it was stopped 2 days ago. The ALT today did decrease from the 160s to the 150s, but the AST did go up. ID decided to change the Zosyn, if this is possibly the source, and changed to a differ ent antibiotic. 2. Sacral wound with probable osteomyelitis. ESR has not changed after 30+ days of IV antibiotics. Awaiting possibility of a debridement and a flap, which the family has agreed upon the debridement , but patient is now not able to have this performed while the liver function tests are so high. 3. Pneumonia and aspiration pneumonia. Right now the WBC is going up. Unclear why this was going up. Is patient is still aspirating? The patient does have some wheeze on a regular basis but her pulse oximetry has vastly improved from when she was in the ICU. The patient on the Xopenex around- the-clock. Respiratory appears to be stable at this time. 4. Anemia. The patient has gotten, I believe, a total of 3 Epogen injections. For some reason, th e hemoglobin is doing astronomically well and it continues to go up or is this an error of the blood draw. We will just continue to watch. Platelets, WBC and hemoglobin all rising. 5. Tachycardia, may be metabolic. No clear source has been distinguished. Pulmonary and Cardiolog y are both following. The patient was initially started on Lasix 2 times a day because of possibili ty of congestion causing the tachycardia. The effusions bilaterally have resolved and the patient i s still tachycardic. No medication is necessary at this time for this. 6. Hypernatremia, that resolved. 7. Candiduria. The patient was on the Diflucan, that was then discontinued due to elevated liver f unction tests. ID is now following as well. No further gross hematuria is present. Dictated By: QIANA OLMEDO/FIDELIA Conf#: [id number] DID#: [id number]
[2016-09-15] MEDS: ENOXAPARIN 40 MG/0.4 ML SYG SC SCH (09:11)
[2016-09-15] MEDS: MEROPENEM 1 GM/100 ML (PMX) 100 ML IVPB SCH ×2 (09:13→20:33)
[2016-09-15] MEDS: COLLAGENASE 30 GM TUBE TOP SCH (09:24)
[2016-09-15 20:40] VITALS: BP 112/59; RESP 18
--- NOTE | 2016-09-15 20:49 | PN ---
DATE: 09/15/2016 SUBJECTIVE: No acute changes. The patient is currently awaiting debridement of her sacral ulcer af ter her liver function tests normalize. OBJECTIVE: VITAL SIGNS: Temperature 98.6, pulse is between 106 to 111, blood pressure 104/47, pulse ox is 100% on 2 liters nasal cannula. CARDIOVASCULAR: Regular rhythm. LUNGS: No crackles. ABDOMEN: Soft, nontender. LABORATORY DATA: Demonstrate a WBC of 13.7, hemoglobin of 10.2, platelets 574 which is now lower. Chemistry was sodium 142, potassium 4.2, creatinine at 0.58. ASSESSMENT AND PLAN: 1. Elevated liver function tests. The patient had an ultrasound which demonstrated steatosis, no o ther sources antibiotics were discontinued and changed to Merrem, due to the possibility of the Flag yl and/or the Zosyn may have been causing the sudden rise of the liver function tests. No recent li walter function tests were done over the weekend. We will repeat in the morning. Due to the AST and A LT greater than 100, the patient's debridement is being held. 2. 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 Unlikely this will heal on its own. Surgeon has been called. Awaiting clearance for debridement and subsequently, probably flap being done. Discussed with the family, and more than bette palomo they will agree to the flap. They have already agreed to the debridement. 3. Aspiration pneumonia. The patient's WBC is still continuing to go up. Hypoxia has drastically improved back to normal. The patient is on 2 liters nasal cannula. 4. Anemia. The patient's anemia has also resolved. The patient has been on iron. We will determi ne if the iron level is still elevated. Maybe we can hold off on the iron to rest the liver, if pos sible. 5. Tachycardia. The patient has been tachycardic in the past 3 weeks. Initially she was bradycard ic. We had no clear indication of source of this tachycardia. Cardiology has evaluated. Pulmonary thought was congestion. The chest x-rays demonstrated the pleural effusion has resolved, but the t achycardia is still present. This may be due to sepsis, infection or some metabolic issues. 6. Hypernatremia has resolved. 7. Candiduria. She was started on Diflucan, but this was probably the source that increased the li walter function tests. Dictated By: QIANA OLMEDO/FIDELIA Conf#: [id number] DID#: [id number]
[2016-09-16] MEDS: LEVALBUTEROL (NEB) 0.63 MG/3 ML AMP HHN SCH ×4 (01:52→19:51)
--- NOTE | 2016-09-16 05:00 | PN ---
Date/Time of Note Date/Time of Note DATE: 09/15/16 TIME: 11:59 Assessment/Plan Lines/Catheters IV Catheter Type (from [facility]): PICC Line [place] in Place (from [facility]): Yes Assessment/Plan Chief Complaint/Hosp Course 1. 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 -offloading, -local wound care, -nutritional optimization, -vitamin C 1000 mg a day -debridement prn 2. Deep tissue injury, left shoulder and other decubitus areas. Continue as above. 3. Anemia without evidence of acute blood loss. Continue monitoring. 4. Functional quadriplegia. Continue offloading with q.2 hour position change and air mattress and nutrition optimization. 5. End-stage dementia and Alzheimer's. Continue medical optimization. 6. Tachyarrhythmia of unknown etiology. Will defer to medical team for further workup and treatment. 7. Dysphagia, on tube feeds. 8. Hypoalbuminemia. Continue nutritional optimization. 9. Hematuria -monitor 10. Transaminitis. US with steatosis. Thank you Late entry 09/15 Problems: Subjective 24 Hr Interval Summary Persisting transaminitis. No chills. Fever. No vomiting. No cough. No sz. No bloating. Tachyarrhythmias. Hg stable. No rashes. Exam/Review of Systems Vital Signs Vitals Vital Signs Date Time Temp Pulse Resp B/P Pulse Ox O2 Delivery O2 Flow Rate FiO2 09/16/16 02:03 108 20 100 Nasal Cannula 2.0 09/15/16 22:59 98.3 09/15/16 20:40 112/59 Intake and Output 09/15/16 09/15/16 09/16/16 15:00 23:00 07:00 Intake Total 100 ml 1020 ml Output Total 1000 ml Balance 100 ml 20 ml Exam Free Text/Dictation GENERAL: Noncommunicative, contracted state. HEENT: Pupils are sluggish. No scleral icterus. Mucous membranes are moist. NECK: No crepitus with baseline rigidity. PULMONARY: Normal respiratory effort. No wheezing. HEART: S1, S2 and irregular. ABDOMEN: Soft. PEG in place. EXTREMITIES: Contracted without edema. VASCULAR: Capillary refill is over 3 seconds. NEUROLOGIC: Does not follow commands, however opens eyes. SKIN: No rashes. No jaundice. Multiple areas of bruising. Multiple decubitus wounds, especially sacrococcyx and left buttock with debris. Left shoulder deep tissue injury. LYMPHATICS: No inguinal or cervical lymphadenopathy. Results Result Diagram: 09/15/16 0505 09/15/16 0505 JAS VILLAGRAN MD Sep 16, 2016 05:00
[2016-09-16 05:53] LABS: ADD SCAN DIFF NO
[2016-09-16 06:00] LABS: ABNORMAL IP MESSAGE 1; BASOPHILS % 0.3 % (0.0-2.0); EOSINOPHILS # 3.2 10^3/ul (0.0-0.5); HEMATOCRIT 33.1 % (37.0-47.0); HEMOGLOBIN 10.1 g/dl (12.0-16.0); LYMPHOCYTES # 1.4 10^3/ul (0.8-2.9); LYMPHOCYTES % 10.2 % (15.0-51.0); MEAN CORPUSCULAR HEMOGLOBIN 31.6 pg (29.0-33.0); MEAN CORPUSCULAR HGB CONC 30.5 g/dl (32.0-37.0); MEAN CORPUSCULAR VOLUME 103.4 fl (82.0-101.0); MEAN PLATELET VOLUME 9.5 fl (7.4-10.4); MONOCYTES % 7.4 % (0.0-11.0); NEUTROPHILS % 58.2 % (39.0-77.0); PLATELET COUNT 564 10^3/UL (140-415); RED CELL DISTRIBUTION WIDTH 18.4 % (11.5-14.5); WHITE BLOOD COUNT 13.8 10^3/ul (4.8-10.8)
[2016-09-16] MEDS: LANSOPRAZOLE 30 MG CAP GTB SCH (06:07)
[2016-09-16 06:21] LABS: IRON 46 ug/dl (35-150)
[2016-09-16 06:26] LABS: ALBUMIN 3.6 g/dl (3.3-4.9); ALBUMIN/GLOBULIN RATIO 0.94; BILIRUBIN,INDIRECT 0.2 mg/dl (0-1.1); BILIRUBIN,TOTAL 0.2 mg/dl (0.2-1.3); CALCIUM 8.4 mg/dl (8.4-10.2); CREATININE 0.53 mg/dl (0.44-1.00); POTASSIUM 3.8 mmol/L (3.5-5.1); TOTAL PROTEIN 7.4 g/dl (6.1-8.1)
[2016-09-16 06:30] LABS: TOTAL IRON BINDING CAPACITY 249 ug/dl (241-421)
[2016-09-16 06:58] LABS: ADD UMIC YES; URINE BILIRUBIN (Dip) NEGATIVE (NEGATIVE); URINE BLOOD (Dip) 3+ (NEGATIVE); URINE COLOR LT. YELLOW (YELLOW); URINE GLUCOSE (Dip) NEGATIVE (NEGATIVE); URINE KETONES (Dip) NEGATIVE (NEGATIVE); URINE LEUKOCYTE ESTERASE (Dip) NEGATIVE (NEGATIVE); URINE NITRITE (Dip) NEGATIVE (NEGATIVE); URINE TOTAL PROTEIN (Dip) 2+ (NEGATIVE); URINE UROBILINOGEN (Dip) 0.2 E.U./dL (0.1-1.0)
[2016-09-16 07:17] LABS: URINE RBCS >200 /HPF (0)
[2016-09-16 07:18] LABS: BACTERIA,URINE MANY; SQUAMOUS EPITHELIAL CELL,UR FEW
[2016-09-16 08:07] VITALS: BP 132/59; RESP 24
[2016-09-16] MEDS ORDERED: FERROUS SULFATE 60 MG/ML 5ML CUP GTB SCH (09:00)
[2016-09-16] MEDS: ASCORBIC ACID 500 MG TAB GTB SCH (09:55)
[2016-09-16] MEDS: ZINC SULFATE 220 MG CAP GTB SCH ×2 (09:55→21:20)
[2016-09-16] MEDS: MIDODRINE 5 MG TAB NGT SCH ×3 (09:56→17:00)
[2016-09-16] MEDS: FUROSEMIDE 20 MG INJ IV SCH (09:56)
[2016-09-16] MEDS: ENOXAPARIN 40 MG/0.4 ML SYG SC SCH (09:57)
[2016-09-16] MEDS: COLLAGENASE 30 GM TUBE TOP SCH (09:57)
[2016-09-16] MEDS: TRIAMCINOLONE ACET 0.1% 60 ML LOT TOP SCH ×3 (09:57→21:21)
[2016-09-16] MEDS: MEROPENEM 1 GM/100 ML (PMX) 100 ML IVPB SCH ×2 (10:01→21:20)
--- NOTE | 2016-09-16 11:47 | CONS ---
Date/Time of Note Date/Time of Note DATE: 09/16/16 TIME: 11:41 Assessment/Plan Assessment/Plan Chief Complaint/Hosp Course 1) ARF u/a does not suggest infection, likely due to dehydration 08/13 - improving with hydration 08/14 - continues to improve, will increase dose of zosyn urine cx was negative 08/15 - pretty much resolved 2) pneumonia check procalcitonin get nasal swab for MRSA continue with vanco, change cefepime to zosyn likely aspiration 08/13 - wbc is improving, continue with vanco/zosyn 08/14 - wbc continues to improve, no MRSA found d/c vanco and continue with zosyn and increase its dose 08/15 - only on zosyn now and wbc is improving pt getting echo and asked tech to quantify the L sided pleural effusion too 08/17 - echo only reported presence of L pleural effusion no good evidence to suggest an empyema continue with zosyn 08/18 - stable, pt completes were treatment course for pneumonia today 08/20 - minimally elevated procalcitonin on 08/13 no further treatment needed for pneumonia but on zosyn for probable sacral osteo 09/03 - more haziness over L base, but no increase in WBC continue with zosyn, check procalcitonin in a.m. repeat nasal swab for MRSA consider hospice for patient 09/04 - neg for MRSA 09/05 - no change continue with zosyn, await repeat procalcitonin fevers are improving 09/08 - pt likely re-aspirating on vanco/zosyn/diflucan and stable will continue vanco/diflucan for a total of 7 days 09/10 - d/c diflucan yesterday due to increase in LFT's again continue vanco thru tomorrow 09/12 - d/c vanco, wound cx has no MRSA 3) sacral wound ulcer, likely osteo check ESR, CRP and if very high then would treat as if osteomyelitis if not very high will order bone scan for ultimate healing if this is indeed osteo she will likely need plastic surgery involvement her low albumin suggest she would have poor tissue healing will get wound cx of deeper wound 08/13 - ESR is very high, c/w osteomyelitis wound cx has gnr's and GPC continue with vanco/zosyn at present 08/14 - no MRSA found, d/c vanco and continue with zosyn pt likely has osteo due to high ESR will follow ESR weekly for response unlikely that antibiotics alone will heal the sacral wounds 08/15 - continue with zosyn unlikely that antibiotics alone will heal these sacral wounds 08/17 - pt likely has osteo but unlikely antibiotics will cure this usual treatment course for osteo is 6 weeks of antibiotics unlikely antibiotics alone will be curative repeat ESR and CRP in a.m. 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 repeat ESR and CRP are pending it is unlikely that antibiotics alone will be curative 08/20 - of zosyn ESR elevated c/w osteomyelitis CRP did improve a bit but antibiotics unlikely to be curative recommend weekly esr, crp and if not improving then would d/c antibiotics 08/27 - Day of zosyn CRP has come down slowly, ESR has actually increased but sometimes the ESR is delayed in improvement Nonetheless it has almost doubled If surgical debridement it to be done then pt will need deep surgical cultures sent to verify that no resistant organisms are being missed continue with zosyn at present pt will likely need a muscle flap if cure of osteomyelitis is the goal and it would be helpful to get bone biopsy and culture with deep tissue culture prior to that to help guide if any change in antibiotics is needed 08/29 - no new recommendations if surgery is done, please get deep surgical wound cx and if possible bone cx/ biopsy continue with zosyn (day 19) 09/01 - day 22 of zosyn still awaiting family decision regarding debridement and flap if debridement is done please get deep surgical wound cx and ideally bone bx/cx crp continues to improve, ESR is pending 09/03 - ESR was minimally improved family agrees to debridement but now in ICU due to hypotension 09/04 - stable, off levophed continue with zosyn 09/10 - ESR barely decreasing no soon debridement is seen will repeat wound cx at this time 09/12 - wound cx has resistant enterobacter d/c vanco (no MRSA still), change zosyn to merrem 09/14 - pt tolerating merrem zosyn could cause increase in LFT's and alk phos 09/16 - ESR improved on merrem enterococcus in wound cx likely not significant continue with merrem alone 4) severe dementia 5) candiduria 5/26 no pyuria but has hematuria, doubt this is significant, no need to treat 09/08 - pt was placed on diflucan will continue for a 7 day course repeat urine cx is NGTD 09/10 - diflucan stopped yesterday due to increase in LFT's repeat u/a and urine cx 6) increase in alk phos and LFT's 09/12 - no change with d/c of diflucan, will d/c zosyn as it too could be the culprit will order RUQ u/s too 09/14 - LFT's improving, this was probably due to zosyn rather than the diflucan zosyn can cause a cholestatic picture in some patients continue with merrem RUQ u/s only suggested hepatic steatosis 09/16 - improving LFT's 7) skin rash 09/14 - this was present 2 days ago but now more c/w drug eruption this could have been due to vanco or zosyn she is off both now and only on merrem 09/16 - rash is improved Problems: Consultation Date/Type/Reason Admit Date/Time August 11, 2016 at 19:00 Initial Consult Date 08/12/16 Type of Consultation: ID 24 HR Interval Summary Free Text/Dictation no change spoke to nurse Exam/Review of Systems Vital Signs Vitals Vital Signs Date Time Temp Pulse Resp B/P Pulse Ox O2 Delivery O2 Flow Rate FiO2 09/16/16 08:59 103 20 100 Nasal Cannula 2.0 09/16/16 08:07 98.5 132/59 Intake and Output 09/15/16 09/15/16 09/16/16 14:59 22:59 06:59 Intake Total 100 ml 1020 ml 440 ml Output Total 1000 ml 260 ml Balance 100 ml 20 ml 180 ml Exam Constitutional: non-verbal Eyes: nl sclera Respiratory: clear to auscultation Cardiovascular: regular rate and rhythm Gastrointestinal: non-tender, soft Results Result Diagram: 09/16/16 0425 09/16/16 0425 Results 24 hrs Laboratory Tests Test 09/15/16 21:00 09/16/16 04:25 Urine Color LT. YELLOW Urine Clarity SLIGHTLY CLOUDY Urine pH 6.0 Urine Specific [place] 1.015 Urine Ketones NEGATIVE Urine Nitrite NEGATIVE Urine Bilirubin NEGATIVE Urine Urobilinogen 0.2 E.U./dL Urine Leukocyte Esterase NEGATIVE Urine Microscopic RBC >200 Urine Microscopic WBC 5-10 Urine Squamous Epithelial Cells FEW Urine Bacteria MANY Urine Hemoglobin 3+ H Urine Glucose NEGATIVE Urine Total Protein 2+ H White Blood Count 13.8 H Red Blood Count 3.20 L Hemoglobin 10.1 L Hematocrit 33.1 L Mean Corpuscular Volume 103.4 H Mean Corpuscular Hemoglobin 31.6 Mean Corpuscular Hemoglobin Concent 30.5 L Red Cell Distribution Width 18.4 H Platelet Count 564 H Mean Platelet Volume 9.5 Neutrophils % 58.2 Lymphocytes % 10.2 L Monocytes % 7.4 Eosinophils % 23.0 H Basophils % 0.3 Nucleated Red Blood Cells % 0.0 Neutrophils # 8.0 H Lymphocytes # 1.4 Monocytes # 1.0 H Eosinophils # 3.2 H Basophils # 0.0 Nucleated Red Blood Cells # 0.0 Sodium Level 144 Potassium Level 3.8 Chloride Level 100 Carbon Dioxide Level 33 H Anion Gap 15 Blood Urea Nitrogen 33 H Creatinine 0.53 Glucose Level 113 Calcium Level 8.4 Iron Level 46 Total Iron Binding Capacity 249 Percent Iron Saturation 18 L Total Bilirubin 0.2 Direct Bilirubin 0.00 Indirect Bilirubin 0.2 Aspartate Amino Transf (AST/SGOT) 62 H Alanine Aminotransferase (ALT/SGPT) 82 H Alkaline Phosphatase 175 H Total Protein 7.4 Albumin 3.6 Globulin 3.80 H Albumin/Globulin Ratio 0.94 Medications Medications Current Medications Morphine Sulfate (morphine) 1 mg Q4H PRN IV PAIN LEVEL 6-10 Last administered on 09/02/16 23:42; Admin Dose 1 MG; Start 08/11/16 at 20:00 Ondansetron HCl (Zofran Inj) 4 mg Q6H PRN IV NAUSEA AND/OR VOMITING; Start 08/12 at 10:00 Acetaminophen (Tylenol Supp) 650 mg Q6H PRN [place] PAIN LEVEL 1-3 OR FEVER; Start 08/12/16 at 10:00; Status Future Hold Collagenase (Santyl) 1 applic DAILY TOP Last administered on 09/16/16 09:57; Admin Dose 1 APPLIC; Start 08/18/16 at 12:00 Enoxaparin Sodium (Lovenox) 40 mg DAILY SC Last administered on 09/16/16 09:57 ; Admin Dose 40 MG; Start 08/18/16 at 17:30 Ascorbic Acid (Vitamin C) 1,000 mg DAILY GTB Last administered on 09/16/16 09: 55; Admin Dose 1,000 MG; Start 08/28/16 at 11:30 Zinc Sulfate (Zinc Sulfate) 220 mg BID GTB Last administered on 09/16/16 09:55 ; Admin Dose 220 MG; Start 08/28/16 at 21:00 Lansoprazole (Prevacid) 30 mg DAILY@06 GTB Last administered on 09/16/16 06:07 ; Admin Dose 30 MG; Start 09/09/16 at 06:00 Furosemide 20 mg 20 mg AM IV Last administered on 09/16/16 09:56; Admin Dose 20 MG; Start 09/11/16 at 09:00 Meropenem (Merrem 1 Gm/100 ml (Pmx)) 100 ml @ 200 mls/hr Q12 IVPB Last administered on 09/16/16 10:01; Admin Dose 200 MLS/HR; Start 09/12/16 at 10:30 Triamcinolone (Kenalog 0.1% Lotion) 1 applic TID TOP Last administered on 09:57; Admin Dose 1 APPLIC; Start 09/14/16 at 21:00 Ferrous Sulfate (Feosol Liquid Cup) 300 mg DAILY GTB Last administered on 09:55; Admin Dose 300 MG; Start 09/16/16 at 09:00 Midodrine (Proamatine) 5 mg TID@,,17 NGT Last administered on 09/16/16 09: 56; Admin Dose 5 MG; Start 09/16/16 at 09:00 ERNIE MILLER MD Sep 16, 2016 11:47
[2016-09-16 13:53] VITALS: BP 125/58; PULSE 112
--- NOTE | 2016-09-16 13:55 | CONS ---
Date/Time of Note Date/Time of Note DATE: 09/16/16 TIME: 13:52 Assessment/Plan Assessment/Plan Additional Assessment/Plan Sepsis Sinus tachycardia Preserved ejection fraction Decubiti Possible pneumonia Dementia Intermittent hypotension -Sinus tachycardia likely manifestation of multiple active medical problems. No need for AV node blocking agents at the current time. Patient started midodrine by primary team likely for borderline blood pressure. Would watch for decompensated congestive heart failure. Consultation Date/Type/Reason Admit Date/Time August 11, 2016 at 19:00 Initial Consult Date 08/19/16 Type of Consultation: cv 24 HR Interval Summary Free Text/Dictation Patient seen and examined Exam/Review of Systems Vital Signs Vitals Vital Signs Date Time Temp Pulse Resp B/P Pulse Ox O2 Delivery O2 Flow Rate FiO2 09/16/16 08:59 103 20 100 Nasal Cannula 2.0 09/16/16 08:07 98.5 132/59 Intake and Output 09/15/16 09/15/16 09/16/16 15:00 23:00 07:00 Intake Total 100 ml 1020 ml 440 ml Output Total 1000 ml 260 ml Balance 100 ml 20 ml 180 ml Exam No apparent distress, nonverbal Head: normocephalic Respiratory: other (Coarse breath sounds bilaterally, no wheezing) Cardiovascular: other (S1-S2 heard), regular rate and rhythm Gastrointestinal: bowel sounds, non-tender, soft Extremities: edema Skin: other (Positive erythema rash) Results Result Diagram: 09/16/16 0425 09/16/16 0425 Results 24 hrs Laboratory Tests Test 09/15/16 21:00 09/16/16 04:25 Urine Color LT. YELLOW Urine Clarity SLIGHTLY CLOUDY Urine pH 6.0 Urine Specific [place] 1.015 Urine Ketones NEGATIVE Urine Nitrite NEGATIVE Urine Bilirubin NEGATIVE Urine Urobilinogen 0.2 E.U./dL Urine Leukocyte Esterase NEGATIVE Urine Microscopic RBC >200 Urine Microscopic WBC 5-10 Urine Squamous Epithelial Cells FEW Urine Bacteria MANY Urine Hemoglobin 3+ H Urine Glucose NEGATIVE Urine Total Protein 2+ H White Blood Count 13.8 H Red Blood Count 3.20 L Hemoglobin 10.1 L Hematocrit 33.1 L Mean Corpuscular Volume 103.4 H Mean Corpuscular Hemoglobin 31.6 Mean Corpuscular Hemoglobin Concent 30.5 L Red Cell Distribution Width 18.4 H Platelet Count 564 H Mean Platelet Volume 9.5 Neutrophils % 58.2 Lymphocytes % 10.2 L Monocytes % 7.4 Eosinophils % 23.0 H Basophils % 0.3 Nucleated Red Blood Cells % 0.0 Neutrophils # 8.0 H Lymphocytes # 1.4 Monocytes # 1.0 H Eosinophils # 3.2 H Basophils # 0.0 Nucleated Red Blood Cells # 0.0 Sodium Level 144 Potassium Level 3.8 Chloride Level 100 Carbon Dioxide Level 33 H Anion Gap 15 Blood Urea Nitrogen 33 H Creatinine 0.53 Glucose Level 113 Calcium Level 8.4 Iron Level 46 Total Iron Binding Capacity 249 Percent Iron Saturation 18 L Total Bilirubin 0.2 Direct Bilirubin 0.00 Indirect Bilirubin 0.2 Aspartate Amino Transf (AST/SGOT) 62 H Alanine Aminotransferase (ALT/SGPT) 82 H Alkaline Phosphatase 175 H Total Protein 7.4 Albumin 3.6 Globulin 3.80 H Albumin/Globulin Ratio 0.94 Medications Medications Current Medications Morphine Sulfate (morphine) 1 mg Q4H PRN IV PAIN LEVEL 6-10 Last administered on 09/02/16 23:42; Admin Dose 1 MG; Start 08/11/16 at 20:00 Ondansetron HCl (Zofran Inj) 4 mg Q6H PRN IV NAUSEA AND/OR VOMITING; Start 08/12 at 10:00 Acetaminophen (Tylenol Supp) 650 mg Q6H PRN [place] PAIN LEVEL 1-3 OR FEVER; Start 08/12/16 at 10:00; Status Future Hold Collagenase (Santyl) 1 applic DAILY TOP Last administered on 09/16/16 09:57; Admin Dose 1 APPLIC; Start 08/18/16 at 12:00 Enoxaparin Sodium (Lovenox) 40 mg DAILY SC Last administered on 09/16/16 09:57 ; Admin Dose 40 MG; Start 08/18/16 at 17:30 Ascorbic Acid (Vitamin C) 1,000 mg DAILY GTB Last administered on 09/16/16 09: 55; Admin Dose 1,000 MG; Start 08/28/16 at 11:30 Zinc Sulfate (Zinc Sulfate) 220 mg BID GTB Last administered on 09/16/16 09:55 ; Admin Dose 220 MG; Start 08/28/16 at 21:00 Lansoprazole (Prevacid) 30 mg DAILY@06 GTB Last administered on 09/16/16 06:07 ; Admin Dose 30 MG; Start 09/09/16 at 06:00 Furosemide 20 mg 20 mg AM IV Last administered on 09/16/16 09:56; Admin Dose 20 MG; Start 09/11/16 at 09:00 Meropenem (Merrem 1 Gm/100 ml (Pmx)) 100 ml @ 200 mls/hr Q12 IVPB Last administered on 09/16/16 10:01; Admin Dose 200 MLS/HR; Start 09/12/16 at 10:30 Triamcinolone (Kenalog 0.1% Lotion) 1 applic TID TOP Last administered on 09:57; Admin Dose 1 APPLIC; Start 09/14/16 at 21:00 Midodrine (Proamatine) 5 mg TID@,,17 NGT Last administered on 09/16/16 09: 56; Admin Dose 5 MG; Start 09/16/16 at 09:00 Ferrous Sulfate (Feosol Liquid Cup) 300 mg BID GTB ; Start 09/16/16 at 21:00 Rachid Mcmahon DO Sep 16, 2016 13:55
--- NOTE | 2016-09-16 13:55 | PN ---
DATE: 09/16/2016 SUBJECTIVE: Patient is resting comfortably. Blood pressure stable on lower dose midodrine. Pulse still approximately the same. The patient currently is stable, the best that she has been. She is now cleared for debridement. OBJECTIVE: VITAL SIGNS: Blood pressure 132/59, pulse is between 103 and 125, temperature is 98.5, pulse ox is 102 liters nasal cannula. CARDIOVASCULAR: Regular rhythm. LUNGS: No wheezes, no rhonchi, no crackles. LOWER EXTREMITIES: No pitting. LABORATORY DATA: WBC 13.8, the same. Hemoglobin 10.1, the same. Platelets 564. AST and ALT are 6 2 and 82, creatinine is 0.53, and iron is 46. ASSESSMENT AND PLAN: 1. Sacral decubiti with probable osteomyelitis. The patient on Merrem. White count is mildly elev ated. Due to the improvement of the liver function tests, patient is now cleared for debridement an d possibility of flap at a later time. We will let the surgeon know. 2. Elevated liver function tests. This was thought to be either due to the fluconazole or the Zosy n. Both of them were stopped. Antibiotics were changed to Merrem. Currently at this time, the darcy er function tests have improved. There are now less than 100. Patient is now stable for the proced ure. 3. Aspiration pneumonia. Appears to be stable. 4. Anemia. Doing very well. Hemoglobin at 10. Iron is actually low at 40. Will restart her iron at b.i.d. It was decreased to every day as of yesterday. 5. Tachycardia. The patient has remained approximately between 100 and 120. Currently that is wha t her normal is. No changes in treatment. 6. Hypernatremia, resolved. 7. Candiduria. Continue to watch. Infectious disease is following. Dictated By: QIANA OLMEDO/FIDELIA Conf#: [id number] DID#: [id number]
[2016-09-16 19:53] VITALS: BP 109/56; RESP 20
[2016-09-16] MEDS ORDERED: LIDOCAINE 1% (MDV) 20 ML INJ SC ONE (20:00)
[2016-09-16] MEDS ORDERED: SILVER NITRATE SWAB TOP ONE (20:00)
[2016-09-16] MEDS: FERROUS SULFATE 60 MG/ML 5ML CUP GTB SCH (21:20)
[2016-09-17] MEDS: LEVALBUTEROL (NEB) 0.63 MG/3 ML AMP HHN SCH ×4 (01:43→20:43)
[2016-09-17 05:51] LABS: ADD SCAN DIFF NO
[2016-09-17 05:54] LABS: ABNORMAL IP MESSAGE 1; BASOPHILS % 0.2 % (0.0-2.0); EOSINOPHILS # 3.1 10^3/ul (0.0-0.5); EOSINOPHILS % 20.8 % (0.0-7.0); HEMATOCRIT 33.9 % (37.0-47.0); HEMOGLOBIN 10.1 g/dl (12.0-16.0); LYMPHOCYTES # 1.8 10^3/ul (0.8-2.9); MEAN CORPUSCULAR HGB CONC 29.8 g/dl (32.0-37.0); MEAN PLATELET VOLUME 9.7 fl (7.4-10.4); MONOCYTES % 6.8 % (0.0-11.0); NEUTROPHIL # 8.9 10^3/ul (1.6-7.5); NEUTROPHILS % 59.3 % (39.0-77.0); PLATELET COUNT 502 10^3/UL (140-415); RED BLOOD COUNT 3.26 10^6/ul (4.20-5.40); RED CELL DISTRIBUTION WIDTH 18.3 % (11.5-14.5); WHITE BLOOD COUNT 14.9 10^3/ul (4.8-10.8)
[2016-09-17] MEDS: LANSOPRAZOLE 30 MG CAP GTB SCH (06:02)
[2016-09-17 06:20] LABS: ALBUMIN 3.5 g/dl (3.3-4.9); ALBUMIN/GLOBULIN RATIO 0.92; BILIRUBIN,INDIRECT 0.1 mg/dl (0-1.1); BILIRUBIN,TOTAL 0.1 mg/dl (0.2-1.3); CALCIUM 8.5 mg/dl (8.4-10.2); CREATININE 0.48 mg/dl (0.44-1.00); POTASSIUM 4.1 mmol/L (3.5-5.1); TOTAL PROTEIN 7.3 g/dl (6.1-8.1)
[2016-09-17 08:00] VITALS: BP 130/64; RESP 18
[2016-09-17] MEDS: MEROPENEM 1 GM/100 ML (PMX) 100 ML IVPB SCH ×2 (09:37→21:17)
[2016-09-17] MEDS: ASCORBIC ACID 500 MG TAB GTB SCH (09:38)
[2016-09-17] MEDS: FERROUS SULFATE 60 MG/ML 5ML CUP GTB SCH ×2 (09:38→21:17)
[2016-09-17] MEDS: ZINC SULFATE 220 MG CAP GTB SCH ×2 (09:38→21:17)
[2016-09-17] MEDS: FUROSEMIDE 20 MG INJ IV SCH (09:40)
[2016-09-17] MEDS: MIDODRINE 5 MG TAB NGT SCH ×2 (09:43→14:00)
[2016-09-17] MEDS: ENOXAPARIN 40 MG/0.4 ML SYG SC SCH (09:45)
[2016-09-17] MEDS: TRIAMCINOLONE ACET 0.1% 60 ML LOT TOP SCH ×3 (09:46→21:18)
[2016-09-17] MEDS: COLLAGENASE 30 GM TUBE TOP SCH (09:46)
--- NOTE | 2016-09-17 11:54 | PN ---
Date/Time of Note Date/Time of Note DATE: 09/16/16 TIME: 11:51 Assessment/Plan Lines/Catheters IV Catheter Type (from [facility]): PICC Line [place] in Place (from [facility]): Yes Assessment/Plan Chief Complaint/Hosp Course 1. 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 -offloading, -local wound care, -nutritional optimization, -vitamin C 1000 mg a day -debridement today since cleared. 2. Deep tissue injury, left shoulder and other decubitus areas. Continue as above. 3. Anemia without evidence of acute blood loss. Continue monitoring. 4. Functional quadriplegia. Continue offloading with q.2 hour position change and air mattress and nutrition optimization. 5. End-stage dementia and Alzheimer's. Continue medical optimization. 6. Tachyarrhythmia of unknown etiology. Will defer to medical team for further workup and treatment. 7. Dysphagia, on tube feeds. 8. Hypoalbuminemia. Continue nutritional optimization. 9. Hematuria -monitor 10. Transaminitis. US with steatosis. Improving. Thank you Late entry 09/16 Problems: Subjective 24 Hr Interval Summary Transaminitis improving. No chills. Fever. No vomiting. No cough. No sz. No bloating. Tachyarrhythmias. Hg stable. No rashes. Patient cleared for surgery. Exam/Review of Systems Vital Signs Vitals Vital Signs Date Time Temp Pulse Resp B/P Pulse Ox O2 Delivery O2 Flow Rate FiO2 09/17/16 11:23 Nasal Cannula 2.0 09/17/16 09:29 110 26 98 09/16/16 19:53 99.2 109/56 Intake and Output 09/16/16 09/16/16 09/17/16 15:00 23:00 07:00 Intake Total 100 ml 1500 ml Output Total 900 ml Balance 100 ml 600 ml Exam Free Text/Dictation GENERAL: Noncommunicative, contracted state. HEENT: Pupils are sluggish. No scleral icterus. Mucous membranes are moist. NECK: No crepitus with baseline rigidity. PULMONARY: Normal respiratory effort. No wheezing. HEART: S1, S2 and irregular. ABDOMEN: Soft. PEG in place. EXTREMITIES: Contracted without edema. VASCULAR: Capillary refill is over 3 seconds. NEUROLOGIC: Does not follow commands, however opens eyes. SKIN: No rashes. No jaundice. Multiple areas of bruising. Multiple decubitus wounds, especially sacrococcyx and left buttock with debris. Left shoulder deep tissue injury. LYMPHATICS: No inguinal or cervical lymphadenopathy. Results Result Diagram: 09/17/16 0430 09/17/16 0430 JAS VILLAGRAN MD Sep 17, 2016 11:53
--- NOTE | 2016-09-17 11:57 | OPR ---
Date/Time of Note Date/Time of Note DATE: 09/17/16 TIME: 11:54 Operative Report Procedure Date: Sep 17, 2016 Preoperative Diagnosis Sacral stage 4 decubitus pressure ulcer with necrotic debris Postoperative Diagnosis Same, 4x3cm Operation Performed Excisional debridement of sacral skin, subcutaneous, & fascia. 4x3cm Surgeon: JAS VILLAGRAN MD Anesthesia: other (Local) Estimated Blood Loss: minimal Specimens None Tubes/Drains Gauze Complications: None Pt Condition Post Procedure: stable Disposition: other (In own room) Indications Per notes. r/b/a were fully reviewed with children as per usual and customary Procedure Description Patient placed lateral decub with all pressure points well padded. Timeout performed. Local anesthetic administered. Using scalpel, the necrotic tissue of skin, subq, and fascia were debrided to healthier edges. Dressing applied. Copies To: CC: QIANA TSAI MD, SAMUEL MD Sep 17, 2016 11:57
--- NOTE | 2016-09-17 11:58 | PN ---
Date/Time of Note Date/Time of Note DATE: 09/17/16 TIME: 11:57 Assessment/Plan Lines/Catheters IV Catheter Type (from [facility]): PICC Line [place] in Place (from [facility]): Yes Assessment/Plan Chief Complaint/Hosp Course 1. Sacral coccygeal decubitus ulceration s/p excisional debridement 09/16. -offloading, -local wound care, -nutritional optimization, -vitamin C 1000 mg a day 2. Deep tissue injury, left shoulder and other decubitus areas. Continue as above. 3. Anemia without evidence of acute blood loss. Continue monitoring. 4. Functional quadriplegia. Continue offloading with q.2 hour position change and air mattress and nutrition optimization. 5. End-stage dementia and Alzheimer's. Continue medical optimization. 6. Tachyarrhythmia of unknown etiology. Will defer to medical team for further workup and treatment. 7. Dysphagia, on tube feeds. 8. Hypoalbuminemia. Continue nutritional optimization. 9. Hematuria -monitor 10. Transaminitis. US with steatosis. Improving. Thank you Problems: Subjective 24 Hr Interval Summary s/p Exc debridement of sacral pressure ulcer 09/16. Transaminitis improving. No chills. Fever. No vomiting. No cough. No sz. No bloating. Tachyarrhythmias. Hg stable. No rashes. Patient cleared for surgery. Exam/Review of Systems Vital Signs Vitals Vital Signs Date Time Temp Pulse Resp B/P Pulse Ox O2 Delivery O2 Flow Rate FiO2 09/17/16 11:23 Nasal Cannula 2.0 09/17/16 09:29 110 26 98 09/16/16 19:53 99.2 109/56 Intake and Output 09/16/16 09/16/16 09/17/16 15:00 23:00 07:00 Intake Total 100 ml 1500 ml Output Total 900 ml Balance 100 ml 600 ml Exam Free Text/Dictation GENERAL: Noncommunicative, contracted state. HEENT: Pupils are sluggish. No scleral icterus. Mucous membranes are moist. NECK: No crepitus with baseline rigidity. PULMONARY: Normal respiratory effort. No wheezing. HEART: S1, S2 and irregular. ABDOMEN: Soft. PEG in place. EXTREMITIES: Contracted without edema. VASCULAR: Capillary refill is over 3 seconds. NEUROLOGIC: Does not follow commands, however opens eyes. SKIN: No rashes. No jaundice. Multiple areas of bruising. Multiple decubitus wounds, especially sacrococcyx and left buttock. Left shoulder deep tissue injury. LYMPHATICS: No inguinal or cervical lymphadenopathy. Results Result Diagram: 09/17/160 09/17/16 0430 JAS VILLAGRAN MD Sep 17, 2016 11:58
[2016-09-17] MEDS ORDERED: MIDODRINE 5 MG TAB NGT PRN (17:00)
--- NOTE | 2016-09-17 17:09 | PN ---
DATE: 09/17/2016 SUBJECTIVE: The patient underwent debridement of her sacral decubiti, did very well. Currently re sting well, appears more awake today. No other acute changes. PHYSICAL EXAMINATION: VITAL SIGNS: Temperature 97.0, pulse 110 to 120, pulse oximetry is 98% on 2 liters nasal cannula, b lood pressure is 130/64. PULMONARY: No wheeze, no rhonchi. CARDIOVASCULAR: Regular rhythm. ABDOMEN: Soft, nontender. EXTREMITIES: Lower extremities have no pitting edema. LABORATORY DATA: Demonstrates AST 65, ALT 73. WBC is 14.9, hemoglobin 10.1. ASSESSMENT AND PLAN: 1. Sacral decubiti with probable osteomyelitis, on imipenem, status post debridement today, doing w ell. Will discuss with surgeon if patient is able to go home or is more scheduling of further debri santiago or flap is necessary prior to the patient being discharged. 2. Elevated liver function tests, continues to improve. The patient's Diflucan and Zosyn were disc ontinued and changed to Merrem in hopes that this was the source. 3. Aspiration pneumonia appears to be stable. WBC is elevated, has not normalized yet. 4. Anemia appears to be doing fairly well, is currently in the 10s. 5. Tachycardia is still the same, no change. 6. Hypotension. The patient has been receiving midodrine, it was decreased from 10 mg to 5 mg t.i. d. Blood pressure still remains stable. We will try to discontinue the midodrine now and see if he r blood pressure remains normal. 7. Also, lungs sound good. We will try discontinuing the Lasix as well and see how the respiration goes. 8. Hypernatremia, resolved. 9. Candiduria. Continue to watch. Dictated By: QIANA OLMEDO/FIDELIA Conf#: [id number] DID#: [id number]
[2016-09-17 20:10] VITALS: BP 99/54; RESP 17
[2016-09-18] MEDS: LEVALBUTEROL (NEB) 0.63 MG/3 ML AMP HHN SCH ×4 (01:37→20:38)
[2016-09-18 05:12] LABS: ADD SCAN DIFF NO
[2016-09-18 05:18] LABS: ABNORMAL IP MESSAGE 1; BASOPHIL # 0.1 10^3/ul (0.0-0.1); BASOPHILS % 0.3 % (0.0-2.0); EOSINOPHILS # 3.1 10^3/ul (0.0-0.5); HEMATOCRIT 30.8 % (37.0-47.0); HEMOGLOBIN 9.3 g/dl (12.0-16.0); LYMPHOCYTES # 2.3 10^3/ul (0.8-2.9); LYMPHOCYTES % 12.8 % (15.0-51.0); MEAN CORPUSCULAR HEMOGLOBIN 31.3 pg (29.0-33.0); MEAN CORPUSCULAR HGB CONC 30.2 g/dl (32.0-37.0); MEAN CORPUSCULAR VOLUME 103.7 fl (82.0-101.0); MEAN PLATELET VOLUME 9.8 fl (7.4-10.4); MONOCYTE # 1.2 10^3/ul (0.3-0.9); MONOCYTES % 6.6 % (0.0-11.0); NEUTROPHIL # 11.5 10^3/ul (1.6-7.5); NEUTROPHILS % 62.6 % (39.0-77.0); PLATELET COUNT 519 10^3/UL (140-415); RED BLOOD COUNT 2.97 10^6/ul (4.20-5.40); RED CELL DISTRIBUTION WIDTH 17.8 % (11.5-14.5); WHITE BLOOD COUNT 18.3 10^3/ul (4.8-10.8)
[2016-09-18] MEDS: LANSOPRAZOLE 30 MG CAP GTB SCH (05:37)
[2016-09-18 05:40] LABS: EOSINOPHILS % 16.9 % (0.0-7.0)
[2016-09-18 05:48] LABS: ALBUMIN 3.8 g/dl (3.3-4.9); ALBUMIN/GLOBULIN RATIO 0.97; BILIRUBIN,INDIRECT 0.3 mg/dl (0-1.1); BILIRUBIN,TOTAL 0.3 mg/dl (0.2-1.3); CALCIUM 8.6 mg/dl (8.4-10.2); CREATININE 0.51 mg/dl (0.44-1.00); TOTAL PROTEIN 7.7 g/dl (6.1-8.1)
[2016-09-18 08:07] VITALS: BP 108/61; RESP 20
[2016-09-18] MEDS: ZINC SULFATE 220 MG CAP GTB SCH ×2 (09:46→20:57)
[2016-09-18] MEDS: ASCORBIC ACID 500 MG TAB GTB SCH (09:46)
[2016-09-18] MEDS: MEROPENEM 1 GM/100 ML (PMX) 100 ML IVPB SCH ×2 (09:46→20:58)
[2016-09-18] MEDS: FERROUS SULFATE 60 MG/ML 5ML CUP GTB SCH ×2 (09:47→20:57)
[2016-09-18] MEDS: COLLAGENASE 30 GM TUBE TOP SCH (09:47)
[2016-09-18] MEDS: TRIAMCINOLONE ACET 0.1% 60 ML LOT TOP SCH ×3 (09:47→20:58)
[2016-09-18] MEDS: ENOXAPARIN 40 MG/0.4 ML SYG SC SCH (09:49)
--- NOTE | 2016-09-18 11:05 | CONS ---
Date/Time of Note Date/Time of Note DATE: 09/18/16 TIME: 10:58 Assessment/Plan Assessment/Plan Chief Complaint/Hosp Course 1) ARF u/a does not suggest infection, likely due to dehydration 08/13 - improving with hydration 08/14 - continues to improve, will increase dose of zosyn urine cx was negative 08/15 - pretty much resolved 2) pneumonia check procalcitonin get nasal swab for MRSA continue with vanco, change cefepime to zosyn likely aspiration 08/13 - wbc is improving, continue with vanco/zosyn 08/14 - wbc continues to improve, no MRSA found d/c vanco and continue with zosyn and increase its dose 08/15 - only on zosyn now and wbc is improving pt getting echo and asked tech to quantify the L sided pleural effusion too 08/17 - echo only reported presence of L pleural effusion no good evidence to suggest an empyema continue with zosyn 08/18 - stable, pt completes were treatment course for pneumonia today 08/20 - minimally elevated procalcitonin on 08/13 no further treatment needed for pneumonia but on zosyn for probable sacral osteo 09/03 - more haziness over L base, but no increase in WBC continue with zosyn, check procalcitonin in a.m. repeat nasal swab for MRSA consider hospice for patient 09/04 - neg for MRSA 09/05 - no change continue with zosyn, await repeat procalcitonin fevers are improving 09/08 - pt likely re-aspirating on vanco/zosyn/diflucan and stable will continue vanco/diflucan for a total of 7 days 09/10 - d/c diflucan yesterday due to increase in LFT's again continue vanco thru tomorrow 09/12 - d/c vanco, wound cx has no MRSA 09/18 - I suspect pt is re-aspirating will repeat CXR 3) sacral wound ulcer, likely osteo check ESR, CRP and if very high then would treat as if osteomyelitis if not very high will order bone scan for ultimate healing if this is indeed osteo she will likely need plastic surgery involvement her low albumin suggest she would have poor tissue healing will get wound cx of deeper wound 08/13 - ESR is very high, c/w osteomyelitis wound cx has gnr's and GPC continue with vanco/zosyn at present 08/14 - no MRSA found, d/c vanco and continue with zosyn pt likely has osteo due to high ESR will follow ESR weekly for response unlikely that antibiotics alone will heal the sacral wounds 08/15 - continue with zosyn unlikely that antibiotics alone will heal these sacral wounds 08/17 - pt likely has osteo but unlikely antibiotics will cure this usual treatment course for osteo is 6 weeks of antibiotics unlikely antibiotics alone will be curative repeat ESR and CRP in a.m. 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 repeat ESR and CRP are pending it is unlikely that antibiotics alone will be curative 08/20 - day of zosyn ESR elevated c/w osteomyelitis CRP did improve a bit but antibiotics unlikely to be curative recommend weekly esr, crp and if not improving then would d/c antibiotics 08/27 - Day of zosyn CRP has come down slowly, ESR has actually increased but sometimes the ESR is delayed in improvement Nonetheless it has almost doubled If surgical debridement it to be done then pt will need deep surgical cultures sent to verify that no resistant organisms are being missed continue with zosyn at present pt will likely need a muscle flap if cure of osteomyelitis is the goal and it would be helpful to get bone biopsy and culture with deep tissue culture prior to that to help guide if any change in antibiotics is needed 08/29 - no new recommendations if surgery is done, please get deep surgical wound cx and if possible bone cx/ biopsy continue with zosyn (day 19) 09/01 - day of zosyn still awaiting family decision regarding debridement and flap if debridement is done please get deep surgical wound cx and ideally bone bx/cx crp continues to improve, ESR is pending 09/03 - ESR was minimally improved family agrees to debridement but now in ICU due to hypotension 09/04 - stable, off levophed continue with zosyn 09/10 - ESR barely decreasing no soon debridement is seen will repeat wound cx at this time 09/12 - wound cx has resistant enterobacter d/c vanco (no MRSA still), change zosyn to merrem 09/14 - pt tolerating merrem zosyn could cause increase in LFT's and alk phos 09/16 - ESR improved on merrem enterococcus in wound cx likely not significant continue with merrem alone 09/18 - CRP is down too continue with merrem await debridemnt and deeper wound cx 4) severe dementia 5) candiduria 09/05 no pyuria but has hematuria, doubt this is significant, no need to treat 09/08 - pt was placed on diflucan will continue for a 7 day course repeat urine cx is NGTD 09/10 - diflucan stopped yesterday due to increase in LFT's repeat u/a and urine cx 6) increase in alk phos and LFT's 09/12 - no change with d/c of diflucan, will d/c zosyn as it too could be the culprit will order RUQ u/s too 09/14 - LFT's improving, this was probably due to zosyn rather than the diflucan zosyn can cause a cholestatic picture in some patients continue with merrem RUQ u/s only suggested hepatic steatosis 09/16 - improving LFT's 7) skin rash 09/14 - this was present 2 days ago but now more c/w drug eruption this could have been due to vanco or zosyn she is off both now and only on merrem 09/16 - rash is improved 09/18 - rash continues to improve 8) new low grade fever 09/18 - pt has cough and curiel present, no diarrhea will order blood cx from picc line get u/a and urine cx repeat CXR continue with merrem at present Problems: Consultation Date/Type/Reason Admit Date/Time August 11, 2016 at 19:00 Initial Consult Date 08/12/16 Type of Consultation: ID [id number] HR Interval Summary Free Text/Dictation spoke to nurse pt has a cough and has to be suctioned with phlegm in mouth she had a low grade fever last night no V, D Exam/Review of Systems Vital Signs Vitals Vital Signs Date Time Temp Pulse Resp B/P Pulse Ox O2 Delivery O2 Flow Rate FiO2 09/18/16 09:00 Nasal Cannula 2.0 09/18/16 08:07 98.5 112 20 108/61 100 Intake and Output 09/17/16 09/17/16 09/18/16 15:00 23:00 07:00 Intake Total 100 ml 1220 ml 1120 ml Output Total 400 ml Balance 100 ml 1220 ml 720 ml Exam Constitutional: non-verbal Eyes: nl conjunctiva ENMT: mucosa pink and moist Respiratory: clear to auscultation Cardiovascular: regular rate and rhythm Gastrointestinal: non-tender, soft Skin: other (rash is fading) Results Result Diagram: 09/18/160 09/18/16 0440 Results 24 hrs Laboratory Tests Test 09/18/16 04:40 White Blood Count 18.3 #H Red Blood Count 2.97 L Hemoglobin 9.3 L Hematocrit 30.8 L Mean Corpuscular Volume 103.7 H Mean Corpuscular Hemoglobin 31.3 Mean Corpuscular Hemoglobin Concent 30.2 L Red Cell Distribution Width 17.8 H Platelet Count 519 H Mean Platelet Volume 9.8 Neutrophils % 62.6 Lymphocytes % 12.8 L Monocytes % 6.6 Eosinophils % 16.9 H Basophils % 0.3 Nucleated Red Blood Cells % 0.0 Neutrophils # 11.5 H Lymphocytes # 2.3 Monocytes # 1.2 H Eosinophils # 3.1 H Basophils # 0.1 Nucleated Red Blood Cells # 0.0 Sodium Level 144 Potassium Level 4.0 Chloride Level 101 Carbon Dioxide Level 35 H Anion Gap 12 Blood Urea Nitrogen 27 H Creatinine 0.51 Glucose Level 120 Calcium Level 8.6 Total Bilirubin 0.3 Direct Bilirubin 0.00 Indirect Bilirubin 0.3 Aspartate Amino Transf (AST/SGOT) 74 H Alanine Aminotransferase (ALT/SGPT) 81 H Alkaline Phosphatase 183 H C-Reactive Protein 2.0 H Total Protein 7.7 Albumin 3.8 Globulin 3.90 H Albumin/Globulin Ratio 0.97 Medications Medications Current Medications Morphine Sulfate (morphine) 1 mg Q4H PRN IV PAIN LEVEL 6-10 Last administered on 09/02/16 23:42; Admin Dose 1 MG; Start 08/11/16 at 20:00 Ondansetron HCl (Zofran Inj) 4 mg Q6H PRN IV NAUSEA AND/OR VOMITING; Start 08/12 at 10:00 Acetaminophen (Tylenol Supp) 650 mg Q6H PRN ME PAIN LEVEL 1-3 OR FEVER; Start 08/12/16 at 10:00; Status Future Hold Collagenase (Santyl) 1 applic DAILY TOP Last administered on 09/18/16 09:47; Admin Dose 1 APPLIC; Start 08/18/16 at 12:00 Enoxaparin Sodium (Lovenox) 40 mg DAILY SC Last administered on 09/18/16 09:49 ; Admin Dose 40 MG; Start 08/18/16 at 17:30 Ascorbic Acid (Vitamin C) 1,000 mg DAILY GTB Last administered on 09/18/16 09: 46; Admin Dose 1,000 MG; Start 08/28/16 at 11:30 Zinc Sulfate (Zinc Sulfate) 220 mg BID GTB Last administered on 09/18/16 09:46 ; Admin Dose 220 MG; Start 08/28/16 at 21:00 Lansoprazole 30 mg 30 mg DAILY@06 GTB Last administered on 09/18/16 05:37; Admin Dose 30 MG; Start 09/09/16 at 06:00 Meropenem (Merrem 1 Gm/100 ml (Pmx)) 100 ml @ 200 mls/hr Q12 IVPB Last administered on 09/18/16 09:46; Admin Dose 200 MLS/HR; Start 09/12/16 at 10:30 Triamcinolone (Kenalog 0.1% Lotion) 1 applic TID TOP Last administered on 09:47; Admin Dose 1 APPLIC; Start 09/14/16 at 21:00 Ferrous Sulfate (Feosol Liquid Cup) 300 mg BID GTB Last administered on 09:47; Admin Dose 300 MG; Start 09/16/16 at 21:00 Midodrine (Proamatine) 5 mg TID@,, PRN NGT sbp<90; Start 09/17/16 at 17:00 ERNIE MILLER MD Sep 18, 2016 11:05
--- NOTE | 2016-09-18 12:37 | RADRPT ---
PROCEDURE: XR Chest 1 View. CLINICAL INDICATION: Cough and fever. TECHNIQUE: AP view of the chest was obtained. COMPARISON: September 09, 2016 FINDINGS: The heart size is within normal limits. Calcified atherosclerosis is noted in the aorta. The lower lungs are obscured by the patient's overlying hands. Right-sided PICC line has its tip in the expec la location of the mid superior vena cava.. The lungs are hypoinflated. Interstitial prominence i n both lungs appears unchanged. No consolidations are identified. No pneumothorax is seen. The oss eous structures are osteopenic, but appear grossly intact. IMPRESSION: Calcified atherosclerosis in the aorta. Limited exam with the lower lungs obscured by the patient's overlying hands. Repeat exam with the h ands moved can be considered. Hypoinflated lungs. Chronic interstitial prominence in both lungs. Right-sided PICC line with its tip in the expected location of the mid superior vena cava. RPTAT: AA .López Dent MD, Date Time Electronically viewed and signed by .López Dent MD, on 09/18/2016 12:37 .P/
--- NOTE | 2016-09-18 13:26 | DS ---
DATE OF ADMISSION: 08/11/2016 DATE OF DISCHARGE: 09/18/2016 SUBJECTIVE: No acute changes. The patient has been given clearance from both infectious disease an d surgeon for the ability to be transferred to a SNF. Patient needs to continue with her Merrem up until 10/24/2016. VITAL SIGNS: Temperature 98.5, pulse 112, respirations 20, blood pressure 108/61, pulse ox is 100% on 2 liters nasal cannula. HOSPITAL COURSE: 1. For sacral decubiti with probable osteomyelitis with elevated ESR, the patient was initially on Z osyn and vancomycin, but due to sudden rise of liver function tests, which may have been due to Difl ucan that was started, antibiotics were changed, discontinue of the Zosyn and vancomycin, and Merrem was replaced. The patient, on 09/16/2016, had a debridement of her sacral region, and the surgeon did say that she may be discharged depending on how well she is doing, possibility of flap in the fu ture. 2. For cardiovascular, the patient initially came in bradycardic, but within the first week for some reason patient became tachycardic with a normal pulse of 110 to 125. Since then she has ranged bet ween 100 to 125, appears to be stable for the past 3 weeks. While hospitalized, she also had a hypo tensive occurrence, which was thought due to aspiration pneumonia. She was transferred to ICU and p laced on Levophed. Subsequently, the blood pressure did respond, and was subsequently then discharg ed out of the ICU. Was placed on midodrine 3 times a day and now is currently off the midodrine, an d blood pressure is back to her normal, which is somewhere between 90 to 110 systolic. 3. Respiratory: The patient appears back to normal. She is on 2 liters nasal cannula. She had an aspiration pneumonia with pleural effusions, was started on Lasix. Effusions resolved. Currently i s stable. 4. Renal: The patient came in with hypernatremia, and that did resolve. 5. Gastrointestinal: The patient has a PEG in place. Due to being plugged, it was replaced during this hospitalization. She usually gets food boluses via the family, but while in the hospital, she has been on a drip. May continue on the drip up when she is going into the SNF. 6. Anemia. The patient has been transfused twice of packed red blood cells. Was given Epogen at le ast 3 times. Hemoglobin currently has been stable. She has been on iron. Her iron level has been low subsequently. 7. Severe dementia. She has had this for 10+ years. No changes. Patient does not talk, does not m ove, does not do much of anything. 8. DNR status: The patient is a CHEMICAL CODE ONLY, not to be intubated. Dictated By: QIANA OLMEDO/FIDELIA Conf#: [id number] DID#: [id number]
[2016-09-18 14:24] LABS: ADD UMIC YES; URINE BILIRUBIN (Dip) NEGATIVE (NEGATIVE); URINE BLOOD (Dip) 3+ (NEGATIVE); URINE COLOR LT. YELLOW (YELLOW); URINE GLUCOSE (Dip) NEGATIVE (NEGATIVE); URINE KETONES (Dip) NEGATIVE (NEGATIVE); URINE LEUKOCYTE ESTERASE (Dip) NEGATIVE (NEGATIVE); URINE NITRITE (Dip) NEGATIVE (NEGATIVE); URINE TOTAL PROTEIN (Dip) 2+ (NEGATIVE); URINE UROBILINOGEN (Dip) 0.2 E.U./dL (0.1-1.0)
[2016-09-18 14:52] LABS: BACTERIA,URINE FEW; URINE RBCS >200 /HPF (0)
[2016-09-18 19:59] VITALS: BP 87/50; RESP 19
[2016-09-18 20:54] VITALS: BP 112/51; PULSE 115
[2016-09-19] MEDS: LEVALBUTEROL (NEB) 0.63 MG/3 ML AMP HHN SCH ×3 (01:48→14:07)
[2016-09-19] MEDS: LANSOPRAZOLE 30 MG CAP GTB SCH (05:52)
[2016-09-19 05:59] LABS: ADD SCAN DIFF NO
[2016-09-19 06:08] LABS: ABNORMAL IP MESSAGE 1; BASOPHILS % 0.3 % (0.0-2.0); EOSINOPHILS # 2.3 10^3/ul (0.0-0.5); HEMATOCRIT 31.1 % (37.0-47.0); HEMOGLOBIN 9.3 g/dl (12.0-16.0); LYMPHOCYTES # 1.9 10^3/ul (0.8-2.9); LYMPHOCYTES % 15.5 % (15.0-51.0); MEAN CORPUSCULAR HGB CONC 29.9 g/dl (32.0-37.0); MEAN CORPUSCULAR VOLUME 103.7 fl (82.0-101.0); MEAN PLATELET VOLUME 9.9 fl (7.4-10.4); MONOCYTE # 0.9 10^3/ul (0.3-0.9); NEUTROPHILS % 57.4 % (39.0-77.0); PLATELET COUNT 430 10^3/UL (140-415); RED CELL DISTRIBUTION WIDTH 17.5 % (11.5-14.5); WHITE BLOOD COUNT 12.2 10^3/ul (4.8-10.8)
[2016-09-19 07:40] VITALS: BP 109/55; RESP 22
--- NOTE | 2016-09-19 07:50 | CONS ---
Date/Time of Note Date/Time of Note DATE: 09/19/16 TIME: 07:46 Assessment/Plan Assessment/Plan Chief Complaint/Hosp Course 1) ARF u/a does not suggest infection, likely due to dehydration 08/13 - improving with hydration 08/14 - continues to improve, will increase dose of zosyn urine cx was negative 08/15 - pretty much resolved 2) pneumonia check procalcitonin get nasal swab for MRSA continue with vanco, change cefepime to zosyn likely aspiration 08/13 - wbc is improving, continue with vanco/zosyn 08/14 - wbc continues to improve, no MRSA found d/c vanco and continue with zosyn and increase its dose 08/15 - only on zosyn now and wbc is improving pt getting echo and asked tech to quantify the L sided pleural effusion too 08/17 - echo only reported presence of L pleural effusion no good evidence to suggest an empyema continue with zosyn 08/18 - stable, pt completes were treatment course for pneumonia today 08/20 - minimally elevated procalcitonin on 08/13 no further treatment needed for pneumonia but on zosyn for probable sacral osteo 09/03 - more haziness over L base, but no increase in WBC continue with zosyn, check procalcitonin in a.m. repeat nasal swab for MRSA consider hospice for patient 09/04 - neg for MRSA 09/05 - no change continue with zosyn, await repeat procalcitonin fevers are improving 09/08 - pt likely re-aspirating on vanco/zosyn/diflucan and stable will continue vanco/diflucan for a total of 7 days 09/10 - d/c diflucan yesterday due to increase in LFT's again continue vanco thru tomorrow 09/12 - d/c vanco, wound cx has no MRSA 09/18 - I suspect pt is re-aspirating will repeat CXR 09/19 - no change with CXR continue with just merrem 3) sacral wound ulcer, likely osteo check ESR, CRP and if very high then would treat as if osteomyelitis if not very high will order bone scan for ultimate healing if this is indeed osteo she will likely need plastic surgery involvement her low albumin suggest she would have poor tissue healing will get wound cx of deeper wound 08/13 - ESR is very high, c/w osteomyelitis wound cx has gnr's and GPC continue with vanco/zosyn at present 08/14 - no MRSA found, d/c vanco and continue with zosyn pt likely has osteo due to high ESR will follow ESR weekly for response unlikely that antibiotics alone will heal the sacral wounds 08/15 - continue with zosyn unlikely that antibiotics alone will heal these sacral wounds 08/17 - pt likely has osteo but unlikely antibiotics will cure this usual treatment course for osteo is 6 weeks of antibiotics unlikely antibiotics alone will be curative repeat ESR and CRP in a.m. 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 repeat ESR and CRP are pending it is unlikely that antibiotics alone will be curative 08/20 - day of zosyn ESR elevated c/w osteomyelitis CRP did improve a bit but antibiotics unlikely to be curative recommend weekly esr, crp and if not improving then would d/c antibiotics 08/27 - Day of zosyn CRP has come down slowly, ESR has actually increased but sometimes the ESR is delayed in improvement Nonetheless it has almost doubled If surgical debridement it to be done then pt will need deep surgical cultures sent to verify that no resistant organisms are being missed continue with zosyn at present pt will likely need a muscle flap if cure of osteomyelitis is the goal and it would be helpful to get bone biopsy and culture with deep tissue culture prior to that to help guide if any change in antibiotics is needed 08/29 - no new recommendations if surgery is done, please get deep surgical wound cx and if possible bone cx/ biopsy continue with zosyn (day 19) 09/01 - day 22 of zosyn still awaiting family decision regarding debridement and flap if debridement is done please get deep surgical wound cx and ideally bone bx/cx crp continues to improve, ESR is pending 09/03 - ESR was minimally improved family agrees to debridement but now in ICU due to hypotension 09/04 - stable, off levophed continue with zosyn 09/10 - ESR barely decreasing no soon debridement is seen will repeat wound cx at this time 09/12 - wound cx has resistant enterobacter d/c vanco (no MRSA still), change zosyn to merrem 09/14 - pt tolerating merrem zosyn could cause increase in LFT's and alk phos 09/16 - ESR improved on merrem enterococcus in wound cx likely not significant continue with merrem alone 09/18 - CRP is down too continue with merrem await debridemnt and deeper wound cx 09/19 - pt got wound debrided but no cultures were sent on merrem thru 10/24/16 4) severe dementia 5) candiduria 09/05 no pyuria but has hematuria, doubt this is significant, no need to treat 09/08 - pt was placed on diflucan will continue for a 7 day course repeat urine cx is NGTD 09/10 - diflucan stopped yesterday due to increase in LFT's repeat u/a and urine cx 6) increase in alk phos and LFT's 09/12 - no change with d/c of diflucan, will d/c zosyn as it too could be the culprit will order RUQ u/s too 09/14 - LFT's improving, this was probably due to zosyn rather than the diflucan zosyn can cause a cholestatic picture in some patients continue with merrem RUQ u/s only suggested hepatic steatosis 09/16 - improving LFT's 7) skin rash 09/14 - this was present 2 days ago but now more c/w drug eruption this could have been due to vanco or zosyn she is off both now and only on merrem 09/16 - rash is improved 09/18 - rash continues to improve 09/19 - rash has resolved 8) new low grade fever 09/18 - pt has cough and curiel present, no diarrhea will order blood cx from picc line get u/a and urine cx repeat CXR continue with merrem at present 09/19 - u/a has mild-mod pyuria and continued hematuria ur cx is pending CXR shows no change wbc is back down, likely no new infection Problems: Consultation Date/Type/Reason Admit Date/Time August 11, 2016 at 19:00 Initial Consult Date 08/12/16 Type of Consultation: ID 24 HR Interval Summary Free Text/Dictation no change Exam/Review of Systems Vital Signs Vitals Vital Signs Date Time Temp Pulse Resp B/P Pulse Ox O2 Delivery O2 Flow Rate FiO2 09/19/16 01:48 2.0 09/19/16 01:48 110 20 96 Nasal Cannula 09/19/16 00:07 98.2 09/18/16 20:54 112/51 Intake and Output 09/18/16 09/18/16 09/19/16 15:00 23:00 07:00 Intake Total 100 ml 1220 ml 380 ml Output Total 400 ml 400 ml Balance 100 ml 820 ml -20 ml Exam Constitutional: non-verbal Respiratory: clear to auscultation Cardiovascular: regular rate and rhythm Gastrointestinal: non-tender, soft Skin: other (rash is resolved) Results Result Diagram: 09/19/16 0400 09/18/16 0440 Results 24 hrs Laboratory Tests Test 09/18/16 13:10 09/19/16 04:00 Urine Color LT. YELLOW Urine Clarity CLOUDY Urine pH 7.5 Urine Specific [place] 1.020 Urine Ketones NEGATIVE Urine Nitrite NEGATIVE Urine Bilirubin NEGATIVE Urine Urobilinogen 0.2 E.U./dL Urine Leukocyte Esterase NEGATIVE Urine Microscopic RBC >200 Urine Microscopic WBC 10-25 Urine Epithelial Cells FEW Urine Calcium Oxalate Crystals Urine Bacteria FEW Urine Coarse Granular Casts RARE Urine Waxy Casts Urine Hemoglobin 3+ H Urine Glucose NEGATIVE Urine Total Protein 2+ H White Blood Count 12.2 #H Red Blood Count 3.00 L Hemoglobin 9.3 L Hematocrit 31.1 L Mean Corpuscular Volume 103.7 H Mean Corpuscular Hemoglobin 31.0 Mean Corpuscular Hemoglobin Concent 29.9 L Red Cell Distribution Width 17.5 H Platelet Count 430 H Mean Platelet Volume 9.9 Neutrophils % 57.4 Lymphocytes % 15.5 Monocytes % 7.0 Eosinophils % 19.0 H Basophils % 0.3 Nucleated Red Blood Cells % 0.0 Neutrophils # 7.0 Lymphocytes # 1.9 Monocytes # 0.9 Eosinophils # 2.3 H Basophils # 0.0 Nucleated Red Blood Cells # 0.0 Medications Medications Current Medications Morphine Sulfate (morphine) 1 mg Q4H PRN IV PAIN LEVEL 6-10 Last administered on 09/02/16t 23:42; Admin Dose 1 MG; Start 08/11/16 at 20:00 Ondansetron HCl (Zofran Inj) 4 mg Q6H PRN IV NAUSEA AND/OR VOMITING; Start 08/12 at 10:00 Acetaminophen (Tylenol Supp) 650 mg Q6H PRN [place] PAIN LEVEL 1-3 OR FEVER; Start 08/12/16 at 10:00; Status Future Hold Collagenase (Santyl) 1 applic DAILY TOP Last administered on 09/18/16 09:47; Admin Dose 1 APPLIC; Start 08/18/16 at 12:00 Enoxaparin Sodium (Lovenox) 40 mg DAILY SC Last administered on 09/18/16 09:49 ; Admin Dose 40 MG; Start 08/18/16 at 17:30 Ascorbic Acid (Vitamin C) 1,000 mg DAILY GTB Last administered on 09/18/16 09: 46; Admin Dose 1,000 MG; Start 08/28/16 at 11:30 Zinc Sulfate (Zinc Sulfate) 220 mg BID GTB Last administered on 09/18/16 20:57 ; Admin Dose 220 MG; Start 08/28/16 at 21:00 Lansoprazole 30 mg 30 mg DAILY@06 GTB Last administered on 09/19/16 05:52; Admin Dose 30 MG; Start 09/09/16 at 06:00 Meropenem (Merrem 1 Gm/100 ml (Pmx)) 100 ml @ 200 mls/hr Q12 IVPB Last administered on 09/18/16 20:58; Admin Dose 200 MLS/HR; Start 09/12/16 at 10:30 Triamcinolone (Kenalog 0.1% Lotion) 1 applic TID TOP Last administered on 20:58; Admin Dose 1 APPLIC; Start 09/14/16 at 21:00 Ferrous Sulfate (Feosol Liquid Cup) 300 mg BID GTB Last administered on 20:57; Admin Dose 300 MG; Start 09/16/16 at 21:00 Midodrine (Proamatine) 5 mg TID@ PRN NGT sbp<90; Start 09/17/16 at 17:00 ERNIE MILLER MD Sep 19, 2016 07:50
[2016-09-19] MEDS: ZINC SULFATE 220 MG CAP GTB SCH (09:28)
[2016-09-19] MEDS: ASCORBIC ACID 500 MG TAB GTB SCH (09:28)
[2016-09-19] MEDS: FERROUS SULFATE 60 MG/ML 5ML CUP GTB SCH (09:28)
[2016-09-19] MEDS: ENOXAPARIN 40 MG/0.4 ML SYG SC SCH (09:29)
[2016-09-19] MEDS: MEROPENEM 1 GM/100 ML (PMX) 100 ML IVPB SCH (09:30)
[2016-09-19] MEDS: TRIAMCINOLONE ACET 0.1% 60 ML LOT TOP SCH ×2 (09:31→13:10)
[2016-09-19] MEDS: COLLAGENASE 30 GM TUBE TOP SCH (09:46)
--- NOTE | 2016-09-19 12:59 | CONS ---
Date/Time of Note Date/Time of Note DATE: 09/19/16 TIME: 12:57 Assessment/Plan Assessment/Plan Additional Assessment/Plan Sepsis Sinus tachycardia Preserved ejection fraction Decubiti Possible pneumonia Dementia Intermittent hypotension -Sinus tachycardia likely manifestation of multiple active medical problems. No need for AV node blocking agents at the current time. Patient had midodrine changed to as needed. Continue management as per primary team. Consultation Date/Type/Reason Admit Date/Time August 11, 2016 at 19:00 Initial Consult Date 08/19/16 Type of Consultation: cv 24 HR Interval Summary Free Text/Dictation Patient seen and examined Exam/Review of Systems Vital Signs Vitals Vital Signs Date Time Temp Pulse Resp B/P Pulse Ox O2 Delivery O2 Flow Rate FiO2 09/19/16 08:02 106 20 95 Nasal Cannula 2.0 09/19/16 07:40 98.5 109/55 Intake and Output 09/18/16 09/18/16 09/19/16 15:00 23:00 07:00 Intake Total 100 ml 1220 ml 380 ml Output Total 400 ml 400 ml Balance 100 ml 820 ml -20 ml Exam No apparent distress Constitutional: frail, non-verbal Head: normocephalic Respiratory: other (Coarse breath sounds bilaterally, no wheezing) Cardiovascular: other (S1-S2 heard), regular rate and rhythm Gastrointestinal: bowel sounds, non-tender, soft Extremities: edema Results Result Diagram: 09/19/16 0400 09/18/16 0440 Results 24 hrs Laboratory Tests Test 09/18/16 13:10 09/19/16 04:00 Urine Color LT. YELLOW Urine Clarity CLOUDY Urine pH 7.5 Urine Specific [place] 1.020 Urine Ketones NEGATIVE Urine Nitrite NEGATIVE Urine Bilirubin NEGATIVE Urine Urobilinogen 0.2 E.U./dL Urine Leukocyte Esterase NEGATIVE Urine Microscopic RBC >200 Urine Microscopic WBC 10-25 Urine Epithelial Cells FEW Urine Calcium Oxalate Crystals Urine Bacteria FEW Urine Coarse Granular Casts RARE Urine Waxy Casts Urine Hemoglobin 3+ H Urine Glucose NEGATIVE Urine Total Protein 2+ H White Blood Count 12.2 #H Red Blood Count 3.00 L Hemoglobin 9.3 L Hematocrit 31.1 L Mean Corpuscular Volume 103.7 H Mean Corpuscular Hemoglobin 31.0 Mean Corpuscular Hemoglobin Concent 29.9 L Red Cell Distribution Width 17.5 H Platelet Count 430 H Mean Platelet Volume 9.9 Neutrophils % 57.4 Lymphocytes % 15.5 Monocytes % 7.0 Eosinophils % 19.0 H Basophils % 0.3 Nucleated Red Blood Cells % 0.0 Neutrophils # 7.0 Lymphocytes # 1.9 Monocytes # 0.9 Eosinophils # 2.3 H Basophils # 0.0 Nucleated Red Blood Cells # 0.0 Medications Medications Current Medications Morphine Sulfate (morphine) 1 mg Q4H PRN IV PAIN LEVEL 6-10 Last administered on 09/02/16 23:42; Admin Dose 1 MG; Start 08/11/16 at 20:00 Ondansetron HCl (Zofran Inj) 4 mg Q6H PRN IV NAUSEA AND/OR VOMITING; Start 08/12 at 10:00 Acetaminophen (Tylenol Supp) 650 mg Q6H PRN [place] PAIN LEVEL 1-3 OR FEVER; Start 08/12/16 at 10:00; Status Future Hold Collagenase (Santyl) 1 applic DAILY TOP Last administered on 09/19/16 09:46; Admin Dose 1 APPLIC; Start 08/18/16 at 12:00 Enoxaparin Sodium (Lovenox) 40 mg DAILY SC Last administered on 09/19/16 09:29 ; Admin Dose 40 MG; Start 08/18/16 at 17:30 Ascorbic Acid (Vitamin C) 1,000 mg DAILY GTB Last administered on 09/19/16 09: 28; Admin Dose 1,000 MG; Start 08/28/16 at 11:30 Zinc Sulfate (Zinc Sulfate) 220 mg BID GTB Last administered on 09/19/16 09:28 ; Admin Dose 220 MG; Start 08/28/16 at 21:00 Lansoprazole 30 mg 30 mg DAILY@06 GTB Last administered on 09/19/16 05:52; Admin Dose 30 MG; Start 09/09/16 at 06:00 Meropenem (Merrem 1 Gm/100 ml (Pmx)) 100 ml @ 200 mls/hr Q12 IVPB Last administered on 09/19/16 09:30; Admin Dose 200 MLS/HR; Start 09/12/16 at 10:30 Triamcinolone (Kenalog 0.1% Lotion) 1 applic TID TOP Last administered on 09:31; Admin Dose 1 APPLIC; Start 09/14/16 at 21:00 Ferrous Sulfate (Feosol Liquid Cup) 300 mg BID GTB Last administered on t 09:28; Admin Dose 300 MG; Start 09/16/16 at 21:00 Midodrine (Proamatine) 5 mg TID@,, PRN NGT sbp<90; Start 09/17/16 at 17:00 Rachid Mcmahon DO Sep 19, 2016 12:59
[2016-09-19 16:30] VITALS: BP 108/56; PULSE 104
== END 2016-09-19 17:55 | DRG 853 ==
LOC: E/R 14:11 → MS4 19:00 → ICU 09-02 00:59 → MS4 09-07 17:49 → PP2 09-12 20:11
PROVIDERS: ADMIT Internal Medicine; ATTEND Internal Medicine
PROC: 0D2DXUZ Change Feeding Device in Lower Intestinal Tract, External Approach (ICD-10-PCS; 2016-08-15)
PROC: 30253N1 (ICD-10-PCS; 2016-08-20)
PROC: 02HV33Z Insertion of Infusion Device into Superior Vena Cava, Percutaneous Approach (ICD-10-PCS; 2016-08-25)
PROC: 0JB70ZZ Excision of Back Subcutaneous Tissue and Fascia, Open Approach (ICD-10-PCS; principal; 2016-09-17)
DX: A41.9 Sepsis, unspecified organism (principal); R65.21 Severe sepsis with septic shock; J69.0 Pneumonitis due to inhalation of food and vomit; J96.91 Respiratory failure, unspecified with hypoxia; N17.9 Acute kidney failure, unspecified; J90 Pleural effusion, not elsewhere classified; L89.154 Pressure ulcer of sacral region, stage 4; J18.8 Other pneumonia, unspecified organism; R53.2 Functional quadriplegia; M46.28 Osteomyelitis of vertebra, sacral and sacrococcygeal region; L89.323 Pressure ulcer of left buttock, stage 3; E87.0 Hyperosmolality and hypernatremia; R64 Cachexia; Z68.1 Body mass index [BMI] 19.9 or less, adult; K94.23 Gastrostomy malfunction; E46 Unspecified protein-calorie malnutrition; B37.49 Other urogenital candidiasis; E86.0 Dehydration; G30.9 Alzheimer's disease, unspecified; F02.80 Dementia in other diseases classified elsewhere, unspecified severity, without behavioral disturbance, psychotic disturbance, mood disturbance, and anxiety; Z66 Do not resuscitate; Z93.1 Gastrostomy status; M24.50 Contracture, unspecified joint; D64.9 Anemia, unspecified; K75.9 Inflammatory liver disease, unspecified; E88.09 Other disorders of plasma-protein metabolism, not elsewhere classified; R31.9 Hematuria, unspecified; I95.9 Hypotension, unspecified; D72.829 Elevated white blood cell count, unspecified; L27.0 Generalized skin eruption due to drugs and medicaments taken internally; T36.8X5A Adverse effect of other systemic antibiotics, initial encounter; Y92.239 Unspecified place in hospital as the place of occurrence of the external cause; L89.520 Pressure ulcer of left ankle, unstageable; L89.102 Pressure ulcer of unspecified part of back, stage 2; L89.210 Pressure ulcer of right hip, unstageable; L89.622 Pressure ulcer of left heel, stage 2; L89.892 Pressure ulcer of other site, stage 2; L89.812 Pressure ulcer of head, stage 2; L89.120 Pressure ulcer of left upper back, unstageable; L89.220 Pressure ulcer of left hip, unstageable; L89.890 Pressure ulcer of other site, unstageable
CPT/HCPCS: 36430; 36569; 36600; 71010; 74000; 76705; 76937; 80048; 80053; 80202; 81001; 81003; 82150; 82270; 82607; 82746; 82803; 82962; 83036; 83540; 83605; 83690; 83735; 83880; 84100; 84145; 84484; 85014; 85018; 85025; 85378; 85610; 85651; 85730; 86140; 86850; 86900; 86901; 86920; 87040; 87070; 87081; 87086; 93005; 93306; 93970; 94640; 94664; 96374; 96375; J1940; C9113; J0692; J0885; J1450; J1650; J1885; J2185; J2270; J2543; J3370; J3475; J3480; J7030; J7040; J7042; J7060; J7070; P9016; Q4081